=== PATIENT | female | born 1945 | race African-American/Black ===

== ENCOUNTER 2018-10-07 15:28 | Emergency (ER) | payer OTHER ==
--- OUTSIDE RECORDS SUMMARY | 2018-10-07 15:31 | XMS REPORT | Continuity of Care Document ---
:1945 Author Organization Interface Problems Problem Status Onset Date Classification Date Comments Source Reported R59.9 CT Active 07/04/2017 [facility] GUIDED [facility]ONE [place] MARROW BIOPSY/A Medications Medication Details Route Status Patient Ordering Order Source Instructions Provider Date Allergies, Adverse Reactions, Alerts Substance Category Reaction Severity Reaction Status Date Comments Source type Reported Immunizations Immunization Date Given Site Status Last Updated Comments Source Results Order Name Results Value Reference Date Interpretation Comments Source [facility] HEMATOLOGY MCV 92.0 fL 80.0 - 07/04 [facility] 98.0 [facility] HEMAT[facility] Hgb 14.3 g/dL 12.0 - 07/04 16.0 [facility]EMAT[facility] Hct 43.9 % 36.0 - 07/04 48.0 [facility] HEMAT[facility] MCH 29.9 pg 27.0 - 07/04 31.0 [facility] HEMAT[facility] Platelet 222 K/CMM 133 - 450 07/04 [facility] HEMAT[facility] MCHC 32.5 g/dL 32.0 - 07/04 36.0 [facility] HEMAT[facility]Y RDW 15.8 % 11.5 - 07/04 MH 14.5 [facility] HEMAT[facility]Y MPV 10.4 fL 7.4 - 10.4 07/04 [facility] HEMAT[facility]Y RBC 4.78 M/CMM 4.20 - 07/04 MH 5.40 /2016 [facility] HEMATOLOGY WBC 15.9 K/CMM 3.7 - 10.4 07/04 [facility] HEMATOLOGY PT 13.0 s 12.0 - 07/04 MH 14.7 [facility] HEMAT[facility]Y INR 0.96 0.85 - 07/04 MH 1.17 [facility] HEMAT[facility] PTT 26.5 s 22.9 - 07/04 MH 35.8 [facility] HEMATOLOGY Platelet 219 K/CMM 133 - 450 07/04 [facility] HEMATOLOGY Plt Morph Normal 07/04 [facility] (07/04/17 8:16 AM) [place] HEMATOLOGY Segs 69.3 % 45.0 - 07/04 MH 75.0 /2016 [facility] HEMATOLOGY Lymphocytes 23.0 % 20.0 - 07/04 40.0 /2016 [facility] HEMATOLOGY Eosinophils 0.1 K/CMM 0.0 - 0.5 07/04 # /2016 [facility] HEMATOLOGY Monocytes # 1.1 K/CMM 0.0 - 0.8 07/04 [facility] HEMATOLOGY Basophils # 0.1 K/CMM 0.0 - 0.2 07/04 [facility] HEMATOLOGY Anisocyte 1+ None Seen 07/04 [facility] *ABN* [place] (07/04/17 8:16 AM) HEMATOLOGY Eosinophils 0.4 % 0.0 - 4.0 07/04 [facility] HEMATOLOGY Monocytes 6.7 % 2.0 - 12.0 07/04 [facility] HEMATOLOGY Segs-Bands # 11.0 K/CMM 1.5 - 8.1 07/04 [facility] HEMATOLOGY Basophils 0.6 % 0.0 - 1.0 07/04 [facility] HEMATOLOGY Lymphocytes 3.7 K/CMM 1.0 - 5.5 07/04 # /2016 [facility] Bone biopsy Bone biopsy PROCEDURES PERFORMED: 07/04 - w guidance w guidance /2016 - [facility] CT CT 1. Bone Marrow aspiration and core needle biopsy. [place] 2. CT guidance. Read by: Virgil Galloway MD Dictated Date/time: 07/04/17 10:51 3. Moderate Sedation Electronically Signed by: Virgil Galloway MD 07/04/17 10:55 FINAL REPORT HISTORY: Abnormal blood differential and anemia. Bone marrow biopsy requested. Possible risks and complications of the procedure were discussed with the patient. Possible risks including pain, infection, bleeding, nondiagnostic sampling with need for resampling were discussed. The patient understood and asked to proceed. SEDATION: Moderate sedation for 30 minutes with fentanyl and Versed was carried out with monitoring by the nursing staff and myself throughout the procedure. DLP: 157.61 mgy-cm AEC, mA/kV adjustment by patient size, and/or iterative reconstruction technique were used, per departmental dose-optimization program. PROCEDURE: Sterile barrier technique was followed including: Cap and mask, sterile gown, sterile gloves, and large sterile sheet. Hand hygiene, and 2% chlorhexidine for cutaneous antisepsis (or acceptable alternative antiseptics, per current guideline). The patient was placed supine on the CT scanner and a focused non-contrast scan of the pelvis was performed. The right gluteal region was prepped and draped in a standard sterile fashion. After administering local anesthesia, an 18-gauge bone biopsy needle was advanced with CT guidance into the right iliac bone. Satisfactory position was confirmed with CT. Approximately 7 cc of marrow was aspirated and given to the field installation technician for preparation. An 8 gauge bone biopsy needle was then advanced under CT guidance into the right iliac bone and a core sample was obtained and given to the pulmonary function technologist in the room. Satisfactory position was confirmed under CT. The patient tolerated the procedure well, and there were no immediate complications. IMPRESSION: Bone marrow aspiration and core needle biopsy with CT guidance of the right iliac bone. Vital Signs Vital Sign Value Date Comments Source BMI Calculated 21.03 07/04/2017 [facility] Height 167.64 cm 07/04/2017 [facility] Weight 59.091 07/04/2017 [facility] Temperature Oral (F) 97.6 F 07/04/2017 [facility] Respitory Rate 18 07/04/2017 [facility] Systolic (mm Hg) 138 07/04/2017 [facility] Diastolic (mm Hg) 69 07/04/2017 [facility] Encounters Location Location Encounter Encounter Reason Attending ADM DC Status Source Details Type Number For Provider Date Date Visit [facility] Outpatient [id number] [place] 07/04 07/05 Miko Lou [place] [place] Procedures Procedure Code Date Perfomer Comments Source
--- OUTSIDE RECORDS SUMMARY | 2018-10-07 15:31 | XMS REPORT ---
:1945 Author Organization eClinicalWorks Care Team Providers Name Role Phone Webster, Na Provider Role Unavailable Allergies, Adverse Reactions, Alerts Substance Reaction Event Type N.K.D.A. Info Not Available Non Drug Allergy Problems Problem Type Condition Code Onset Dates Condition Status Problem Abnormal mammogram R92.8 Active Problem Anemia D64.9 Active Problem Hypomagnesemia E83.42 Active Problem AAA (abdominal aortic aneurysm) I71.4 Active without rupture Assessment Hypomagnesemia E83.42 Active Problem Cigarette nicotine dependence F17.210 Active without complication Assessment Abdominal aneurysm I71.4 Active Assessment Hypokalemia E87.6 Active Problem Hypokalemia E87.6 Active Problem Benign essential HTN I10 Active Problem GERD (gastroesophageal reflux K21.9 Active disease) Problem Nicotine dependence F17.200 Active Problem Hyperlipidemia E78.5 Active Assessment Gastroesophageal reflux disease K21.9 Active without esophagitis Assessment 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 Assessment Hyperlipidemia E78.5 Active Assessment Benign essential HTN I10 Active Problem Pure hypercholesterolemia E78.00 Active Problem Stented coronary artery Z95.5 Active Problem Smoker F17.200 Active Assessment Cigarette nicotine dependence F17.210 Active without complication Problem Gastroesophageal reflux disease K21.9 Active without esophagitis Problem 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 Medications Medication Code Code Instructions Start End Status Dosage System Date Date Magnesium Oxide ND 12488927613 400 MG Orally Active 1 tablet Once a day as needed Gabapentin ND 01127666737 300 MG Orally Active 1 capsule Once a day before bedtime Simvastatin ND 81257257024 20 MG Orally Active 1 tablet Once a day in the evening ProAir HFA [facility] 76190226193 108 (90 Base) Active 2 puffs MCG/ACT as needed Inhalation every 6 hrs Potassium Chloride ER ND 75648762871 10 MEQ Orally Active 1 tablet twice a day with food Ferrous Sulfate ND 75579987461 325 (65 Fe) MG Active 1 tablet Orally Once a day Ergocalciferol [facility] 71919285570 44486 UNIT Active 1 capsule Orally Hydrochlorothiazide [facility] 04416495407 25 MG Active TAKE 1 TABLET BY MOUTH ONCE A DAY Metoprolol Succinate [facility] 74791484903 100 MG Orally Active 1 tablet ER Once a day Advair Diskus [facility] 91465890875 100-50 Active 1 puff MCG/DOSE Inhalation Twice a day Protonix [facility] 66515382157 40 MG Active TAKE 1 TABLET BY MOUTH ONCE A DAY Zocor [facility] 16052045570 20 MG Active TAKE 1 TABLET BY MOUTH DAILY Results No Known Results Summary Purpose eClinicalWorks Submission
--- OUTSIDE RECORDS SUMMARY | 2018-10-07 15:31 | XMS REPORT ---
:1945 Author Organization eClinicalWorks Care Team Providers Name Role Phone Webster, Kirti Provider Role Unavailable Allergies, Adverse Reactions, Alerts Substance Reaction Event Type N.K.D.A. Info Not Available Non Drug Allergy Problems Problem Type Condition Code Onset Dates Condition Status Assessment Weakness R53.1 Active Assessment Personal history of poliomyelitis Z86.12 Active Assessment Personal history of other diseases Z87.39 Active of the musculoskeletal system and connective tissue Assessment History of recent fall Z91.81 Active Assessment Unsteady gait R26.81 Active Assessment Cigarette nicotine dependence F17.210 Active without complication Problem Nicotine dependence F17.200 Active Assessment Hypokalemia E87.6 Active Problem Abnormal mammogram R92.8 Active Assessment Abdominal aneurysm I71.4 Active Problem Hypomagnesemia E83.42 Active Problem GERD (gastroesophageal reflux K21.9 Active disease) Problem Anemia D64.9 Active Problem Personal history of poliomyelitis Z86.12 Active Problem Hypokalemia E87.6 Active Assessment Hyperlipidemia E78.5 Active Assessment Hypomagnesemia E83.42 Active Problem Unsteady gait R26.81 Active Assessment Gastroesophageal reflux disease K21.9 Active without esophagitis Problem Hyperlipidemia E78.5 Active Problem Benign essential HTN I10 Active Problem Cigarette nicotine dependence F17.210 Active without complication Problem AAA (abdominal aortic aneurysm) I71.4 Active without rupture Problem Pure hypercholesterolemia E78.00 Active Assessment Benign essential HTN I10 Active Assessment 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 Problem Smoker F17.200 Active Problem Gastroesophageal reflux disease K21.9 Active without esophagitis Problem Stented coronary artery Z95.5 Active Problem 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 Medications Medication Code Code Instructions Start End Status Dosage System Date Date Metoprolol Succinate ND 96602634286 100 MG Orally Active 1 tablet ER Once a day Hydrochlorothiazide ND 61724188824 25 MG Active TAKE 1 TABLET BY MOUTH ONCE A DAY Potassium Chloride ER ND 96485486833 10 MEQ Orally Active 1 tablet twice a day with food Advair Diskus ND 84770802601 100-50 Active 1 puff MCG/DOSE Inhalation Twice a day Zocor [facility] 21915660175 20 MG Active TAKE 1 TABLET BY MOUTH DAILY Gabapentin [facility] 44930292654 300 MG Orally Active 1 capsule Once a day before bedtime Metoprolol Succinate [facility] 68208959365 100 MG Active TAKE 1 ER TABLET BY MOUTH EVERY DAY Hydrochlorothiazide [facility] 77748427564 25 MG Active TAKE 1 TABLET BY MOUTH ONCE A DAY ProAir HFA [facility] 57064533216 108 (90 Base) Active 2 puffs MCG/ACT as needed Inhalation every 6 hrs Simvastatin [facility] 53584437251 20 MG Orally Active 1 tablet Once a day in the evening Magnesium Oxide [facility] 44422806830 400 MG Orally Active 1 tablet Once a day as needed Protonix [facility] 67719543849 40 MG Active TAKE 1 TABLET BY MOUTH ONCE A DAY Zocor [facility] 24226587118 20 MG Active TAKE 1 TABLET BY MOUTH DAILY Ferrous Sulfate [facility] 08767109518 325 (65 Fe) MG Active 1 tablet Orally Once a day Ergocalciferol [facility] 92626807727 24920 UNIT Active 1 capsule Orally Results No Known Results Summary Purpose eClinicalWorks Submission
--- NOTE | 2018-10-07 18:09 | RAD REPORT ---
EXAM DESCRIPTION: RAD - Hip Right 2 View - 10/07/2018 6:01 pm CLINICAL HISTORY: History of recent falls, leg numbness COMPARISON: None. FINDINGS: AP and frog-leg views of the right hip were obtained. There is no fracture or dislocation . No acute or destructive bony process seen. Minimal SI joint degenerative change. Lower lumbar dege nerative change present but incompletely imaged. IMPRESSION: Negative right hip examination for acute findings.
--- NOTE | 2018-10-07 18:16 | EDPHYS ---
Physician Documentation [facility] Name: Cindy Sorto Age: 73 yrs Sex: Female : 1945 Arrival Date: 10/07/2018 Time: 15:35 Bed 16 Private MD: Segundo Leslie HPI: 10/07 17:00 This 73 yrs old Black Female presents to ER via Wheelchair with complaints of Numbness pm1 - RT LEG. 17:00 The patient or guardian reports pain. sustained from unknown reason, There is no pm1 obvious deformity, The patient is able to self ambulate. The patient is able to bear their full body weight. The patient's discomfort radiates to the right foot. The complaints affect the right hip. Onset: The symptoms/episode began/occurred 1 month(s) ago. Modifying factors: The symptoms are alleviated by positioning off of her right hip and buttocks, the symptoms are aggravated by sitting. Patient presents to the ER with complaints of right hip pain radiating to right foot when she sits on a heard surface. Patient without any current pain. Patient reports relief in pain if she does not apply pressure to right hip or buttocks. Denies any trauma. 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 - Social history:: Smoking status: Patient uses tobacco products, smokes one pack cigarettes per day. - Ebola Screening: : Patient negative for fever greater than or equal to 101.5 degrees Fahrenheit, and additional compatible Ebola Virus Disease symptoms Patient denies exposure to infectious person Patient denies travel to an Ebola-affected area in the 21 days before illness onset No symptoms or risks identified at this time. ROS: 17:00 Constitutional: Negative for fever, chills, and weight loss, Eyes: Negative for injury, pm1 pain, redness, and discharge, ENT: Negative for injury, pain, and discharge, Neck: Negative for injury, pain, and swelling, Cardiovascular: Negative for chest pain, palpitations, and edema, Respiratory: Negative for shortness of breath, cough, wheezing, and pleuritic chest pain, Abdomen/GI: Negative for abdominal pain, nausea, vomiting, diarrhea, and constipation, Back: Negative for injury and pain, : Negative for injury, bleeding, discharge, and swelling. 17:00 Skin: Negative for injury, rash, and discoloration, Neuro: Negative for headache, weakness, numbness, tingling, and seizure. 17:00 MS/extremity: Positive for pain, of the right hip. Exam: 17:00 Constitutional: This is a well developed, well nourished patient who is awake, alert, pm1 and in no acute distress. Head/Face: Normocephalic, atraumatic. Eyes: Pupils equal round and reactive to light, extra-ocular motions intact. Lids and lashes normal. Conjunctiva and sclera are non-icteric and not injected. Cornea within normal limits. Periorbital areas with no swelling, redness, or edema. ENT: Nares patent. No nasal discharge, no septal abnormalities noted. Tympanic membranes are normal and external auditory canals are clear. Oropharynx with no redness, swelling, or masses, exudates, or evidence of obstruction, uvula midline. Mucous membranes moist. Neck: Trachea midline, no thyromegaly or masses palpated, and no cervical lymphadenopathy. Supple, full range of motion without nuchal rigidity, or vertebral point tenderness. No Meningismus. Chest/axilla: Normal chest wall appearance and motion. Nontender with no deformity. No lesions are appreciated. Cardiovascular: Regular rate and rhythm with a normal S1 and S2. No gallops, murmurs, or rubs. Normal PMI, no JVD. No pulse deficits. Respiratory: Lungs have equal breath sounds bilaterally, clear to auscultation and percussion. No rales, rhonchi or wheezes noted. No increased work of breathing, no retractions or nasal flaring. Abdomen/GI: Soft, non-tender, with normal bowel sounds. No distension or tympany. No guarding or rebound. No evidence of tenderness throughout. Back: No spinal tenderness. No costovertebral tenderness. Full range of motion. Skin: Warm, dry with normal turgor. Normal color with no rashes, no lesions, and no evidence of cellulitis. 17:00 Musculoskeletal/extremity: Extremities: grossly normal except: noted in the right hip: tenderness, There is no evidence of decreased ROM, deformity, shortening, ROM: intact in all extremities, Circulation is intact in all extremities. Pulses: noted to be 2+ in the right dorsalis pedis artery, Sensation intact. 17:00 Neuro: Orientation: is normal, Motor: is normal, moves all fours. Vital Signs: 15:44 BP 80 / 41; Pulse 85; Resp 16; Temp 97.9; Pulse Ox 96% on R/A; Pain 0/10; iw 16:45 BP 107 / 38; Pulse 83; Resp 16; Pulse Ox 100% on R/A; Pain 0/10; hb 18:15 BP 108 / 43; Pulse 86; Resp 15; Pulse Ox 100% on R/A; hb MDM: 16:36 Patient medically screened. pm1 18:12 Data reviewed: vital signs. Data interpreted: Pulse oximetry: on room air is 100 %. pm1 Interpretation: normal. Counseling: I had a detailed discussion with the patient and/or guardian regarding: the historical points, exam findings, and any diagnostic results supporting the discharge/admit diagnosis, radiology results. 10/07 16:41 Order name: Hip Right 2 View XRAY; Complete Time: 18:12 pm1 Administered Medications: No medications were administered Disposition: 10/08 07:24 Co-signature as Attending Physician, Segundo Adams MD I agree with the assessment and maryjo plan of care. Disposition: 10/07/18 18:14 Discharged to Home. Impression: Pain in right hip, Sciatica, right side. - Condition is Stable. - Discharge Instructions: Joint Pain, Arthritis, Sciatica, Hip Pain. - Medication Reconciliation Form, Thank You Letter form. - Follow up: Emergency Department; When: As needed; Reason: Worsening of condition. Follow up: Private Physician; When: 2 - 3 days; Reason: Recheck today's complaints, Continuance of care, Re-evaluation by your physician. - Problem is new. - Symptoms have improved. Signatures: Dispatcher [employer] Segundo Zavala MD MD cha Williams, Irene, RN RN iw Mario Pardo NP MATERIAL MANAGER pm1 Verma, Yoko, RN RN hb Corrections: (The following items were deleted from the chart) 10/07 18:40 18:14 10/07/2018 18:14 Discharged to Home. Impression: Pain in right hip; Sciatica, hb right side. Condition is Stable. Forms are Medication Reconciliation Form, Thank You Letter, Antibiotic Education, Prescription Opioid Use. Follow up: Emergency Department; When: As needed; Reason: Worsening of condition. Follow up: Private Physician; When: 2 - 3 days; Reason: Recheck today's complaints, Continuance of care, Re-evaluation by your physician. Problem is new. Symptoms have improved. pm1
--- NOTE | 2018-10-07 18:16 | ER ---
Nurse's Notes [facility] Name: Cindy Sorto Age: 73 yrs Sex: Female : 1945 Arrival Date: 10/07/2018 Time: 15:35 Bed 16 Private MD: Diagnosis: Pain in right hip;Sciatica, right side Presentation: 10/07 15:40 Presenting complaint: Patient states: right leg is numb intermittent X 1 month, has had iw 5-6 falls over past 6 months, pt denies pain to leg, numbness from hip to knee. Transition of care: patient was not received from another setting of care. Onset of symptoms was August 2018. Risk Assessment: Do you want to hurt yourself or someone else? Patient reports no desire to harm self or others. Initial Sepsis Screen: Does the patient meet any 2 criteria? No. Patient's initial sepsis screen is negative. Does the patient have a suspected source of infection? No. Patient's initial sepsis screen is negative. Care prior to arrival: None. 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 - Social history:: Smoking status: Patient uses tobacco products, smokes one pack cigarettes per day. - Ebola Screening: : Patient negative for fever greater than or equal to 101.5 degrees Fahrenheit, and additional compatible Ebola Virus Disease symptoms Patient denies exposure to infectious person Patient denies travel to an Ebola-affected area in the 21 days before illness onset No symptoms or risks identified at this time. Screenin:45 Abuse screen: Denies threats or abuse. Denies injuries from another. Nutritional hb screening: No deficits noted. Tuberculosis screening: No symptoms or risk factors identified. Fall Risk Total Zhao Fall Scale indicates Low Risk Score (25-44 pts). Fall prevention measures have been instituted. Side Rails Up X 2 Frequent Obs/Assesments occuring Family Present and informed to notify staff if they need to leave bedside As available Patient and Family Educated on Fall Prevention Program and strategies. Assessment: 16:45 General: Appears in no apparent distress. Behavior is calm, cooperative. Pain: Denies hb pain. Neuro: Level of Consciousness is awake, alert, obeys commands, Oriented to person, place, time, situation. Cardiovascular: Capillary refill < 3 seconds Patient's skin is warm and dry. Respiratory: Airway is patent Trachea midline Respiratory effort is even, unlabored, Respiratory pattern is regular, symmetrical. GI: No signs and/or symptoms were reported involving the gastrointestinal system. : No signs and/or symptoms were reported regarding the genitourinary system. EENT: No signs and/or symptoms were reported regarding the EENT system. Derm: No signs and/or symptoms reported regarding the dermatologic system. Musculoskeletal: Reports intermittent right leg and hip numbness. 17:45 Reassessment: Patient appears in no apparent distress at this time. No changes from hb previously documented assessment. Patient and/or family updated on plan of care and expected duration. Pain level reassessed. Patient is alert, oriented x 3, equal unlabored respirations, skin warm/dry/pink. 18:38 Reassessment: Patient appears in no apparent distress at this time. No changes from hb previously documented assessment. Patient and/or family updated on plan of care and expected duration. Pain level reassessed. Patient is alert, oriented x 3, equal unlabored respirations, skin warm/dry/pink. Vital Signs: 15:44 BP 80 / 41; Pulse 85; Resp 16; Temp 97.9; Pulse Ox 96% on R/A; Pain 0/10; iw 16:45 BP 107 / 38; Pulse 83; Resp 16; Pulse Ox 100% on R/A; Pain 0/10; hb 18:15 BP 108 / 43; Pulse 86; Resp 15; Pulse Ox 100% on R/A; hb ED Course: 15:35 Patient arrived in ED. sb2 15:42 Triage completed. iw 15:44 Arm band placed on. iw 16:35 Mario Pardo NP is PHCP. pm1 16:35 Segundo Adams MD is Attending Physician. pm1 16:59 Yoko Verma, RN is Primary Nurse. hb 17:00 Patient has correct armband on for positive identification. Bed in low position. Call hb light in reach. Side rails up X 1. Side rails up X2. 17:59 X-ray completed. Portable x-ray completed in exam room. Patient tolerated procedure ls3 well. 18:03 Hip Right 2 View XRAY In Process Unspecified. EDMS 18:39 No provider procedures requiring assistance completed. Patient did not have IV access hb during this emergency room visit. Administered Medications: No medications were administered Outcome: 18:14 Discharge ordered by MD. pm1 18:39 Discharged to home via wheelchair, with family. hb 18:39 Condition: stable 18:39 Discharge instructions given to patient, Instructed on discharge instructions, follow up and referral plans. medication usage, Demonstrated understanding of instructions, follow-up care, medications. 18:40 Patient left the ED. hb Signatures: Dispatcher [employer] EDMS Tavon Pope RN RN Swathi Sorto RN RN Mario Pardo, STATION ATTENDANT STATION ATTENDANT pm1 Yoko Verma, SEAN ESTRADA Jamia West sb2 Nick Hutchins ls3 Corrections: (The following items were deleted from the chart) 16:00 15:40 Acuity: FRANCO 3 iw sg
[2018-10-07 23:51] VITALS: TEMP 97.9
[2018-10-07 23:52] VITALS: O2SAT 100
[2018-10-07 23:54] VITALS: BP 108/43
== END 2018-10-07 18:40 | disposition home or self-care (01) ==
LOC: ER 15:28
DX: M25.551 Pain in right hip (principal); M54.31 Sciatica, right side; E78.5 Hyperlipidemia, unspecified; I10 Essential (primary) hypertension; F17.210 Nicotine dependence, cigarettes, uncomplicated; Z79.899 Other long term (current) drug therapy
CPT/HCPCS: 99283

== ENCOUNTER 2018-12-18 15:34 | Emergency (ER) | payer OTHER ==
--- OUTSIDE RECORDS SUMMARY | 2018-12-18 15:37 | XMS REPORT ---
[...] Dosage System Date Date Metoprolol Succinate ND 82576687064 100 MG Orally Active 1 tablet ER Once a day Hydrochlorothiazide ND 82268004336 25 MG Active TAKE 1 TABLET BY MOUTH ONCE A DAY Potassium Chloride ER ND 07643232553 10 MEQ Orally Active 1 tablet twice a day with food Advair Diskus ND 04399324592 100-50 Active 1 puff MCG/DOSE Inhalation Twice a day Zocor [facility] 60958563969 20 MG Active TAKE 1 TABLET BY MOUTH DAILY Gabapentin [facility] 16307626697 300 MG Orally Active 1 capsule Once a day before bedtime Metoprolol Succinate [facility] 50264995265 100 MG Active TAKE 1 ER TABLET BY MOUTH EVERY DAY Hydrochlorothiazide [facility] 66008029149 25 MG Active TAKE 1 TABLET BY MOUTH ONCE A DAY ProAir HFA [facility] 37281592976 108 (90 Base) Active 2 puffs MCG/ACT as needed Inhalation every 6 hrs Simvastatin [facility] 43852132131 20 MG Orally Active 1 tablet Once a day in the evening Magnesium Oxide [facility] 20067551324 400 MG Orally Active 1 tablet Once a day as needed Protonix [facility] 73608350233 40 MG Active TAKE 1 TABLET BY MOUTH ONCE A DAY Zocor [facility] 38095497679 20 MG Active TAKE 1 TABLET BY MOUTH DAILY Ferrous Sulfate [facility] 73136134760 325 (65 Fe) MG Active 1 tablet Orally Once a day Ergocalciferol [facility] 03529856169 18562 UNIT Active 1 capsule Orally Results No Known Results Summary Purpose eClinicalWorks Submission
--- OUTSIDE RECORDS SUMMARY | 2018-12-18 15:37 | XMS REPORT ---
[...] Dosage System Date Date Magnesium Oxide ND 90401215253 400 MG Orally Active 1 tablet Once a day as needed Gabapentin ND 51227650888 300 MG Orally Active 1 capsule Once a day before bedtime Simvastatin ND 62895802057 20 MG Orally Active 1 tablet Once a day in the evening ProAir HFA [facility] 25141923998 108 (90 Base) Active 2 puffs MCG/ACT as needed Inhalation every 6 hrs Potassium Chloride ER ND 45189423819 10 MEQ Orally Active 1 tablet twice a day with food Ferrous Sulfate ND 07338299513 325 (65 Fe) MG Active 1 tablet Orally Once a day Ergocalciferol [facility] 00956889258 26832 UNIT Active 1 capsule Orally Hydrochlorothiazide [facility] 07544136716 25 MG Active TAKE 1 TABLET BY MOUTH ONCE A DAY Metoprolol Succinate [facility] 57430869984 100 MG Orally Active 1 tablet ER Once a day Advair Diskus [facility] 15313649832 100-50 Active 1 puff MCG/DOSE Inhalation Twice a day Protonix [facility] 55421567468 40 MG Active TAKE 1 TABLET BY MOUTH ONCE A DAY Zocor [facility] 81402719487 20 MG Active TAKE 1 TABLET BY MOUTH DAILY Results No Known Results Summary Purpose eClinicalWorks Submission
--- OUTSIDE RECORDS SUMMARY | 2018-12-18 15:37 | XMS REPORT ---
:1945 Author Organization eClinicalWorks Care Team Providers Name Role Phone Webster, Na Provider Role Unavailable Allergies, Adverse Reactions, Alerts Substance Reaction Event Type N.K.D.A. 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 Active Problem Benign essential HTN I10 Active Assessment Hyperlipidemia E78.5 Active Problem Hyperlipidemia E78.5 Active Problem Cigarette nicotine dependence F17.210 Active without complication Problem Nicotine dependence F17.200 Active Problem Primary osteoarthritis, 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 Active and foot Problem 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 Active Assessment 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 Problem Primary osteoarthritis, right ankle M19.071 Active and foot Assessment Benign essential HTN I10 Active Problem AAA (abdominal aortic aneurysm) I71.4 Active without rupture Problem Hypokalemia E87.6 Active Problem Personal history of poliomyelitis Z86.12 Active Problem Unsteady gait R26.81 Active Problem Pure hypercholesterolemia E78.00 Active Problem Stented coronary artery Z95.5 Active Problem Smoker F17.200 Active Problem Gastroesophageal reflux disease K21.9 Active without esophagitis Problem Hypomagnesemia E83.42 Active Problem Anemia D64.9 Active Problem 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 Problem Abnormal mammogram R92.8 Active Medications Medication Code Code Instructions Start End Status Dosage System Date Date [facility] 86966997251 20 MG Active TAKE 1 TABLET BY MOUTH DAILY Potassium Chloride ER [facility] 67328871166 10 MEQ Orally Active 1 tablet twice a day with food Hydrochlorothiazide ND 54058443956 25 MG Active TAKE 1 TABLET BY MOUTH ONCE A DAY Zocor [facility] 23845481521 20 MG Active TAKE 1 TABLET BY MOUTH DAILY Metoprolol Succinate [facility] 07426483942 100 MG Active TAKE 1 ER TABLET BY MOUTH EVERY DAY Advair Diskus [facility] 79392335443 100-50 Active 1 puff MCG/DOSE Inhalation Twice a day Diclofenac Sodium [facility] 39097189184 1 % Nov 29, Active 2gram to Transdermal 2019 affected Three times a area day prn pain Protonix [facility] 13996933079 40 MG Active TAKE 1 TABLET BY MOUTH ONCE A DAY Magnesium Oxide [facility] 83707633923 400 MG Orally Active 1 tablet Once a day as needed Metoprolol Succinate [facility] 72474982878 100 MG Orally Active 1 tablet ER Once a day Ergocalciferol [facility] 21803547957 56561 UNIT Active 1 capsule Orally Ferrous Sulfate [facility] 80717713772 325 (65 Fe) MG Active 1 tablet Orally Once a day Simvastatin [facility] 44227627697 20 MG Orally Active 1 tablet Once a day in the evening ProAir HFA [facility] 96578377301 108 (90 Base) Active 2 puffs as MCG/ACT needed Inhalation every 6 hrs Gabapentin [facility] 71113636404 300 MG Orally Active 1 capsule Once a day before bedtime Hydrochlorothiazide [facility] 43369869340 25 MG Active TAKE 1 TABLET BY MOUTH ONCE A DAY Results No Known Results Summary Purpose eClinicalWorks Submission
--- OUTSIDE RECORDS SUMMARY | 2018-12-18 15:37 | XMS REPORT | Continuity of Care Document ---
[...] 92.0 fL 80.0 - 07/04 MH 98.0 [place] HEMAT[facility] Hgb 14.3 g/dL 12.0 - 07/04 16.0 [place] [facility]AT[facility] Hct 43.9 % 36.0 - 07/04 48.0 [place] [facility]AT[facility] MCH 29.9 pg 27.0 - 07/04 31.0 [place] [facility]EMAT[facility] Platelet 222 K/CMM 133 - 450 07/04 [place] HEMAT[facility] MCHC 32.5 g/dL 32.0 - 07/04 36.0 [place] HEMAT[facility] RDW 15.8 % 11.5 - 07/04 MH 14.5 [place] HEMAT[facility] MPV 10.4 fL 7.4 - 10.4 07/04 [place] HEMAT[facility] RBC 4.78 M/CMM 4.20 - 07/04 MH 5.40 /2016 [place] HEMAT[facility] WBC 15.9 K/CMM 3.7 - 10.4 07/04 [place] HEMATOLOGY PT 13.0 s 12.0 - 07/04 MH 14.7 [place] HEMATOLOGY INR 0.96 0.85 - 07/04 MH 1.17 [place] HEMAT[facility] PTT 26.5 s 22.9 - 07/04 MH 35.8 [place] HEMAT[facility] Platelet 219 K/CMM 133 - 450 07/04 [place] HEMATOLOG[facility] Plt Morph Normal 07/04 [place] (07/04/17 8:16 AM[place] [facility] Segs 69.3 % 45.0 - 07/04 MH 75.0 /2016 [place] HEMATOLOGY Lymphocytes 23.0 % 20.0 - 07/04 40.0 /2016 [place] HEMATOLOGY Eosinophils 0.1 K/CMM 0.0 - 0.5 07/04 # /2016 [place] HEMATOLOGY Monocytes # 1.1 K/CMM 0.0 - 0.8 07/04 [place] HEMATOLOGY Basophils # 0.1 K/CMM 0.0 - 0.2 07/04 [place] HEMATOLOGY Anisocyte 1+ None Seen 07/04 [place] *ABN* [place] (07/04/17 8:16 AM) HEMATOLOGY Eosinophils 0.4 % 0.0 - 4.0 07/04 [place] HEMATOLOGY Monocytes 6.7 % 2.0 - 12.0 07/04 [place] HEMATOLOGY Segs-Bands # 11.0 K/CMM 1.5 - 8.1 07/04 [place] HEMATOLOGY Basophils 0.6 % 0.0 - 1.0 07/04 [place] HEMATOLOGY Lymphocytes 3.7 K/CMM 1.0 - 5.5 07/04 # /2016 [place] Bone biopsy Bone biopsy PROCEDURES PERFORMED: 07/04 - w guidance w guidance /2016 - [facility] CT CT 1. Bone Marrow aspiration [...] marrow was aspirated and given to the voip technician for preparation. An 8 gauge bone biopsy needle was then advanced under CT guidance into the right iliac bone and a core sample was obtained and given to the x ray technologist in the room. Satisfactory position was confirmed under CT. The patient tolerated the procedure well, and there were no immediate complications. IMPRESSION: Bone marrow aspiration and core needle biopsy with CT guidance of the right iliac bone. Vital Signs Vital Sign Value Date Comments Source BMI Calculated 21.03 07/04/2017 [place] Height 167.64 cm 07/04/2017 [place] Weight 59.091 07/04/2017 [place] Temperature Oral (F) 97.6 F 07/04/2017 [place] Respitory Rate 18 07/04/2017 [place] Systolic (mm Hg) 138 07/04/2017 [place] Diastolic (mm Hg) 69 07/04/2017 [place] Encounters Location Location Encounter Encounter Reason Attending ADM DC Status Source Details Type Number For Provider Date Date Visit [facility] Outpatient [id number] [place] 07/04 07/05 Miko Lou [place] Procedures Procedure Code Date Perfomer Comments Source
[2018-12-18] MEDS ORDERED: predniSONE 20 MG TAB ONE (16:26)
[2018-12-18] MEDS ORDERED: ALBUTEROL 2.5 MG/3 ML NEB SOL ONE (16:26)
[2018-12-18] MEDS ORDERED: IPRATROPIUM BROM 0.5MG/2.5ML ONE (16:26)
--- NOTE | 2018-12-18 16:42 | RAD REPORT ---
EXAM DESCRIPTION: Adrien Single View12/18/2018 4:35 pm CLINICAL HISTORY: sob COMPARISON: 2017 FINDINGS: A bullous emphysema involves the upper lobes, right greater than left. The lungs appear clear of acute infiltrate. The heart is normal size IMPRESSION: COPD without visualization acute abnormality
--- NOTE | 2018-12-18 17:11 | EKG ---
Test Date: 2018-11-17 Test Time: 16:23:36 Room Inspector: ANATOLIY MEASUREMENT RESULTS: Intervals: Rate: 86 TN: 140 QRSD: 66 QT: 366 QTc: 437 [place]: P: 86 TN: 140 QRS: 52 T: 40 INTERPRETIVE STATEMENTS: Sinus rhythm with premature atrial complexes Cannot rule out Anterior infarct, age undetermined Abnormal ECG Compared to ECG 01/01/2017 15:36:49 Atrial premature complex(es) now present Myocardial infarct finding now present Sinus arrhythmia no longer present Left ventricular hypertrophy no longer present Electronically Signed On 12-18-18 17:10:28 WRITER TECHNICAL PUBLICATIONS by Miki Duggan
[2018-12-18 17:16] LABS: Protime INR 1.12
[2018-12-18 17:20] LABS: Absolute Lymphocytes (CBC) 0.8 K/uL (0.7-4.9); Absolute Monocytes 0.7 K/uL (0.1-1.3); Absolute Neutrophil 6.1 K/uL (1.8-8.0); Basophils % 0.5 % (0-1.3); Eosinophils % 1.3 % (0-4.4); Lymphocytes % 9.9 % (15.3-44.8); Monocytes % 8.5 % (3.3-12.3); RBC Red Blood Cell Count 3.57 M/uL (3.86-4.86)
[2018-12-18 18:07] LABS: ALT/SGPT 14 U/L (12-78); AST/SGOT 16 U/L (15-37); Albumin 3.9 g/dL (3.4-5.0); Alkaline Phosphatase 59 U/L (45-117); BUN Blood Urea Nitrogen 15 mg/dL (7-18); Bicarbonate 30 mmol/L (21-32); Bilirubin Direct 0.5 mg/dL (0-0.2); Bilirubin Total 2.8 mg/dL (0.2-1.0); Glucose Level 107 mg/dL (74-106); Magnesium 1.8 mg/dL (1.8-2.4); NT PRO-BNP 336 pg/mL (<125); Potassium 3.5 mmol/L (3.5-5.1); Protein, Total 7.3 g/dL (6.4-8.2); Sodium Level 134 mmol/L (136-145); Troponin (Emerg Dept Use Only) < 0.02 ng/mL (0.0-0.045)
[2018-12-18] MEDS ORDERED: CEFTRIAXONE/SWI 1gm 1 GM/10 ML SYR ONE (18:09)
--- NOTE | 2018-12-18 18:14 | ER ---
Nurse's Notes [facility] Name: Cindy Sorto Age: 73 yrs Sex: Female : 1945 Arrival Date: 12/18/2018 Time: 15:38 Bed 30 Private MD: Diagnosis: Chronic obstructive pulmonary disease with (acute) exacerbation Presentation: 12/18 15:38 Presenting complaint: EMS states: patient has been having shortness of breath and mg2 productive cough since morning \T\ 1000H. denies chest pain. Transition of care: patient was not received from another setting of care. Onset of symptoms was December 18, 2018 at 10:00. Risk Assessment: Do you want to hurt yourself or someone else? Patient reports no desire to harm self or others. Initial Sepsis Screen: Does the patient meet any 2 criteria? No. Patient's initial sepsis screen is negative. Does the patient have a suspected source of infection? No. Patient's initial sepsis screen is negative. Care prior to arrival: None. 15:38 Method Of Arrival: EMS: [facility] mg2 15:38 Acuity: FRANCO 3 mg2 Historical: - Allergies: 15:42 NKDA; mg2 - Home Meds: 15:42 Hydrochlorothiazide Oral once daily [Active]; Iron CR Oral daily [Active]; Magnesium mg2 Oxide Oral daily [Active]; Metoprolol Tartrate Oral once daily [Active]; Omeprazole Oral [Active]; Patient unable to provide [Active]; Zocor Oral [Active]; - PMHx: 15:42 Hyperlipidemia; Hypertension; Polio; mg2 - PSHx: 15:42 cardiac stent; mg2 - Immunization history:: Flu vaccine is not up to date. - Social history:: Smoking status: Patient uses tobacco products, smokes one-half pack cigarettes per day, Patient/guardian denies using. - Ebola Screening: : No symptoms or risks identified at this time. Screenin:43 Abuse screen: Denies threats or abuse. Denies injuries from another. Nutritional mg2 screening: No deficits noted. Tuberculosis screening: No symptoms or risk factors identified. Fall Risk IV access (20 points). Assessment: 16:42 General: Appears in no apparent distress. comfortable, Behavior is calm, cooperative. mg2 Pain: Denies pain. Neuro: Level of Consciousness is awake, alert, obeys commands, Oriented to person, place, time, situation. Cardiovascular: Capillary refill < 3 seconds Patient's skin is warm and dry. Respiratory: Airway is patent Respiratory effort is even, unlabored, Respiratory pattern is regular, symmetrical. Respiratory: Reports shortness of breath at rest cough that is productive, since 1000 today. GI: No signs and/or symptoms were reported involving the gastrointestinal system. : No deficits noted. EENT: No signs and/or symptoms were reported regarding the EENT system. Derm: Skin is intact, is healthy with good turgor, Skin is pink, warm \T\ dry. normal. Musculoskeletal: No signs and/or symptoms reported regarding the musculoskeletal system. 18:30 Reassessment: Patient denies pain at this time. mg2 Vital Signs: 15:39 BP 121 / 70; Pulse 90; Resp 18; Temp 97.9; Pulse Ox 100% on R/A; Weight 54.43 kg; mg2 Height 5 ft. 6 in. (167.64 cm); Pain 0/10; 16:43 BP 102 / 66; Pulse 91; Resp 18; Pulse Ox 100% on R/A; Pain 0/10; mg2 18:04 BP 123 / 42; Pulse 85; Resp 18; Pulse Ox 96% on R/A; Pain 0/10; mg2 18:58 BP 135 / 47; Pulse 88; Resp 18; Pulse Ox 96% on R/A; Pain 0/10; mg2 15:39 Body Mass Index 19.37 (54.43 kg, 167.64 cm) mg2 ED Course: 15:38 Patient arrived in ED. mg2 15:39 Triage completed. mg2 15:43 Arm band placed on. mg2 15:44 Mario Pardo NP is PHCP. pm1 15:44 Epifanio Lu MD is Attending Physician. pm1 16:14 Douglas Sauer RN is Primary Nurse. mg2 16:25 EKG done, by recycling tech. reviewed by Mario Pardo NP. sm3 16:34 X-ray completed. Portable x-ray completed in exam room. Patient tolerated procedure kp1 well. 16:36 XRAY Chest (1 view) In Process Unspecified. EDMS 16:43 Patient has correct armband on for positive identification. mg2 16:43 No provider procedures requiring assistance completed. Inserted saline lock: 20 gauge mg2 in left antecubital area, using aseptic technique. Blood collected. 18:58 IV discontinued, intact, bleeding controlled, No redness/swelling at site. Pressure mg2 dressing applied. Administered Medications: 16:38 Drug: Albuterol 2.5 mg Route: Inhalation; mg2 17:56 Follow up: Response: No adverse reaction; Marked relief of symptoms mg2 16:38 Drug: AtroVENT Aerosol 0.5 mg Route: Inhalation; mg2 17:56 Follow up: Response: No adverse reaction; Marked relief of symptoms mg2 16:38 Drug: predniSONE 60 mg Route: PO; mg2 17:56 Follow up: Response: No adverse reaction; Marked relief of symptoms mg2 18:01 Drug: Rocephin 1 grams Route: IV; Rate: calculated rate; Site: left antecubital; mg2 18:49 Follow up: Response: No adverse reaction; Marked relief of symptoms; IV Status: mg2 Completed infusion Outcome: 18:14 Discharge ordered by MD. pm1 18:59 Discharged to home via wheelchair, with family. mg2 18:59 Condition: stable 18:59 Discharge instructions given to patient, family, Instructed on discharge instructions, follow up and referral plans. medication usage, Demonstrated understanding of instructions, follow-up care, medications, Prescriptions given X 3. 19:00 Patient left the ED. mg2 Signatures: Dispatcher [employer] EDMS Mario Pardo NP TAX REPRESENTATIVE pm1 Ginna Luna kp1 Douglas Sauer RN RN mg2 Maria Esther Mayberry sm3
--- NOTE | 2018-12-18 18:15 | EDPHYS ---
Physician Documentation [facility] Unit Name: Cindy Sorto Age: 73 yrs Sex: Female : 1945 Arrival Date: 12/18/2018 Time: 15:38 Bed 30 Private MD: ED Physician Epifanio Lu HPI: 12/18 16:57 This 73 yrs old Black Female presents to ER via EMS with complaints of Shortness of pm1 breath. 16:57 The patient has shortness of breath at rest. Onset: The symptoms/episode began/occurred pm1 this morning. Duration: The symptoms are continuous. The patient's shortness of breath is aggravated by Patient's inhaler ran out today, is alleviated by typically by inhaler therapy. Associated signs and symptoms: Pertinent positives: non-productive cough, Pertinent negatives: chest pain, fever, nausea, vomiting, diarrhea. Severity of symptoms: in the emergency department the symptoms are unchanged Pain is currently a 0 / 10. The patient has not experienced similar symptoms in the past. The patient has not recently seen a physician, the patient's primary care provider is Dr. Webster. Historical: - Allergies: 15:42 NKDA; mg2 - Home Meds: 15:42 Hydrochlorothiazide Oral once daily [Active]; Iron CR Oral daily [Active]; Magnesium mg2 Oxide Oral daily [Active]; Metoprolol Tartrate Oral once daily [Active]; Omeprazole Oral [Active]; Patient unable to provide [Active]; Zocor Oral [Active]; - PMHx: 15:42 Hyperlipidemia; Hypertension; Polio; mg2 - PSHx: 15:42 cardiac stent; mg2 - Immunization history:: Flu vaccine is not up to date. - Social history:: Smoking status: Patient uses tobacco products, smokes one-half pack cigarettes per day, Patient/guardian denies using. - Ebola Screening: : No symptoms or risks identified at this time. ROS: 16:57 Constitutional: Negative for fever, chills, and weight loss, Eyes: Negative for injury, pm1 pain, redness, and discharge, ENT: Negative for injury, pain, and discharge, Neck: Negative for injury, pain, and swelling, Cardiovascular: Negative for chest pain, palpitations, and edema, Abdomen/GI: Negative for abdominal pain, nausea, vomiting, diarrhea, and constipation, Back: Negative for injury and pain. 16:57 : Negative for injury, bleeding, discharge, and swelling, MS/Extremity: Negative for injury and deformity, Skin: Negative for injury, rash, and discoloration. 16:57 Neuro: Negative for headache, weakness, numbness, tingling, and seizure. 16:57 Respiratory: Positive for cough, shortness of breath, at rest. Exam: 16:57 Constitutional: This is a well developed, well nourished patient who is awake, alert, pm1 and in no acute distress. Head/Face: Normocephalic, atraumatic. Eyes: Pupils equal round and reactive to light, extra-ocular motions intact. Lids and lashes normal. Conjunctiva and sclera are non-icteric and not injected. Cornea within normal limits. Periorbital areas with no swelling, redness, or edema. ENT: Nares patent. No nasal discharge, no septal abnormalities noted. Tympanic membranes are normal and external auditory canals are clear. Oropharynx with no redness, swelling, or masses, exudates, or evidence of obstruction, uvula midline. Mucous membranes moist. Neck: Trachea midline, no thyromegaly or masses palpated, and no cervical lymphadenopathy. Supple, full range of motion without nuchal rigidity, or vertebral point tenderness. No Meningismus. Chest/axilla: Normal chest wall appearance and motion. Nontender with no deformity. No lesions are appreciated. Cardiovascular: Regular rate and rhythm with a normal S1 and S2. No gallops, murmurs, or rubs. Normal PMI, no JVD. No pulse deficits. 16:57 Back: No spinal tenderness. No costovertebral tenderness. Full range of motion. Skin: Warm, dry with normal turgor. Normal color with no rashes, no lesions, and no evidence of cellulitis. MS/ Extremity: Pulses equal, no cyanosis. Neurovascular intact. Full, normal range of motion. 16:57 Respiratory: the patient does not display signs of respiratory distress, Respirations: normal, Breath sounds: decreased breath sounds. 16:57 Neuro: Orientation: is normal, Motor: is normal, moves all fours. Vital Signs: 15:39 BP 121 / 70; Pulse 90; Resp 18; Temp 97.9; Pulse Ox 100% on R/A; Weight 54.43 kg; mg2 Height 5 ft. 6 in. (167.64 cm); Pain 0/10; 16:43 BP 102 / 66; Pulse 91; Resp 18; Pulse Ox 100% on R/A; Pain 0/10; mg2 18:04 BP 123 / 42; Pulse 85; Resp 18; Pulse Ox 96% on R/A; Pain 0/10; mg2 18:58 BP 135 / 47; Pulse 88; Resp 18; Pulse Ox 96% on R/A; Pain 0/10; mg2 15:39 Body Mass Index 19.37 (54.43 kg, 167.64 cm) mg2 MDM: 16:08 Patient medically screened. pm1 17:01 Data reviewed: vital signs. Data interpreted: Pulse oximetry: on room air is 100 %. pm1 Interpretation: normal. 18:13 Counseling: I had a detailed discussion with the patient and/or guardian regarding: the pm1 historical points, exam findings, and any diagnostic results supporting the discharge/admit diagnosis, lab results, radiology results, the need for outpatient follow up, to return to the emergency department if symptoms worsen or persist or if there are any questions or concerns that arise at home. 12/18 16:11 Order name: Basic Metabolic Panel; Complete Time: 18:13 pm1 12/18 16:11 Order name: CBC with Diff; Complete Time: 17:33 pm1 12/18 16:11 Order name: LFT's; Complete Time: 18:13 pm1 12/18 16:11 Order name: Magnesium; Complete Time: 18:13 pm1 12/18 16:11 Order name: NT PRO-BNP; Complete Time: 18:13 pm1 12/18 16:11 Order name: PT-INR; Complete Time: 17:33 pm1 12/18 16:11 Order name: Troponin (emerg Dept Use Only); Complete Time: 18:13 pm1 12/18 16:11 Order name: XRAY Chest (1 view); Complete Time: 16:54 pm1 12/18 16:11 Order name: EKG; Complete Time: 16:12 pm1 12/18 16:14 Order name: Flu; Complete Time: 17:48 pm1 12/18 16:11 Order name: Cardiac monitoring; Complete Time: 16:38 pm1 12/18 16:11 Order name: EKG - Nurse/Tech; Complete Time: 16:38 pm1 12/18 16:11 Order name: IV Saline Lock; Complete Time: 16:41 pm1 02 16:11 Order name: Labs collected and sent; Complete Time: 16:41 pm1 02 16:11 Order name: O2 Per Protocol; Complete Time: 16:41 pm1 02 16:11 Order name: O2 Sat Monitoring; Complete Time: 16:42 pm1 Administered Medications: 16:38 Drug: Albuterol 2.5 mg Route: Inhalation; mg2 17:56 Follow up: Response: No adverse reaction; Marked relief of symptoms mg2 16:38 Drug: AtroVENT Aerosol 0.5 mg Route: Inhalation; mg2 17:56 Follow up: Response: No adverse reaction; Marked relief of symptoms mg2 16:38 Drug: predniSONE 60 mg Route: PO; mg2 17:56 Follow up: Response: No adverse reaction; Marked relief of symptoms mg2 18:01 Drug: Rocephin 1 grams Route: IV; Rate: calculated rate; Site: left antecubital; mg2 18:49 Follow up: Response: No adverse reaction; Marked relief of symptoms; IV Status: mg2 Completed infusion Disposition: 19:03 Co-signature as Attending Physician, Epifanio Lu MD. rn Disposition: 12/18/18 18:14 Discharged to Home. Impression: Chronic obstructive pulmonary disease with (acute) exacerbation. - Condition is Stable. - Discharge Instructions: Chronic Obstructive Pulmonary Disease, How to Use an Inhaler. - Prescriptions for Zithromax Z- Lg 250 mg Oral Tablet - take 1 tablet by ORAL route as directed for 5 days Day 1 - take two (2) tablets one time. Day 2, 3, 4 , 5 take one (1) tablet once daily.; 6 tablet. Medrol (Lg) 4 mg Oral Tablets, Dose Pack - take 1 tablet by ORAL route as directed - follow package instructions; 1 packet. Albuterol Sulfate 90 mcg/actuation - inhale 1-2 puff by INHALATION route every 4-6 hours; 1 Inhaler. - Medication Reconciliation Form, Thank You Letter, Antibiotic Education, Prescription Opioid Use form. - Follow up: Emergency Department; When: As needed; Reason: Worsening of condition. Follow up: Private Physician; When: 2 - 3 days; Reason: Recheck today's complaints, Continuance of care, Re-evaluation by your physician. - Problem is new. - Symptoms have improved. Signatures: Dispatcher [employer] EDMS Epifanio Lu MD MD rn Mario Pardo, CONVEYANCER CONVEYANCER pm1 Douglas Sauer RN RN mg2 Corrections: (The following items were deleted from the chart) 18:15 18:14 12/18/2018 18:14 Discharged to Home. Impression: Chronic obstructive pulmonary pm1 disease, unspecified. Condition is Stable. Forms are Medication Reconciliation Form, Thank You Letter, Antibiotic Education, Prescription Opioid Use. Follow up: Emergency Department; When: As needed; Reason: Worsening of condition. Follow up: Private Physician; When: 2 - 3 days; Reason: Recheck today's complaints, Continuance of care, Re-evaluation by your physician. Problem is new. Symptoms have improved. pm1 19:00 18:15 12/18/2018 18:14 Discharged to Home. Impression: Chronic obstructive pulmonary mg2 disease with (acute) exacerbation. Condition is Stable. Discharge Instructions: Chronic Obstructive Pulmonary Disease, How to Use an Inhaler. Forms are Medication Reconciliation Form, Thank You Letter, Antibiotic Education, Prescription Opioid Use. Follow up: Emergency Department; When: As needed; Reason: Worsening of condition. Follow up: Private Physician; When: 2 - 3 days; Reason: Recheck today's complaints, Continuance of care, Re-evaluation by your physician. Problem is new. Symptoms have improved. pm1
[2018-12-18 19:27] VITALS: TEMP 97.9
[2018-12-18 19:29] VITALS: O2SAT 96
[2018-12-18 19:31] VITALS: BP 135/47
== END 2018-12-18 19:00 | disposition home or self-care (01) ==
LOC: ER 15:34
DX: J44.1 Chronic obstructive pulmonary disease with (acute) exacerbation (principal); F17.210 Nicotine dependence, cigarettes, uncomplicated; I10 Essential (primary) hypertension; E78.5 Hyperlipidemia, unspecified; Z95.818 Presence of other cardiac implants and grafts
CPT/HCPCS: 36415; 71045; 80048; 80076; 83735; 83880; 84484; 85025; 85610; 87804 ×2; 93005; 96365; 99285; J0696; J7512

== ENCOUNTER 2019-04-24 23:50 | Emergency (ER) | payer OTHER ==
--- OUTSIDE RECORDS SUMMARY | 2019-04-24 23:53 | XMS REPORT | Clinical Summary ---
:1945 Author Organization [facility] Address [address] [place] [address] Care Team Providers Name Role Phone System, Provider Not In MD Primary Care Provider Unavailable Allergies No Known Allergies Medications Medication Sig Dispensed Refills Start End Status Date Date metoprolol succinate XL Take 100 mg by 0 Active (TOPROL-XL) 100 mg 24 mouth daily. hr tablet hydroCHLOROthiazide Take 25 mg by 0 Active (HYDRODIURIL) 25 MG mouth every tablet morning. simvastatin (ZOCOR) 20 Take 20 mg by 0 Active MG tablet mouth every morning. pantoprazole (PROTONIX) Take 40 mg by 0 Active 40 MG EC tablet mouth daily. magnesium oxide Take 400 mg by 0 Active (MAG-OX) 400 mg (241.3 mouth daily. mg magnesium) tablet albuterol (PROAIR Inhale 1-2 0 Active HFA,PROVENTIL puffs every 4 HFA,VENTOLIN HFA) 90 (four) hours as mcg/actuation inhaler needed for wheezing or shortness of breath. povidone-iodine Apply topically 0 Active (BETADINE) 10 % daily as needed external solution for wound care (to left foot). HYDROcodone-acetaminoph Take 1 tablet 0 Active en (NORCO) 7.5-325 mg by mouth 2 per tablet (two) times a day. X 28 days CHOLECALCIFEROL, Take 1 tablet 0 Active VITAMIN D3, ORAL by mouth daily. aspirin (ECOTRIN) 81 MG Take 1 tablet 90 tablet 3 03/20/ Active enteric coated tablet (81 mg total) 19 019 by mouth daily for 90 days. traMADol (ULTRAM) 50 mg Take 50 mg by 0 Discontinued tablet mouth every 4 019 (four) hours as needed for moderate pain. povidone-iodine Apply topically 500 mL 2 02/02/20 Discontinued (BETADINE) 10 % daily for 30 019 external solution days. doxycycline Take 1 tablet 20 tablet 1 02/02/20 (VIBRA-TABS) 100 MG (100 mg total) 19 019 tablet by mouth 2 (two) times a day for 10 days. clonIDINE (CATAPRES) Take 1 tablet 60 tablet 0 03/19/20 0.1 MG tablet (0.1 mg total) 19 019 by mouth every 4 (four) hours as needed for high blood pressure for up to 30 days. docusate sodium Take 1 capsule 60 capsule 3 03/19/20 (COLACE) 100 MG capsule (100 mg total) 19 019 by mouth 2 (two) times a day for 30 days. heparin sodium,porcine Inject 1 mL 60 mL 1 03/19/20 (HEPARIN, PORCINE,) (5,000 Units 5,000 unit/mL injection total) under the skin every 12 (twelve) hours for 30 days. lactulose 20 gram/30 mL Take 15 mL (10 1 Bottle 2 03/19/20 solution g total) by 019 mouth 3 (three) times a day as needed (constipation) for up to 30 days. megestrol (MEGACE) 40 Take 1 tablet 30 tablet 3 03/20/20 MG tablet (40 mg total) 019 by mouth daily for 30 days. polyethylene glycol Take 17 g by 30 packet 6 03/19/20 (MIRALAX) 17 gram mouth daily as 19 019 packet needed for constipation for up to 30 days. 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 Essential hypertension 01/28/2019 Encounters Date Type Specialty Care Team Description 02/28/2019 Anesthesia Event Orthopedic Ericka, Surgery Barron Betts MD 02/28/2019 Surgery Orthopedic Bubba Cr AMPUTATION, FOOT, Surgery H., DPM TRANSMETATARSAL 02/27/2019 Anesthesia Event Orthopedic Sung Mathew Surgery MD Thony 02/21/2019 - Hospital Encounter Orthopedic Gregory, Dry gangrene (HCC) ( Primary Dx); 03/19/2019 Surgery MD Sung Arterial insufficiency (HCC); Mekhi Medeiros Gangrene of right foot (HCC); Gloria Deal MD Essential hypertension; Abdominal aortic aneurysm (AAA) without rupture (HCC) 01/28/2019 - Hospital Encounter General Internal Gregory, Abdominal aortic aneurysm (AAA) without rupture (HCC) (Primary Dx); 02/01/2019 Medicine MD Sung Arterial insufficiency (HCC); Davian Whiteside, Gangrene of right foot (HCC); Essential hypertension Mekhi Medeiros Sr., MD after 04/23/2018 Social History Tobacco Use Types Packs/Day Years Used Date Light Tobacco Smoker Smokeless Tobacco: Never Used Alcohol Use Drinks/Week oz/Week Comments No Alcohol Habits Answer Date Recorded How often do you have a drink containing alcohol? Never 02/21/2019 How many drinks containing alcohol do you have on a typical Not asked day when you are drinking? How often do you have six or more drinks on one occasion? Not asked Sex Assigned at Date Recorded Not on file Job Start Date Occupation Industry Not on file Not on file Not on file Travel History Travel Start Travel End No recent travel history available. Last Filed Vital Signs Vital Sign Reading Time Taken Blood Pressure 109/54 03/19/2019 11:13 AM CDT Pulse 95 03/19/2019 11:13 AM CDT Temperature 36.4 C (97.5 F) 03/19/2019 11:13 AM CDT Respiratory Rate 18 03/19/2019 11:13 AM CDT Oxygen Saturation 98% 03/19/2019 11:13 AM CDT Inhaled Oxygen Concentration - - Weight 43.5 kg (96 lb) 02/23/2019 9:20 AM CDT Height 162.6 cm (5' 4") 02/23/2019 9:20 AM CDT Body Mass Index 16.48 02/23/2019 9:20 AM CDT Plan of Treatment Health Maintenance Due Date Last Done Comments BREAST CANCER SCREENING 1994 COLONOSCOPY SCREENING 1994 SHINGLES VACCINES (#1) 1994 65+ PNEUMOCOCCAL VACCINE (1 of 2 - PCV13) 2009 INFLUENZA VACCINE 06/12/2019 Procedures Procedure Name Priority Date/Time Associated Comments Diagnosis ESTIMATED GFR Routine 03/17/2019 4:37 Results for this AM CDT procedure are in the results section. BASIC METABOLIC PANEL Routine 03/17/2019 4:37 Results for this AM CDT procedure are in the results section. HC COMPLETE BLD COUNT Routine 03/17/2019 4:37 Results for this W/AUTO DIFF AM CDT procedure are in the results section. ESTIMATED GFR Routine 03/12/2019 4:45 Results for this AM CDT procedure are in the results section. BASIC METABOLIC PANEL Routine 03/12/2019 4:45 Results for this AM CDT procedure are in the results section. HC COMPLETE BLD COUNT Routine 03/12/2019 4:45 Results for this W/AUTO DIFF AM CDT procedure are in the results section. ESTIMATED GFR Routine 03/10/2019 4:43 Results for this AM CDT procedure are in the results section. HC COMPLETE BLD COUNT Routine 03/10/2019 4:43 Results for this W/AUTO DIFF AM CDT procedure are in the results section. BASIC METABOLIC PANEL Routine 03/10/2019 4:43 Results for this AM CDT procedure are in the results section. HC COMPLETE BLD COUNT Routine 03/08/2019 6:10 Results for this W/AUTO DIFF AM CDT procedure are in the results section. ESTIMATED GFR Routine 03/08/2019 4:00 Results for this AM CDT procedure are in the results section. BASIC METABOLIC PANEL Routine 03/08/2019 4:00 Results for this AM CDT procedure are in the results section. VANCOMYCIN LEVEL, TROUGH Timed 03/07/2019 8:40 Results for this PM CDT procedure are in the results section. HC COMPLETE BLD COUNT Routine 03/05/2019 4:30 Results for this W/AUTO DIFF AM CDT procedure are in the results section. ESTIMATED GFR Routine 03/05/2019 4:00 Results for this AM CDT procedure are in the results section. BASIC METABOLIC PANEL Routine 03/05/2019 4:00 Results for this AM CDT procedure are in the results section. ESTIMATED GFR Routine 03/03/2019 4:00 Results for this AM CDT procedure are in the results section. BASIC METABOLIC PANEL Routine 03/03/2019 4:00 Results for this AM CDT procedure are in the results section. HC COMPLETE BLD COUNT Routine 03/03/2019 3:00 Results for this W/AUTO DIFF AM CDT procedure are in the results section. ARTERIAL BLOOD GAS STAT 03/01/2019 3:56 Results for this PM CDT procedure are in the results section. CT HEAD WO CONTRAST STAT 03/01/2019 3:31 Results for this PM CDT procedure are in the results section. XR FOOT 3+ VW RIGHT Routine 03/01/2019 9:32 Results for this AM CDT procedure are in the results section. VANCOMYCIN LEVEL, TROUGH Timed 02/28/2019 8:30 Results for this PM CDT procedure are in the results section. SURGICAL PATHOLOGY Routine 02/28/2019 11:48 Results for this REQUEST AM CDT procedure are in the results section. AMPUTATION, FOOT, 02/28/2019 10:00 A TRANSMETATARSAL AM CDT HC COMPLETE BLD COUNT Routine 02/28/2019 5:35 Results for this W/AUTO DIFF AM CDT procedure are in the results section. ESTIMATED GFR Routine 02/28/2019 4:00 Results for this AM CDT procedure are in the results section. BASIC METABOLIC PANEL Routine 02/28/2019 4:00 Results for this AM CDT procedure are in the results section. TYPE AND SCREEN Routine 02/27/2019 11:55 Results for this AM CDT procedure are in the results section. PREPARE RBC Routine 02/27/2019 9:25 AM CDT ESTIMATED GFR Routine 02/26/2019 4:00 Results for this AM CDT procedure are in the results section. BASIC METABOLIC PANEL Routine 02/26/2019 4:00 Results for this AM CDT procedure are in the results section. PREPARE RBC Routine 02/26/2019 3:45 Results for this AM CDT procedure are in the results section. ELUTION Routine 02/26/2019 3:45 Results for this AM CDT procedure are in the results section. C ANTIGEN PATIENT TYPING Routine 02/26/2019 3:45 Results for this (LITTLE C) AM CDT procedure are in the results section. JONN ANTIGEN PATIENT Routine 02/26/2019 3:45 Results for this TYPING AM CDT procedure are in the results section. E ANTIGEN PATIENT TYPING Routine 02/26/2019 3:45 Results for this (LITTLE E) AM CDT procedure are in the results section. E ANTIGEN PATIENT TYPING Routine 02/26/2019 3:45 Results for this AM CDT procedure are in the results section. C ANTIGEN PATIENT TYPING Routine 02/26/2019 3:45 Results for this AM CDT procedure are in the results section. POSITIVE SANTIAGO REFLEX Routine 02/26/2019 3:45 Results for this AM CDT procedure are in the results section. DIRECT RAMO' (SANTIAGO) Routine 02/26/2019 3:45 Results for this AM CDT procedure are in the results section. ANTIBODY IDENTIFICATION Routine 02/26/2019 3:45 Results for this AM CDT procedure are in the results section. TYPE AND SCREEN Routine 02/26/2019 3:45 Results for this AM CDT procedure are in the results section. PROTHROMBIN TIME WITH Routine 02/26/2019 3:45 Results for this INR AM CDT procedure are in the results section. HC COMPLETE BLD COUNT Routine 02/26/2019 3:45 Results for this W/AUTO DIFF AM CDT procedure are in the results section. MRI FOOT WO CONTRAST Routine 02/24/2019 8:00 Results for this RIGHT AM CDT procedure are in the results section. VANCOMYCIN LEVEL, TROUGH Timed 02/23/2019 10:40 Results for this PM CDT procedure are in the results section. NM MYOCARDIAL PERFUSION Routine 02/23/2019 11:30 Results for this STRESS ONLY AM CDT procedure are in the results section. CV STRESS TEST NUCLEAR Routine 02/23/2019 11:30 Results for this CARDIO AM CDT procedure are in the results section. HC COMPLETE BLD COUNT Routine 02/22/2019 5:39 Results for this W/AUTO DIFF AM CDT procedure are in the results section. ESTIMATED GFR Routine 02/22/2019 12:00 Results for this AM CDT procedure are in the results section. BASIC METABOLIC PANEL Routine 02/22/2019 12:00 Results for this AM CDT procedure are in the results section. ECG 12-LEAD STAT 02/21/2019 5:53 Results for this PM CDT procedure are in the results section. US ANKLE BRACHIAL INDEX STAT 02/21/2019 2:45 Results for this PM CDT procedure are in the results section. XR FOOT 2 VW RIGHT STAT 02/21/2019 2:16 Results for this PM CDT procedure are in the results section. XR CHEST 1 VW PORTABLE STAT 02/21/2019 2:16 Results for this PM CDT procedure are in the results section. ESTIMATED GFR Routine 02/21/2019 2:07 Results for this PM CDT procedure are in the results section. D-DIMER STAT 02/21/2019 2:07 Results for this PM CDT procedure are in the results section. B NATRIURETIC PEPTIDE Routine 02/21/2019 2:07 Results for this PM CDT procedure are in the results section. TROPONIN Routine 02/21/2019 2:07 Results for this PM CDT procedure are in the results section. COMPREHENSIVE METABOLIC Routine 02/21/2019 2:07 Results for this PANEL PM CDT procedure are in the results section. PARTIAL THROMBOPLASTIN Routine 02/21/2019 2:07 Results for this TIME (PTT) PM CDT procedure are in the results section. PROTHROMBIN TIME WITH Routine 02/21/2019 2:07 Results for this INR PM CDT procedure are in the results section. HC COMPLETE BLD COUNT Routine 02/21/2019 2:07 Results for this W/AUTO DIFF PM CDT procedure are in the results section. ECG ED PRELIMINARY Routine 02/21/2019 2:03 Results for this INTERPRETATION PM CDT procedure are in the results section. ECG ED PRELIMINARY Routine 02/21/2019 2:03 Results for this INTERPRETATION PM CDT procedure are in the results section. VANCOMYCIN LEVEL, TROUGH Timed 01/31/2019 10:30 Results for this AM CDT procedure are in the results section. HC COMPLETE BLD COUNT Routine 01/31/2019 4:30 Results for this W/AUTO DIFF AM CDT procedure are in the results section. ESTIMATED GFR Routine 01/31/2019 4:00 Results for this AM CDT procedure are in the results section. BASIC METABOLIC PANEL Routine 01/31/2019 4:00 Results for this AM CDT procedure are in the results section. ECHOCARDIOGRAM 2D Routine 01/30/2019 10:45 Results for this COMPLETE W MMODE AM CDT procedure are in SPECTRAL COLOR DOPPLER the results (91209) section. CV CTA ABDOMEN W RUNOFF Routine 01/30/2019 9:14 Results for this W CONTRAST AM CDT procedure are in the results section. US CAROTID DUPLEX Routine 01/30/2019 8:28 Results for this BILATERAL AM CDT procedure are in the results section. HC COMPLETE BLD COUNT Routine 01/30/2019 5:45 Results for this W/AUTO DIFF AM CDT procedure are in the results section. XR FOOT 3+ VW RIGHT Routine 01/29/2019 11:21 Results for this AM CDT procedure are in the results section. ESTIMATED GFR Routine 01/29/2019 5:00 Results for this AM CDT procedure are in the results section. BASIC METABOLIC PANEL Routine 01/29/2019 5:00 Results for this AM CDT procedure are in the results section. HC COMPLETE BLD COUNT Routine 01/29/2019 5:00 Results for this W/AUTO DIFF AM CDT procedure are in the results section. URIC ACID LEVEL Routine 01/29/2019 12:00 Results for this AM CDT procedure are in the results section. LIPID PANEL Routine 01/29/2019 12:00 Results for this AM CDT procedure are in the results section. T4, FREE Routine 01/29/2019 12:00 Results for this AM CDT procedure are in the results section. THYROID STIMULATING Routine 01/29/2019 12:00 Results for this HORMONE AM CDT procedure are in the results section. MRI FOOT WO CONTRAST Routine 01/28/2019 9:55 Results for this RIGHT PM CDT procedure are in the results section. US DUPLEX ARTERIAL LOWER STAT 01/28/2019 4:59 Results for this EXTREMITY RIGHT PM CDT procedure are in the results section. XR FOOT 2 VW RIGHT STAT 01/28/2019 2:01 Results for this PM CDT procedure are in the results section. LACTIC ACID LEVEL STAT 01/28/2019 1:34 Results for this PM CDT procedure are in the results section. C-REACTIVE PROTEIN STAT 01/28/2019 1:34 Results for this PM CDT procedure are in the results section. BLOOD CULTURE, AEROBIC & Routine 01/28/2019 1:34 Results for this ANAEROBIC PM CDT procedure are in the results section. ESTIMATED GFR STAT 01/28/2019 11:49 Results for this AM CDT procedure are in the results section. COMPREHENSIVE METABOLIC STAT 01/28/2019 11:49 Results for this PANEL AM CDT procedure are in the results section. HC COMPLETE BLD COUNT STAT 01/28/2019 11:49 Results for this W/AUTO DIFF AM CDT procedure are in the results section. after 04/23/2018 Results Estimated GFR (03/17/2019 4:37 AM CDT)Only the most recent of13 resultswithin the time period is included. Estimated GFR 56 (A) mL/min/1.73 TRAN RESTORATIONIST Comment: m2 HOSPITAL CatergoryUnitsInterpretation G1 >=90 Normal or high G2 60-89Mildly decreased [id number] to moderately decreased [id number] to severely decreased G4 15-29Severely decreased G5 <15Kidney failure The eGFR was calculated using the Chronic Kidney Disease Epidemiology Collaboration (CKD-EPI) equation. Interpretation is based on recommendations of the National Kidney Foundation-Kidney Disease Outcomes Quality Initiative (NKF-KDOQI) published in 2014. Specimen Plasma specimen Performing Organization Address City/[facility] Centercode Phone Number [facility] DEPARTMENT OF PATHOLOGY AND [address] [place] [id number] GENOMIC MEDICINE [facility] [address] [place] [address] CBC with platelet and differential (03/17/2019 4:37 AM CDT)Only the most recent of14 resultswithin the time period is included. WBC 7.93 4.50 - 11.00 [facility] k/uL HOSPITAL RBC 3.49 (L) 4.20 - 5.50 [facility] m/uL HOSPITAL HGB 10.0 (L) 12.0 - 16.0 [facility] g/dL [facility] HCT 32.6 (L) 37.0 - 47.0 % [facility] MCV 93.4 82.0 - 100.0 [facility] MCH 28.7 27.0 - 34.0 pg [facility] MCHC 30.7 (L) 31.0 - 37.0 [facility] g/dL [facility] RDW - SD 55.3 (H) 37.0 - 55.0 fL [facility] MPV 10.4 8.8 - 13.2 fL [facility] Platelet count 361 150 - 400 k/uL [facility] Nucleated RBC 0.00 /100 WBC [facility] Neutrophils 59.4 39.0 - 69.0 % [facility] Lymphocytes 26.4 25.0 - 45.0 % [facility] Monocytes 10.3 (H) 0.0 - 10.0 % [facility] Eosinophils 2.8 0.0 - 5.0 % [facility] Basophils 0.6 0.0 - 1.0 % [facility] Immature granulocytes 0.5Comment: 0.0 - 1.0 % [facility] "Immature HOSPITAL granulocytes" (promyelocytes , myelocytes, metamyelocytes ) Specimen Blood Performing Organization Address [facility]/Zipcode Phone Number [facility] DEPARTMENT OF PATHOLOGY AND [address] [place] [phone] Basic metabolic panel (03/17/2019 4:37 AM CDT)Only the most recent of11 resultswithin the time period is included. [facility] Sodium 138 135 - 148 mEq/L [facility] Potassium 3.9 3.5 - 5.0 mEq/L [facility] Chloride 100 98 - 112 mEq/L [facility] CO2 24 24 - 31 mEq/L [facility] Anion gap 14@ANIO 7 - 15 mEq/L [facility] BUN 22 8 - 23 mg/dL [facility] Creatinine 1.11 (H) 0.50 - 0.90 mg/dL [facility] Glucose 87 65 - 99 mg/dL [facility] Calcium 10.4 (H) 8.8 - 10.2 mg/dL [facility] Specimen Plasma specimen Performing Organization Address [facility] Centercode Phone Number [facility] DEPARTMENT OF PATHOLOGY AND [address] [place] [phone] Vancomycin level, trough (03/07/2019 8:40 PM CDT)Only the most recent of4 resultswithin the time period is included. [facility] Vancomycin, 15.2 10.0 - 20.0 [facility] trough Comment: ug/mL HOSPITAL Therapeutic Ranges: Peak 30.0 - 40.0 ug/mL Yufpkz88.0 - 20.0 ug/mL Specimen Serum Performing Organization Address City/[facility] Centercode Phone Number [facility] DEPARTMENT OF PATHOLOGY AND [address] [place] [address] Arterial blood gas (03/01/2019 3:56 PM CDT) [facility] pH, arterial 7.44 7.35 - 7.45 [facility] pCO2, arterial 42 35 - 45 mmHg [facility] pO2, arterial 58 (L) 80 - 90 mmHg [facility] Bicarbonate, 28.6 (H) 21.0 - 28.0 [facility] mmol/L HOSPITAL Base excess, 5 (H) -2 - 2 mEq/L [facility] O2 saturation, 90 (L) 95 - 100 % [facility] arterial [facility] Specimen Blood Performing Organization Address City/[facility]/Zipcode Phone Number [facility] DEPARTMENT OF PATHOLOGY AND [address] [place] [address] GENOMIC MEDICINE [facility] [address] [place] [address] CT Head Wo Contrast (03/01/2019 3:31 PM CDT) Specimen Narrative Performed At EXAMINATION: CT HEAD WO CONTRAST [facility] CLINICAL HISTORY: Altered level of consciousness (LOC)unexplained COMPARISON:None TECHNIQUE: Noncontrast CT of the brain was performed from the skull base to the vertex. Both soft tissue and bone reconstruction algorithms are interpreted. CT imaging was performed with iterative reconstruction techniques and/or automated exposure control to reduce radiation dose. FINDINGS: No intracranial hemorrhage, extra-axial collection, or mass-effect is seen.No acute cortical infarct is identified. No hyperdense vessel is seen. Mild involutional changes of brain are present. No air-fluid level is seen in the visualized portions of the paranasal sinuses. Mastoid air cells are clear. IMPRESSION: No acute intracranial abnormality identified. A preliminary report was provided the patient's nurse Madiha at 3:35 PM. She verbalized understanding. [facility]-[id number] Procedure Note Interface, Radiology Results Incoming - 03/01/2019 3:40 PM CDT EXAMINATION: CT HEAD WO CONTRAST CLINICAL HISTORY: Altered level of consciousness (LOC) unexplained COMPARISON: None TECHNIQUE: Noncontrast CT of the brain was performed from the skull base to the vertex. Both soft tissue and bone reconstruction algorithms are interpreted. CT imaging was performed with iterative reconstruction techniques and/or automated exposure control to reduce radiation dose. FINDINGS: No intracranial hemorrhage, extra-axial collection, or mass-effect is seen. No acute cortical infarct is identified. No hyperdense vessel is seen. Mild involutional changes of brain are present. No air-fluid level is seen in the visualized portions of the paranasal sinuses. Mastoid air cells are clear. IMPRESSION: No acute intracranial abnormality identified. A preliminary report was provided the patient's nurse Madiha at 3:35 PM. She verbalized understanding. [facility]-[id number] Performing Organization Address City/[facility]/Zipcode Phone Number [facility] [address] [place] [address] XR Foot 3+ Vw Right (03/01/2019 9:32 AM CDT)Only the most recent of2 resultswithin the time period is included. Specimen Narrative Performed At EXAM:XR FOOT 3VW RIGHT HM [facility] CLINICAL:Status post amputation COMPARISON:02/21/2019 IMPRESSION: 1.Mid metatarsal amputation through all digits. Overlying skin rica. Drainage catheter in place. No osseous erosions. Mild soft tissue swelling around the forefoot. 2.Generalized bone demineralization. [facility]-[id number] Procedure Note Hm Interface, Radiology Results Incoming - 03/01/2019 9:40 AM CDT EXAM: XR FOOT 3 VW RIGHT CLINICAL: Status post amputation COMPARISON: 02/21/2019 IMPRESSION: 1. Mid metatarsal amputation through all digits. Overlying skin rica. Drainage catheter in place. No osseous erosions. Mild soft tissue swelling around the forefoot. 2. Generalized bone demineralization. [facility]-[id number] Performing Organization Address [facility] Centercode Phone Number [facility] [address] [place] [address] Surgical pathology request (02/28/2019 11:48 AM CDT) [facility] DEPARTMENT OF PATHOLOGY AND GENOMIC MEDICINE Surgical pathology See link below [facility] DEPARTMENT OF report for PDF Lab PATHOLOGY AND Report GENOMIC MEDICINE Result status This is Final [facility] DEPARTMENT OF Report for PATHOLOGY AND [id number] GENOMIC MEDICINE Specimen Performing Organization Address [facility] Centercowv Phone Number [facility] DEPARTMENT OF PATHOLOGY AND [address] [place] [phone] GENOMIC MEDICINE Type and screen (02/27/2019 11:55 AM CDT)Only the most recent of2 resultswithin the time period is included. ABO grouping A [facility] Rh type POS [facility] Antibody screen (gel) POS [facility] Specimen Performing Organization Address [facility]/Zipcode Phone Number [facility] DEPARTMENT OF PATHOLOGY AND [address] [place] [address] GENOMIC MEDICINE [address] [address] [place] antigen patient typing (02/26/2019 3:45 AM CDT) [place] Antigen Patient NEG [facility] Specimen Performing Organization Address City/State/[facility] Cent[facility] Phone Number [facility] DEPARTMENT OF PATHOLOGY AND [address] [place] [phone] [place] [address] e Antigen patient typing (little e) (02/26/2019 3:45 AM CDT) e Antigen Patient Typing POS [facility] ([facility] Specimen Performing Organization Address [facility] Phone Number [facility] DEPARTMENT OF PATHOLOGY AND [address] [place] [phone] [place] [address] Direct Ramo' (SANTIAGO) (02/26/2019 3:45 AM CDT) [id number] Polyspecific POS [facility] Specimen Performing Organization Address [facility] Phone Number [facility] DEPARTMENT OF PATHOLOGY AND [address] [place] [phone] c Antigen patient typing ([facility]) (02/26/2019 3:45 AM CDT) c Antigen Patient Typing POS [facility] ([facility] Specimen Performing Organization Address [facility] Phone Number [facility] DEPARTMENT OF PATHOLOGY AND [address] [place] [address] Positive SANTIAGO reflex (02/26/2019 3:45 AM CDT) IgG Ramo, gel POS [facility] Anti-complement POSComment: [facility] 02/26/19 [facility] CONTROL NEGATIVE. KG Specimen Performing Organization Address [facility] Centercode Phone Number [facility] DEPARTMENT OF PATHOLOGY AND [address] [place] [phone] [place] [address] E antigen patient typing (02/26/2019 3:45 AM CDT) E Antigen Patient Typing NEG [facility] Specimen Performing Organization Address [facility] Centerde Phone Number [facility] DEPARTMENT OF PATHOLOGY AND [address] [place] [address] [address] C antigen patient typing (02/26/2019 3:45 AM CDT) Pathologist [facility] C Antigen Patient Typing POS [facility] Specimen Performing Organization Address City/State/Zipcode Phone Number [facility] DEPARTMENT OF PATHOLOGY AND [address] [place] [phone] [place] [address] Elution (02/26/2019 3:45 AM CDT) Pathologist [facility] Elution POS [facility] Comment: HOSPITAL POS W/ ALL CELLS Although these serological findings cannot differentiate between a drug induced or a true auto-immune state, this patient should be monitored for signs of an ongoing hemolytic process.Verified by [id number]. Specimen Performing Organization Address City/State/Zipcode Phone Number [facility] DEPARTMENT OF PATHOLOGY AND [address] [place] [phone] Antibody identification (02/26/2019 3:45 AM CDT) Pathologist [facility] Antibody ID POS, Warm Autoantibody [facility] Comment: HOSPITAL Adsorption studies ruled out the presence of underlying alloantibodies. Red cells for transfusion will be antigen matched for the Rh and K antigens and crossmatch least incompatible.Verified by [id number]. Specimen Performing Organization Address City/State/Zipcode Phone Number [facility] DEPARTMENT OF PATHOLOGY AND [address] [place] [phone] [place] [address] Prothrombin time with INR (02/26/2019 3:45 AM CDT)Only the most recent of2 resultswithin the time period is included. [facility] Prothrombin time 13.3 11.5 - 14.5 [facility] INR 1.0 [place] Comment: RESTORATION[facility] International Normalized Ratio (INR) is a therapeutic HOSPITAL monitoring tool for patients who are stable on oral anticoagulant therapy. An INR of 2.0-3.0 is suggested for deep vein thrombosis/pulmonary embolism. Specimen Blood Performing Organization Address City/State/Zipcode Phone Number [facility] DEPARTMENT OF PATHOLOGY AND [address] [place] [address] [address] Prepare RBC (02/26/2019 3:45 AM CDT) Product name Red Blood Cells [facility] -1, Leukored HOSPITAL Unit number [id number] [facility] Product code [id number] [facility] Dispense status Transfused [facility] Blood expiration [id number] [facility] Blood type code 0600 [facility] Blood type A NEGATIVE [facility] Specimen Performing Organization Address City/State/Zipcode Phone Number [facility] DEPARTMENT OF PATHOLOGY AND [address] [place] [address] GENOMIC MEDICINE [facility] [address] [place] [address] MRI Foot Wo Contrast Right (02/24/2019 8:00 AM CDT)Only the most recent of2 resultswithin the time period is included. Specimen Narrative Performed At MRI FOOT WO CONTRAST RIGHT [facility] CLINICAL INDICATION:Osteomyelitis suspectedfoot swellingdiabetic TECHNIQUE:Multisequence multiplanar MR imaging of the right foot was performed without gadolinium contrast. COMPARISON:01/28/2019 FINDINGS: The exam is mild to moderately degraded by motion artifact. BONES:No significant infiltration of the first digit is identified to suggest osteomyelitis within limits of this exam. No cortical erosion is identified and there is no significant T1 infiltration of the digit apart from the metatarsal base which is remote from periosteal edema. There is mild edema involving the fourth and fifth metatarsal heads which has developed from prior probably reactive in etiology. No fracture is identified. ALIGNMENT:Anatomic. JOINTS:No effusion or periarticular inflammatory changes. TENDONS:Visualized flexor and extensor tendons of the foot are unremarkable. SOFT TISSUES:There is soft tissue swelling overlying the dorsal and medial aspect of the first digit extending from the toe to level of the metatarsal neck. Skin thickening is associated consistent with cellulitis. No drainable collection or abscess is identified. IMPRESSION: Cellulitis involving the first digit without osteomyelitis as described. *[id number] Procedure Note Hm Interface, Radiology Results Incoming - 02/24/2019 8:25 AM CDT MRI FOOT WO CONTRAST RIGHT CLINICAL INDICATION: Osteomyelitis suspected foot swelling diabetic TECHNIQUE: Multisequence multiplanar MR imaging of the right foot was performed without gadolinium contrast. COMPARISON: 01/28/2019 FINDINGS: The exam is mild to moderately degraded by motion artifact. BONES: No significant infiltration of the first digit is identified to suggest osteomyelitis within limits of this exam. No cortical erosion is identified and there is no significant T1 infiltration of the digit apart from the metatarsal base which is remote from periosteal edema. There is mild edema involving the fourth and fifth metatarsal heads which has developed from prior probably reactive in etiology. No fracture is identified. ALIGNMENT: Anatomic. JOINTS: No effusion or periarticular inflammatory changes. TENDONS: Visualized flexor and extensor tendons of the foot are unremarkable. SOFT TISSUES: There is soft tissue swelling overlying the dorsal and medial aspect of the first digit extending from the toe to level of the metatarsal neck. Skin thickening is associated consistent with cellulitis. No drainable collection or abscess is identified. IMPRESSION: Cellulitis involving the first digit without osteomyelitis as described. *[id number] Performing Organization Address [facility] Centercowv Phone Number [facility] [address] [place] [address] Cv stress test (02/23/2019 11:30 AM CDT) Resting HR 60 [facility] M[facility] Resting BP 123 [facility] M[facility] Peak MET Achieved 1.0 [facility] Protocol Name REGADENO [facility] M[facility] Time in Exercise 00:01:00 H MUSE Phase Max Systolic BP 129 H MUSE Max Diastolic BP 58 H MUSE Max Heart Rate 96 H MUSE Max Predicted Heart 146 [facility] M[facility] Rate Target HR Formula (220 - Age)*100% [facility] M[facility] Test Indication CAD H MUSE Arrhy During Ex [facility] MUSE ECG Interp Before EX H MUSE ECG Interp During Ex H MUSE Ex Summary Comment [facility] M[facility] Overall HR Response [facility] M[facility] to Exercise Overall BP Response [facility] To Exercise Reason for [facility] Termination Stress Test Waveform interpreted in [facility] Impression report associated with image study. No interpretation is provided as part of this Stress ECG report.--Electronically Signed By Shruthi COE, Marion ([id number]), assistant production editor Nikky Boateng ([id number]) on 02/23/2019 12:51:07 PM Specimen Narrative Performed At Performing Organization Address [facility] Centercode Phone Number [facility] [employer] [address] [place] [address] Nm myocardial perfusion (02/23/2019 11:30 AM CDT) Specimen Narrative Performed At [facility] Nuclear Cardiology and Cardiac CT [address] [place] [address] Myocardial Perfusion Imaging Report Stress ECG tracings are available in [employer], [employer] and [employer] All ECG interpretations are included in this report Pat.Name:KP MEDEIROS.ID:[id number] .Date: 02/23/2019 Refer.MD:MARION WILKINSON MD Exam Time: 10:28:00 AM Study Type:Myocardial Perfusion Imaging Height:64inBSA: 1.43 m2 DOBAge:1945,73Y Sex: FEMALE BP:123/56HR: 60 bpm HCT: 31.5 %Nuclear Tech:PHILLIP Carter Pat. Stat.:Inpatient Room:[facility] Nuclear Event ID:[id number] Order ID:[id number] Reason for Study:Pre-Op, CAD History / Clinical:Abdominal aortic aneurysm, Coronary artery disease, Hyperlipidemia, Hypertension, GERD, PCI Procedures:High Dose Stress Only Risk Factors:Hyperlipidemia, Hypertension Clinical Symptoms:Regadenoson Physical Exam:S1, S2 Surgery: Serum K+ Date,3.802/22/19, Troponin I Date, 1)Neg02/21/19 2)/ 3)/, BUN/Creatinine Date,26/11.08/15/13 Medications:Hydrochlorothiazide, Metoprolol, Simvastatin SUMMARY: SCINTIGRAPHIC RESULTS Perfusion Defect Size (% LV) 0 % Total 0 % Ischemia 0 % Scar Left Ventricular Perfusion Results There is normal tracer distribution throughout the myocardium during stress. Gated SPECT Results The post-stress left ventricular ejection fraction is 82 % with normal regional wall motion and left ventricular thickening.Left ventricular end-diastolic volume is 56 ml; end-systolic volume is10 ml. The left ventricle is of normal size at stress. Conclusion Normal regadenoson Tc-99m tetrofosmin myocardial perfusion study. The left ventricular ejection fraction is normal. CT Findings: Coronary calcification is present.The ascending and descending aorta are normal in size. There is no significant pericardial effusion. Limited lung jonh show severe emphysematous lung changes. Comments Patients with a normal stress myocardial perfusion study have a low (< 1%) annual risk of cardiac or nonfatal myocardial infarction. Study Quality/Artifacts The study quality is good. Comparison to Previous Study None available. STRESS: Baseline Vital Signs:Intervention: Regadenoson 0.4mg/5ml IV over 10 seconds followed by radiotracer injection and 5ml saline flush ECG: Normal Sinus Rhythm HR:60 BP:123/56 Stress Test Results: Target HR: 124 Symptoms and Complications: Terminated: As per Regadenoson protocol Symptoms:Shortness of breath Complications: None Conclusions: Normal heart rate response to pharmacological stress, Normal blood pressure response to pharmacological stress Stress ECG Interp: No ischemic ST segment change occurred with stress. Signed 02/23/2019 11:57 AM Marion Hawkins MD Procedure Note Interface, Radiology Results In - 02/23/2019 11:57 AM CDT Nuclear Cardiology and Cardiac CT [address] [place] [address] Myocardial Perfusion Imaging Report Stress ECG tracings are available in [employer], [employer] and [employer] All ECG interpretations are included in this report Pat.Name: KP MEDEIROS Pat.ID: [id number] .Date: 02/23/2019 Refer.MD: MARION WILKINSON MD Exam Time: 10:28:00 AM Study Type:Myocardial Perfusion Imaging Height: 64in BSA: 1.43 m2 Age: 7 1945,73Y Sex: FEMALE BP: 123/56 HR: 60 bpm HCT: 31.5 % Nuclear Tech:PHILLIP Carter Pat. Stat.:[facility]patient [facility]: [facility] Nuclear Event ID:[id number] Order ID: [id number] Reason for Study:Pre-Op, CAD History / Clinical:Abdominal aortic aneurysm, Coronary artery disease, Hyperlipidemia, Hypertension, GERD, PCI Procedures:High Dose Stress Only Risk Factors:Hyperlipidemia, Hypertension Clinical Symptoms:Regadenoson Physical Exam:S1, S2 Surgery: Serum K+ Date, 3.802/22/19, Troponin I Date, 1)Neg02/21/19 2)/ 3)/, BUN/Creatinine Date, 26/11.08/15/13 Medications:Hydrochlorothiazide, Metoprolol, Simvastatin SUMMARY: SCINTIGRAPHIC RESULTS Perfusion Defect Size (% LV) 0 % Total 0 % Ischemia 0 % Scar Left Ventricular Perfusion Results There is normal tracer distribution throughout the myocardium during stress. Gated SPECT Results The post-stress left ventricular ejection fraction is 82 % with normal regional wall motion and left ventricular thickening. Left ventricular end-diastolic volume is 56 ml; end-systolic volume is 10 ml. The left ventricle is of normal size at stress. Conclusion Normal regadenoson Tc-99m tetrofosmin myocardial perfusion study. The left ventricular ejection fraction is normal. CT Findings: Coronary calcification is present. The ascending and descending aorta are normal in size. There is no significant pericardial effusion. Limited lung john show severe emphysematous lung changes. Comments Patients with a normal stress myocardial perfusion study have a low (< 1%) annual risk of cardiac or nonfatal myocardial infarction. Study Quality/Artifacts The study quality is good. Comparison to Previous Study None available. STRESS: Baseline Vital Signs: Intervention: Regadenoson 0.4mg/5ml IV over 10 seconds followed by radiotracer injection and 5ml saline flush ECG: Normal Sinus Rhythm HR: 60 BP: 123/56 Stress Test Results: Target HR: 124 Symptoms and Complications: Terminated: As per Regadenoson protocol Symptoms: Shortness of breath Complications: None Conclusions: Normal heart rate response to pharmacological stress, Normal blood pressure response to pharmacological stress Stress ECG Interp: No ischemic ST segment change occurred with stress. Signed 02/23/2019 11:57 AM Marion Hawkins MD Performing Organization Address [facility] Centercode Phone Number [facility] [address] [place] [address] ECG 12 lead (02/21/2019 5:53 PM CDT) Ventricular rate 73 [facility] Atrial rate 73 [facility] NV interval 152 [facility] QRSD interval 74 [facility] QT interval 368 [facility] QTC interval 405 [facility] P axis 1 31 [facility] QRS axis 1 47 [facility] T wave axis 64 [facility] EKG impression Normal sinus [facility] M[facility] rhythm-Possible Anterior infarct , age undetermined-Abnormal ECG-No previous ECGs available-Electronicall y Signed By Camacho Diaz MD ([id number]) on 02/21/2019 8:44:44 PM Specimen Narrative Performed At Performing Organization Address [facility] Centercowv Phone Number [facility] MUSE [address] ankle brachial index (02/21/2019 2:45 PM CDT) Specimen Narrative Performed At [facility] Vascular Diagnostic Laboratory Physiologic Arterial Leg Report [address] [place] [address] Pat.Name:KP MEDEIROS.ID:[id number] .Date: 02/21/2019 Refer.MD:SUNG GREGORY MD Exam Time: 2:16:00 PMStudy Type:Physiologic Leg Height:64inWeight: 130lb BSA: 1.63 m2 DOBAge:1945,73Y Sex: FEMALESonogrphr: Carmen Carreno RVT Pat. Stat.:Inpatient Room:ED-09 TapeVol: LN, CPT - 4: 51640 Echo Event ID:[id number] Order ID:[id number] Reason for Study:Right great toe dry gangrene. Right great toe pain that has been worsening for the past 3 weeks. Procedures:Ankle/brachial pressures, PPG waveform tracing, Segmental pressures Race:B SUMMARY: SEGMENTAL PRESSURE(mmHg): RIGHT LEFT Brachial 110 122 Ankle DP 29 31 Ankle [id number] Great Toe Unable to obtainAbsent ANKLE/BRACHIAL INDEX: RIGHTLEFT Dorsalis Pedis0.240.25 Posterior Tibial0.26 0.28 TOE/BRACHIAL INDEX: RIGHT LEFT Unable to obtain0.00 PRELIMINARY FINDINGS: 1. Ankle/brachial indices fall into the moderate - to - severe category, bilaterally. 2. Absent Doppler signals of the bilaterally toes. 3. Unable to obtain PPG in right great toe due to gangrene. PHYSICIAN INTERPRETATION: 1. Ankle/brachial indices fall into the moderate - to - severe category, bilaterally. 2. Absent Doppler signals of the bilaterally toes. 3. Unable to obtain PPG in right great toe due to gangrene. Signed 02/21/2019 04:02 PM Gary Washington MD, RPVI Procedure Note Interface, Radiology Results In - 02/21/2019 4:04 PM CDT Vascular Diagnostic Laboratory Physiologic Arterial Leg Report [address] [place] [address] Pat.Name: KP MEDEIROS Pat.ID: [id number] .Date: 02/21/2019 Refer.MD: SUNG GREGORY MD Exam Time: 2:16:00 PM Study Type:Physiologic Leg Height: 64in Weight: 130lb BSA: 1.63 m2 Age: 7 1945,73Y Sex: FEMALE Sonogrphr: Carmen Carreno RVT Pat. Stat.:Inpatient Room: ED-09 Tape Vol: LN, CPT - 4: 84080 Echo Event ID:[id number] Order ID: [id number] Reason for Study:Right great toe dry gangrene. Right great toe pain that has been worsening for the past 3 weeks. Procedures:Ankle/brachial pressures, PPG waveform tracing, Segmental pressures Race: B SUMMARY: SEGMENTAL PRESSURE (mmHg): RIGHT LEFT Brachial 110 122 Ankle DP 29 31 Ankle PT 32 34 Great Toe Unable to obtain Absent ANKLE/BRACHIAL INDEX: RIGHT LEFT Dorsalis Pedis 0.24 0.25 Posterior Tibial 0.26 0.28 TOE/BRACHIAL INDEX: RIGHT LEFT Unable to obtain 0.00 PRELIMINARY FINDINGS: 1. Ankle/brachial indices fall into the moderate - to - severe category, bilaterally. 2. Absent Doppler signals of the bilaterally toes. 3. Unable to obtain PPG in right great toe due to gangrene. PHYSICIAN INTERPRETATION: 1. Ankle/brachial indices fall into the moderate - to - severe category, bilaterally. 2. Absent Doppler signals of the bilaterally toes. 3. Unable to obtain PPG in right great toe due to gangrene. Signed 02/21/2019 04:02 PM Gary Washington MD, RPVI Performing Organization Address [facility] Centercode Phone Number [facility] [address] [place] [address] XR Foot 2 Vw Right (02/21/2019 2:16 PM CDT)Only the most recent of2 resultswithin the time period is included. Specimen Narrative Performed At EXAM:XR FOOT 2 VW RIGHT [facility] HISTORY:Osteomyelitis suspectedfoot swellingdiabetic COMPARISON:None available IMPRESSION: 1.No displaced fracture or dislocation. There is mild cortical erosion along the medial aspect of the distal first metatarsal and distal second metatarsal. Osteomyelitis not excluded. 2.There is mild interphalangeal degenerative arthropathy.. 3.Soft tissue swelling overlies the forefoot. [facility]-[id number] Procedure Note Interface, Radiology Results Incoming - 02/21/2019 2:32 PM CDT EXAM: XR FOOT 2 VW RIGHT HISTORY: Osteomyelitis suspected foot swelling diabetic COMPARISON: None available IMPRESSION: 1. No displaced fracture or dislocation. There is mild cortical erosion along the medial aspect of the distal first metatarsal and distal second metatarsal. Osteomyelitis not excluded. 2. There is mild interphalangeal degenerative arthropathy.. 3. Soft tissue swelling overlies the forefoot. [facility]-[id number] Performing Organization Address [facility]/Zipcode Phone Number [facility] [address] [place] [address] XR Chest 1 Vw Portable (02/21/2019 2:16 PM CDT) Specimen Narrative Performed At EXAMINATION:XR CHEST 1 VW PORTABLE [facility] CLINICAL HISTORY:chest pain COMPARISON:None. IMPRESSION: Single frontal view reveals a prominent cardiac silhouette with arch calcifications. Coarse interstitial markings are noted within the lungs with apical emphysematous changes. Pleural margins are sharp. The remainder of the examination is unremarkable. [id number] Procedure Note Hm Interface, Radiology Results Incoming - 02/21/2019 2:29 PM CDT EXAMINATION: XR CHEST 1 VW PORTABLE CLINICAL HISTORY: chest pain COMPARISON: None. IMPRESSION: Single frontal view reveals a prominent cardiac silhouette with arch calcifications. Coarse interstitial markings are noted within the lungs with apical emphysematous changes. Pleural margins are sharp. The remainder of the examination is unremarkable. [id number] Performing Organization Address City/[facility]/Zipcode Phone Number [facility] [address] [place] [address] Troponin (02/21/2019 2:07 PM CDT) Pathologist [facility] Troponin <0.30 0.00 - 0.30 TRAN [employer]ATION[employer] Comment: ng/mL [facility] 0.30 - 1.49 ng/mlMay indicate increased risk of acute coronary syndrome. >=1.5 ng/mlConsistent with acute myocardial infarction. The diagnostic value of a single normal or non-diagnostic result is questionable.Serial samples at 2-6 hour intervals are required to rule out acute myocardial injury. Specimen Plasma specimen Performing Organization Address [facility] Centercowv Phone Number [facility] DEPARTMENT OF PATHOLOGY AND [address] [place] [address] [address] Partial thromboplastin time, activated (02/21/2019 2:07 PM CDT) PTT 28.1 23.0 - 36.0 TRAN [facility] Comment: [facility]PITAL PTT therapeutic range for unfractionated heparin is 61.0-112.0 seconds which corresponds to Anti-Xa 0.3-0.7 U/ml. Specimen Blood Performing Organization Address [facility] Centercode Phone Number [facility] DEPARTMENT OF PATHOLOGY AND [address] [place] [phone] [address] D-dimer (02/21/2019 2:07 PM CDT) [facility] D-dimer 1.42 (H) 0.00 - 0.40 [facility] Comment: ug/mL [facility]ITAL Units are ug/ml Fibrinogen Equivalent Unit. When combined with low clinical probability, D-dimer results of less than 0.5 ug/ml FEU have a good negativepredictive value in excluding PE or DVT. For D-dimer results greater than 0.5ug/ml FEU further testing is indicated if PE or DVT is suspectedclinically. Elevated D-dimer results have been reported in DVT, PE, and DIC cases and may indicate the presence of a clot. D-dimer results may be elevated due to old age, , inflammatory diseases, trauma, post-operative states, sepsis, and malignancies. Specimen Blood Performing Organization Address City/State/Zipcode Phone Number [facility] DEPARTMENT OF PATHOLOGY AND [address] [place] [address] B natriuretic peptide (02/21/2019 2:07 PM CDT) [facility] BNP 109 (H) 0 - 100 pg/mL [facility] Specimen Blood Performing Organization Address City/State/Zipcode Phone Number [facility] DEPARTMENT OF PATHOLOGY AND [address] [place], [place] [phone] Comprehensive metabolic panel (02/21/2019 2:07 PM CDT)Only the most recent of2 resultswithin the time period is included. [facility] [facility] Sodium 142 135 - 148 [facility] mEq/L [facility] Potassium 3.4 (L) 3.5 - 5.0 [facility] mEq/L [facility] Chloride 102 98 - 112 mEq/L [facility] CO2 30 24 - 31 mEq/L [facility] Anion gap 10@ANIO 7 - 15 mEq/L [facility] BUN 15 8 - 23 mg/dL [facility] Creatinine 1.17 (H) 0.50 - 0.90 [facility] mg/dL [facility] Glucose 93 65 - 99 mg/dL [facility] Calcium 9.9 8.8 - 10.2 [facility] mg/dL [facility] Protein 6.6 6.3 - 8.3 g/dL [facility] Comment: [facility] [place] 4.6-7.0 g/dL 1 week 4.4-7.6 g/dL 7 months-1year5.1-7.3 g/dL 1-2 years5.6-7.5 g/dL >3 years6.0-8.0 g/dL 18-150 6.3-8.3 g/dL Albumin 3.6 3.5 - 5.0 g/dL [facility] A/G ratio 1.2 0.7 - 3.8 [facility] Alkaline phosphatase 54 35 - 104 U/L [facility] AST 16 10 - 35 U/L [facility] ALT 9 5 - 50 U/L [facility] Total bilirubin 0.9 0.0 - 1.2 [facility] mg/dL [facility] Specimen Plasma specimen Performing Organization Address City/State/Zipcode Phone Number [facility] DEPARTMENT OF PATHOLOGY AND [address] [place] [address] [place] [address] ECG ED Preliminary Interpretation - Not an Order (02/21/2019 2:03 PM CDT)Only the most recent of2 resultswithin the time period is included. Narrative Performed At Sung Gregory MD 02/25/2019 12:40 PM ECG ED Preliminary Interpretation - Not an Order Performed by: Sung Gregory MD Authorized by: Sung Gregory MD ECG reviewed by ED Physician in the absence of a picker feeder: yes Interpretation: Interpretation: normal Rate: ECG rate:76 ECG rate assessment: normal Rhythm: Rhythm: sinus rhythm Ectopy: Ectopy: none QRS: QRS axis:Normal QRS intervals:Normal Conduction: Conduction: normal ST segments: ST segments:Normal T waves: T waves: normal Echocardiogram complete w contrast and 3D if needed (01/30/2019 10:45 AM CDT) Specimen Narrative Performed At [facility] Echocardiography Report [address]Name:KP MEDEIROS.ID:[id number] .Date: 01/30/2019 Refer.MD:MEKHI MEDEIROS MD Exam Time: 8:16:00 AMStudy Type:Routine Echo Height:64inWeight: 120lb BSA: 1.58 m2 DOBAge:1945,73Y Sex: FEMALEBP:133/69 HR:63 bpmSonogrphr: RUDI Sanchez Pat. Stat.:Inpatient Room:[facility] Study Status:Final Echo Event ID:[id number] Order ID:[id number] Reason for Study:SOB, suspected cardiac etiology Procedures:2D Echo, Colorflow Doppler, Intravenous Definity Contrast Race:B SUMMARY: LV EF is normal. RV systolic function is normal. FINDINGS: LV: LV size is normal. LV EF is normal. Overall wall motion is normal.Estimated EF is 65-69% RV: RV size is normal. RV systolic function is normal. LA: LA volume is severely enlarged. RA: RA volume is enlarged. AO: Aortic root diameter is normal. TRACEY: No pericardial effusion. AV: Mild calcification of AV leaflets. A trace of aortic regurgitation. MV: Mild calcification of mitral leaflets. Mild mitral annular calcification.Mild mitral regurgitation. PV: Pulmonic valve not well seen. TV: No structural TV abnormalities noted. Mild tricuspid regurgitation Schmidt: LV relaxation is impaired. LV filling pressure is normal. Other:Suboptimal/insufficient TR jet. Estimated PA systolic pressureis at least 40 mmHg, assuming a mean RAP of 5 mmHg. MEASUREMENTS: 2D Parasternal [place] LVOT 1.9 cmLA Ds2.8 cm LVIDd4.3 cmIndex2.7 cm/m Ao Rtd 3.3 cm Index2.1 cm/m LVIDs1.9 cmLV Mass 94.1 g(87-129) LV%fs 55.6 % LVM Index 59.6 g/m2 IVSd 0.7 cmRWT0.4 LVPWd0.8 cm LA Sng Plane LA Area 23.7 cm2(8.8-23.4) LA Vol81.1 ml Index51.3 ml/m LA LngAx 5.6 cm DOPPLER LVOT For Flow LVOT Area2.8 cm2 LVOT SV 63.1 ml LVOTpkVel 97 cm/sHR62.5 bpm LVOTpkPG 3.8 mmHgLVOT CO3.9 l/min LVOTmnPG 1.6 mmHgLVOT CI2.5 l/m/m2 LVOT TVI22.3 cm Signed 01/30/2019 03:58 PM Sung Guerrero M.D. Procedure Note Interface, Radiology Results In - 01/30/2019 3:58 PM CDT Echocardiography Report [address] [place] [address] Pat.Name: KP MEDEIROS Pat.ID: [id number] .Date: 01/30/2019 Refer.MD: MEKHI MEDEIROS MD Exam Time: 8:16:00 AM Study Type:Routine Echo Height: 64in Weight: 120lb BSA: 1.58 m2 Age: 7 1945,73Y Sex: FEMALE BP: 133/69 HR: 63 bpm Sonogrphr: RUDI Sanchez Pat. Stat.:Inpatient Room: [facility] Study Status:Final Echo Event ID:[id number] Order ID: [id number] Reason for Study:SOB, suspected cardiac etiology Procedures:2D Echo, Colorflow Doppler, Intravenous Definity Contrast Race: B SUMMARY: LV EF is normal. RV systolic function is normal. FINDINGS: LV: LV size is normal. LV EF is normal. Overall wall motion is normal. Estimated EF is 65-69% RV: RV size is normal. RV systolic function is normal. LA: LA volume is severely enlarged. RA: RA volume is enlarged. AO: Aortic root diameter is normal. TRACEY: No pericardial effusion. AV: Mild calcification of AV leaflets. A trace of aortic regurgitation. MV: Mild calcification of mitral leaflets. Mild mitral annular calcification. Mild mitral regurgitation. PV: Pulmonic valve not well seen. TV: No structural TV abnormalities noted. Mild tricuspid regurgitation Schmidt: LV relaxation is impaired. LV filling pressure is normal. Other: Suboptimal/insufficient TR jet. Estimated PA systolic pressure is at least 40 mmHg, assuming a mean RAP of 5 mmHg. MEASUREMENTS: 2D Parasternal [place] LVOT 1.9 cm LA Ds 2.8 cm LVIDd 4.3 cm Index 2.7 cm/m Ao Rtd 3.3 cm Index 2.1 cm/m LVIDs 1.9 cm LV Mass 94.1 g (87-129) LV%fs 55.6 % LVM Index 59.6 g/m2 IVSd 0.7 cm RWT 0.4 LVPWd 0.8 cm LA Sng Plane LA Area 23.7 cm2 (8.8-23.4) LA Vol 81.1 ml Index 51.3 ml/m LA LngAx 5.6 cm DOPPLER LVOT For Flow LVOT Area 2.8 cm2 LVOT SV 63.1 ml LVOTpkVel 97 cm/s HR 62.5 bpm LVOTpkPG 3.8 mmHg LVOT CO 3.9 l/min LVOTmnPG 1.6 mmHg LVOT CI 2.5 l/m/m2 LVOT TVI 22.3 cm Signed 01/30/2019 03:58 PM Sung Guerrero M.D. Performing Organization Address City/State/Zipcode Phone Number [facility] [address] [place] [address] Cv cta abdomen w runoff w contrast (01/30/2019 9:14 AM CDT) Specimen Narrative Performed At [facility] Nuclear Cardiology and Cardiac CT [address] [address] CTA Abd/Pelvis with Runoff Report Pat.Name:KP MEDEIROS.ID:[id number] .Date: 01/30/2019 Refer.MD:MARION WILKINSON MD Exam Time: 8:45:00 AM Study Type:CTA Abd_Pelvis with Runoff Height:64inDOBAge: 1945,73Y Sex: FEMALEBP:133/60 Nuclear Tech:BINU Miles(N)(CT) CPT - 4: CTA ABD/PELV W/WO 40255 Nuclear Event ID:[id number] Order ID:[id number] Reason for Study:Assess Abdominal Aortic Aneurysm and PAD Procedures:CT Flash mode Race:B SUMMARY: AbdominalAortic Dimensions: No aortic dissection or aortic aneurysm is seen. Supra-renal abdominal aorta: 2.1 cm with severe predominantly calcified atherosclerotic plaque, ulcerated. Celiac trunk: <50% stenosis. Superior mesenteric artery: no significant stenosis. Juxta-renal aorta: 1.9 cm with severe predominantly calcified atherosclerotic plaque, ulcerated. Right renal artery: no significant stenosis. Left renal artery: no significant stenosis. 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 The infrarenal aorta almost completely occludes prior to the bifurcation of the bilateral common iliacs. Inferior mesenteric artery: no significant stenosis. Aortic Bifurcation Left Lower Extremity Left common iliac is a artery which has severe calcified and non-calcified atherosclerotic plaque present with total occlusion. Left external iliac is a artery which has mild calcified and non-calcified atherosclerotic plaque present but with no significant stenosis. Left internal iliac is a artery which has severe calcified and non-calcified atherosclerotic plaque. Left femoral is a artery which has mild calcified and non-calcified atherosclerotic plaque present but with no significant stenosis. Left superficial femoral is a artery which has severe calcified and non-calcified atherosclerotic plaque present with severe stenosis at the distal SFA. Left popliteal sylvia artery which has mild calcified and non-calcified atherosclerotic plaque present but with no significant stenosis. Left anterior tibial is occluded proximally. Left posterior tibialis is occluded proximally. Left peroneal is a artery which has mild calcified and non-calcified atherosclerotic plaque present but with no significant stenosis. Right Lower Extremity Right common iliac sylvia artery which has severe calcified and non-calcified atherosclerotic plaque present with severe (>70%) stenosis. Right external iliac is a artery which has moderate calcified and non-calcified atherosclerotic plaque present but with no significant stenosis. Right internal iliac is a artery which has severe calcified and non-calcified atherosclerotic plaque present but with no significant stenosis. Right femoral is a artery which has mild calcified and non-calcified atherosclerotic plaque present but with no significant stenosis. Right superficial femoral is a artery which has moderate diffuse calcified and non-calcified atherosclerotic plaque present with mild (<50%) stenosis. Right popliteal is a artery which has moderate diffuse calcified and non-calcified atherosclerotic plaque present with mild (<50%) stenosis. Right anterior tibial sylvia artery which is occluded proximally. Right posterior tibialis sylvia which is occluded proximally. Right peroneal is a artery which has mild calcified and non-calcified atherosclerotic plaque present but with no significant stenosis. Non-cardiac findings: Calcification noted in the left breast. Moderate mitral annular calcification. Bullae left lower lobe. Right 2 cm liver cyst. STUDY QUALITY: Good. COMMENTS: None. The above report was based on a dedicated Cardiovascular CTA Protocol and interpreted by a Legal Transcriptionist.Should a more comprehensive assessment of non-cardiovascular findings be desired, please consult a radiologist.These images are available in the [facility] [employer] PACS system. Signed 01/30/2019 03:07 PM Nilesh Vega MD Procedure Note Interface, Radiology Results In - 01/30/2019 3:07 PM CDT Nuclear Cardiology and Cardiac CT [address] [place], [place] [id number] CTA Abd/Pelvis with Runoff Report Pat.Name: KP MEDEIROS Pat.ID: [id number] .Date: 01/30/2019 Refer.MD: MARION WILKINSON MD Exam Time: 8:45:00 AM Study Type:CTA Abd_Pelvis with Runoff Height: 64in Age: 7 1945,73Y Sex: FEMALE BP: 133/60 Nuclear Tech:BINU Miles(N)(CT) CPT - 4: CTA ABD/PELV W/WO 00754 Nuclear Event ID:[id number] Order ID: [id number] Reason for Study:Assess Abdominal Aortic Aneurysm and PAD Procedures:CT Flash mode Race: B SUMMARY: Abdominal Aortic Dimensions: No aortic dissection or aortic aneurysm is seen. Supra-renal abdominal aorta: 2.1 cm with severe predominantly calcified atherosclerotic plaque, ulcerated. Celiac trunk: <50% stenosis. Superior mesenteric artery: no significant stenosis. Juxta-renal aorta: 1.9 cm with severe predominantly calcified atherosclerotic plaque, ulcerated. Right renal artery: no significant stenosis. Left renal artery: no significant stenosis. 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 The infrarenal aorta almost completely occludes prior to the bifurcation of the bilateral common iliacs. Inferior mesenteric artery: no significant stenosis. Aortic Bifurcation Left Lower Extremity Left common iliac is a artery which has severe calcified and non-calcified atherosclerotic plaque present with total occlusion. Left external iliac is a artery which has mild calcified and non-calcified atherosclerotic plaque present but with no significant stenosis. Left internal iliac is a artery which has severe calcified and non-calcified atherosclerotic plaque. Left femoral is a artery which has mild calcified and non-calcified atherosclerotic plaque present but with no significant stenosis. Left superficial femoral is a artery which has severe calcified and non-calcified atherosclerotic plaque present with severe stenosis at the distal SFA. Left popliteal is a artery which has mild calcified and non-calcified atherosclerotic plaque present but with no significant stenosis. Left anterior tibial is occluded proximally. Left posterior tibialis is occluded proximally. Left peroneal is a artery which has mild calcified and non-calcified atherosclerotic plaque present but with no significant stenosis. Right Lower Extremity Right common iliac is a artery which has severe calcified and non-calcified atherosclerotic plaque present with severe (>70%) stenosis. Right external iliac is a artery which has moderate calcified and non-calcified atherosclerotic plaque present but with no significant stenosis. Right internal iliac is a artery which has severe calcified and non-calcified atherosclerotic plaque present but with no significant stenosis. Right femoral is a artery which has mild calcified and non-calcified atherosclerotic plaque present but with no significant stenosis. Right superficial femoral is a artery which has moderate diffuse calcified and non-calcified atherosclerotic plaque present with mild (<50%) stenosis. Right popliteal is a artery which has moderate diffuse calcified and non-calcified atherosclerotic plaque present with mild (<50%) stenosis. Right anterior tibial is a artery which is occluded proximally. Right posterior tibialis is a which is occluded proximally. Right peroneal is a artery which has mild calcified and non-calcified atherosclerotic plaque present but with no significant stenosis. Non-cardiac findings: Calcification noted in the left breast. Moderate mitral annular calcification. Bullae left lower lobe. Right 2 cm liver cyst. STUDY QUALITY: Good. COMMENTS: None. The above report was based on a dedicated Cardiovascular CTA Protocol and interpreted by a Legal Transcriptionist. Should a more comprehensive assessment of non-cardiovascular findings be desired, please consult a radiologist. These images are available in the [facility] [employer] PACS system. Signed 01/30/2019 03:07 PM Nilesh Vega MD Performing Organization Address City/State/Zipcode Phone Number [facility] [address] [phone] Us carotid duplex (01/30/2019 8:28 AM CDT) Specimen Narrative Performed At [facility] Vascular Ultrasound Laboratory Carotid Artery Duplex Report [address] [id number] For quality assurance manager purposes, the categorization of the degree of the stenosis of this exam is based on criteria described in the IAC carotid stenosis grading white paper( www.intersocietal.org/Vascular) and Jazmine Johnson., Jose Monae., et al. Carotid artery stenosis: malave-scale and Doppler US diagnosis--Society of Radiologists in Ultrasound Consensus Conference. Radiology. 2002; 229(2):340-6. Pat.Name:KP MEDEIROS.ID:[id number] .Date: 01/30/2019 Refer.MD:MARION WILKINSON MD Exam Time: 7:28:00 AMStudy Type:Carotid Height:64inDOBAge: 1945,73Y Sex: FEMALESonogrphr: LADAN Sousa, RVT Pat. Stat.:Inpatient Room:[address] TapeVol: RADHA, CPT - 4: [address] Echo Event ID:[id number] Order ID:[id number] Reason for Study:History of peripheral vascular disease per ordering physician. Patient has history of hypertension, hyperlipidemia, coronary artery disease, and smoking. Procedures:Colorflow, Grayscale/2D, Pulsed wave Doppler Race:B SUMMARY: PHYSICAL ASSESSMENT BloodPulsesCarotid Pressure Carotid TemporalBruit Right 153/66 ++0 Left 147/66 ++0 CAROTID ARTERY SCAN RIGHT:Calcified irregular surfaced noted in the proximal to mid common carotid artery. Calcified plaque noted at the bulb, proximal external carotid artery and proximal internal carotid artery. Color flow and doppler signals are disturbed in the proximal external carotid artery and proximal to distal internal carotid artery with elevated velocities. Hard appearing plaque noted at the proximal subclavian artery. Tortuosity noted in the distal internal carotid artery. LEFT:Diffuse calcified plaque noted in the visualized segment of the proximal to distal common carotid artery.Irregular surfaced calcified plaque seen at the bulb and proximal internal carotid artery. Calcified plaque noted at the origin and proximal external carotid artery; colorflow and doppler signals are disturbed. Tortuosity noted in the distal internal carotid artery; colorflow and doppler signals are disturbed. Noncalcified plaque noted at the proximal subclavian artery. PRELIMINARY FINDINGS 1. 50-69% stenosis of the right internal carotid artery. 2. >50% stenosis of bilateral external carotid arteries. 3.Tortuosity noted in bilateral internal carotid arteries. PHYSICIAN INTERPRETATION Bilateral carotid duplex examination demonstrated atherosclerotic plaques in the bulbs. 50-69% stenosis of the right internal carotid artery. <50% stenosis of left internal carotid artery. >50% stenosis of bilateral external carotid arteries. Both vertebral arteries are antegrade. Carotid Findings:RightLeft Verteb.Flw AntegradeAntegrade Subclavian Biphasic Biphasic MEASUREMENTS: DOPPLER Right CCA Dist CCA Dist PSV55.6 cm/sCCA Dist EDV 7.3 cm/s Right CCA Mid CCA Mid PSV 68.6 cm/sCCA Mid EDV 12.5 cm/s Right CCA Prox CCA Prox PSV67.7 cm/sCCA Prox EDV11.6 cm/s ECA Prox ECA Prox PSV 152 cm/sECA Prox EDV10 cm/s Right ICA Dist ICA Dist PSV 166 cm/Cora Dist EDV29.5 cm/s Right ICA Mid ICA Mid [id number] cm/Cora Mid EDV 26.7 cm/s Right ICA Prox ICA Prox PSV 191 cm/Cora Prox EDV43.4 cm/s Right Vertebral Vertebral PSV 75.5 cm/sVertebral EDV 14.2 cm/s Right Subclavian Subclavian PSV 127 cm/s Left CCA Dist CCA Dist PSV75.8 cm/sCCA Dist EDV12.4 cm/s Left CCA Mid CCA Mid PSV 73.3 cm/sCCA Mid EDV 13.7 cm/s Left CCA Prox CCA Prox PSV80 cm/sCCA Prox EDV15 cm/s Left ECA Prox ECA Prox PSV 249 cm/sECA Prox EDV3.62 cm/s Left ICA Dist ICA Dist PSV 116 cm/Cora Dist EDV27.9 cm/s Left ICA Mid ICA Mid [id number] cm/Cora Mid EDV 24.2 cm/s Left ICA Prox ICA Prox PSV67.6 cm/Cora Prox EDV14.4 cm/s Left Vertebral Vertebral PSV 83.3 cm/sVertebral EDV 17.1 cm/s Left Subclavian Subclavian PSV 118 cm/s Right ICA/CCA Ratio ICA/CCA PSV 2.78 Left ICA/CCA Ratio ICA/CCA PSV0.922 Signed 01/30/2019 12:41 PM Gary Washington MD, RPVI Procedure Note Interface, Radiology Results In - 01/30/2019 12:42 PM CDT Vascular Ultrasound Laboratory Carotid Artery Duplex Report [address] [place] [address] For quality assurance manager purposes, the categorization of the degree of the stenosis of this exam is based on criteria described in the IAC carotid stenosis grading white paper( www.intersocietal.org/Vascular) and David Johnson, Shweta Monae, et al. Carotid artery stenosis: malave-scale and Doppler US diagnosis--Society of Radiologists in Ultrasound Consensus Conference. Radiology. 2003 Sep; 229(2):340-6. Pat.Name: KP MEDEIROS Pat.ID: [id number] .Date: 01/30/2019 Refer.MD: MARION WILKINSON MD Exam Time: 7:28:00 AM Study Type:Carotid Height: 64in Age: 7 1945,73Y Sex: FEMALE Sonogrphr: LADAN Sousa, RVT Pat. Stat.:Inpatient Room: [address] Tape Vol: RADHA, CPT - 4: 47418 Echo Event ID:[id number] Order ID: [id number] Reason for Study:History of peripheral vascular disease per ordering physician. Patient has history of hypertension, hyperlipidemia, coronary artery disease, and smoking. Procedures:Colorflow, Grayscale/2D, Pulsed wave Doppler Race: B SUMMARY: PHYSICAL ASSESSMENT Blood Pulses Carotid Pressure Carotid Temporal Bruit Right 153/66 + + 0 Left 147/66 + + 0 CAROTID ARTERY SCAN RIGHT: Calcified irregular surfaced noted in the proximal to mid common carotid artery. Calcified plaque noted at the bulb, proximal external carotid artery and proximal internal carotid artery. Color flow and doppler signals are disturbed in the proximal external carotid artery and proximal to distal internal carotid artery with elevated velocities. Hard appearing plaque noted at the proximal subclavian artery. Tortuosity noted in the distal internal carotid artery. LEFT: Diffuse calcified plaque noted in the visualized segment of the proximal to distal common carotid artery. Irregular surfaced calcified plaque seen at the bulb and proximal internal carotid artery. Calcified plaque noted at the origin and proximal external carotid artery; colorflow and doppler signals are disturbed. Tortuosity noted in the distal internal carotid artery; colorflow and doppler signals are disturbed. Noncalcified plaque noted at the proximal subclavian artery. PRELIMINARY FINDINGS 1. 50-69% stenosis of the right internal carotid artery. 2. >50% stenosis of bilateral external carotid arteries. 3.Tortuosity noted in bilateral internal carotid arteries. PHYSICIAN INTERPRETATION Bilateral carotid duplex examination demonstrated atherosclerotic plaques in the bulbs. 50-69% stenosis of the right internal carotid artery. <50% stenosis of left internal carotid artery. >50% stenosis of bilateral external carotid arteries. Both vertebral arteries are antegrade. Carotid Findings: Right Left Verteb.Flw Antegrade Antegrade Subclavian Biphasic Biphasic MEASUREMENTS: DOPPLER Right CCA Dist CCA Dist PSV 55.6 cm/s CCA Dist EDV 7.3 cm/s Right CCA Mid CCA Mid PSV 68.6 cm/s CCA Mid EDV 12.5 cm/s Right CCA Prox CCA Prox PSV 67.7 cm/s CCA Prox EDV 11.6 cm/s ECA Prox ECA Prox PSV 152 cm/s ECA Prox EDV 10 cm/s Right ICA Dist ICA Dist PSV 166 cm/s ICA Dist EDV 29.5 cm/s Right ICA Mid ICA Mid PSV 180 cm/s ICA Mid EDV 26.7 cm/s Right ICA Prox ICA Prox PSV 191 cm/s ICA Prox EDV 43.4 cm/s Right Vertebral Vertebral PSV 75.5 cm/s Vertebral EDV 14.2 cm/s Right Subclavian Subclavian PSV 127 cm/s Left CCA Dist CCA Dist PSV 75.8 cm/s CCA Dist EDV 12.4 cm/s Left CCA Mid CCA Mid PSV 73.3 cm/s CCA Mid EDV 13.7 cm/s Left CCA Prox CCA Prox PSV 80 cm/s CCA Prox EDV 15 cm/s Left ECA Prox ECA Prox PSV 249 cm/s ECA Prox EDV 3.62 cm/s Left ICA Dist ICA Dist PSV 116 cm/s ICA Dist EDV 27.9 cm/s Left ICA Mid ICA Mid PSV 111 cm/s ICA Mid EDV 24.2 cm/s Left ICA Prox ICA Prox PSV 67.6 cm/s ICA Prox EDV 14.4 cm/s Left Vertebral Vertebral PSV 83.3 cm/s Vertebral EDV 17.1 cm/s Left Subclavian Subclavian PSV 118 cm/s Right ICA/CCA Ratio ICA/CCA PSV 2.78 Left ICA/CCA Ratio ICA/CCA PSV 0.922 Signed 01/30/2019 12:41 PM Gary Washington MD, RPVI Performing Organization Address City/[facility]/Zipcode Phone Number [facility] [address] [place] [address] Uric acid level (01/29/2019 12:00 AM CDT) [facility] Uric acid 7.3 (H) 2.4 - 5.7 mg/dL [facility] Specimen Plasma specimen Performing Organization Address City/[facility]/Zipcode Phone Number [facility] DEPARTMENT OF PATHOLOGY AND [address] [place] [address] [address] Thyroid stimulating hormone (01/29/2019 12:00 AM CDT) [facility] TSH 0.43 0.27 - 4.20 uIU/mL [facility] Specimen Plasma specimen Performing Organization Address City/[facility]/Zipcode Phone Number [facility] DEPARTMENT OF PATHOLOGY AND [address] [place] [address] [address] T4, free (01/29/2019 12:00 AM CDT) T4, free 1.5 0.9 - 1.7 ng/dL [facility] Specimen Plasma specimen Performing Organization Address City/[facility] Phone Number [facility] DEPARTMENT OF PATHOLOGY AND [address] [place] [address] [address] Lipid panel (01/29/2019 12:00 AM CDT) Cholesterol 137 <200 mg/dL [facility] Triglycerides 81 <150 mg/dL [facility] HDL cholesterol 45 >40 mg/dL [facility] LDL cholesterol 81Comment: Result <100 mg/dL [place] obtained by direct RESTORATIONIST LDL measurement [facility] Lipid panel [facility] interpretation Comment: RESTORATIONIST Total Cholesterol (mg/dL) [facility] <200 Desirable [phone]-dktv >=240High Triglycerides (mg/dL) <150 Normal 561-270Razvknhgsz-jsqy 200-499High >=500Very high HDL Cholesterol (mg/dL) <40Low (male) <40Low (female) LDL Cholesterol (mg/dL) <100 Optimal 100-129Near or above optimal [phone]-vrrf 160-189High >=190Very high Risk Catergories that modify LDL goals. Risk CatergoriesLDL goal (mg/dL) CHD and CHD risk equivalent<100 (10-year risk >20%) Multiple (2+) risk factors <130 (10-year risk=<20%) 0-1 risk factors <160 (<10-year risk) Defining levels of lipids in metabolic syndrome Triglycerides>=150 mg/dL HDL Cholesterol Men<40 mg/dL Women<40 mg/dL Non-HDL cholesterol is a second target for therapy in persons with high triglycerides (>=200 mg/dL) Specimen Plasma specimen Performing Organization Address City/[facility]/Zipcode Phone Number [facility] DEPARTMENT OF PATHOLOGY AND [address] [place] [address] [address] Us duplex arterial lower extremity (01/28/2019 4:59 PM CDT) Specimen Narrative Performed At [facility] Vascular Ultrasound Laboratory Lower Extremity Arterial Duplex Report [id number] [facility] [address], [place] [address] Pat.Name:KP MEDEIROS.ID:[id number] .Date: 01/28/2019 Refer.MD:SUNG GREGORY MD Exam Time: 3:43:00 PMStudy Type:LE Arterial Height:64inDOBAge: 1945,73Y Sex: FEMALESonogrphr: Lewis Martinez, RVT, RDMS Pat. Stat.:Inpatient Room:EDP TapeVol: , CPT - 4: 94590 Echo Event ID:[id number] Order ID:[id number] Reason for Study:Rt toe pain and dry gangrene. Procedures:Colorflow, Grayscale/2D, Pulsed wave Doppler SUMMARY: DUPLEX SCAN OBSERVATIONS: RIGHT: Hard and calcified plaque seen in the common femoral artery, profunda femoris artery, superficial femoral artery,popliteal artery, and tibial arteries, and peroneal artery. Absent colorflow and Doppler signals noted in the mid to distal anterior tibial artery. The posterior tibial artery was not visualized. PRELIMINARY FINDINGS: 1. Occlusion of the rightmid to distal anterior tibial artery. 2. Monophasic Doppler waveforms throughout the visualized arteries. 3. Unable to obtain ankle/brachial index due to diminished Doppler signals. 4. Unable to obtain toe/brachial index due to absent Doppler signals. PHYSICIAN INTERPRETATION: Arterial duplex examination ofright lower extremity demonstrates significant inflow arterial occlusive disease ( CERTIFIED MEDICAL AIDE post-stenotic waveform) andthe right GRICELDA occlusion. MEASUREMENTS: DOPPLER Right CERTIFIED MEDICAL AIDE prox CERTIFIED MEDICAL AIDE prox PSV47.5 cm/s Right Profunda Profunda PSV61.8 cm/s Profunda Right Profunda 60 deg Right SFA Dist SFA Dist PSV30.1 cm/s SFA Right SFA Dist 60 degRight SFA Prox 60 deg Right SFA Mid D60 deg Right SFA Mid SFA Mid PSV 32.1 cm/s Right SFA Prox SFA Prox PSV36.5 cm/s Right Pop Dist Pop Dist PSV21.6 cm/s Popliteal Right Msmfqrtqy10 degRight Bjnlplvhw65 deg Right Pop Prox Pop Prox PSV12.4 cm/s Right PUMP ASSEMBLER Prox PUMP ASSEMBLER Prox PSV6.67 cm/s Tibial Post Right Tibial Po60 deg Right Peroneal Dist Peroneal Dist P13.7 cm/s Peroneal Right Peroneal 60 degRight Peroneal 60 deg Right Peroneal 60 deg Right Peroneal Mid Peroneal Mid PS20.2 cm/s Right Peroneal Prox Peroneal Prox P24.6 cm/s Right GRICELDA Dist GRICELDA Dist PSV 0 cm/s Tibial Art Right Tibial Ar60 degRight Tibial Ar60 deg Right Tibial Ar60 deg Right GRICELDA Mid GRICELDA Mid PSV0 cm/s Right CERTIFIED MEDICAL AIDE Mid CERTIFIED MEDICAL AIDE Mid PSV 48 cm/s Right GRICELDA Prox GRICELDA Prox PSV19.8 cm/s Right GRICEDLA Distal GRICELDA Distal PSV 0 cm/s Signed 01/28/2019 07:20 PM Gary Washington MD, RPVI Procedure Note Interface, Radiology Results In - 01/28/2019 7:21 PM CDT Vascular Ultrasound Laboratory Lower Extremity Arterial Duplex Report [id number] [place] [address] Pat.Name: KP MEDEIROS Pat.ID: [id number] St.Date: 01/28/2019 Refer.MD: SUNG GREGORY MD Exam Time: 3:43:00 PM Study Type:LE Arterial Height: 64in Age: 7 1945,73Y Sex: FEMALE Sonogrphr: Lewis Martinez RVT, RD Pat. Stat.:Inpatient Room: EDP Tape Vol: MK, CPT - 4: 94268 Echo Event ID:[id number] Order ID: [id number] Reason for Study:Rt toe pain and dry gangrene. Procedures:Colorflow, Grayscale/2D, Pulsed wave Doppler SUMMARY: DUPLEX SCAN OBSERVATIONS: RIGHT: Hard and calcified plaque seen in the common femoral artery, profunda femoris artery, superficial femoral artery, popliteal artery, and tibial arteries, and peroneal artery. Absent colorflow and Doppler signals noted in the mid to distal anterior tibial artery. The posterior tibial artery was not visualized. PRELIMINARY FINDINGS: 1. Occlusion of the right mid to distal anterior tibial artery. 2. Monophasic Doppler waveforms throughout the visualized arteries. 3. Unable to obtain ankle/brachial index due to diminished Doppler signals. 4. Unable to obtain toe/brachial index due to absent Doppler signals. PHYSICIAN INTERPRETATION: Arterial duplex examination of right lower extremity demonstrates significant inflow arterial occlusive disease ( CERTIFIED MEDICAL AIDE post-stenotic waveform) and the right GRICELDA occlusion. MEASUREMENTS: DOPPLER Right CERTIFIED MEDICAL AIDE prox CERTIFIED MEDICAL AIDE prox PSV 47.5 cm/s Right Profunda Profunda PSV 61.8 cm/s Profunda Right Profunda 60 deg Right SFA Dist SFA Dist PSV 30.1 cm/s SFA Right SFA Dist 60 deg Right SFA Prox 60 deg Right SFA Mid D 60 deg Right SFA Mid SFA Mid PSV 32.1 cm/s Right SFA Prox SFA Prox PSV 36.5 cm/s Right Pop Dist Pop Dist PSV 21.6 cm/s Popliteal Right Popliteal 60 deg Right Popliteal 60 deg Right Pop Prox Pop Prox PSV 12.4 cm/s Right PUMP ASSEMBLER Prox PUMP ASSEMBLER Prox PSV 6.67 cm/s Tibial Post Right Tibial Po 60 deg Right Peroneal Dist Peroneal Dist P 13.7 cm/s Peroneal Right Peroneal 60 deg Right Peroneal 60 deg Right Peroneal 60 deg Right Peroneal Mid Peroneal Mid PS 20.2 cm/s Right Peroneal Prox Peroneal Prox P 24.6 cm/s Right GRICELDA Dist GRICELDA Dist PSV 0 cm/s Tibial Art Right Tibial Ar 60 deg Right Tibial Ar 60 deg Right Tibial Ar 60 deg Right GRICELDA Mid GRICELDA Mid PSV 0 cm/s Right CERTIFIED MEDICAL AIDE Mid CERTIFIED MEDICAL AIDE Mid PSV 48 cm/s Right GRICELDA Prox GRICELDA Prox PSV 19.8 cm/s Right GRICELDA Distal GRICELDA Distal PSV 0 cm/s Signed 01/28/2019 07:20 PM Gary Washington MD, RPVI Performing Organization Address City/[facility]/Zipcode Phone Number [facility] [address] [place] [address] Blood culture, aerobic & anaerobic (01/28/2019 1:34 PM CDT) Blood culture No growth after 5 days of incubation. [facility] isolate Comment: HOSPITAL Specimen Information Specimen Source: Blood Specimen Site: Forearm, left Specimen Blood - Forearm, left Performing Organization Address City/[facility] Cent[facility]ode Phone Number [facility] DEPARTMENT OF PATHOLOGY AND [address] [place] [address] [address] C-reactive protein (01/28/2019 1:34 PM CDT) CRP 1.67 (H) 0.00 - 0.50 mg/dL [facility] Specimen Plasma specimen Performing Organization Address [facility] Centercowv Phone Number [facility] DEPARTMENT OF PATHOLOGY AND [address] [place] [address] [address] Lactic acid level (01/28/2019 1:34 PM CDT) Lactic acid 2.0 0.5 - 2.2 mmol/L [facility] Specimen Plasma specimen Performing Organization Address City/[facility] Cent[facility]ode Phone Number [facility] DEPARTMENT OF PATHOLOGY AND [address] [place] [phone] [address] after 04/23/2018 Advance Directives Patient has advance care planning documents on file. For more information, please contact:Juan Vasquez[address] [place] [address]
--- OUTSIDE RECORDS SUMMARY | 2019-04-24 23:54 | XMS REPORT ---
:1945 Author Organization eClinicalWorks Care Team Providers Name Role Phone Webster, Na Provider Role Unavailable Allergies No Known Allergies Problems Problem Type Condition Code Onset Dates Condition Status Problem Hyperlipidemia E78.5 Active Problem Cigarette nicotine dependence F17.210 Active without complication Problem Nicotine dependence F17.200 Active Problem Primary osteoarthritis, 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 Active and foot Problem 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 Active Problem Primary osteoarthritis, right ankle M19.071 Active and foot Problem AAA (abdominal aortic aneurysm) I71.4 Active [...] 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
--- OUTSIDE RECORDS SUMMARY | 2019-04-24 23:54 | XMS REPORT | Continuity of Care Document ---
[...] 92.0 fL 80.0 - 07/04 MH 98.0 [place] HEMATOLOG[facility] Hgb 14.3 g/dL 12.0 - 07/04 16.0 [place] [facility]AT[facility] Hct 43.9 % 36.0 - 07/04 48.0 [place] HEMAT[facility] MCH 29.9 pg 27.0 - 07/04 31.0 [place] [facility]EMAT[facility] Platelet 222 K/CMM 133 - 450 07/04 [place] HEMAT[facility] MCHC 32.5 g/dL 32.0 - 07/04 36.0 [place] HEMAT[facility] RDW 15.8 % 11.5 - 07/04 MH 14.5 [place] HEMAT[facility] MPV 10.4 fL 7.4 - 10.4 07/04 [place] HEMAT[facility] RBC 4.78 M/CMM 4.20 - 07/04 MH 5.40 /2016 [place] HEMAT[facility] WBC 15.9 K/CMM 3.7 - 10.4 07/04 [place] HEMATOLOGY PT 13.0 s 12.0 - 07/04 MH 14.7 [place] HEMATOLOGY INR 0.96 0.85 - 07/04 MH 1.17 [place] HEMATOLOG[facility] PTT 26.5 s 22.9 - 07/04 MH 35.8 [place] HEMATOLOG[facility] Platelet 219 K/CMM 133 - 450 07/04 [place] HEMATOLOG[facility] Plt Morph Normal 07/04 [place] (07/04/17 8:16 AM) [place] HEMAT[facility] Segs 69.3 % 45.0 - 07/04 MH 75.0 /2016 [place] HEMATOLOGY Lymphocytes 23.0 % 20.0 - 07/04 40.0 /2016 [place] HEMATOLOGY Eosinophils 0.1 K/CMM 0.0 - 0.5 07/04 # /2016 [place] HEMATOLOGY Monocytes # 1.1 K/CMM 0.0 - 0.8 07/04 [place] HEMATOLOGY Basophils # 0.1 K/CMM 0.0 - 0.2 07/04 [place] HEMATOLOGY Anisocyte 1+ None Seen 07/04 [place] *ABN* [place] (07/04/17 8:16 AM) HEMATOLOGY Eosinophils 0.4 % 0.0 - 4.0 07/04 [place] HEMATOLOGY Monocytes 6.7 % 2.0 - 12.0 07/04 [place] HEMATOLOGY Segs-Bands # 11.0 K/CMM 1.5 - 8.1 07/04 [place] HEMATOLOGY Basophils 0.6 % 0.0 - 1.0 07/04 [place] HEMATOLOGY Lymphocytes 3.7 K/CMM 1.0 - 5.5 07/04 # /2016 [place] Bone biopsy Bone biopsy PROCEDURES PERFORMED: 07/04 - w guidance w guidance /2016 - [facility] [place] CT CT 1. Bone Marrow aspiration and [...] marrow was aspirated and given to the network control technician for preparation. An 8 gauge bone biopsy needle was then advanced under CT guidance into the right iliac bone and a core sample was obtained and given to the ct technologist in the room. Satisfactory position was confirmed under CT. The patient tolerated the procedure well, and there were no immediate complications. IMPRESSION: Bone marrow aspiration and core needle biopsy with CT guidance of the right iliac bone. Vital Signs Vital Sign Value Date Comments Source BMI Calculated 21.03 07/04/2017 [place] Height 167.64 cm 07/04/2017 [place] Weight 59.091 07/04/2017 [place] Temperature Oral (F) 97.6 F 07/04/2017 [place] Respitory Rate 18 07/04/2017 [place] Systolic (mm Hg) 138 07/04/2017 [place] Diastolic (mm Hg) 69 07/04/2017 [place] Encounters Location Location Encounter Encounter Reason Attending ADM DC Status Source Details Type Number For Provider Date Date Visit [facility] Outpatient [id number] [place] 07/04 07/05 Miko Lou [place] Procedures Procedure Code Date Perfomer Comments Source
--- OUTSIDE RECORDS SUMMARY | 2019-04-24 23:54 | XMS REPORT ---
:1945 Author Organization eClinicalWorks Care Team Providers Name Role Phone Webster, Kirti Provider Role Unavailable Allergies, Adverse Reactions, Alerts Substance Reaction Event Type N.K.D.A. 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 Problem Benign essential HTN I10 Active Assessment 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 Active Problem Hyperlipidemia E78.5 Active Problem Cigarette nicotine dependence F17.210 Active without complication Problem Nicotine dependence F17.200 Active Problem Primary osteoarthritis, 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 Active and foot Problem 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 Active Assessment Toe pain, right M79.674 Active Problem Primary osteoarthritis, 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 Assessment Open wound of right great toe, S91.101S Active sequela Problem AAA (abdominal aortic aneurysm) I71.4 Active [...] Start End Status Dosage System Date Date Ergocalciferol [facility] 68804243845 [address] UNIT Active 1 capsule Orally ProAir HFA [facility] 84245628643 108 (90 Base) Active 2 puffs MCG/ACT as needed Inhalation every 6 hrs Metoprolol Succinate [facility] 43620442565 100 MG Orally Active 1 tablet ER Once a day Potassium Chloride ER ND 71715904274 10 MEQ Orally Active 1 tablet twice a day with food Pantoprazole Sodium ND 52652664154 40 MG Active TAKE 1 TABLET BY MOUTH ONCE A DAY Hydrochlorothiazide [facility] 37901847819 25 MG Active TAKE 1 TABLET BY MOUTH ONCE A DAY Advair Diskus [facility] 86157346986 100-50 Active 1 puff MCG/DOSE Inhalation Twice a day Diclofenac Sodium [facility] 27535064648 1 % Nov 29, Active 2gram to Transdermal 2018 affected Three times a area day prn pain Gabapentin [facility] 95998641757 300 MG Orally Active 1 capsule Once a day before bedtime Zocor [facility] 66558308525 20 MG Active TAKE 1 TABLET BY MOUTH DAILY Tramadol HCl [facility] 50079615244 50 MG Orally January Active 1 tablet every 8 hrs 06, 13, as needed 2018 2018 Hydrochlorothiazide [facility] 76575528812 25 MG Active TAKE 1 TABLET BY MOUTH ONCE A DAY Metoprolol Succinate [facility] 28986696287 100 MG Active TAKE 1 ER TABLET BY MOUTH EVERY DAY Protonix [facility] 66833316593 40 MG Active TAKE 1 TABLET BY MOUTH ONCE A DAY Zocor [facility] 18544431772 20 MG Active TAKE 1 TABLET BY MOUTH DAILY Ferrous Sulfate [facility] 53887674233 325 (65 Fe) MG Active 1 tablet Orally Once a day Simvastatin [facility] 57634360839 20 MG Orally Active 1 tablet Once a day in the evening Magnesium Oxide [facility] 32530372684 400 MG Orally Active 1 tablet Once a day as needed Results No Known Results Summary Purpose eClinicalWorks Submission
--- OUTSIDE RECORDS SUMMARY | 2019-04-24 23:54 | XMS REPORT ---
[...] Dosage System Date Date Magnesium Oxide ND 94102534035 400 MG Orally Active 1 tablet Once a day as needed Gabapentin ND 82404088139 300 MG Orally Active 1 capsule Once a day before bedtime Simvastatin ND 55629740987 20 MG Orally Active 1 tablet Once a day in the evening ProAir HFA [facility] 97015391408 108 (90 Base) Active 2 puffs MCG/ACT as needed Inhalation every 6 hrs Potassium Chloride ER ND 78216572289 10 MEQ Orally Active 1 tablet twice a day with food Ferrous Sulfate ND 98583493900 325 (65 Fe) MG Active 1 tablet Orally Once a day Ergocalciferol [facility] 94034928502 [address] UNIT Active 1 capsule Orally Hydrochlorothiazide [facility] 32922844359 25 MG Active TAKE 1 TABLET BY MOUTH ONCE A DAY Metoprolol Succinate [facility] 61882173956 100 MG Orally Active 1 tablet ER Once a day Advair Diskus [facility] 73758651111 100-50 Active 1 puff MCG/DOSE Inhalation Twice a day Protonix [facility] 46917362853 40 MG Active TAKE 1 TABLET BY MOUTH ONCE A DAY Zocor [facility] 93381741970 20 MG Active TAKE 1 TABLET BY MOUTH DAILY Results No Known Results Summary Purpose eClinicalWorks Submission
--- OUTSIDE RECORDS SUMMARY | 2019-04-24 23:54 | XMS REPORT ---
[...] Dosage System Date Date Metoprolol Succinate ND 88014783784 100 MG Orally Active 1 tablet ER Once a day Hydrochlorothiazide ND 25167122722 25 MG Active TAKE 1 TABLET BY MOUTH ONCE A DAY Potassium Chloride ER ND 42176818368 10 MEQ Orally Active 1 tablet twice a day with food Advair Diskus ND 42049880936 100-50 Active 1 puff MCG/DOSE Inhalation Twice a day Zocor [facility] 46911084068 20 MG Active TAKE 1 TABLET BY MOUTH DAILY Gabapentin [facility] 04026247083 300 MG Orally Active 1 capsule Once a day before bedtime Metoprolol Succinate [facility] 36350966136 100 MG Active TAKE 1 ER TABLET BY MOUTH EVERY DAY Hydrochlorothiazide [facility] 13776739244 25 MG Active TAKE 1 TABLET BY MOUTH ONCE A DAY ProAir HFA [facility] 99487184285 108 (90 Base) Active 2 puffs MCG/ACT as needed Inhalation every 6 hrs Simvastatin [facility] 32242324801 20 MG Orally Active 1 tablet Once a day in the evening Magnesium Oxide [facility] 08372843448 400 MG Orally Active 1 tablet Once a day as needed Protonix [facility] 30917071607 40 MG Active TAKE 1 TABLET BY MOUTH ONCE A DAY Zocor [facility] 47474055841 20 MG Active TAKE 1 TABLET BY MOUTH DAILY Ferrous Sulfate [facility] 19530226186 325 (65 Fe) MG Active 1 tablet Orally Once a day Ergocalciferol [facility] 49609244259 [address] UNIT Active 1 capsule Orally Results No Known Results Summary Purpose eClinicalWorks Submission
--- OUTSIDE RECORDS SUMMARY | 2019-04-24 23:54 | XMS REPORT ---
[...] 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 Active Assessment Pure hypercholesterolemia E78.00 Active Problem Primary osteoarthritis, right ankle M19.071 [...] Problem Benign essential HTN I10 Active Medications Medication Code Code Instructions Start End Date Status Dosage System Date Simvastatin [facility] 74135562710 20 MG Orally Active 1 tablet in Once a day the evening Results No Known Results Summary Purpose eClinicalWorks Submission
--- OUTSIDE RECORDS SUMMARY | 2019-04-24 23:54 | XMS REPORT ---
[...] Start End Status Dosage System Date Date [facility] 35459489721 20 MG Active TAKE 1 TABLET BY MOUTH DAILY Potassium Chloride ER [facility] 58683354268 10 MEQ Orally Active 1 tablet twice a day with food Hydrochlorothiazide ND 65151325256 25 MG Active TAKE 1 TABLET BY MOUTH ONCE A DAY Zocor [facility] 64834543264 20 MG Active TAKE 1 TABLET BY MOUTH DAILY Metoprolol Succinate [facility] 41901082197 100 MG Active TAKE 1 ER TABLET BY MOUTH EVERY DAY Advair Diskus [facility] 08834779115 100-50 Active 1 puff MCG/DOSE Inhalation Twice a day Diclofenac Sodium [facility] 36629472951 1 % Nov 29, Active 2gram to Transdermal 2019 affected Three times a area day prn pain Protonix [facility] 34954398118 40 MG Active TAKE 1 TABLET BY MOUTH ONCE A DAY Magnesium Oxide [facility] 97916676555 400 MG Orally Active 1 tablet Once a day as needed Metoprolol Succinate [facility] 16290704235 100 MG Orally Active 1 tablet ER Once a day Ergocalciferol [facility] 45748946113 [address] UNIT Active 1 capsule Orally Ferrous Sulfate [facility] 22688774072 325 (65 Fe) MG Active 1 tablet Orally Once a day Simvastatin [facility] 11868681539 20 MG Orally Active 1 tablet Once a day in the evening ProAir HFA [facility] 82471300982 108 (90 Base) Active 2 puffs as MCG/ACT needed Inhalation every 6 hrs Gabapentin [facility] 92877353848 300 MG Orally Active 1 capsule Once a day before bedtime Hydrochlorothiazide [facility] 82544305559 25 MG Active TAKE 1 TABLET BY MOUTH ONCE A DAY Results No Known Results Summary Purpose eClinicalWorks Submission
[2019-04-25 01:20] LABS: Absolute Lymphocytes (CBC) 0.9 K/uL (0.7-4.9); Absolute Monocytes 0.4 K/uL (0.1-1.3); Absolute Neutrophil 6.2 K/uL (1.8-8.0); Basophils % 0.6 % (0-1.3); Eosinophils % 0.1 % (0-4.4); Hematocrit 39.2 % (36.0-45.0); Lymphocytes % 11.8 % (15.3-44.8); MPV 8.2 fL (7.6-11.3); Monocytes % 5.6 % (3.3-12.3); Protime INR 1.18; RBC Red Blood Cell Count 4.48 M/uL (3.86-4.86)
[2019-04-25 01:34] LABS: ALT/SGPT 17 U/L (12-78); AST/SGOT 12 U/L (15-37); Alkaline Phosphatase 70 U/L (45-117); BUN Blood Urea Nitrogen 14 mg/dL (7-18); Bicarbonate 26 mmol/L (21-32); Bilirubin Direct 0.3 mg/dL (0-0.2); Bilirubin Total 0.9 mg/dL (0.2-1.0); Glucose Level 99 mg/dL (74-106); NT PRO-BNP 1461 pg/mL (<125); Potassium 4.3 mmol/L (3.5-5.1); Protein, Total 7.4 g/dL (6.4-8.2); Sodium Level 135 mmol/L (136-145); Troponin (Emerg Dept Use Only) < 0.02 ng/mL (0.0-0.045)
--- NOTE | 2019-04-25 03:21 | EDPHYS ---
Physician Documentation [facility] Name: Cindy Sorto Age: 73 yrs Sex: Female : 1945 Arrival Date: 04/25/2019 Time: 00:00 Bed 19 Private MD: ED Physician Medhat Stallings HPI: 04/25 01:57 This 73 yrs old Black Female presents to ER via EMS with complaints of Nausea/Vomiting. snw 01:57 The patient presents to the emergency department with nausea, vomiting. Onset: The snw symptoms/episode began/occurred today. Possible causes: pt thinks the cause of her discomfort is constipation. Associated signs and symptoms: The patient has no apparent associated signs or symptoms. Severity of symptoms: At their worst the symptoms were moderate. It is unknown whether or not the patient has had similar symptoms in the past. as noted. Historical: - Allergies: 00:00 NKDA; rr5 - Home Meds: 00:00 aspirin 81 mg Oral chew 1 tab once daily [Active]; clonidine HCl 0.1 mg Oral tab rr5 [Active]; docusate sodium 100 mg Oral cap [Active]; heparin (porcine) 5,000 unit/mL (1 mL) injection crtg every 12 hours [Active]; lactulose 20 gram/30 mL Oral soln [Active]; megestrol 40 mg Oral tab [Active]; Miralax 17 gram/dose Oral powd [Active]; Albuterol Inhl [Active]; cholecalciferol (vitamin D3) 1,000 unit oral tab [Active]; hydrochlorothiazide 25 mg oral tab 1 tab once daily [Active]; hydrocodone-acetaminophen 7.5-325 mg Oral tab [Active]; Magnesium Oxide Oral daily [Active]; metoprolol succinate oral oral [Active]; pantoprazole 40 mg oral TbEC [Active]; povidone-iodine miscellaneous [Active]; simvastatin 20 mg Oral tab [Active]; - PMHx: 00:00 Hyperlipidemia; Hypertension; Polio; rr5 00:25 AAA; rr5 - PSHx: 00:00 partial amputation of right foot.; rr5 - Immunization history:: Adult Immunizations up to date. - Social history:: Smoking status: Patient uses tobacco products, smokes one-half pack cigarettes per day, Patient/guardian denies using alcohol, street drugs. - Ebola Screening: : Patient negative for fever greater than or equal to 101.5 degrees Fahrenheit, and additional compatible Ebola Virus Disease symptoms Patient denies exposure to infectious person Patient denies travel to an Ebola-affected area in the 21 days before illness onset. ROS: 01:56 Constitutional: Negative for fever, chills, and weight loss, Eyes: Negative for injury, snw pain, redness, and discharge, ENT: Negative for injury, pain, and discharge, Neck: Negative for injury, pain, and swelling, Cardiovascular: Negative for chest pain, palpitations, and edema, Respiratory: Negative for shortness of breath, cough, wheezing, and pleuritic chest pain, Back: Negative for injury and pain, : Negative for injury, bleeding, discharge, and swelling, MS/Extremity: Negative for injury and deformity, Skin: Negative for injury, rash, and discoloration, Neuro: Negative for headache, weakness, numbness, tingling, and seizure, Psych: Negative for depression, anxiety, suicide ideation, homicidal ideation, and hallucinations. 01:56 Abdomen/GI: Positive for abdominal pain, vomiting, constipation. Exam: 01:53 Constitutional: This is a well developed, well nourished patient who is awake, alert, snw and in no acute distress. Head/Face: Normocephalic, atraumatic. Eyes: Pupils equal round and reactive to light, extra-ocular motions intact. Lids and lashes normal. Conjunctiva and sclera are non-icteric and not injected. Cornea within normal limits. Periorbital areas with no swelling, redness, or edema. ENT: Nares patent. No nasal discharge, no septal abnormalities noted. Tympanic membranes are normal and external auditory canals are clear. Oropharynx with no redness, swelling, or masses, exudates, or evidence of obstruction, uvula midline. Mucous membranes moist. Neck: Trachea midline, no thyromegaly or masses palpated, and no cervical lymphadenopathy. Supple, full range of motion without nuchal rigidity, or vertebral point tenderness. No Meningismus. Chest/axilla: Normal chest wall appearance and motion. Nontender with no deformity. No lesions are appreciated. Cardiovascular: Regular rate and rhythm with a normal S1 and S2. No gallops, murmurs, or rubs. Normal PMI, no JVD. No pulse deficits. Respiratory: Lungs have equal breath sounds bilaterally, clear to auscultation and percussion. No rales, rhonchi or wheezes noted. No increased work of breathing, no retractions or nasal flaring. Abdomen/GI: Soft, non-tender, with normal bowel sounds. No distension or tympany. No guarding or rebound. No evidence of tenderness throughout. Back: No spinal tenderness. No costovertebral tenderness. Full range of motion. Neuro: Awake and alert, GCS 15, oriented to person, place, time, and situation. Cranial nerves II-XII grossly intact. Motor strength 5/5 in all extremities. Sensory grossly intact. Cerebellar exam normal. Normal gait. Psych: Awake, alert, with orientation to person, place and time. Behavior, mood, and affect are within normal limits. 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 skin mildly peeling to bilateral feet. rica to be removed on the at [facility]. Vital Signs: 00:00 BP 173 / 69; Pulse 90; Resp 17; Temp 97.9; Pulse Ox 99% ; Weight 70 kg; Height 5 ft. 5 rr5 in. (165.10 cm); Pain 0/10; 00:30 BP 172 / 56; Pulse 80; Resp 19; Pulse Ox 100% ; rr5 01:00 BP 183 / 148; Pulse 81; Resp 17; Pulse Ox 99% on R/A; rr5 01:30 BP 181 / 73; Pulse 90; Resp 17; Pulse Ox 98% ; rr5 02:00 BP 176 / 73; Pulse 83; Resp 20; Temp 98; Pulse Ox 97% on R/A; rr5 03:00 BP 192 / 73; Pulse 96; Resp 15; Temp 98.1; Pulse Ox 99% on R/A; rr5 03:40 BP 172 / 83; Pulse 89; Resp 15; Temp 98.2; Pulse Ox 99% on R/A; rr5 03:55 BP 181 / 86; Pulse 85; Resp 16; Temp 98; Pulse Ox 99% on R/A; rr5 00:00 Body Mass Index 25.68 (70.00 kg, 165.10 cm) rr5 03:55 post vomiting rr5 MDM: 00:46 Patient medically screened. snw 03:21 Data reviewed: vital signs, nurses notes. Data interpreted: Pulse oximetry: on room air snw is 99 %. Interpretation: normal. Counseling: I had a detailed discussion with the patient and/or guardian regarding: the historical points, exam findings, and any diagnostic results supporting the discharge/admit diagnosis, lab results, radiology results, the need for outpatient follow up, to return to the emergency department if symptoms worsen or persist or if there are any questions or concerns that arise at home. Special discussion: Based on the patient's Hx, exam, and Dx evaluation, there is no indication for emergent surgery or inpatient Tx. It is understood by the patient/guardian that if the Sx's persist or worsen they need to return immediately for re-evaluation. I have referred the patient to see his PCP for further evaluation of high blood pressure. Based on the history and exam findings, there is no indication for further emergent testing or inpatient evaluation. I discussed with the patient/guardian the need to see the primary care provider for further evaluation of the symptoms. 04/25 00:19 Order name: Basic Metabolic Panel; Complete Time: 01:35 snw 04/25 00:19 Order name: CBC with Diff; Complete Time: :32 snw 04/25 00:19 Order name: LFT's; Complete Time: :35 snw 04/25 00:19 Order name: Magnesium; Complete Time: :35 snw 04/25 00:19 Order name: NT PRO-BNP; Complete Time: :35 snw 04/25 00:19 Order name: PT-INR; Complete Time: :32 snw 04/25 00:19 Order name: Troponin (emerg Dept Use Only); Complete Time: :35 snw 04/25 00:19 Order name: XRAY Chest (1 view); Complete Time: :45 snw 04/25 01:36 Order name: CT Stone Protocol; Complete Time: :45 snw 04/25 01:53 Order name: Urine Culture snw 04/25 01:53 Order name: Urine Microscopic Only; Complete Time: 19:45 snw 04/25 00:19 Order name: EKG; Complete Time: 00:23 snw 04/25 00:19 Order name: Cardiac monitoring; Complete Time: :04/25 00:19 Order name: EKG - Nurse/Tech; Complete Time: :04/25 00:19 Order name: IV Saline Lock; Complete Time: :04/25 00:19 Order name: Labs collected and sent; Complete Time: :04/25 00:19 Order name: O2 Per Protocol; Complete Time: w 04/25 00:19 Order name: O2 Sat Monitoring; Complete Time: :04/25 01:53 Order name: Urine Dipstick-Ancillary (obtain specimen); Complete Time: 03:16 snw Administered Medications: 03:31 Drug: Metoprolol 25 mg Route: PO; rr5 03:54 Follow up: Response: No adverse reaction; Medication administered at discharge. rr5 03:31 Drug: Miralax 17 grams Route: PO; rr5 03:54 Follow up: Response: Medication administered at discharge. rr5 03:55 Drug: Phenergan 6.25 mg Route: IM; Site: right gluteus; rr5 03:56 Follow up: Response: Medication administered at discharge. rr5 Disposition: 04/25/19 03:20 Discharged to Home. Impression: Nausea and vomiting, Constipation, unspecified. - Condition is Stable. - Discharge Instructions: Constipation, Adult, Hypertension, Nausea and Vomiting, Adult, Rehydration, Elderly. - Prescriptions for Miralax 17 gram/dose Oral - take 1 packet by ORAL route once daily dilute powder in 8 ounces of water or juice; 1 box. - Medication Reconciliation Form, Thank You Letter, Antibiotic Education, Prescription Opioid Use, SBAR form form. - Follow up: Private Physician; When: Tomorrow; Reason: Recheck today's complaints, Continuance of care, Re-evaluation by your physician. Follow up: Emergency Department; When: As needed; Reason: Worsening of condition. Addendum: 04/27/2019 07:40 Co-signature as Attending Physician, Medhat Stallings MD. g s Signatures: [facility] aSmara Mckeon, PHYSICIAN ANESTHESIOLOGIST-C PHYSICIAN ANESTHESIOLOGIST-Csnw Medhat Stallings MD MD gs Roque, Raymond, RN RN rr5 Corrections: (The following items were deleted from the chart) 04/25 04:01 03:20 04/25/2019 03:20 Discharged to Home. Impression: Nausea and vomiting; rr5 Constipation, unspecified. Condition is Stable. Forms are Medication Reconciliation Form, Thank You Letter, Antibiotic Education, Prescription Opioid Use. Follow up: Private Physician; When: Tomorrow; Reason: Recheck today's complaints, Continuance of care, Re-evaluation by your physician. Follow up: Emergency Department; When: As needed; Reason: Worsening of condition. snw
--- NOTE | 2019-04-25 03:21 | ER ---
Nurse's Notes [facility] Name: Cindy Sorto Age: 73 yrs Sex: Female : 1945 Arrival Date: 04/25/2019 Time: 00:00 Bed 19 Private MD: Diagnosis: Nausea and vomiting;Constipation, unspecified Presentation: 04/25 00:00 Presenting complaint: EMS states: patient called 4 hours ago she is not feeling okay rr5 and after she ate, she took her medication she vomited. vitally stable then we left. 30 minutes ago she called again with the same complaint and brought her here. nauseated and not feeling well. Transition of care: patient was not received from another setting of care. Onset of symptoms was April 25, 2019. Risk Assessment: Do you want to hurt yourself or someone else? Patient reports no desire to harm self or others. Care prior to arrival: None. 00:00 Method Of Arrival: EMS: [facility] rr5 00:00 Acuity: FRANCO 3 rr5 00:00 Initial Sepsis Screen: Does the patient meet any 2 criteria? No. Patient's initial rr5 sepsis screen is negative. Does the patient have a suspected source of infection? No. Patient's initial sepsis screen is negative. Historical: - Allergies: 00:00 NKDA; rr5 - Home Meds: 00:00 aspirin 81 mg Oral chew 1 tab once daily [Active]; clonidine HCl 0.1 mg Oral tab rr5 [Active]; docusate sodium 100 mg Oral cap [Active]; heparin (porcine) 5,000 unit/mL (1 mL) injection crtg every 12 hours [Active]; lactulose 20 gram/30 mL Oral soln [Active]; megestrol 40 mg Oral tab [Active]; Miralax 17 gram/dose Oral powd [Active]; Albuterol Inhl [Active]; cholecalciferol (vitamin D3) 1,000 unit oral tab [Active]; hydrochlorothiazide 25 mg oral tab 1 tab once daily [Active]; hydrocodone-acetaminophen 7.5-325 mg Oral tab [Active]; Magnesium Oxide Oral daily [Active]; metoprolol succinate oral oral [Active]; pantoprazole 40 mg oral TbEC [Active]; povidone-iodine miscellaneous [Active]; simvastatin 20 mg Oral tab [Active]; - PMHx: 00:00 Hyperlipidemia; Hypertension; Polio; rr5 00:25 AAA; rr5 - PSHx: 00:00 partial amputation of right foot.; rr5 - Immunization history:: Adult Immunizations up to date. - Social history:: Smoking status: Patient uses tobacco products, smokes one-half pack cigarettes per day, Patient/guardian denies using alcohol, street drugs. - Ebola Screening: : Patient negative for fever greater than or equal to 101.5 degrees Fahrenheit, and additional compatible Ebola Virus Disease symptoms Patient denies exposure to infectious person Patient denies travel to an Ebola-affected area in the 21 days before illness onset. Screenin:00 Abuse screen: Denies threats or abuse. Denies injuries from another. Nutritional rr5 screening: No deficits noted. Tuberculosis screening: No symptoms or risk factors identified. Fall Risk IV access (20 points). Ambulatory Aid- None/Bed Rest/Nurse Assist (0 pts). Gait- Weak (10 pts.). Mental Status- Oriented to own ability (0 pts). Total Zhao Fall Scale indicates Low Risk Score (25-44 pts). Fall prevention measures have been instituted. Side Rails Up X 2 Placed close to Nursing Station Frequent Obs/Assesments occuring Family Present and informed to notify staff if they need to leave bedside As available Patient and Family Educated on Fall Prevention Program and strategies. Assessment: 00:00 General: Appears in no apparent distress. comfortable, Behavior is calm, cooperative, rr5 appropriate for age, Reports I am not feeling well. 00:00 Pain: Denies pain. Neuro: Level of Consciousness is awake, alert, obeys commands, rr5 Oriented to person, place, time, situation, Appropriate for age. Cardiovascular: Capillary refill < 3 seconds Patient's skin is warm and dry. Respiratory: Airway is patent Respiratory effort is even, unlabored, Respiratory pattern is regular, symmetrical. GI: Abdomen is flat, Reports nausea, vomiting. : No signs and/or symptoms were reported regarding the genitourinary system. EENT: No signs and/or symptoms were reported regarding the EENT system. Derm: Wound noted right foot Wound is partially amputated right foot. with staple wire. Musculoskeletal: Amputation of right foot. Capillary refill < 3 seconds. 01:00 Reassessment: Patient appears in no apparent distress at this time. No changes from rr5 previously documented assessment. Patient is alert, oriented x 3, equal unlabored respirations, skin warm/dry/pink. 02:00 Reassessment: Patient appears in no apparent distress at this time. Patient is alert, rr5 oriented x 3, equal unlabored respirations, skin warm/dry/pink. awaiting for CT result. no complaints made. 03:00 Reassessment: Patient appears in no apparent distress at this time. Patient is alert, rr5 oriented x 3, equal unlabored respirations, skin warm/dry/pink. ED provider informed for the BP reading. 03:40 Reassessment: Patient appears in no apparent distress at this time. Patient is alert, rr5 oriented x 3, equal unlabored respirations, skin warm/dry/pink. discharge instruction given and explained without complaints made. desk nursing secretary called EMS for the transport. 03:50 Reassessment: patient vomited ED provider informed with order made and carried out. rr5 03:55 Reassessment: Patient appears in no apparent distress at this time. Patient is alert, rr5 oriented x 3, equal unlabored respirations, skin warm/dry/pink. endorsed to [facility]. GCS 15/15, breathing spontaneously at room air. no complaints made. Vital Signs: 00:00 BP 173 / 69; Pulse 90; Resp 17; Temp 97.9; Pulse Ox 99% ; Weight 70 kg; Height 5 ft. 5 rr5 in. (165.10 cm); Pain 0/10; 00:30 BP 172 / 56; Pulse 80; Resp 19; Pulse Ox 100% ; rr5 01:00 BP 183 / 148; Pulse 81; Resp 17; Pulse Ox 99% on R/A; rr5 01:30 BP 181 / 73; Pulse 90; Resp 17; Pulse Ox 98% ; rr5 02:00 BP 176 / 73; Pulse 83; Resp 20; Temp 98; Pulse Ox 97% on R/A; rr5 03:00 BP 192 / 73; Pulse 96; Resp 15; Temp 98.1; Pulse Ox 99% on R/A; rr5 03:40 BP 172 / 83; Pulse 89; Resp 15; Temp 98.2; Pulse Ox 99% on R/A; rr5 03:55 BP 181 / 86; Pulse 85; Resp 16; Temp 98; Pulse Ox 99% on R/A; rr5 00:00 Body Mass Index 25.68 (70.00 kg, 165.10 cm) rr5 03:55 post vomiting rr5 ED Course: 00:00 Patient arrived in ED. rr5 00:04 Triage completed. rr5 00:05 Arm band placed on left wrist. rr5 00:08 Ramy White, RN is Primary Nurse. rr5 00:10 Patient has correct armband on for positive identification. Placed in gown. Bed in low rr5 position. Call light in reach. Side rails up X2. Adult w/ patient. groundwater monitoring technician on. Pulse ox on. NIBP on. 00:18 Samara Mckeon FNP-C is PHCP. snw 00:18 Medhat Stallings MD is Attending Physician. snw 00:48 XRAY Chest (1 view) In Process Unspecified. EDMS 01:00 Initial lab(s) drawn, by me, sent to lab. Inserted saline lock: 20 gauge in right rr5 antecubital area, using aseptic technique. Blood collected. 02:15 CT completed. Patient tolerated procedure well. Patient moved to CT via stretcher. Patient moved back from CT. 02:20 CT Stone Protocol In Process Unspecified. EDMS 02:50 Straight cath inserted, using sterile technique, 16 Fr. Specimen obtained. Returned rr5 clear yellow urine. Patient tolerated well. 03:44 No provider procedures requiring assistance completed. IV discontinued, intact, rr5 bleeding controlled, No redness/swelling at site. Pressure dressing applied. Administered Medications: 03:31 Drug: Metoprolol 25 mg Route: PO; rr5 03:54 Follow up: Response: No adverse reaction; Medication administered at discharge. rr5 03:31 Drug: Miralax 17 grams Route: PO; rr5 03:54 Follow up: Response: Medication administered at discharge. rr5 03:55 Drug: Phenergan 6.25 mg Route: IM; Site: right gluteus; rr5 03:56 Follow up: Response: Medication administered at discharge. rr5 Outcome: 03:20 Discharge ordered by . snw 03:40 Discharged to home via ambulance. rr5 03:40 Condition: stable 03:40 Discharge instructions given to family, Instructed on discharge instructions, follow up and referral plans. medication usage, Demonstrated understanding of instructions, follow-up care, medications, Prescriptions given X 1. 04:01 Patient left the ED. rr5 Signatures: Dispatcher [employer] EDMS Samara Mckeon, SUPERVISOR ELECTRONIC TESTING-C SUPERVISOR ELECTRONIC TESTING-Csnw Minh Riggins Raymond, RN RN rr5
[2019-04-25] MEDS ORDERED: METOPROLOL TAR 25 MG TAB ONE (03:38)
[2019-04-25] MEDS ORDERED: POLYETHYL GLY 3350 17 GM/DOSE ONE (03:39)
[2019-04-25 03:55] LABS: Urine Amorphous Sediment 2+ /HPF (NONE SEEN); Urine Bacteria <20 /HPF (<20); Urine Culture Reflex Order NOT NEEDED; Urine RBC <5 /HPF (NONE SEEN)
[2019-04-25] MEDS ORDERED: PROMETHAZINE 25 MG/ML VIAL ONE (04:02)
[2019-04-25 04:39] VITALS: O2SAT 99
[2019-04-25 04:42] VITALS: BP 181/86; TEMP 98
--- NOTE | 2019-04-25 08:03 | EKG ---
Test Date: 2019-04-25 Test Time: 00:41:51 Char Conveyor Tender: ESTELA MEASUREMENT RESULTS: Intervals: Rate: 83 [place]: 146 QRSD: 66 QT: 374 QTc: 439 [place]: P: [place]: 146 QRS: 64 T: 49 INTERPRETIVE STATEMENTS: Sinus rhythm with premature atrial complexes Otherwise normal ECG Compared to ECG 12/18/2018 16:23:36 Myocardial infarct finding no longer present Electronically Signed On 04-25-19 08:02:31 CDT by Miki Duggan
--- NOTE | 2019-04-25 08:28 | RAD REPORT ---
EXAM DESCRIPTION: RAD - Chest Single View - 04/25/2019 12:47 am CLINICAL HISTORY: Abdominal pain, fibrosis, hypertension COMPARISON: December 2018 TECHNIQUE: AP portable chest image was obtained 0031 hours . FINDINGS: Fibrotic lung pattern is present without focal mass or consolidation. Interstitial pattern is similar to comparison. Heart and vasculature are normal. No measurable pleural effusion and no pn eumothorax. No acute bony abnormality seen. No acute aortic findings suspected. IMPRESSION: No acute cardiopulmonary process. Fibrotic lung pattern is similar to comparison.
--- NOTE | 2019-04-25 08:55 | RAD REPORT ---
EXAM DESCRIPTION: CT - Stone Protocol - 04/25/2019 3:04 am CLINICAL HISTORY: 73-year-old female with abdominal pain TECHNIQUE: AxAgTing of the abdomen and pelvis was performed. Sagittal and coronal reconstructed im ages were then performed. The CT study is performed according to ALARA (as low as reasonably achievab le) or ALARA/IMAGE GENTLY, with automatic adjustment of mA and/or kV according to patient size. Performed on: 04/25/2019 at 2:08 AM COMPARISON: CT abdomen and pelvis performed on 08/31/2016. FINDINGS: Lung bases: There are centrilobular and paraseptal emphysematous changes within the visual ized lung bases. There is minimal fibrosis and/or atelectasis in the dependent lung bases. There are dense mitral valve annular calcifications. Liver: The liver is normal in size and configuration. No focal hepatic abnormalities are appreciated on this unenhanced scan. Liver attenuation is within normal limits. Spleen: The spleen is normal is size, configuration and attenuation. No focal splenic abnormalities a re appreciated on this unenhanced scan. Gallbladder and bile duct: The gallbladder is well distended. There is minimal increased attenuatio n along the posterior inferior gallbladder lumen which could represent small stones or sludge. There is no biliary ductal dilatation. Pancreas: The pancreas is grossly normal in size and configuration. Adrenal Glands: The adrenal glands are normal in size and configuration. Kidneys: The kidneys are normal in size and configuration. There is no evidence of hydronephrosis. Th ere is no evidence of nephrolithiasis. There is a grossly stable 1.7 cm right renal cyst. Stomach: The stomach is grossly normal. There is no definite hiatal hernia. Bowel: The bowel gas pattern is non specific and non obstructive. There is moderate fecal residue sca ttered throughout the colon. Appendix: There is no CT evidence to suggest acute appendicitis. Free air: There is no evidence of free air. Free fluid: There is no evidence of free fluid. Vasculature: There has been interval enlargement of the infrarenal abdominal aortic aneurysm which me asures approximately 5.5 x 4.6 cm in cross-sectional diameter (series 301, image 37) by approximately 9.8 cm in length. The aneurysm appears intact without evidence of rupture or leakage. The aneurysm d oes not extend into the iliac arteries. There are heavy atherosclerotic calcifications along the abdo antwon aorta and major branch vessels. The inferior vena cava is grossly unremarkable. Lymphadenopathy: No pathologic lymphadenopathy is identified. Bladder: The bladder is well distended and smooth in contour. Reproductive: The uterus is grossly within normal limits. Bones: No acute osseous abnormalities are identified. There are mild degenerative changes of the spin e. Soft tissues: No focal soft tissue abnormalities are identified. IMPRESSION: 1. Interval enlargement of the infrarenal abdominal aortic aneurysm which now measures a pproximately 5.5 x 4.6 cm in cross-sectional diameter (previously 4.4 x 3.7 cm). There is no evidence of rupture or leakage at this time. There is no evidence of extension into the iliac arteries. Recom mend referral to a vascular specialist. 2. Suspect cholelithiasis and/or sludge. 3. Centrilobular and paraseptal emphysematous changes in the visualized lung bases. 4. Grossly stable to minimally increased size of the right renal cyst. 5. Moderate fecal residue scattered throughout the colon. These findings were discussed with Dr. Stallings on 04/25/2019 at 2:55 AM central time. Electronically signed by: Uma Garibay DO 04/25/2019 2:59 AM CDT Due to temporary technical issues with the PACS/Fluency reporting system, reports are being signed by the in house radiologist as a courtesy to ensure prompt reporting. The interpreting radiologist is f ully responsible for the content of the report.
== END 2019-04-25 04:01 | disposition home or self-care (01) ==
LOC: ER 23:50
DX: K59.00 Constipation, unspecified (principal); I10 Essential (primary) hypertension; E78.5 Hyperlipidemia, unspecified; Z79.82 Long term (current) use of aspirin
CPT/HCPCS: 93005; 87088; 85025; 87086; 80048; 36415; 83735; 85610; 80076; 81015; 84484; 83880; 76377; 74176; 71045; 51702; 96372; 99285; J2550

== ENCOUNTER 2019-05-12 11:32 | Emergency (ER) | payer OTHER ==
--- OUTSIDE RECORDS SUMMARY | 2019-05-12 11:37 | XMS REPORT | Clinical Summary ---
:1945 Author Organization [employer] Address [address] [place] [address] Care Team Providers Name Role Phone System, [...] Essential hypertension Mekhi Medeiros Sr., MD after 05/11/2018 Social History Tobacco Use Types Packs/Day Years [...] are in SPECTRAL COLOR DOPPLER the results (09301) section. CV CTA ABDOMEN W RUNOFF Routine [...] procedure are in the results section. after 05/11/2018 Results Estimated GFR (03/17/2019 4:37 AM CDT)Only the most recent of13 resultswithin the time period is included. Estimated GFR 56 (A) mL/min/1.73 [facility] Comment: m2 HOSPITAL CatergoryUnitsInterpretation G1 >=90 Normal or high G2 60-89Mildly decreased H1u04-42Zhvfzn to moderately decreased R1p11-43Ghfajzvuds to severely decreased G4 15-29Severely decreased G5 <15Kidney failure The eGFR was calculated using the Chronic Kidney Disease Epidemiology Collaboration (CKD-EPI) equation. Interpretation is based on recommendations of the National Kidney Foundation-Kidney Disease Outcomes Quality Initiative (NKF-KDOQI) published in 2014. Specimen Plasma specimen Performing Organization Address City/[facility] Centercode Phone Number [facility] DEPARTMENT OF PATHOLOGY AND [address] [place] [phone] GENOMIC MEDICINE [facility] [address] [place] [address] CBC with platelet and differential (03/17/2019 4:37 AM CDT)Only the most recent of14 resultswithin the time period is included. WBC 7.93 4.50 - 11.00 [facility] k/uL HOSPITAL RBC 3.49 (L) 4.20 - 5.50 [facility] m/uL HOSPITAL HGB 10.0 (L) 12.0 - 16.0 [facility] g/dL [facility] HCT 32.6 (L) 37.0 - 47.0 % [facility] MCV 93.4 82.0 - 100.0 [facility] MCH 28.7 27.0 - 34.0 pg [facility] MCHC 30.7 (L) 31.0 - 37.0 [facility] g/dL [facility] RDW - SD 55.3 (H) 37.0 - 55.0 fL [facility] MPV 10.4 8.8 - 13.2 fL [facility] Platelet count 361 150 - 400 k/uL [facility] Nucleated RBC 0.00 /100 WBC [facility] Neutrophils 59.4 39.0 - 69.0 % [facility] Lymphocytes 26.4 25.0 - 45.0 % [facility] Monocytes 10.3 (H) 0.0 - 10.0 % [facility] Eosinophils 2.8 0.0 - 5.0 % [facility] Basophils 0.6 0.0 - 1.0 % [facility] Immature granulocytes 0.5Comment: 0.0 - 1.0 % [facility] "Immature HOSPITAL granulocytes" (promyelocytes , myelocytes, metamyelocytes ) Specimen Blood Performing Organization Address [facility]/Zipcode Phone Number [facility] DEPARTMENT OF PATHOLOGY AND [address] [place] [address] Basic metabolic panel (03/17/2019 4:37 AM CDT)Only the most recent of11 resultswithin the time period is included. [facility] Sodium 138 135 - 148 mEq/L [facility] Potassium 3.9 3.5 - 5.0 mEq/L [facility] Chloride 100 98 - 112 mEq/L [facility] CO2 24 24 - 31 mEq/L [facility] Anion gap 14@ANIO 7 - 15 mEq/L [facility] BUN 22 8 - 23 mg/dL [facility] Creatinine 1.11 (H) 0.50 - 0.90 mg/dL [facility] Glucose 87 65 - 99 mg/dL [facility] Calcium 10.4 (H) 8.8 - 10.2 mg/dL [facility] Specimen Plasma specimen Performing Organization Address [facility] Centercode Phone Number [facility] DEPARTMENT OF PATHOLOGY AND [address] [place] [address] Vancomycin level, trough (03/07/2019 8:40 PM CDT)Only the most recent of4 resultswithin the time period is included. [facility] Vancomycin, 15.2 10.0 - 20.0 [facility] trough Comment: ug/mL HOSPITAL Therapeutic Ranges: Peak 30.0 - 40.0 ug/mL Tdlhtd75.0 - 20.0 ug/mL Specimen Serum Performing Organization Address City/[facility] Centercode Phone Number [facility] DEPARTMENT OF PATHOLOGY AND [address] [place] [address] Arterial blood gas (03/01/2019 3:56 PM CDT) [facility] pH, arterial 7.44 7.35 - 7.45 [facility] pCO2, arterial 42 35 - 45 mmHg [facility] pO2, arterial 58 (L) 80 - 90 mmHg [facility] Bicarbonate, 28.6 (H) 21.0 - 28.0 [facility] mmol/L HOSPITAL Base excess, 5 (H) -2 - 2 mEq/L [facility] O2 saturation, 90 (L) 95 - 100 % [facility] arterial [facility] Specimen Blood Performing Organization Address City/[facility]/Zipcode Phone Number [facility] DEPARTMENT OF PATHOLOGY AND [address] [place] [address] GENOMIC MEDICINE [facility] [address] [place] [address] CT Head Wo Contrast (03/01/2019 3:31 PM [...] Madiha at 3:35 PM. She verbalized understanding. [facility]-[id number] Procedure Note Interface, Radiology Results Incoming - [...] Madiha at 3:35 PM. She verbalized understanding. [facility]-[id number] Performing Organization Address City/[facility]/Zipcode Phone Number [facility] [address] [place] [address] XR Foot 3+ Vw Right (03/01/2019 9:32 AM CDT)Only the most recent of2 resultswithin the time period is included. Specimen Narrative Performed At EXAM:XR FOOT 3VW RIGHT HM [facility] CLINICAL:Status post amputation COMPARISON:02/21/2019 IMPRESSION: 1.Mid metatarsal amputation through all digits. Overlying skin rica. Drainage catheter in place. No osseous erosions. Mild soft tissue swelling around the forefoot. 2.Generalized bone demineralization. [facility]-[id number] Procedure Note Hm Interface, Radiology Results Incoming - 03/01/2019 9:40 AM CDT EXAM: XR FOOT 3 VW RIGHT CLINICAL: Status post amputation COMPARISON: 02/21/2019 IMPRESSION: 1. Mid metatarsal amputation through all digits. Overlying skin rica. Drainage catheter in place. No osseous erosions. Mild soft tissue swelling around the forefoot. 2. Generalized bone demineralization. [facility]-[id number] Performing Organization Address [facility] Centercode Phone Number [facility] [address] [place] [address] Surgical pathology request (02/28/2019 11:48 AM CDT) [facility] DEPARTMENT OF PATHOLOGY AND GENOMIC MEDICINE Surgical pathology See link below [facility] DEPARTMENT OF report for PDF Lab PATHOLOGY AND Report GENOMIC MEDICINE Result status This is Final [facility] DEPARTMENT OF Report for PATHOLOGY AND [id number] GENOMIC MEDICINE Specimen Performing Organization Address [facility] Centercoin Phone Number [facility] DEPARTMENT OF PATHOLOGY AND [address] [place] [address] GENOMIC MEDICINE Type and screen (02/27/2019 11:55 AM CDT)Only the most recent of2 resultswithin the time period is included. ABO grouping A [facility] Rh type POS [facility] Antibody screen (gel) POS [facility] Specimen Performing Organization Address [facility]/Zipcode Phone Number [facility] DEPARTMENT OF PATHOLOGY AND [address] [place] [address] GENOMIC MEDICINE [address] [address] [place] antigen patient typing (02/26/2019 3:45 AM CDT) [place] Antigen Patient NEG [facility] Specimen Performing Organization Address City/State/[facility] Centercode Phone Number [facility] DEPARTMENT OF PATHOLOGY AND [address] [place] [phone] [place] [address] e Antigen patient typing (little e) (02/26/2019 3:45 AM CDT) e Antigen Patient Typing POS [facility] ([facility] e) [facility] Specimen Performing Organization Address [facility] Phone Number [facility] DEPARTMENT OF PATHOLOGY AND [address] [place] [phone] [place] [address] Direct Ramo' (SANTIAGO) (02/26/2019 3:45 AM CDT) [id number] Polyspecific POS [facility] Specimen Performing Organization Address [facility] Phone Number [facility] DEPARTMENT OF PATHOLOGY AND [address] [place] [address] c Antigen patient typing ([facility] c) (02/26/2019 3:45 AM CDT) c Antigen Patient Typing POS [facility] ([facility] c) [facility] Specimen Performing Organization Address [facility] Phone Number [facility] DEPARTMENT OF PATHOLOGY AND [address] [place] [address] Positive SANTIAGO reflex (02/26/2019 3:45 AM CDT) IgG Ramo, gel POS [facility] Anti-complement POSComment: [facility] 02/26/19 [facility] CONTROL NEGATIVE. KG Specimen Performing Organization Address [facility] Centercode Phone Number [facility] DEPARTMENT OF PATHOLOGY AND [address] [place] [phone] [place] [address] E antigen patient typing (02/26/2019 3:45 AM CDT) E Antigen Patient Typing NEG [facility] Specimen Performing Organization Address [facility] Phone Number [facility] DEPARTMENT OF PATHOLOGY AND [address] [place] [address] [address] C antigen patient typing (02/26/2019 3:45 AM CDT) Pathologist [facility] C Antigen Patient Typing POS [facility] Specimen Performing Organization Address City/State/Zipcode Phone Number [facility] DEPARTMENT OF PATHOLOGY AND [address] [place] [phone] [place] [address] Elution (02/26/2019 3:45 AM CDT) Pathologist [facility] Elution POS [facility] Comment: HOSPITAL POS W/ ALL CELLS Although these serological findings cannot differentiate between a drug induced or a true auto-immune state, this patient should be monitored for signs of an ongoing hemolytic process.Verified by [id number]. Specimen Performing Organization Address City/State/Zipcode Phone Number [facility] DEPARTMENT OF PATHOLOGY AND [address] [place] [address] Antibody identification (02/26/2019 3:45 AM CDT) Pathologist [facility] Antibody ID POS, Warm Autoantibody [facility] Comment: HOSPITAL Adsorption studies ruled out the presence of underlying alloantibodies. Red cells for transfusion will be antigen matched for the Rh and K antigens and crossmatch least incompatible.Verified by [id number]. Specimen Performing Organization Address City/State/Zipcode Phone Number [facility] DEPARTMENT OF PATHOLOGY AND [address] [place] [phone] [place] [address] Prothrombin time with INR (02/26/2019 3:45 AM CDT)Only the most recent of2 resultswithin the time period is included. [facility] Prothrombin time 13.3 11.5 - 14.5 [facility] INR 1.0 [facility] Comment: [facility] International Normalized Ratio (INR) is a therapeutic HOSPITAL monitoring tool for patients who are stable on oral anticoagulant therapy. An INR of 2.0-3.0 is suggested for deep vein thrombosis/pulmonary embolism. Specimen Blood Performing Organization Address City/State/Zipcode Phone Number [facility] DEPARTMENT OF PATHOLOGY AND [address] [place] [phone] [address] Prepare RBC (02/26/2019 3:45 AM CDT) Product name Red Blood Cells [facility] -1, [facility] HOSPITAL Unit number [id number] [facility] Product code [id number] [facility] Dispense status Transfused [facility] Blood expiration [id number] [facility] Blood type code 0600 [facility] Blood type A NEGATIVE [facility] Specimen Performing Organization Address City/State/Zipcode Phone Number [facility] DEPARTMENT OF PATHOLOGY AND [address] [place] [address] GENOMIC MEDICINE [facility] [address] [place] [address] MRI Foot Wo Contrast Right (02/24/2019 8:00 [...] the first digit without osteomyelitis as described. *[id number] Procedure Note Hm Interface, Radiology Results Incoming [...] the first digit without osteomyelitis as described. *[id number] Performing Organization Address [facility] Centercoin Phone Number [facility] [address] [place] [address] Cv stress test (02/23/2019 11:30 AM CDT) Resting HR 60 [facility] MUSE Resting BP 123 [facility] MUSE Peak MET Achieved 1.0 [facility] MUSE Protocol Name REGADENO [facility] MUSE Time in Exercise 00:01:00 [facility] Phase Max Systolic BP 129 [facility] Max Diastolic BP 58 [facility] Max Heart Rate 96 [facility] Max Predicted Heart 146 H MUSE Rate Target HR Formula (220 - Age)*100% [facility] Test Indication CAD [facility] Arrhy During Ex [facility] ECG Interp Before EX [facility] ECG Interp During Ex [facility] Ex Summary Comment [facility] MUSE Overall HR Response [facility] MUSE to Exercise Overall BP Response [facility] MUSE To Exercise Reason for H MUSE Termination Stress Test Waveform interpreted in [facility] MUSE Impression report associated with image study. No interpretation is provided as part of this Stress ECG report.--Electronically Signed By Shruthi COE, Marion ([id number]), news videotape editor Nikky Boateng ([id number]) on 02/23/2019 12:51:07 PM Specimen Narrative Performed At Performing Organization Address [facility] Centercoin Phone Number [facility] [address] [place] [address] Nm myocardial perfusion (02/23/2019 11:30 AM CDT) Specimen Narrative Performed At [facility] Card[facility] [address] [place] [phone] Myocardial Perfusion Imaging Report Stress ECG tracings are available in [employer], Increase[employer] and [employer] All ECG interpretations are included in this report Pat.Name:KP MEDEIROS.ID:[id number] .Date: 02/23/2019 Refer.MD:MARION WILKINSON MD Exam Time: 10:28:00 AM Study Type:Myocardial Perfusion Imaging Height:64inBSA: 1.43 m2 DOBAge:1945,73Y Sex: FEMALE BP:123/56HR: 60 bpm HCT: 31.5 %Nuclear Tech:PHILLIP Carter Pat. Stat.:Inpatient Room:[facility] Nuclear Event ID:[id number] Order ID:[id number] Reason for Study:Pre-Op, CAD History / Clinical:Abdominal aortic aneurysm, Coronary artery disease, Hyperlipidemia, Hypertension, GERD, PCI Procedures:High Dose Stress Only Risk Factors:Hyperlipidemia, Hypertension Clinical Symptoms:Regadenoson Physical Exam:S1, S2 Surgery: Serum K+ Date,3.802/22/19, Troponin I Date, 1)Neg/02/21/19 2)/ 3)/, BUN/Creatinine Date,26/11.08/15/13 Medications:Hydrochlorothiazide, Metoprolol, Simvastatin [...] AM CDT Nuclear Cardiology and Cardiac CT [address] [place] [address] Myocardial Perfusion Imaging Report Stress ECG tracings are available in [employer], [employer] and [employer] All ECG interpretations are included in this report Pat.Name: KP MEDEIROS Pat.ID: [id number] .Date: 02/23/2019 Refer.MD: MARION WILKINSON MD Exam Time: 10:28:00 AM Study Type:Myocardial Perfusion Imaging Height: 64in BSA: 1.43 m2 Age: 7 1945,73Y Sex: FEMALE BP: 123/56 HR: 60 bpm HCT: 31.5 % Nuclear Tech:PHILLIP Carter Pat. Stat.:Inpatient Room: D723-A Nuclear Event ID:[id number] Order ID: [id number] Reason for Study:Pre-Op, CAD History / Clinical:Abdominal aortic aneurysm, Coronary artery disease, Hyperlipidemia, Hypertension, GERD, PCI Procedures:High Dose Stress Only Risk Factors:Hyperlipidemia, Hypertension Clinical Symptoms:Regadenoson Physical Exam:S1, S2 Surgery: Serum K+ Date, 3.802/22/19, Troponin I Date, 1)02/21/19 2)/ 3)/, BUN/Creatinine Date, 26/11.08/15/13 Medications:Hydrochlorothiazide, Metoprolol, [...] AM Marion Hawkins MD Performing Organization Address City/[facility] Centercode Phone Number [employer] Pharm[employer] [address] [place] [address] ECG 12 lead (02/21/2019 5:53 PM CDT) Ventricular rate 73 [facility]USE Atrial rate 73 [facility] NE interval 152 [facility] QRSD interval 74 [facility] QT interval 368 [facility] QTC interval 405 [facility] P axis 1 31 [facility] QRS axis 1 47 [facility] T wave axis 64 [facility] EKG impression Normal sinus [facility] MUSE rhythm-Possible Anterior infarct , age undetermined-Abnormal ECG-No previous ECGs available-Electronicall y Signed By Emily COE, Camacho Marrero ([id number]) on 02/21/2019 8:44:44 PM Specimen Narrative Performed At Performing Organization Address [facility] Centercoin Phone Number [facility] [address] ankle brachial index (02/21/2019 2:45 PM CDT) Specimen Narrative Performed At [facility] Vascular Diagnostic Laboratory Physiologic Arterial Leg Report [address] [place] [address] Pat.Name:KP MEDEIROS.ID:[id number] .Date: 02/21/2019 Refer.MD:SUNG GREGORY MD Exam Time: 2:16:00 PMStudy Type:Physiologic Leg Height:64inWeight: 130lb BSA: 1.63 m2 DOBAge:1945,73Y Sex: FEMALESonogrphr: Carmen Carreno RVT Pat. Stat.:Inpatient Room:ED-09 TapeVol: LN, CPT - 4: 51185 Echo Event ID:[id number] Order ID:[id number] Reason for Study:Right great toe dry gangrene. Right great toe pain that has been worsening for the past 3 weeks. Procedures:Ankle/brachial pressures, PPG waveform tracing, Segmental pressures Race:B SUMMARY: SEGMENTAL PRESSURE(mmHg): RIGHT LEFT Brachial 110 122 Ankle DP 29 31 Ankle [id number] Great Toe Unable to obtainAbsent ANKLE/BRACHIAL INDEX: [...] Diagnostic Laboratory Physiologic Arterial Leg Report [address] [place] [address] Pat.Name: KP MEDEIROS Pat.ID: [id number] .Date: 02/21/2019 Refer.MD: SUNG GREGORY MD Exam Time: 2:16:00 PM Study Type:Physiologic Leg Height: 64in Weight: 130lb BSA: 1.63 m2 Age: 7 1945,73Y Sex: FEMALE Sonogrphr: Carmen Carreno RVT Pat. Stat.:Inpatient Room: ED-09 Tape Vol: LN, CPT - 4: 64672 Echo Event ID:[id number] Order ID: [id number] Reason for Study:Right great toe dry gangrene. [...] Gary Washington MD, RPVI Performing Organization Address [facility] Centercode Phone Number [facility] [address] [place] [address] XR Foot 2 Vw Right (02/21/2019 2:16 [...] arthropathy.. 3.Soft tissue swelling overlies the forefoot. [facility]-[id number] Procedure Note Interface, Radiology Results Incoming - [...] 3. Soft tissue swelling overlies the forefoot. [facility]-[id number] Performing Organization Address [facility] Centercode Phone Number [facility] [address] [place] [address] XR Chest 1 Vw Portable (02/21/2019 2:16 PM CDT) Specimen Narrative Performed At EXAMINATION:XR CHEST 1 VW PORTABLE [facility] CLINICAL HISTORY:chest pain COMPARISON:None. IMPRESSION: Single frontal view reveals a prominent cardiac silhouette with arch calcifications. Coarse interstitial markings are noted within the lungs with apical emphysematous changes. Pleural margins are sharp. The remainder of the examination is unremarkable. [id number] Procedure Note Hm Interface, Radiology Results Incoming - 02/21/2019 2:29 PM CDT EXAMINATION: XR CHEST 1 VW PORTABLE CLINICAL HISTORY: chest pain COMPARISON: None. IMPRESSION: Single frontal view reveals a prominent cardiac silhouette with arch calcifications. Coarse interstitial markings are noted within the lungs with apical emphysematous changes. Pleural margins are sharp. The remainder of the examination is unremarkable. [id number] Performing Organization Address [facility]/Zipcode Phone Number [facility] [address] [place] [address] Troponin (02/21/2019 2:07 PM CDT) Troponin <0.30 0.00 - 0.30 TRAN [facility] Comment: ng/mL HOSPITAL 0.30 - 1.49 ng/mlMay indicate increased risk of acute coronary syndrome. >=1.5 ng/mlConsistent with acute myocardial infarction. The diagnostic value of a single normal or non-diagnostic result is questionable.Serial samples at 2-6 hour intervals are required to rule out acute myocardial injury. Specimen Plasma specimen Performing Organization Address [facility] Centercode Phone Number [facility] DEPARTMENT OF PATHOLOGY AND [address] [place] [address] Partial thromboplastin time, activated (02/21/2019 2:07 PM CDT) PTT 28.1 23.0 - 36.0 [facility] Comment: [facility] HOSPITAL PTT therapeutic range for unfractionated heparin is 61.0-112.0 seconds which corresponds to Anti-Xa 0.3-0.7 U/ml. Specimen Blood Performing Organization Address [facility] Centercode Phone Number [facility] DEPARTMENT OF PATHOLOGY AND [address] [place], [place] [phone] [address] [address] D-dimer (02/21/2019 2:07 PM CDT) [facility] D-dimer 1.42 (H) 0.00 - 0.40 [facility] Comment: ug/mL [facility] Units are ug/ml [...] Blood Performing Organization Address City/State/Zipcode Phone Number [facility] DEPARTMENT OF PATHOLOGY AND [address] [place] [address] B natriuretic peptide (02/21/2019 2:07 PM CDT) [facility] BNP 109 (H) 0 - 100 pg/mL [facility] Specimen Blood Performing Organization Address City/State/Zipcode Phone Number [facility] DEPARTMENT OF PATHOLOGY AND [address] [place] [address] Comprehensive metabolic panel (02/21/2019 2:07 PM CDT)Only the most recent of2 resultswithin the time period is included. [facility] Sodium 142 135 - 148 [facility] mEq/L [facility] Potassium 3.4 (L) 3.5 - 5.0 [facility] mEq/L [facility] Chloride 102 98 - 112 mEq/L [facility] CO2 30 24 - 31 mEq/L [facility] Anion gap 10@ANIO 7 - 15 mEq/L [facility] BUN 15 8 - 23 mg/dL [facility] Creatinine 1.17 (H) 0.50 - 0.90 [facility] mg/dL [facility] Glucose 93 65 - 99 mg/dL [facility] Calcium 9.9 8.8 - 10.2 [facility] mg/dL [facility] Protein 6.6 6.3 - 8.3 g/dL [facility] Comment: HOSPITAL 4.6-7.0 g/dL 1 week 4.4-7.6 g/dL 7 months-1year5.1-7.3 g/dL 1-2 years5.6-7.5 g/dL >3 years6.0-8.0 g/dL 18-150 6.3-8.3 g/dL Albumin 3.6 3.5 - 5.0 g/dL [facility] A/G ratio 1.2 0.7 - 3.8 [facility] Alkaline phosphatase 54 35 - 104 U/L [facility] AST 16 10 - 35 U/L [facility] ALT 9 5 - 50 U/L [facility] Total bilirubin 0.9 0.0 - 1.2 [facility] mg/dL [facility] Specimen Plasma specimen Performing Organization Address City/State/Zipcode Phone Number [facility] DEPARTMENT OF PATHOLOGY AND [address] [place] [address] [place] [address] ECG ED Preliminary Interpretation - Not an Order (02/21/2019 2:03 PM CDT)Only the most recent of2 resultswithin the time period is included. Narrative Performed At Sung Gregory MD 02/25/2019 12:40 PM ECG ED Preliminary Interpretation - Not an Order Performed by: Sung Gregory MD Authorized by: Sung Gregory MD ECG reviewed by ED Physician in the absence of a environmental engineering manager: yes Interpretation: Interpretation: normal Rate: ECG rate:76 ECG rate assessment: normal Rhythm: Rhythm: sinus rhythm Ectopy: Ectopy: none QRS: QRS axis:Normal QRS intervals:Normal Conduction: Conduction: normal ST segments: ST segments:Normal T waves: T waves: normal Echocardiogram complete w contrast and 3D if needed (01/30/2019 10:45 AM CDT) Specimen Narrative Performed At [facility] Echocardiography Report [address]Name:KP MEDEIROS.ID:[id number] .Date: 01/30/2019 Refer.MD:MEKHI MEDEIROS MD Exam Time: 8:16:00 AMStudy Type:Routine Echo Height:64inWeight: 120lb BSA: 1.58 m2 DOBAge:1945,73Y Sex: FEMALEBP:133/69 HR:63 bpmSonogrphr: RUDI Sanchez Pat. Stat.:Inpatient Room:[facility] Study Status:Final Echo Event ID:[id number] Order ID:[id number] Reason for Study:SOB, suspected cardiac etiology Procedures:2D [...] of 5 mmHg. MEASUREMENTS: 2D Parasternal Long [place] LVOT 1.9 cmLA Ds2.8 cm LVIDd4.3 cmIndex2.7 [...] 01/30/2019 3:58 PM CDT Echocardiography Report [address] [place] [address] Pat.Name: KP MEDEIROS Pat.ID: [id number] .Date: 01/30/2019 Refer.MD: MEKHI MEDEIROS MD Exam Time: 8:16:00 AM Study Type:Routine Echo Height: 64in Weight: 120lb BSA: 1.58 m2 Age: 7 1945,73Y Sex: FEMALE BP: 133/69 HR: 63 bpm Sonogrphr: RUDI Sanchez Pat. Stat.:Inpatient Room: [facility] Study Status:Final Echo Event ID:[id number] Order ID: [id number] Reason for Study:SOB, suspected cardiac etiology Procedures:2D [...] of 5 mmHg. MEASUREMENTS: 2D Parasternal Long [place] LVOT 1.9 cm LA Ds 2.8 cm [...] M.D. Performing Organization Address City/State/Zipcode Phone Number [facility] [address] [place] [address] Cv cta abdomen w runoff w contrast (01/30/2019 9:14 AM CDT) Specimen Narrative Performed At [facility] [address] [address] CTA Abd/Pelvis with Runoff Report Pat.Name:KP MEDEIROS.ID:[id number] .Date: 01/30/2019 Refer.MD:MARION WILKINSON MD Exam Time: 8:45:00 AM Study Type:CTA Abd_Pelvis with Runoff Height:64inDOBAge:1944,73Y Sex: FEMALEBP: 133/60 Nuclear Tech:BINU Miles(N)(CT) CPT - 4: CTA ABD/PELV W/WO [id number] Nuclear Event ID:[id number] Order ID:[id number] Reason for Study:Assess Abdominal Aortic Aneurysm and [...] Cardiovascular CTA Protocol and interpreted by a Nuclear Auxiliary Operator.Should a more comprehensive assessment of non-cardiovascular findings be desired, please consult a radiologist.These images are available in the [facility] [employer] PACS system. Signed 01/30/2019 03:07 PM Nilesh Vega MD Procedure Note Interface, Radiology Results In - 01/30/2019 3:07 PM CDT [facility] CT [address] [address] CTA Abd/Pelvis with Runoff Report Pat.Name: KP MEDEIROS.ID: [id number] St.Date: 01/30/2019 Refer.MD: MARION WILKINSON MD Exam Time: 8:45:00 AM Study Type:CTA Abd_Pelvis with Runoff Height: 64in Age: 7 1945,73Y Sex: FEMALE BP: 133/60 Nuclear Tech:BINU Miles(N)(CT) CPT - 4: CTA ABD/PELV W/WO 78855 Nuclear Event ID:[id number] Order ID: [id number] Reason for Study:Assess Abdominal Aortic Aneurysm and [...] Cardiovascular CTA Protocol and interpreted by a Nuclear Auxiliary Operator. Should a more comprehensive assessment of non-cardiovascular findings be desired, please consult a radiologist. These images are available in the [facility] [employer] PACS system. Signed 01/30/2019 03:07 PM Nilesh Vega MD Performing Organization Address City/State/Zipcode Phone Number [facility] [address] [phone] [place] carotid duplex (01/30/2019 8:28 AM CDT) Specimen Narrative Performed At [facility] Vascular Ultrasound Laboratory Carotid Artery Duplex Report [address] [place] [address] For quality and reliability engineer purposes, the categorization of the degree of the stenosis of this exam is based on criteria described in the IAC carotid stenosis grading white paper( www.intersocietal.org/Vascular) and Jazmine Johnson., Jose Monae., et al. Carotid artery stenosis: malave-scale and Doppler US diagnosis--Society of Radiologists in Ultrasound Consensus Conference. Radiology. 2003 Nov; 229(2):340-6. Pat.Name:KP MEDEIROS.ID:[id number] .Date: 01/30/2019 Refer.MD:MARION WILKINSON MD Exam Time: 7:28:00 AMStudy Type:Carotid Height:64inDOBAge: 1945,73Y Sex: FEMALESonogrphr: LADAN Sousa, RVT Pat. Stat.:Inpatient Room:[address] TapeVol: RADHA, CPT - 4: 49620 Echo Event ID:[id number] Order ID:[id number] Reason for Study:History of peripheral vascular disease [...] EDV29.5 cm/s Right ICA Mid ICA Mid [id number] cm/Cora Mid EDV 26.7 cm/s Right ICA [...] EDV27.9 cm/s Left ICA Mid ICA Mid [id number] cm/Cora Mid EDV 24.2 cm/s Left ICA [...] Vascular Ultrasound Laboratory Carotid Artery Duplex Report [address] [place] [address] For quality and reliability engineer purposes, the categorization of the degree of the stenosis of this exam is based on criteria described in the IAC carotid stenosis grading white paper( www.intersocietal.org/Vascular) and David Johnson, Shweta Monae, et al. Carotid artery stenosis: malave-scale and Doppler US diagnosis--Society of Radiologists in Ultrasound Consensus Conference. Radiology. 2003 Nov; 229(2):340-6. Pat.Name: KP MEDEIROS Pat.ID: [id number] St.Date: 01/30/2019 Refer.MD: MARION WILKINSON MD Exam Time: 7:28:00 AM Study Type:Carotid Height: 64in Age: 7 1945,73Y Sex: FEMALE Sonogrphr: LADAN Sousa, RVT Pat. Stat.:Inpatient Room: [address] Tape Vol: RADHA, CPT - 4: 08618 Echo Event ID:[id number] Order ID: [id number] Reason for Study:History of peripheral vascular disease [...] Gary Washington MD, RPVI Performing Organization Address City/[facility]/Zipcode Phone Number [facility] [address] [place] [address] Uric acid level (01/29/2019 12:00 AM CDT) Uric acid 7.3 (H) 2.4 - 5.7 mg/dL [facility] Specimen Plasma specimen Performing Organization Address City/[facility]/Zipcode Phone Number [facility] DEPARTMENT OF PATHOLOGY AND [address] [place] [phone] [address] Thyroid stimulating hormone (01/29/2019 12:00 AM CDT) TSH 0.43 0.27 - 4.20 uIU/mL [facility] Specimen Plasma specimen Performing Organization Address City/[facility]/Zipcode Phone Number [facility] DEPARTMENT OF PATHOLOGY AND [address] [place] [address] [address] T4, free (01/29/2019 12:00 AM CDT) T4, free 1.5 0.9 - 1.7 ng/dL [facility] Specimen Plasma specimen Performing Organization Address City/[facility] Cent[facility]ode Phone Number [facility] DEPARTMENT OF PATHOLOGY AND [address] [place] [address] [address] Lipid panel (01/29/2019 12:00 AM CDT) Cholesterol 137 <200 mg/dL [facility] Triglycerides 81 <150 mg/dL [facility] HDL cholesterol 45 >40 mg/dL [facility] LDL cholesterol 81Comment: Result <100 mg/dL [place] obtained by direct [facility] LDL measurement [facility] Lipid panel [facility] interpretation Comment: [facility] Total Cholesterol (mg/dL) [facility] <200 Desirable 281-086Kxaorsbmlw-fzza >=240High Triglycerides (mg/dL) <150 Normal 206-199Pdnqvzrswf-plbd 200-499High >=500Very high HDL Cholesterol (mg/dL) <40Low (male) <40Low (female) LDL Cholesterol (mg/dL) <100 Optimal 100-129Near or above optimal 820-388Qdtlsjdhkm-ibcy 160-189High >=190Very high Risk Catergories that modify [...] mg/dL) Specimen Plasma specimen Performing Organization Address City/State/Zipcode Phone Number [facility] DEPARTMENT OF PATHOLOGY AND [address] [place] [address] [address] [place] duplex arterial lower extremity (01/28/2019 4:59 PM CDT) Specimen Narrative Performed At [facility] Vascular Ultrasound Laboratory Lower Extremity Arterial Duplex Report [address] [address] Pat.Name:KP MEDEIROS.ID:[id number] .Date: 01/28/2019 Refer.MD:SUNG GREGORY MD Exam Time: 3:43:00 PMStudy Type:LE Arterial Height:64inDOBAge: 1945,73Y Sex: FEMALESonogrphr: Lewis Martinez, RVT, RDMS Pat. Stat.:Inpatient Room:EDP TapeVol: CLARE, CPT - 4: 12933 Echo Event ID:[id number] Order ID:[id number] Reason for Study:Rt toe pain and dry [...] demonstrates significant inflow arterial occlusive disease ( CONCRETE STONE FINISHER post-stenotic waveform) andthe right GRICELDA occlusion. MEASUREMENTS: DOPPLER Right CONCRETE STONE FINISHER prox CONCRETE STONE FINISHER prox PSV47.5 cm/s Right Profunda Profunda PSV61.8 cm/s Profunda Right Profunda 60 deg Right SFA Dist SFA Dist PSV30.1 cm/s SFA Right SFA Dist 60 degRight SFA Prox 60 deg Right SFA Mid D60 deg Right SFA Mid SFA Mid PSV 32.1 cm/s Right SFA Prox SFA Prox PSV36.5 cm/s Right Pop Dist Pop Dist PSV21.6 cm/s Popliteal Right Gnryemgwg40 degRight Dckygdsno23 deg Right Pop Prox Pop Prox PSV12.4 cm/s Right METAL TEMPLATE MAKER Prox METAL TEMPLATE MAKER Prox PSV6.67 cm/s Tibial Post Right Tibial [...] GRICELDA Mid GRICELDA Mid PSV0 cm/s Right CONCRETE STONE FINISHER Mid CONCRETE STONE FINISHER Mid PSV 48 cm/s Right GRICELDA Prox GRICELDA Prox PSV19.8 cm/s Right GRICELDA Distal GRICELDA Distal PSV 0 cm/s Signed 01/28/2019 07:20 PM Gary Washington MD, RPVI Procedure Note Interface, Radiology Results In - 01/28/2019 7:21 PM CDT Vascular Ultrasound Laboratory Lower Extremity Arterial Duplex Report [address] [place] [address] Pat.Name: KP MEDEIROS Pat.ID: [id number] .Date: 01/28/2019 Refer.MD: SUNG GREGORY MD Exam Time: 3:43:00 PM Study Type:LE Arterial Height: 64in Age: 7 1945,73Y Sex: FEMALE Sonogrphr: Lewis Martinez RVT, ISIDORO Pat. Stat.:Inpatient Room: EDP Tape Vol: MK, CPT - 4: 95783 Echo Event ID:[id number] Order ID: [id number] Reason for Study:Rt toe pain and dry [...] demonstrates significant inflow arterial occlusive disease ( CONCRETE STONE FINISHER post-stenotic waveform) and the right GRICELDA occlusion. MEASUREMENTS: DOPPLER Right CONCRETE STONE FINISHER prox CONCRETE STONE FINISHER prox PSV 47.5 cm/s Right Profunda Profunda [...] Prox Pop Prox PSV 12.4 cm/s Right METAL TEMPLATE MAKER Prox METAL TEMPLATE MAKER Prox PSV 6.67 cm/s Tibial Post Right [...] Mid GRICELDA Mid PSV 0 cm/s Right CONCRETE STONE FINISHER Mid CONCRETE STONE FINISHER Mid PSV 48 cm/s Right GRICELDA Prox GRICELDA Prox PSV 19.8 cm/s Right GRICELDA Distal GRICELDA Distal PSV 0 cm/s Signed 01/28/2019 07:20 PM Gary Washington MD, RPVI Performing Organization Address City/[facility]/Zipcode Phone Number [facility] [address] [place] [address] Blood culture, aerobic & anaerobic (01/28/2019 1:34 PM CDT) Blood culture No growth after 5 days of incubation. [facility] isolate Comment: HOSPITAL Specimen Information Specimen Source: Blood Specimen Site: Forearm, left Specimen Blood - Forearm, left Performing Organization Address City/[facility] Centercode Phone Number [facility] DEPARTMENT OF PATHOLOGY AND [address] [place] [phone] [place] [phone] C-reactive protein (01/28/2019 1:34 PM CDT) CRP 1.67 (H) 0.00 - 0.50 mg/dL [facility] Specimen Plasma specimen Performing Organization Address [facility] Centercoin Phone Number [facility] DEPARTMENT OF PATHOLOGY AND [address] [place] [phone] [address] Lactic acid level (01/28/2019 1:34 PM CDT) Lactic acid 2.0 0.5 - 2.2 mmol/L [facility] Specimen Plasma specimen Performing Organization Address City/[facility]/Zipcode Phone Number [facility] DEPARTMENT OF PATHOLOGY AND [address] [place] [phone] [address] after 05/11/2018 Advance Directives Patient has advance care planning documents on file. For more information, please contact:Juan Vasquez[address] [place] [address]
--- OUTSIDE RECORDS SUMMARY | 2019-05-12 11:38 | XMS REPORT | Continuity of Care Document ---
:1945 Author Organization [facility] Care Team Providers Name Role Phone [facility] Unavailable Unavailable Problems Problem Status Onset Date Classification Date Comments Source Reported R59.9 CT Active 07/04/2017 [place] GUIDED [place] MARROW BIOPSY/A Medications No Data Provided for This Section Allergies, Adverse Reactions, Alerts No Known Medication Allergies Immunizations No Data Provided for This Section Results Order Name Results Value Reference Date Interpretation Comments Source Range HEMATOLOGY MCV 92.0 80.0 - 98.0 2016 [facility] HEMATOLOGY Hgb 14.3 12.0 - 16.0 2016 [facility] HEMATOLOGY Hct 43.9 36.0 - 48.0 2016 [facility] HEMATOLOGY MCH 29.9 27.0 - 31.0 2016 [facility] HEMATOLOGY Platelet 222 133 - 450 2016 [facility] HEMATOLOGY MCHC 32.5 32.0 - 36.0 2016 [facility] HEMATOLOGY RDW 15.8 11.5 - 14.5 2016 [facility] HEMATOLOGY MPV 10.4 7.4 - 10.4 2016 [facility] HEMATOLOGY RBC 4.78 4.20 - 5.40 2016 [facility] HEMATOLOGY WBC 15.9 3.7 - 10.4 2016 [facility] HEMATOLOGY PT 13.0 12.0 - 14.7 2016 [facility] HEMATOLOGY INR 0.96 0.85 - 1.17 [address] [place] HEMATOLOGY PTT 26.5 22.9 - 35.8 [address] [place] HEMATOLOGY Platelet 219 133 - 450 2016 [facility] HEMATOLOGY Plt Morph Normal (07/04/17 8:16 AM) 2016 [facility] HEMATOLOGY Segs 69.3 45.0 - 75.0 2016 [facility] HEMATOLOGY Lymphocytes 23.0 20.0 - 40.0 2016 [facility] HEMATOLOGY Eosinophils # 0.1 0.0 - 0.5 [facility] 2016 [facility] HEMATOLOGY Monocytes # 1.1 0.0 - 0.8 [facility] 2016 [facility] HEMATOLOGY Basophils # 0.1 0.0 - 0.2 [facility] 2016 [facility] HEMATOLOGY Anisocyte 1+ None Seen [facility] *ABN* 2016 [facility] (07/04/17 8:16 AM) HEMATOLOGY Eosinophils 0.4 0.0 - 4.0 2016 [facility] HEMATOLOGY Monocytes 6.7 2.0 - 12.0 2016 [facility] HEMATOLOGY Segs-Bands # 11.0 1.5 - 8.1 [facility] 2016 [facility] HEMATOLOGY Basophils 0.6 0.0 - 1.0 [facility] 2016 [facility] HEMATOLOGY Lymphocytes # 3.7 1.0 - 5.5 [facility] 2016 [facility] Pathology Reports No Data Provided for This Section Diagnostic Reports Report Value Date Source Bone biopsy w guidance PROCEDURES PERFORMED: 07/04/[address] [facility] [address] 1. Bone Marrow aspiration and core needle biopsy. 2. CT guidance. 3. Moderate Sedation HISTORY: Abnormal blood differential and anemia. Bone [...] was followed including: Cap and mask, sterile gown , sterile gloves, and large sterile sheet. Hand [...] marrow was aspirated and given to the emergency medical technician basic for preparation. An 8 gauge bone biopsy needle was then advanced under CT guidance into the right iliac bone and a core sample was obtained and given to the medical technologist clinical in the room. Satisfactory position was confirmed under CT. The patient tolerated the procedure well, and there were no immediate complications. IMPRESSION: Bone marrow aspiration and core needle biopsy with CT guidance of the right iliac bone. Consultation Notes No Data Provided for This Section Discharge Summaries No Data Provided for This Section History and Physicals No Data Provided for This Section Vital Signs Vital Sign Value Date Comments Source BMI Calculated 21.03 07/04/2017 [place] Height 167.64 cm 07/04/2017 [place] Weight 59.091 07/04/2017 [place] Temperature Oral (F) 97.6 F 07/04/2017 [place] Respitory Rate 18 07/04/2017 [place] Systolic (mm Hg) 138 07/04/2017 [place] Diastolic (mm Hg) 69 07/04/2017 [place] Encounters Location Location Encounter Encounter Reason Attending ADM DC Status Source Details Type Number For Provider Date Date Visit [facility] [id number] [place] 07/04 07/05 Miko Lou [facility] [place] Procedures No Data Provided for This Section Assessment and Plan No Data Provided for This Section Plan of Care No Data Provided for This Section Social History Social History Date Source No data available for this 07/05/2017 [place] section Family History No Data Provided for This Section Advance Directives No Data Provided for This Section Functional Status No Data Provided for This Section
--- OUTSIDE RECORDS SUMMARY | 2019-05-12 11:38 | XMS REPORT ---
[...] Start End Status Dosage System Date Date [facility] 58550747744 20 MG Active TAKE 1 TABLET BY MOUTH DAILY Potassium Chloride ER [facility] 27611471569 10 MEQ Orally Active 1 tablet twice a day with food Hydrochlorothiazide ND 13648538411 25 MG Active TAKE 1 TABLET BY MOUTH ONCE A DAY Zocor [facility] 14489327891 20 MG Active TAKE 1 TABLET BY MOUTH DAILY Metoprolol Succinate [facility] 99120943744 100 MG Active TAKE 1 ER TABLET BY MOUTH EVERY DAY Advair Diskus [facility] 71273139081 100-50 Active 1 puff MCG/DOSE Inhalation Twice a day Diclofenac Sodium [facility] 81986567723 1 % Nov 29, Active 2gram to Transdermal 2019 affected Three times a area day prn pain Protonix [facility] 75703487467 40 MG Active TAKE 1 TABLET BY MOUTH ONCE A DAY Magnesium Oxide [facility] 91007533520 400 MG Orally Active 1 tablet Once a day as needed Metoprolol Succinate [facility] 46970418038 100 MG Orally Active 1 tablet ER Once a day Ergocalciferol [facility] 89812516669 13453 UNIT Active 1 capsule Orally Ferrous Sulfate [facility] 22732240489 325 (65 Fe) MG Active 1 tablet Orally Once a day Simvastatin [facility] 01735227553 20 MG Orally Active 1 tablet Once a day in the evening ProAir HFA [facility] 42312385025 108 (90 Base) Active 2 puffs as MCG/ACT needed Inhalation every 6 hrs Gabapentin [facility] 77397079053 300 MG Orally Active 1 capsule Once a day before bedtime Hydrochlorothiazide [facility] 36325430494 25 MG Active TAKE 1 TABLET BY MOUTH ONCE A DAY Results No Known Results Summary Purpose eClinicalWorks Submission
--- OUTSIDE RECORDS SUMMARY | 2019-05-12 11:38 | XMS REPORT ---
[...] Dosage System Date Date Magnesium Oxide ND 49225747312 400 MG Orally Active 1 tablet Once a day as needed Gabapentin ND 19784426262 300 MG Orally Active 1 capsule Once a day before bedtime Simvastatin ND 22680447903 20 MG Orally Active 1 tablet Once a day in the evening ProAir HFA [facility] 47158312852 108 (90 Base) Active 2 puffs MCG/ACT as needed Inhalation every 6 hrs Potassium Chloride ER ND 25991965872 10 MEQ Orally Active 1 tablet twice a day with food Ferrous Sulfate ND 41119878507 325 (65 Fe) MG Active 1 tablet Orally Once a day Ergocalciferol [facility] 54073670967 [address]406 UNIT Active 1 capsule Orally Hydrochlorothiazide [facility] 69218938077 25 MG Active TAKE 1 TABLET BY MOUTH ONCE A DAY Metoprolol Succinate [facility] 71792547628 100 MG Orally Active 1 tablet ER Once a day Advair Diskus [facility] 82611598538 100-50 Active 1 puff MCG/DOSE Inhalation Twice a day Protonix [facility] 21941492953 40 MG Active TAKE 1 TABLET BY MOUTH ONCE A DAY Zocor [facility] 84014364360 20 MG Active TAKE 1 TABLET BY MOUTH DAILY Results No Known Results Summary Purpose eClinicalWorks Submission
--- OUTSIDE RECORDS SUMMARY | 2019-05-12 11:38 | XMS REPORT ---
[...] Dosage System Date Date Metoprolol Succinate ND 34308872077 100 MG Orally Active 1 tablet ER Once a day Hydrochlorothiazide ND 84468576409 25 MG Active TAKE 1 TABLET BY MOUTH ONCE A DAY Potassium Chloride ER ND 64529971745 10 MEQ Orally Active 1 tablet twice a day with food Advair Diskus ND 26169505249 100-50 Active 1 puff MCG/DOSE Inhalation Twice a day Zocor [facility] 82163399772 20 MG Active TAKE 1 TABLET BY MOUTH DAILY Gabapentin [facility] 35653795106 300 MG Orally Active 1 capsule Once a day before bedtime Metoprolol Succinate [facility] 03174968488 100 MG Active TAKE 1 ER TABLET BY MOUTH EVERY DAY Hydrochlorothiazide [facility] 86396123295 25 MG Active TAKE 1 TABLET BY MOUTH ONCE A DAY ProAir HFA [facility] 55742774578 108 (90 Base) Active 2 puffs MCG/ACT as needed Inhalation every 6 hrs Simvastatin [facility] 02509051352 20 MG Orally Active 1 tablet Once a day in the evening Magnesium Oxide [facility] 45030357155 400 MG Orally Active 1 tablet Once a day as needed Protonix [facility] 09736885157 40 MG Active TAKE 1 TABLET BY MOUTH ONCE A DAY Zocor [facility] 78459476578 20 MG Active TAKE 1 TABLET BY MOUTH DAILY Ferrous Sulfate [facility] 49515541297 325 (65 Fe) MG Active 1 tablet Orally Once a day Ergocalciferol [facility] 24259017359 [address] UNIT Active 1 capsule Orally Results No Known Results Summary Purpose eClinicalWorks Submission
--- OUTSIDE RECORDS SUMMARY | 2019-05-12 11:39 | XMS REPORT ---
:1945 Author Organization e[employer]Works Care Team Providers Name Role Phone Webster, Na Provider Role Unavailable Allergies, Adverse Reactions, Alerts Substance Reaction Event Type N.K.D.A. 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 Assessment Decreased appetite R63.0 Active Assessment Drug-induced constipation K59.03 Active Problem Smoker F17.200 Active Problem Hypokalemia E87.6 Active Problem AAA (abdominal aortic aneurysm) I71.4 Active without rupture Problem 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 Problem Unsteady gait R26.81 Active Problem Primary osteoarthritis, 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 Active and foot Problem Personal history of poliomyelitis Z86.12 Active Problem Decreased appetite R63.0 Active Problem Abdominal aneurysm I71.4 Active Problem Stented coronary artery Z95.5 Active Problem Pure hypercholesterolemia E78.00 Active Problem Calculus of gallbladder without K80.20 Active cholecystitis without obstruction Problem Gastroesophageal reflux disease K21.9 Active without esophagitis Problem 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 Active Problem Primary osteoarthritis, right ankle M19.071 Active and foot Problem Arterial insufficiency of lower I73.9 Active extremity Problem 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 Problem Benign essential HTN I10 Active Problem Hyperlipidemia E78.5 Active Problem Anemia D64.9 Active Problem GERD (gastroesophageal reflux K21.9 Active disease) Problem Nicotine dependence F17.200 Active Problem Cigarette nicotine dependence F17.210 Active without complication Problem Abnormal mammogram R92.8 Active Problem Hypomagnesemia E83.42 Active Medications Medication Code Code Instructions Start End Status Dosage System Date Date Zocor [facility] 50208248198 20 MG Active TAKE 1 TABLET BY MOUTH DAILY Clonidine HCl ND 05612500270 0.1 MG Orally Active 1 tablet every 4 hours PRN High BP Docusate Sodium ND 42094245315 100 MG Orally Active 1 capsule Once a day as needed Heparin Sodium [facility] 07380646370 5000 UNIT/ML Active 1 ml (Porcine) Injection every 12 hrs Advair Diskus [facility] 47893026599 100-50 Active 1 puff MCG/DOSE Inhalation Twice a day Hydrochlorothiazide [facility] 58979737655 25 MG Active TAKE 1 TABLET BY MOUTH ONCE A DAY Potassium Chloride ER [facility] 47757160735 10 MEQ Orally Active 1 tablet twice a day with food - ND 0 Active not defined Magnesium Oxide [facility] 54475455959 400 MG Orally Active 1 tablet Once a day as needed Ergocalciferol [facility] 40084370529 19552 UNIT Active 1 capsule Orally Metoprolol Succinate [facility] 60780235297 50 MG Orally Active 1 tablet ER Once a day Pantoprazole Sodium [facility] 59306934563 40 MG Active TAKE 1 TABLET BY MOUTH ONCE A DAY Megestrol Acetate [facility] 30613666547 40 MG Orally Active 1 tablet Once a day Gabapentin [facility] 33536155446 300 MG Orally Active 1 capsule Once a day before bedtime Lactulose [facility] 13750201513 10 GM/15ML Active 15 ml Orally Once a day Tylenol # 3 NDC 0 300/30mg PO Active one tab BID PRN Simvastatin ND 18394082101 20 MG Orally Active 1 tablet Once a day in the evening Diclofenac Sodium [facility] 22875421849 1 % Active 2gram to Transdermal affected Three times a area day prn pain Ferrous Sulfate [facility] 99091861531 325 (65 Fe) MG Active 1 tablet Orally Once a day Polyethylene Glycol [facility] 73202139261 - Active as 3350 directed ProAir HFA [facility] 34522111161 108 (90 Base) Active 2 puffs as MCG/ACT needed Inhalation every 6 hrs Results No Known Results Summary Purpose [employer]ClinicalWorks Submission
--- OUTSIDE RECORDS SUMMARY | 2019-05-12 11:39 | XMS REPORT ---
[...] End Status Dosage System Date Date Ergocalciferol [facility] 44042749652 44887 UNIT Active 1 capsule Orally ProAir HFA [facility] 60935951097 108 (90 Base) Active 2 puffs MCG/ACT as needed Inhalation every 6 hrs Metoprolol Succinate [facility] 42386986775 100 MG Orally Active 1 tablet ER Once a day Potassium Chloride ER ND 60875659679 10 MEQ Orally Active 1 tablet twice a day with food Pantoprazole Sodium ND 40615270954 40 MG Active TAKE 1 TABLET BY MOUTH ONCE A DAY Hydrochlorothiazide [facility] 14286917832 25 MG Active TAKE 1 TABLET BY MOUTH ONCE A DAY Advair Diskus [facility] 09704265747 100-50 Active 1 puff MCG/DOSE Inhalation Twice a day Diclofenac Sodium [facility] 21518493429 1 % Nov 29, Active 2gram to Transdermal 2018 affected Three times a area day prn pain Gabapentin [facility] 22888447280 300 MG Orally Active 1 capsule Once a day before bedtime Zocor [facility] 76764861126 20 MG Active TAKE 1 TABLET BY MOUTH DAILY Tramadol HCl [facility] 91747628016 50 MG Orally January Active 1 tablet every 8 hrs 06, 13, as needed 2018 2018 Hydrochlorothiazide [facility] 48564905721 25 MG Active TAKE 1 TABLET BY MOUTH ONCE A DAY Metoprolol Succinate [facility] 00286894082 100 MG Active TAKE 1 ER TABLET BY MOUTH EVERY DAY Protonix [facility] 92900928847 40 MG Active TAKE 1 TABLET BY MOUTH ONCE A DAY Zocor [facility] 51671660154 20 MG Active TAKE 1 TABLET BY MOUTH DAILY Ferrous Sulfate [facility] 82633728874 325 (65 Fe) MG Active 1 tablet Orally Once a day Simvastatin [facility] 17914286888 20 MG Orally Active 1 tablet Once a day in the evening Magnesium Oxide [facility] 99576005117 400 MG Orally Active 1 tablet Once a day as needed Results No Known Results Summary Purpose eClinicalWorks Submission
--- OUTSIDE RECORDS SUMMARY | 2019-05-12 11:39 | XMS REPORT ---
[...] End Date Status Dosage System Date Simvastatin [facility] 81629149509 20 MG Orally Active 1 tablet in Once a day the evening Results No Known Results Summary Purpose eClinicalWorks Submission
--- NOTE | 2019-05-12 12:54 | RAD REPORT ---
EXAM DESCRIPTION: RAD - Foot Right 3 View - 05/12/2019 12:46 pm CLINICAL HISTORY: Toe and metatarsal amputation February 2019, cellulitis, possible osteomyelitis COMPARISON: None. FINDINGS: There has been amputation of the toes and distal aspect of each metatarsal. Midshaft first - fifth metatarsal amputation sites show no erosive or destructive change. Osteopenic and mottled att enuation changes are present throughout the ankle and midfoot. No focal area of bone destructive mabry ge seen that would indicate osteomyelitis. Osteomyelitis can be present prior to radiographic bone de struction. Degenerative changes present at the tibiotalar joint space. No plantar or Achilles spur. Soft tissues around the distal foot are prominent. Skin rica are present from amputation surgery. No air or foreign body in the soft tissues. IMPRESSION: Osteopenic, degenerative and postsurgical changes are present to the foot as detailed. No focal bone destruction seen that would localize osteomyelitis. Osteomyelitis can exist prior to ra diographic bone destruction. Soft tissue swelling around the distal foot with no air or foreign body seen.
[2019-05-12 13:03] LABS: Absolute Lymphocytes (CBC) 1.6 K/uL (0.7-4.9); Basophils % 1.3 % (0-1.3); Eosinophils % 2.7 % (0-4.4); Hematocrit 36.7 % (36.0-45.0); Lymphocytes % 23.9 % (15.3-44.8); MPV 8.1 fL (7.6-11.3); Monocytes % 6.2 % (3.3-12.3); RBC Red Blood Cell Count 4.21 M/uL (3.86-4.86)
[2019-05-12 13:22] LABS: Bilirubin Total 0.8 mg/dL (0.2-1.0); Potassium 4.1 mmol/L (3.5-5.1); Protein, Total 7.4 g/dL (6.4-8.2)
--- NOTE | 2019-05-12 13:47 | ER ---
Nurse's Notes [facility] Name: Cindy Sorto Age: 73 yrs Sex: Female : 1945 Arrival Date: 05/12/2019 Time: 11:36 Bed 7 Private MD: Kirti Webster Diagnosis: Encounter for change or removal of surgical wound dressing Presentation: 05/12 11:37 Presenting complaint: Patient states: pt's initial visit to wound healing center today, pt had R foot 1st- 5th digits amputation last February [address] Shaye Vasquez; pt is to be transferred back to [facility] for higher level of care; per manager wound care nurse, pt found to have PAD and existing cellulitis on the surgical site; denies F/C; denies N/V; pain is 8/10;. Transition of care: patient was not received from another setting of care. Onset of symptoms was May 12, 2019. Risk Assessment: Do you want to hurt yourself or someone else? Patient reports no desire to harm self or others. Initial Sepsis Screen: Does the patient meet any 2 criteria? No. Patient's initial sepsis screen is negative. Does the patient have a suspected source of infection? No. Patient's initial sepsis screen is negative. Care prior to arrival: None. 11:37 Method Of Arrival: Ambulatory 11:37 Acuity: FRANCO 3 hj Historical: - Allergies: 11:41 NKDA; hj - PMHx: 11:41 AAA; Hyperlipidemia; Hypertension; Polio; hj - PSHx: 11:41 partial amputation of right foot.; hj - Immunization history:: Adult Immunizations up to date. - Social history:: Smoking status: Patient/guardian denies using tobacco, Patient/guardian denies using alcohol, street drugs. - Ebola Screening: : Patient negative for fever greater than or equal to 101.5 degrees Fahrenheit, and additional compatible Ebola Virus Disease symptoms Patient denies exposure to infectious person Patient denies travel to an Ebola-affected area in the 21 days before illness onset No symptoms or risks identified at this time. Screenin:10 Abuse screen: Denies threats or abuse. Denies injuries from another. Nutritional aj screening: No deficits noted. Tuberculosis screening: No symptoms or risk factors identified. Fall Risk None identified. Assessment: 12:08 General: Appears in no apparent distress. comfortable, Behavior is calm, cooperative, aj appropriate for age. Pain: Denies pain. Neuro: Level of Consciousness is awake, alert, obeys commands, Oriented to person, place, time, situation, Appropriate for age. Respiratory: Airway is patent Respiratory effort is even, unlabored, Respiratory pattern is regular, symmetrical. Derm: Skin is normal, Wound noted dorsum of right foot Wound is Surgical non healing wound with black eschar noted, rica in place. Betadine noted on skin. 13:57 Reassessment: Patient appears in no apparent distress at this time. Patient and/or ch family updated on plan of care and expected duration. Pain level reassessed. Patient is alert, oriented x 3, equal unlabored respirations, skin warm/dry/pink. 13:59 Reassessment: Patient appears in no apparent distress at this time. labs are back on pt. second blood culture canceled. pt to be discharged wound cleaned with NS, and dressed with dry gauze. 14:11 Reassessment: Patient appears in no apparent distress at this time. Patient and/or ch family updated on plan of care and expected duration. Pain level reassessed. Patient is alert, oriented x 3, equal unlabored respirations, skin warm/dry/pink. Vital Signs: 11:42 BP 119 / 56; Pulse 87; Resp 18; Temp 98.3(O); Pulse Ox 100% on R/A; Weight 54.43 kg; hj Height 5 ft. 5 in. (165.10 cm); Pain 9/10; 13:28 BP 126 / 50; jb1 13:30 Pulse 98; Resp 14; Temp 98.6; Pulse Ox 98% on R/A; Pain 0/10; ch 11:42 Body Mass Index 19.97 (54.43 kg, 165.10 cm) ED Course: 11:36 Patient arrived in ED. mr 11:36 Kirti Webster MD is Private Physician. mr 11:41 Triage completed. hj 11:41 Arm band placed on. hj 11:51 Ethan Louise MD is Attending Physician. ps1 12:08 Tiffany Weaver, RN is Primary Nurse. aj 12:10 Patient has correct armband on for positive identification. aj 12:32 Lab that blood cultures were unable to be obtained and requested their help. aj 12:32 Inserted saline lock: 22 gauge in right wrist, using aseptic technique. aj 12:43 X-ray completed. Portable x-ray completed in exam room. Patient tolerated procedure jb2 well. 12:46 Foot Right 3 View XRAY In Process Unspecified. EDMS 13:30 No apparent distress. Resting quietly. ch 13:30 Pulse ox on. NIBP on. ch 13:30 No provider procedures requiring assistance completed. IV discontinued, intact, ch bleeding controlled, No redness/swelling at site. Pressure dressing applied. Administered Medications: No medications were administered Outcome: 13:30 Discharged to home via wheelchair. ch 13:30 Condition: stable 13:30 Discharge instructions given to patient, family, Instructed on discharge instructions, follow up and referral plans. Demonstrated understanding of instructions, follow-up care. 13:47 Discharge ordered by MD. ps1 14:12 Patient left the ED. Signatures: Dispatcher [employer] EDMS Ronni Heath jb1 Wendy Webber RN RN ch Myers, Amanda, RN RN aj Rivera, Mary Tanvir Veliz jb2 Ja Senior RN RN hj Singer, Phillip, MD MD ps1 Corrections: (The following items were deleted from the chart) 11:44 11:42 Pulse 87bpm; Resp 18bpm; Pulse Ox 100% RA; Temp 98.3F Oral; 54.43 kg; Height 5 hj ft. 5 in.; BMI: 19.9; Pain 9/10; hj 11:54 11:37 Presenting complaint: Patient states: pt's initial visit to wound healing center today, pt is R 1st- 5th digits amputation last February [address] Shaye Vasquez; pt is to be transferred back to [facility] for higher level of care; per manager wound care nurse, pt found to have PAD and existing cellulitis on the surgical site; denies F/C; denies N/V; pain is 8/10;
--- NOTE | 2019-05-12 13:48 | EDPHYS ---
Physician Documentation [facility] Name: Cindy Sorto Age: 73 yrs Sex: Female : 1945 Arrival Date: 05/12/2019 Time: 11:36 Bed 7 Private MD: Kirti Webster ED Physician Ethan Louise HPI: 05/12 12:14 This 73 yrs old Black Female presents to ER via Ambulatory with complaints of right ps1 foot swelling. 12:14 patient is s/p right foot amputation of all toes. Has sutures and rica in the foot ps1 and has received wound care from Dr. Pool and sent in for evaluation of osteo/cellulitis. Patient has surgery by Stephanie who has privileges at [facility] and instead of going there was [employer] 2/2 family member car not going to make it that far. Patient denies fever. Foot looks as it has been for some time without acute changes per patient. . Historical: - Allergies: 11:41 NKDA; hj - PMHx: 11:41 AAA; Hyperlipidemia; Hypertension; Polio; hj - PSHx: 11:41 partial amputation of right foot.; hj - Immunization history:: Adult Immunizations up to date. - Social history:: Smoking status: Patient/guardian denies using tobacco, Patient/guardian denies using alcohol, street drugs. - Ebola Screening: : Patient negative for fever greater than or equal to 101.5 degrees Fahrenheit, and additional compatible Ebola Virus Disease symptoms Patient denies exposure to infectious person Patient denies travel to an Ebola-affected area in the 21 days before illness onset No symptoms or risks identified at this time. ROS: 12:14 Constitutional: Negative for fever, chills, and weight loss, Eyes: Negative for injury, ps1 pain, redness, and discharge, Cardiovascular: Negative for chest pain, palpitations, and edema, Respiratory: Negative for shortness of breath, cough, wheezing, and pleuritic chest pain, Abdomen/GI: Negative for abdominal pain, nausea, vomiting, diarrhea, and constipation, Neuro: Negative for headache, weakness, numbness, tingling, and seizure. 12:14 MS/extremity: Positive for tenderness, of the right foot and dorsum of right foot. 12:14 Skin: Positive for ulceration, of the right foot and dorsum of right foot. Exam: 12:14 Constitutional: This is a well developed, well nourished patient who is awake, alert, ps1 and in no acute distress. Head/Face: Normocephalic, atraumatic. Eyes: Pupils equal round and reactive to light, extra-ocular motions intact. Lids and lashes normal. Conjunctiva and sclera are non-icteric and not injected. Chest/axilla: Normal chest wall appearance and motion. Nontender with no deformity. No lesions are appreciated. Cardiovascular: Regular rate and rhythm. No gallops, murmurs, or rubs. Normal PMI, no JVD. No pulse deficits. Respiratory: Lungs have equal breath sounds bilaterally, clear to auscultation and percussion. No rales, rhonchi or wheezes noted. No increased work of breathing, no retractions or nasal flaring. Abdomen/GI: Soft, non-tender, with normal bowel sounds. No distension or tympany. No guarding or rebound. No evidence of tenderness throughout. Neuro: Awake and alert, GCS 15, oriented to person, place, time, and situation. Cranial nerves II-XII grossly intact. Sensory grossly intact. Psych: Awake, alert, with orientation to person, place and time. Behavior, mood, and affect are within normal limits. 12:14 Musculoskeletal/extremity: Extremities: grossly normal except: noted in the right foot and dorsum of right foot: patient has post surgical changes with suture and rica present in created skin flap. Appears to have mild skin breakdown without obvious cellulitic changes. Appears to have betadine skin staining. . Vital Signs: 11:42 BP 119 / 56; Pulse 87; Resp 18; Temp 98.3(O); Pulse Ox 100% on R/A; Weight 54.43 kg; hj Height 5 ft. 5 in. (165.10 cm); Pain 9/10; 13:28 BP 126 / 50; jb1 13:30 Pulse 98; Resp 14; Temp 98.6; Pulse Ox 98% on R/A; Pain 0/10; ch 11:42 Body Mass Index 19.97 (54.43 kg, 165.10 cm) hj MDM: 12:05 Patient medically screened. ps1 13:42 Data reviewed: vital signs, nurses notes, lab test result(s), radiologic studies, and ps1 as a result, I will discharge patient. Counseling: I had a detailed discussion with the patient and/or guardian regarding: the historical points, exam findings, and any diagnostic results supporting the discharge/admit diagnosis, lab results, radiology results, the need for outpatient follow up, to return to the emergency department if symptoms worsen or persist or if there are any questions or concerns that arise at home. ED course: patient does not have a leukocytosis, fever, AMS, purulent discharge. No radiologic evidence and ESR mildly elevated. Does not seem c/w cellulitis or osteo. Rec dry bandaging and follow up with [employer] for reevaluation. If symptoms persist and OP MRI of foot can be performed. . 05/12 12:06 Order name: CBC with Diff; Complete Time: 13:41 [facility] 05/12 12:06 Order name: CMP; Complete Time: 13:33 [facility] 05/12 12:06 Order name: Foot Right 3 View XRAY; Complete Time: 13:07 [facility] 05/12 12:06 Order name: ESR; Complete Time: 13:41 [facility] 05/12 12:06 Order name: Blood Culture Adult (2) [facility] 05/12 12:41 Order name: Misc. Order: recollect labs; Complete Time: 13:08 [facility] Administered Medications: No medications were administered Disposition: 05/12/19 13:47 Discharged to Home. Impression: Encounter for change or removal of surgical wound dressing. - Condition is Stable. - Discharge Instructions: Stitches, [place], or Adhesive Wound Closure. - Medication Reconciliation Form, Thank You Letter, Antibiotic Education, Prescription Opioid Use form. - Follow up: Private Physician; When: 48 Hours; Reason: Further diagnostic work-up, Recheck today's complaints, Re-evaluation by your physician. Follow up: Emergency Department; When: As needed; Reason: Fever > 102 F, Worsening of condition. - Problem is an ongoing problem. - Symptoms are unchanged. Signatures: Dispatcher [employer] EDWendy Guerrero, Marleny Thomas RN, ch, Henry, RN RN Ethan Corrales MD MD ps1 Corrections: (The following items were deleted from the chart) 14:12 13:47 05/12/2019 13:47 Discharged to Home. Impression: Encounter for change or removal ch of surgical wound dressing. Condition is Stable. Forms are Medication Reconciliation Form, Thank You Letter, Antibiotic Education, Prescription Opioid Use. Follow up: Private Physician; When: 48 Hours; Reason: Further diagnostic work-up, Recheck today's complaints, Re-evaluation by your physician. Follow up: Emergency Department; When: As needed; Reason: Fever > 102 F, Worsening of condition. Problem is an ongoing problem. Symptoms are unchanged. ps1
[2019-05-14 17:25] VITALS: BP 126/50; TEMP 98.6; O2SAT 98
== END 2019-05-12 14:12 | disposition home or self-care (01) ==
LOC: ER 11:32
DX: Z48.01 Encounter for change or removal of surgical wound dressing (principal); I10 Essential (primary) hypertension; Z89.421 Acquired absence of other right toe(s)
CPT/HCPCS: 36415; 80053; 85025; 85652; 87040; 99283

== ENCOUNTER 2019-06-15 12:17 | Emergency (ER) | payer OTHER ==
--- OUTSIDE RECORDS SUMMARY | 2019-06-15 13:00 | XMS REPORT | Clinical Summary ---
:1945 Author Organization [place] [facility] Address [address] [place] [address] Care Team Providers Name Role Phone System, [...] Essential hypertension Mekhi Medeiros Sr., MD after 06/14/2018 Social History Tobacco Use Types Packs/Day Years [...] CDT procedure are in the results section. ISABELA ANTIGEN PATIENT Routine 02/26/2019 3:45 Results for [...] are in SPECTRAL COLOR DOPPLER the results (12848) section. CV CTA ABDOMEN W RUNOFF Routine [...] procedure are in the results section. after 06/14/2018 Results Estimated GFR (03/17/2019 4:37 AM CDT)Only the most recent of13 resultswithin the time period is included. Estimated GFR 56 (A) mL/min/1.73 TRAN [facility] Comment: m2 HOSPITAL CatergoryUnitsInterpretation G1 >=90 Normal or high G2 60-89Mildly decreased E7e76-43Pcjpes to moderately decreased Z6b83-82Tbpnslmoor to severely decreased G4 15-29Severely decreased G5 <15Kidney failure The eGFR was calculated using the Chronic Kidney Disease Epidemiology Collaboration (CKD-EPI) equation. Interpretation is based on recommendations of the National Kidney Foundation-Kidney Disease Outcomes Quality Initiative (NKF-KDOQI) published in 2014. Specimen Plasma specimen Performing Organization Address City/[facility] Phone Number [facility] DEPARTMENT OF PATHOLOGY AND [address] [place] [phone] GENOMIC MEDICINE [facility] [address] [place] [address] CBC with platelet and differential (03/17/2019 4:37 AM CDT)Only the most recent of14 resultswithin the time period is included. WBC 7.93 4.50 - 11.00 [facility] k/uL HOSPITAL RBC 3.49 (L) 4.20 - 5.50 [facility] m/uL HOSPITAL HGB 10.0 (L) 12.0 - 16.0 [facility] g/dL [facility] HCT 32.6 (L) 37.0 - 47.0 % [facility] MCV 93.4 82.0 - 100.0 [facility] MCH 28.7 27.0 - 34.0 pg [facility] MCHC 30.7 (L) 31.0 - 37.0 [facility] g/dL [facility] RDW - SD 55.3 (H) 37.0 - 55.0 fL [facility] MPV 10.4 8.8 - 13.2 fL [facility] Platelet count 361 150 - 400 k/uL [facility] Nucleated RBC 0.00 /100 WBC [facility] Neutrophils 59.4 39.0 - 69.0 % [facility] Lymphocytes 26.4 25.0 - 45.0 % [facility] Monocytes 10.3 (H) 0.0 - 10.0 % [facility] Eosinophils 2.8 0.0 - 5.0 % [facility] Basophils 0.6 0.0 - 1.0 % [facility] Immature granulocytes 0.5Comment: 0.0 - 1.0 % [facility] "Immature HOSPITAL granulocytes" (promyelocytes , myelocytes, metamyelocytes ) Specimen Blood Performing Organization Address [facility]/Zipcode Phone Number [facility] DEPARTMENT OF PATHOLOGY AND [address] [place] [phone] Basic metabolic panel (03/17/2019 4:37 AM CDT)Only the most recent of11 resultswithin the time period is included. [facility] Sodium 138 135 - 148 mEq/L [facility] Potassium 3.9 3.5 - 5.0 mEq/L [facility] Chloride 100 98 - 112 mEq/L [facility] CO2 24 24 - 31 mEq/L [facility] Anion gap 14@ANIO 7 - 15 mEq/L [facility] BUN 22 8 - 23 mg/dL [facility] Creatinine 1.11 (H) 0.50 - 0.90 mg/dL [facility] Glucose 87 65 - 99 mg/dL [facility] Calcium 10.4 (H) 8.8 - 10.2 mg/dL [facility] Specimen Plasma specimen Performing Organization Address [facility] Phone Number [facility] DEPARTMENT OF PATHOLOGY AND [address] [place] [address] Vancomycin level, trough (03/07/2019 8:40 PM CDT)Only the most recent of4 resultswithin the time period is included. [facility] Vancomycin, 15.2 10.0 - 20.0 [facility] trough Comment: ug/mL HOSPITAL Therapeutic Ranges: Peak 30.0 - 40.0 ug/mL Sjihag01.0 - 20.0 ug/mL Specimen Serum Performing Organization Address City/[facility] Phone Number [facility] DEPARTMENT OF PATHOLOGY AND [address] [place] [address] Arterial blood gas (03/01/2019 3:56 PM CDT) [facility] pH, arterial 7.44 7.35 - 7.45 [facility] pCO2, arterial 42 35 - 45 mmHg [facility] pO2, arterial 58 (L) 80 - 90 mmHg [facility] Bicarbonate, 28.6 (H) 21.0 - 28.0 [facility] mmol/L HOSPITAL Base excess, 5 (H) -2 - 2 mEq/L [facility] O2 saturation, 90 (L) 95 - 100 % [facility] arterial [facility] Specimen Blood Performing Organization Address City/[facility]/Zipcode Phone Number [facility] DEPARTMENT OF PATHOLOGY AND [address] [place] [address] GENOMIC MEDICINE [facility] [address] [place] [address] CT Head Wo Contrast (03/01/2019 3:31 PM [...] Madiha at 3:35 PM. She verbalized understanding. [facility]-[id number] Procedure Note Interface, Radiology Results Incoming - [...] Madiha at 3:35 PM. She verbalized understanding. [facility]-[id number] Performing Organization Address City/[facility]/Zipcode Phone Number [facility] [address] [place] [address] XR Foot 3+ Vw Right (03/01/2019 9:32 AM CDT)Only the most recent of2 resultswithin the time period is included. Specimen Narrative Performed At EXAM:XR FOOT 3VW RIGHT HM [facility] CLINICAL:Status post amputation COMPARISON:02/21/2019 IMPRESSION: 1.Mid metatarsal amputation through all digits. Overlying skin rica. Drainage catheter in place. No osseous erosions. Mild soft tissue swelling around the forefoot. 2.Generalized bone demineralization. [facility]-[id number] Procedure Note Hm Interface, Radiology Results Incoming - 03/01/2019 9:40 AM CDT EXAM: XR FOOT 3 VW RIGHT CLINICAL: Status post amputation COMPARISON: 02/21/2019 IMPRESSION: 1. Mid metatarsal amputation through all digits. Overlying skin rica. Drainage catheter in place. No osseous erosions. Mild soft tissue swelling around the forefoot. 2. Generalized bone demineralization. [facility]-[id number] Performing Organization Address [facility] Phone Number [facility] [address] [place] [address] Surgical pathology request (02/28/2019 11:48 AM CDT) [facility] DEPARTMENT OF PATHOLOGY AND GENOMIC MEDICINE Surgical pathology See link below [facility] DEPARTMENT OF report for PDF Lab PATHOLOGY AND Report GENOMIC MEDICINE Result status This is Final [facility] DEPARTMENT OF Report for PATHOLOGY AND [id number] GENOMIC MEDICINE Specimen Performing Organization Address [facility] Hospitalcomi Phone Number [facility] DEPARTMENT OF PATHOLOGY AND [address] [place] [phone] GENOMIC MEDICINE Type and screen (02/27/2019 11:55 AM CDT)Only the most recent of2 resultswithin the time period is included. ABO grouping A [facility] Rh type POS [facility] Antibody screen (gel) POS [facility] Specimen Performing Organization Address [facility]/Zipcode Phone Number [facility] DEPARTMENT OF PATHOLOGY AND [address] [place] [phone] GENOMIC MEDICINE [address] [address] [place] antigen patient typing (02/26/2019 3:45 AM CDT) Isabela Antigen Patient NEG [facility] Specimen Performing Organization Address City/State/[facility] Phone Number [facility] DEPARTMENT OF PATHOLOGY AND [address] [place] [phone] [place] [address] e Antigen patient typing (little e) (02/26/2019 3:45 AM CDT) e Antigen Patient Typing POS [facility] ([facility] e) [facility] Specimen Performing Organization Address [facility] Phone Number [facility] DEPARTMENT OF PATHOLOGY AND [address] [place] [phone] [place] [phone] Direct Ramo' (SANTIAGO) (02/26/2019 3:45 AM CDT) [id number] Polyspecific POS [facility] Specimen Performing Organization Address [facility] Phone Number [facility] DEPARTMENT OF PATHOLOGY AND [address] [place] [address] c Antigen patient typing ([facility] c) (02/26/2019 3:45 AM CDT) c Antigen Patient Typing POS [facility] ([facility] c) [facility] Specimen Performing Organization Address [facility] Phone Number [facility] DEPARTMENT OF PATHOLOGY AND [address] [place] [address] Positive SANTIAGO reflex (02/26/2019 3:45 AM CDT) IgG Ramo, gel POS [facility] Anti-complement POSComment: [facility] 02/26/19 [facility] CONTROL NEGATIVE. KG Specimen Performing Organization Address [facility] Phone Number [facility] DEPARTMENT OF PATHOLOGY AND [address] [place] [phone] [place] [phone] E antigen patient typing (02/26/2019 3:45 AM CDT) E Antigen Patient Typing NEG [facility] Specimen Performing Organization Address [facility] Phone Number [facility] DEPARTMENT OF PATHOLOGY AND [address] [place] [phone] [address] C antigen patient typing (02/26/2019 3:45 AM CDT) Pathologist [facility] C Antigen Patient Typing POS [facility] Specimen Performing Organization Address City/State/Zipcode Phone Number [facility] DEPARTMENT OF PATHOLOGY AND [address] [place] [phone] [place] [address] Elution (02/26/2019 3:45 AM CDT) Pathologist [facility] Elution POS [facility] Comment: HOSPITAL POS W/ ALL CELLS Although these serological findings cannot differentiate between a drug induced or a true auto-immune state, this patient should be monitored for signs of an ongoing hemolytic process.Verified by [id number]. Specimen Performing Organization Address City/State/Zipcode Phone Number [facility] DEPARTMENT OF PATHOLOGY AND [address] [place] [address] Antibody identification (02/26/2019 3:45 AM CDT) Pathologist [facility] Antibody ID POS, Warm Autoantibody [facility] Comment: HOSPITAL Adsorption studies ruled out the presence of underlying alloantibodies. Red cells for transfusion will be antigen matched for the Rh and K antigens and crossmatch least incompatible.Verified by [id number]. Specimen Performing Organization Address City/State/Zipcode Phone Number [facility] DEPARTMENT OF PATHOLOGY AND [address] [place] [phone] [place] [address] Prothrombin time with INR (02/26/2019 3:45 AM CDT)Only the most recent of2 resultswithin the time period is included. [facility] Prothrombin time 13.3 11.5 - 14.5 [facility] INR 1.0 [place] Comment: JEW [facility] International Normalized Ratio (INR) is a therapeutic HOSPITAL monitoring tool for patients who are stable on oral anticoagulant therapy. An INR of 2.0-3.0 is suggested for deep vein thrombosis/pulmonary embolism. Specimen Blood Performing Organization Address City/State/Zipcode Phone Number [facility] DEPARTMENT OF PATHOLOGY AND [address] [place] [phone] [address] Prepare RBC (02/26/2019 3:45 AM CDT) Product name Red Blood Cells [facility] -1, Leukored HOSPITAL Unit number [id number] [facility] Product code [id number] [facility] Dispense status Transfused [facility] Blood expiration [id number] [facility] Blood type code 0600 [facility] Blood type A NEGATIVE [facility] Specimen Performing Organization Address City/State/Zipcode Phone Number [facility] DEPARTMENT OF PATHOLOGY AND [address] [place] [address] GENOMIC MEDICINE [facility] [address] [place] [address] MRI Foot Wo Contrast Right (02/24/2019 8:00 [...] the first digit without osteomyelitis as described. *[id number] Procedure Note Hm Interface, Radiology Results Incoming [...] the first digit without osteomyelitis as described. *[id number] Performing Organization Address [facility] Hospital[facility]i Phone Number [facility] [address] [place] [address] Cv stress test (02/23/2019 11:30 AM CDT) Resting HR 60 [facility] MUSE Resting BP 123 [facility] MUSE Peak MET Achieved 1.0 [facility] M[facility] Protocol Name REGADENO [facility] MUSE Time in Exercise 00:01:00 [facility] MUSE [...] During Ex [facility] Ex Summary Comment [facility] M[facility] Overall HR Response [facility] MUSE to Exercise Overall BP Response [facility] M[facility] To Exercise Reason for H MUSE Termination Stress Test Waveform interpreted in [facility] Impression report associated with image study. No interpretation is provided as part of this Stress ECG report.-- Specimen Narrative Performed At Performing Organization Address [facility] Hospital[facility]i Phone Number [email or web address] [address] [place] [address] Nm myocardial perfusion (02/23/2019 11:30 AM CDT) Specimen Narrative Performed At [facility] [address] [place] [phone] Myocardial Perfusion Imaging Report Stress ECG tracings are available in [employer], [employer] and [employer] All ECG interpretations are included in this report Pat.Name:KP MEDEIROS.ID:[id number] .Date: 02/23/2019 Refer.MD:MARION WILKINSON MD Exam Time: 10:28:00 AM Study Type:Myocardial Perfusion Imaging Height:64inBSA: 1.43 m2 DOBAge:1945,73Y Sex: FEMALE BP:123/56HR: 60 bpm HCT: 31.5 %Nuclear Tech:PHILLIP Carter Pat. Stat.:Inpatient Room:[facility] Nuclear Event ID:[id number] Order ID:[id number] Reason for Study:Pre-Op, CAD History / Clinical:Abdominal [...] AM CDT Nuclear Cardiology and Cardiac CT [address] [place] [address] Myocardial Perfusion Imaging Report Stress ECG tracings are available in [employer], [employer] and [employer] All ECG interpretations are included in this report Pat.Name: KP MEDEIROS Pat.ID: [id number] .Date: 02/23/2019 Refer.MD: MARION WILKINSON MD Exam Time: 10:28:00 AM Study Type:Myocardial Perfusion Imaging Height: 64in BSA: 1.43 m2 Age: 7 1945,73Y Sex: FEMALE BP: 123/56 HR: 60 bpm HCT: 31.5 % Nuclear Tech:PHILLIP Carter Pat. Stat.:Inpatient Room: D723-A Nuclear Event ID:[id number] Order ID: [id number] Reason for Study:Pre-Op, CAD History / Clinical:Abdominal [...] AM Marion Hawkins MD Performing Organization Address City/[facility] Phone Number [employer] [address] [place] [address] ECG 12 lead (02/21/2019 5:53 PM CDT) Ventricular rate 73 [facility] Atrial rate 73 [facility] GA interval 152 [facility] QRSD interval 74 [facility] QT interval 368 [facility] QTC interval 405 [facility] P axis 1 31 [facility] QRS axis 1 47 [facility] T wave axis 64 [facility] EKG impression Normal sinus [facility] MUSE rhythm-Possible Anterior infarct , age undetermined-Abnormal ECG-No previous ECGs available-Electronicall y Signed By Emily COE, Camacho Marrero ([id number]) on 02/21/2019 8:44:44 PM Specimen Narrative Performed At Performing Organization Address [facility]i Phone Number [facility] [employer] [address] ankle brachial index (02/21/2019 2:45 PM CDT) Specimen Narrative Performed At [facility] Vascular Diagnostic Laboratory Physiologic Arterial Leg Report [address] [place] [address] Pat.Name:KP MEDEIROS.ID:[id number] .Date: 02/21/2019 Refer.MD:SUNG GREGORY MD Exam Time: 2:16:00 PMStudy Type:Physiologic Leg Height:64inWeight: 130lb BSA: 1.63 m2 DOBAge:1945,73Y Sex: FEMALESonogrphr: Carmen Carreno RVT Pat. Stat.:Inpatient Room:ED-09 TapeVol: LN, CPT - 4: 05433 Echo Event ID:[id number] Order ID:[id number] Reason for Study:Right great toe dry gangrene. Right great toe pain that has been worsening for the past 3 weeks. Procedures:Ankle/brachial pressures, PPG waveform tracing, Segmental pressures Race:B SUMMARY: SEGMENTAL PRESSURE(mmHg): RIGHT LEFT Brachial 110 122 Ankle DP 29 31 Ankle [id number] Great Toe Unable to obtainAbsent ANKLE/BRACHIAL INDEX: [...] Diagnostic Laboratory Physiologic Arterial Leg Report [address] [place] [address] Pat.Name: KP MEDEIROS Pat.ID: [id number] .Date: 02/21/2019 Refer.MD: SUNG GREGORY MD Exam Time: 2:16:00 PM Study Type:Physiologic Leg Height: 64in Weight: 130lb BSA: 1.63 m2 Age: 7 1945,73Y Sex: FEMALE Sonogrphr: Carmen Carreno RVT Pat. Stat.:Inpatient Room: ED-09 Tape Vol: LN, CPT - 4: 91154 Echo Event ID:[id number] Order ID: [id number] Reason for Study:Right great toe dry gangrene. [...] Gary Washington MD, RPVI Performing Organization Address [facility] Phone Number [facility] [address] [place] [address] XR Foot 2 Vw Right (02/21/2019 2:16 [...] arthropathy.. 3.Soft tissue swelling overlies the forefoot. [facility]-[id number] Procedure Note Interface, Radiology Results Incoming - [...] 3. Soft tissue swelling overlies the forefoot. [facility]-[id number] Performing Organization Address [facility] Phone Number [facility] [address] [place] [address] XR Chest 1 Vw Portable (02/21/2019 2:16 PM CDT) Specimen Narrative Performed At EXAMINATION:XR CHEST 1 VW PORTABLE [facility] CLINICAL HISTORY:chest pain COMPARISON:None. IMPRESSION: Single frontal view reveals a prominent cardiac silhouette with arch calcifications. Coarse interstitial markings are noted within the lungs with apical emphysematous changes. Pleural margins are sharp. The remainder of the examination is unremarkable. [facility]-[id number] Procedure Note Hm Interface, Radiology Results Incoming - 02/21/2019 2:29 PM CDT EXAMINATION: XR CHEST 1 VW PORTABLE CLINICAL HISTORY: chest pain COMPARISON: None. IMPRESSION: Single frontal view reveals a prominent cardiac silhouette with arch calcifications. Coarse interstitial markings are noted within the lungs with apical emphysematous changes. Pleural margins are sharp. The remainder of the examination is unremarkable. [facility]-[id number] Performing Organization Address [facility]/Zipcode Phone Number [facility] [address] [place] [phone] Troponin (02/21/2019 2:07 PM CDT) Troponin <0.30 0.00 - 0.30 [facility] Comment: ng/mL HOSPITAL 0.30 - 1.49 ng/mlMay indicate increased risk of acute coronary syndrome. >=1.5 ng/mlConsistent with acute myocardial infarction. The diagnostic value of a single normal or non-diagnostic result is questionable.Serial samples at 2-6 hour intervals are required to rule out acute myocardial injury. Specimen Plasma specimen Performing Organization Address [facility] Phone Number [facility] DEPARTMENT OF PATHOLOGY AND [address] [place] [address] Partial thromboplastin time, activated (02/21/2019 2:07 PM CDT) PTT 28.1 23.0 - 36.0 [facility] Comment: [facility] HOSPITAL PTT therapeutic range for unfractionated heparin is 61.0-112.0 seconds which corresponds to Anti-Xa 0.3-0.7 U/ml. Specimen Blood Performing Organization Address [facility] Phone Number [facility] DEPARTMENT OF PATHOLOGY AND [address] [place], [place] [phone] [address] [address] D-dimer (02/21/2019 2:07 PM CDT) [facility] D-dimer 1.42 (H) 0.00 - 0.40 [facility] Comment: ug/mL [facility] Units are ug/ml [...] Blood Performing Organization Address City/State/Zipcode Phone Number [facility] DEPARTMENT OF PATHOLOGY AND [address] [place] [address] B natriuretic peptide (02/21/2019 2:07 PM CDT) [facility] BNP 109 (H) 0 - 100 pg/mL [facility] Specimen Blood Performing Organization Address City/State/Zipcode Phone Number [facility] DEPARTMENT OF PATHOLOGY AND [address] [place] [address] Comprehensive metabolic panel (02/21/2019 2:07 PM CDT)Only the most recent of2 resultswithin the time period is included. [facility] Sodium 142 135 - 148 [facility] mEq/L [facility] Potassium 3.4 (L) 3.5 - 5.0 [facility] mEq/L [facility] Chloride 102 98 - 112 mEq/L [facility] CO2 30 24 - 31 mEq/L [facility] Anion gap 10@ANIO 7 - 15 mEq/L [facility] BUN 15 8 - 23 mg/dL [facility] Creatinine 1.17 (H) 0.50 - 0.90 [facility] mg/dL [facility] Glucose 93 65 - 99 mg/dL [facility] Calcium 9.9 8.8 - 10.2 [facility] mg/dL [facility] Protein 6.6 6.3 - 8.3 g/dL [facility] Comment: HOSPITAL 4.6-7.0 g/dL 1 week 4.4-7.6 g/dL 7 months-1year5.1-7.3 g/dL 1-2 years5.6-7.5 g/dL >3 years6.0-8.0 g/dL 18-150 6.3-8.3 g/dL Albumin 3.6 3.5 - 5.0 g/dL [facility] A/G ratio 1.2 0.7 - 3.8 [facility] Alkaline phosphatase 54 35 - 104 U/L [facility] AST 16 10 - 35 U/L [facility] ALT 9 5 - 50 U/L [facility] Total bilirubin 0.9 0.0 - 1.2 [facility] mg/dL [facility] Specimen Plasma specimen Performing Organization Address City/State/Zipcode Phone Number [facility] DEPARTMENT OF PATHOLOGY AND [address] [place] [address] [place] [address] ECG ED Preliminary Interpretation - Not an Order (02/21/2019 2:03 PM CDT)Only the most recent of2 resultswithin the time period is included. Narrative Performed At Sung Gregory MD 02/25/2019 12:40 PM ECG ED Preliminary Interpretation - Not an Order Performed by: Sung Gregory MD Authorized by: Sung Gregory MD ECG reviewed by ED Physician in the absence of a flight test data acquisition technician: yes Interpretation: Interpretation: normal Rate: ECG rate:76 ECG rate assessment: normal Rhythm: Rhythm: sinus rhythm Ectopy: Ectopy: none QRS: QRS axis:Normal QRS intervals:Normal Conduction: Conduction: normal ST segments: ST segments:Normal T waves: T waves: normal Echocardiogram complete w contrast and 3D if needed (01/30/2019 10:45 AM CDT) Specimen Narrative Performed At [facility] Echocardiography Report [address]Name:KP MEDEIROS.ID:[id number] .Date: 01/30/2019 Refer.MD:MEKHI MEDEIROS MD Exam Time: 8:16:00 AMStudy Type:Routine Echo Height:64inWeight: 120lb BSA: 1.58 m2 DOBAge:1945,73Y Sex: FEMALEBP:133/69 HR:63 bpmSonogrphr: RUDI Sanchez Pat. Stat.:Inpatient Room:[facility] Study Status:Final Echo Event ID:[id number] Order ID:[id number] Reason for Study:SOB, suspected cardiac etiology Procedures:2D [...] of 5 mmHg. MEASUREMENTS: 2D Parasternal [place] LVOT 1.9 cmLA Ds2.8 cm LVIDd4.3 cmIndex2.7 [...] 01/30/2019 3:58 PM CDT Echocardiography Report [address] [place] [address] Pat.Name: KP MEDEIROS Pat.ID: [id number] .Date: 01/30/2019 Refer.MD: MEKHI MEDEIROS MD Exam Time: 8:16:00 AM Study Type:Routine Echo Height: 64in Weight: 120lb BSA: 1.58 m2 Age: 7 1945,73Y Sex: FEMALE BP: 133/69 HR: 63 bpm Sonogrphr: RUDI Sanchez Pat. Stat.:Inpatient Room: [facility] Study Status:Final Echo Event ID:[id number] Order ID: [id number] Reason for Study:SOB, suspected cardiac etiology Procedures:2D [...] of 5 mmHg. MEASUREMENTS: 2D Parasternal [place] LVOT 1.9 cm LA Ds 2.8 cm [...] Organization Address City/State/Zipcode Phone Number [facility] [address] [place] [address] Cv cta abdomen w runoff w contrast (01/30/2019 9:14 AM CDT) Specimen Narrative Performed At [facility] and Cardiac CT [address] [address] CTA Abd/Pelvis with Runoff Report Pat.Name:KP MEDEIROS.ID:[id number] .Date: 01/30/2019 Refer.MD:MARION WILKINSON MD Exam Time: 8:45:00 AM Study Type:CTA Abd_Pelvis with Runoff Height:64inDOBAge:1944,73Y Sex: FEMALEBP: 133/60 Nuclear Tech:BINU Miles(N)(CT) CPT - 4: CTA ABD/PELV W/WO 90287 Nuclear Event ID:[id number] Order ID:[id number] Reason for Study:Assess Abdominal Aortic Aneurysm and [...] Cardiovascular CTA Protocol and interpreted by a [employer].Should a more comprehensive assessment of non-cardiovascular findings be desired, please consult a radiologist.These images are available in the [facility] PACS system. Signed 01/30/2019 03:07 PM Nilesh Vega MD Procedure Note Interface, Radiology Results In - 01/30/2019 3:07 PM CDT [facility] and Cardiac CT [address] [address] CTA Abd/Pelvis with Runoff Report Pat.Name: KP MEDIEROS.ID: [id number] St.Date: 01/30/2019 Refer.MD: MARION WILKINSON MD Exam Time: 8:45:00 AM Study Type:CTA Abd_Pelvis with Runoff Height: 64in Age: 7 1945,73Y Sex: FEMALE BP: 133/60 Nuclear Tech:BINU Miles(N)(CT) CPT - 4: CTA ABD/PELV W/WO 93360 Nuclear Event ID:[id number] Order ID: [id number] Reason for Study:Assess Abdominal Aortic Aneurysm and [...] Cardiovascular CTA Protocol and interpreted by a [employer]. Should a more comprehensive assessment of non-cardiovascular findings be desired, please consult a radiologist. These images are available in the [facility] PACS system. Signed 01/30/2019 03:07 PM Nilesh Vega MD Performing Organization Address City/State/Zipcode Phone Number [facility] [address] [phone] [place] carotid duplex (01/30/2019 8:28 AM CDT) Specimen Narrative Performed At [facility] Vascular Ultrasound Laboratory Carotid Artery Duplex Report [address] [place] [address] For quality liaison purposes, the categorization of the degree of the stenosis of this exam is based on criteria described in the IAC carotid stenosis grading white paper( www.intersocietal.org/Vascular) and Jazmine Johnson., Jose Monae., et al. Carotid artery stenosis: malave-scale and Doppler US diagnosis--Society of Radiologists in Ultrasound Consensus Conference. Radiology. 2003 Nov; 229(2):340-6. Pat.Name:KP MEDEIROS.ID:[id number] .Date: 01/30/2019 Refer.MD:MARION WILKINSON MD Exam Time: 7:28:00 AMStudy Type:Carotid Height:64inDOBAge: 1945,73Y Sex: FEMALESonogrphr: LADAN Sousa, RVT Pat. Stat.:Inpatient Room:[address] TapeVol: RADHA, CPT - 4: 72945 Echo Event ID:[id number] Order ID:[id number] Reason for Study:History of peripheral vascular disease [...] EDV29.5 cm/s Right ICA Mid ICA Mid [id number] cm/Cora Mid EDV 26.7 cm/s Right ICA [...] EDV27.9 cm/s Left ICA Mid ICA Mid [id number] cm/Cora Mid EDV 24.2 cm/s Left ICA [...] Vascular Ultrasound Laboratory Carotid Artery Duplex Report [address] [place] [address] For quality liaison purposes, the categorization of the degree of the stenosis of this exam is based on criteria described in the IAC carotid stenosis grading white paper( www.intersocietal.org/Vascular) and David Johnson, Shweta Monae, et al. Carotid artery stenosis: malave-scale and Doppler US diagnosis--Society of Radiologists in Ultrasound Consensus Conference. Radiology. 2003 Nov; 229(2):340-6. Pat.Name: KP MEDEIROS Pat.ID: [id number] St.Date: 01/30/2019 Refer.MD: MARION WILKINSON MD Exam Time: 7:28:00 AM Study Type:Carotid Height: 64in Age: 7 1945,73Y Sex: FEMALE Sonogrphr: LADAN Sousa, RVT Pat. Stat.:Inpatient Room: [address] Tape Vol: RADHA, CPT - 4: 98780 Echo Event ID:[id number] Order ID: [id number] Reason for Study:History of peripheral vascular disease [...] ICA/CCA PSV 0.922 Signed 01/30/2019 12:41 PM Gayr Washington MD, RPVI Performing Organization Address City/[facility]/Zipcode Phone Number [facility] [address] [place] [address] Uric acid level (01/29/2019 12:00 AM CDT) Uric acid 7.3 (H) 2.4 - 5.7 mg/dL [facility] Specimen Plasma specimen Performing Organization Address City/[facility]/Zipcode Phone Number [facility] DEPARTMENT OF PATHOLOGY AND [address] [place] [phone] [address] Thyroid stimulating hormone (01/29/2019 12:00 AM CDT) TSH 0.43 0.27 - 4.20 uIU/mL [facility] Specimen Plasma specimen Performing Organization Address City/[facility]/Zipcode Phone Number [facility] DEPARTMENT OF PATHOLOGY AND [address] [place] [address] [address] T4, free (01/29/2019 12:00 AM CDT) T4, free 1.5 0.9 - 1.7 ng/dL [facility] Specimen Plasma specimen Performing Organization Address City/[facility] Phone Number [facility] DEPARTMENT OF PATHOLOGY AND [address] [place] [address] [address] Lipid panel (01/29/2019 12:00 AM CDT) Cholesterol 137 <200 mg/dL [facility] Triglycerides 81 <150 mg/dL [facility] HDL cholesterol 45 >40 mg/dL [facility] LDL cholesterol 81Comment: Result <100 mg/dL [place] obtained by direct JEW LDL measurement [facility] Lipid panel [facility] interpretation Comment: JEW Total Cholesterol (mg/dL) [facility] <200 Desirable 266-256Vaxrgmezhx-rccz >=240High Triglycerides (mg/dL) <150 Normal 597-207Zrdtkvjmln-jksb 200-499High >=500Very high HDL Cholesterol (mg/dL) <40Low (male) <40Low (female) LDL Cholesterol (mg/dL) <100 Optimal 100-129Near or above optimal 559-148Uxkbrasfee-mrzb 160-189High >=190Very high Risk Catergories that modify [...] specimen Performing Organization Address City/State/Zipcode Phone Number [facility] DEPARTMENT OF PATHOLOGY AND [address] [place] [address] [address] [place] duplex arterial lower extremity (01/28/2019 4:59 PM CDT) Specimen Narrative Performed At [facility] Vascular Ultrasound Laboratory Lower Extremity Arterial Duplex Report [address] [address] Pat.Name:KP MEDEIROS.ID:[id number] .Date: 01/28/2019 Refer.MD:SUNG GREGORY MD Exam Time: 3:43:00 PMStudy Type:LE Arterial Height:64inDOBAge: 1945,73Y Sex: FEMALESonogrphr: Lewis Martinez, RVT, RDMS Pat. Stat.:Inpatient Room:EDP TapeVol: CLARE, CPT - 4: 03691 Echo Event ID:[id number] Order ID:[id number] Reason for Study:Rt toe pain and dry [...] demonstrates significant inflow arterial occlusive disease ( REINSPECTOR post-stenotic waveform) andthe right GRICELDA occlusion. MEASUREMENTS: DOPPLER Right REINSPECTOR prox REINSPECTOR prox PSV47.5 cm/s Right Profunda Profunda PSV61.8 cm/s Profunda Right Profunda 60 deg Right SFA Dist SFA Dist PSV30.1 cm/s SFA Right SFA Dist 60 degRight SFA Prox 60 deg Right SFA Mid D60 deg Right SFA Mid SFA Mid PSV 32.1 cm/s Right SFA Prox SFA Prox PSV36.5 cm/s Right Pop Dist Pop Dist PSV21.6 cm/s Popliteal Right Ylyhiubpc93 degRight Tvdnjcdhn53 deg Right Pop Prox Pop Prox PSV12.4 cm/s Right DELIVERER MERCHANDISE Prox DELIVERER MERCHANDISE Prox PSV6.67 cm/s Tibial Post Right Tibial [...] GRICELDA Mid GRICELDA Mid PSV0 cm/s Right REINSPECTOR Mid REINSPECTOR Mid PSV 48 cm/s Right GRICELDA Prox GRICELDA Prox PSV19.8 cm/s Right GRICELDA Distal GRICELDA Distal PSV 0 cm/s Signed 01/28/2019 07:20 PM Gary Washington MD, RPVI Procedure Note Interface, Radiology Results In - 01/28/2019 7:21 PM CDT Vascular Ultrasound Laboratory Lower Extremity Arterial Duplex Report [address] [place] [address] Pat.Name: KP MEDEIROS Pat.ID: [id number] .Date: 01/28/2019 Refer.MD: SUNG GREGORY MD Exam Time: 3:43:00 PM Study Type:LE Arterial Height: 64in Age: 7 1945,73Y Sex: FEMALE Sonogrphr: Lewis Martinez RVT, ISIDORO Pat. Stat.:Inpatient Room: EDP Tape Vol: MK, CPT - 4: 11213 Echo Event ID:[id number] Order ID: [id number] Reason for Study:Rt toe pain and dry [...] demonstrates significant inflow arterial occlusive disease ( REINSPECTOR post-stenotic waveform) and the right GRICELDA occlusion. MEASUREMENTS: DOPPLER Right REINSPECTOR prox REINSPECTOR prox PSV 47.5 cm/s Right Profunda Profunda [...] Prox Pop Prox PSV 12.4 cm/s Right DELIVERER MERCHANDISE Prox DELIVERER MERCHANDISE Prox PSV 6.67 cm/s Tibial Post Right [...] Mid GRICELDA Mid PSV 0 cm/s Right REINSPECTOR Mid REINSPECTOR Mid PSV 48 cm/s Right GRICELDA Prox GRICELDA Prox PSV 19.8 cm/s Right GRICELDA Distal GRICELDA Distal PSV 0 cm/s Signed 01/28/2019 07:20 PM Gary Washington MD, RPVI Performing Organization Address City/[facility]/Zipcode Phone Number [facility] [address] [place] [address] Blood culture, aerobic & anaerobic (01/28/2019 1:34 PM CDT) Blood culture No growth after 5 days of incubation. [facility] isolate Comment: HOSPITAL Specimen Information Specimen Source: Blood Specimen Site: Forearm, left Specimen Blood - Forearm, left Performing Organization Address City/[facility] Phone Number [facility] DEPARTMENT OF PATHOLOGY AND [address] [place] [phone] [place] [address] C-reactive protein (01/28/2019 1:34 PM CDT) CRP 1.67 (H) 0.00 - 0.50 mg/dL [facility] Specimen Plasma specimen Performing Organization Address [facility] Hospitalcomi Phone Number [facility] DEPARTMENT OF PATHOLOGY AND [address] [place] [phone] [address] Lactic acid level (01/28/2019 1:34 PM CDT) Lactic acid 2.0 0.5 - 2.2 mmol/L [facility] Specimen Plasma specimen Performing Organization Address City/[facility]/Zipcode Phone Number [facility] DEPARTMENT OF PATHOLOGY AND [address] [place] [phone] [address] after 06/14/2018 Advance Directives Patient has advance care planning documents on file. For more information, please contact:Juan Vasquez[address] [place] [address]
--- OUTSIDE RECORDS SUMMARY | 2019-06-15 13:01 | XMS REPORT ---
[...] Dosage System Date Date Metoprolol Succinate ND 49227756431 100 MG Orally Active 1 tablet ER Once a day Hydrochlorothiazide ND 26905229741 25 MG Active TAKE 1 TABLET BY MOUTH ONCE A DAY Potassium Chloride ER ND 85943210730 10 MEQ Orally Active 1 tablet twice a day with food Advair Diskus ND 34587176177 100-50 Active 1 puff MCG/DOSE Inhalation Twice a day Zocor [facility] 04229328523 20 MG Active TAKE 1 TABLET BY MOUTH DAILY Gabapentin [facility] 74334307144 300 MG Orally Active 1 capsule Once a day before bedtime Metoprolol Succinate [facility] 93751730103 100 MG Active TAKE 1 ER TABLET BY MOUTH EVERY DAY Hydrochlorothiazide [facility] 51173835161 25 MG Active TAKE 1 TABLET BY MOUTH ONCE A DAY ProAir HFA [facility] 89823040940 108 (90 Base) Active 2 puffs MCG/ACT as needed Inhalation every 6 hrs Simvastatin [facility] 29984051118 20 MG Orally Active 1 tablet Once a day in the evening Magnesium Oxide [facility] 44406809989 400 MG Orally Active 1 tablet Once a day as needed Protonix [facility] 62849194873 40 MG Active TAKE 1 TABLET BY MOUTH ONCE A DAY Zocor [facility] 35813449977 20 MG Active TAKE 1 TABLET BY MOUTH DAILY Ferrous Sulfate [facility] 15306766038 325 (65 Fe) MG Active 1 tablet Orally Once a day Ergocalciferol [facility] 32219870885 [address] UNIT Active 1 capsule Orally Results No Known Results Summary Purpose eClinicalWorks Submission
--- OUTSIDE RECORDS SUMMARY | 2019-06-15 13:01 | XMS REPORT | Continuity of Care Document ---
:1945 Author Organization [email or web address] Care Team Providers Name Role Phone [email or web address] Unavailable Unavailable Problems Problem Status Onset Date Classification Date Comments Source Reported R59.9 CT Active 07/04/2017 [place] [facility] [place] MARROW BIOPSY/A Medications No Data Provided for This Section Allergies, Adverse Reactions, Alerts No Known Medication Allergies Immunizations No Data Provided for This Section Results Order Name Results Value Reference Date Interpretation Comments Source Range HEMATOLOGY MCV 92.0 80.0 - 98.0 2016 [facility] HEMATOLOGY Hgb 14.3 12.0 - 16.0 2016 [facility] HEMATOLOGY Hct 43.9 36.0 - 48.0 2016 [facility] HEMATOLOGY MCH 29.9 27.0 - 31.0 2016 [facility] HEMATOLOGY Platelet 222 133 - 450 2016 [facility] HEMATOLOGY MCHC 32.5 32.0 - 36.0 2016 [facility] HEMATOLOGY RDW 15.8 11.5 - 14.5 2016 [facility] HEMATOLOGY MPV 10.4 7.4 - 10.4 2016 [facility] HEMATOLOGY RBC 4.78 4.20 - 5.40 2016 [facility] HEMATOLOGY WBC 15.9 3.7 - 10.4 2016 [facility] HEMATOLOGY PT 13.0 12.0 - 14.7 2016 [facility] HEMATOLOGY INR 0.96 0.85 - 1.17 2016 [facility] HEMATOLOGY PTT 26.5 22.9 - 35.8 2016 [place] HEMATOLOGY Platelet 219 133 - 450 2016 [facility] HEMATOLOGY Plt Morph Normal (07/04/17 8:16 AM) 2016 [facility] HEMATOLOGY Segs 69.3 45.0 - 75.0 2016 [facility] HEMATOLOGY Lymphocytes 23.0 20.0 - 40.0 2016 [facility] HEMATOLOGY Eosinophils # 0.1 0.0 - 0.5 [facility] 2016 [facility] HEMATOLOGY Monocytes # 1.1 0.0 - 0.8 [facility] 2016 [facility] HEMATOLOGY Basophils # 0.1 0.0 - 0.2 [facility] 2016 [facility] HEMATOLOGY Anisocyte 1+ None Seen [facility] *ABN* 2016 [facility] (07/04/17 8:16 AM) HEMATOLOGY Eosinophils 0.4 0.0 - 4.0 2016 [facility] HEMATOLOGY Monocytes 6.7 2.0 - 12.0 2016 [facility] HEMATOLOGY Segs-Bands # 11.0 1.5 - 8.1 [facility] 2016 [facility] HEMATOLOGY Basophils 0.6 0.0 - 1.0 [facility] 2016 [facility] HEMATOLOGY Lymphocytes # 3.7 1.0 - 5.5 [facility] 2016 [facility] Pathology Reports No Data Provided for This Section Diagnostic Reports Report Value Date Source Bone biopsy w guidance PROCEDURES PERFORMED: 07/04/2017 [facility] CT 1. Bone Marrow aspiration and [...] marrow was aspirated and given to the staging technician for preparation. An 8 gauge bone biopsy needle was then advanced under CT guidance into the right iliac bone and a core sample was obtained and given to the surgical technologist in the room. Satisfactory position was [...] Date Comments Source BMI Calculated 21.03 07/04/2017 [place] Height 167.64 cm 07/04/2017 [place] Weight 59.091 07/04/2017 [place] Temperature Oral (F) 97.6 F 07/04/2017 [place] Respitory Rate 18 07/04/2017 [place] Systolic (mm Hg) 138 07/04/2017 [place] Diastolic (mm Hg) 69 07/04/2017 [place] Encounters Location Location Encounter Encounter Reason Attending ADM DC Status Source Details Type Number For Provider Date Date Visit [facility] [id number] [place] 07/04 07/05 Miko Lou [facility] [place] Procedures No Data Provided for This Section Assessment and Plan No Data Provided for This Section Plan of Care No Data Provided for This Section Social History Social History Date Source No data available for this 07/05/2017 [place] section Family History No Data Provided for This Section Advance Directives No Data Provided for This Section Functional Status No Data Provided for This Section
--- OUTSIDE RECORDS SUMMARY | 2019-06-15 13:01 | XMS REPORT ---
[...] Start End Status Dosage System Date Date [facility] 90232424831 20 MG Active TAKE 1 TABLET BY MOUTH DAILY Potassium Chloride ER [facility] 25375838512 10 MEQ Orally Active 1 tablet twice a day with food Hydrochlorothiazide ND 31077470951 25 MG Active TAKE 1 TABLET BY MOUTH ONCE A DAY Zocor [facility] 95289386186 20 MG Active TAKE 1 TABLET BY MOUTH DAILY Metoprolol Succinate [facility] 85966935449 100 MG Active TAKE 1 ER TABLET BY MOUTH EVERY DAY Advair Diskus [facility] 53381649691 100-50 Active 1 puff MCG/DOSE Inhalation Twice a day Diclofenac Sodium [facility] 59207663444 1 % Nov 29, Active 2gram to Transdermal 2019 affected Three times a area day prn pain Protonix [facility] 27146033908 40 MG Active TAKE 1 TABLET BY MOUTH ONCE A DAY Magnesium Oxide [facility] 35874244801 400 MG Orally Active 1 tablet Once a day as needed Metoprolol Succinate [facility] 95151346728 100 MG Orally Active 1 tablet ER Once a day Ergocalciferol [facility] 95161196528 [address] UNIT Active 1 capsule Orally Ferrous Sulfate [facility] 55518480057 325 (65 Fe) MG Active 1 tablet Orally Once a day Simvastatin [facility] 84618831667 20 MG Orally Active 1 tablet Once a day in the evening ProAir HFA [facility] 83661442263 108 (90 Base) Active 2 puffs as MCG/ACT needed Inhalation every 6 hrs Gabapentin [facility] 37659541816 300 MG Orally Active 1 capsule Once a day before bedtime Hydrochlorothiazide [facility] 91716012838 25 MG Active TAKE 1 TABLET BY MOUTH ONCE A DAY Results No Known Results Summary Purpose eClinicalWorks Submission
--- OUTSIDE RECORDS SUMMARY | 2019-06-15 13:02 | XMS REPORT ---
[...] End Status Dosage System Date Date Ergocalciferol [facility] 35554715404 [address]0711 UNIT Active 1 capsule Orally ProAir HFA [facility] 23270866823 108 (90 Base) Active 2 puffs MCG/ACT as needed Inhalation every 6 hrs Metoprolol Succinate [facility] 51112119703 100 MG Orally Active 1 tablet ER Once a day Potassium Chloride ER ND 21942188621 10 MEQ Orally Active 1 tablet twice a day with food Pantoprazole Sodium ND 90374680519 40 MG Active TAKE 1 TABLET BY MOUTH ONCE A DAY Hydrochlorothiazide [facility] 45983867877 25 MG Active TAKE 1 TABLET BY MOUTH ONCE A DAY Advair Diskus [facility] 20176151387 100-50 Active 1 puff MCG/DOSE Inhalation Twice a day Diclofenac Sodium [facility] 61171082732 1 % Nov 29, Active 2gram to Transdermal 2018 affected Three times a area day prn pain Gabapentin [facility] 30375735359 300 MG Orally Active 1 capsule Once a day before bedtime Zocor [facility] 68344818989 20 MG Active TAKE 1 TABLET BY MOUTH DAILY Tramadol HCl [facility] 02473764102 50 MG Orally January Active 1 tablet every 8 hrs 06, 13, as needed 2018 2018 Hydrochlorothiazide [facility] 37430142394 25 MG Active TAKE 1 TABLET BY MOUTH ONCE A DAY Metoprolol Succinate [facility] 62062494067 100 MG Active TAKE 1 ER TABLET BY MOUTH EVERY DAY Protonix [facility] 70766349577 40 MG Active TAKE 1 TABLET BY MOUTH ONCE A DAY Zocor [facility] 39518548730 20 MG Active TAKE 1 TABLET BY MOUTH DAILY Ferrous Sulfate [facility] 15633225814 325 (65 Fe) MG Active 1 tablet Orally Once a day Simvastatin [facility] 97382754704 20 MG Orally Active 1 tablet Once a day in the evening Magnesium Oxide [facility] 65221467618 400 MG Orally Active 1 tablet Once a day as needed Results No Known Results Summary Purpose eClinicalWorks Submission
--- OUTSIDE RECORDS SUMMARY | 2019-06-15 13:02 | XMS REPORT ---
:1945 Author Organization e[employer] Care Team Providers Name Role Phone Webster, Na Provider Role Unavailable Allergies No Known Allergies Problems Problem Type Condition Code Onset Dates Condition Status Problem Smoker F17.200 Active Problem Hypokalemia E87.6 [...] R92.8 Active Problem Hypomagnesemia E83.42 Active Medications No Known Medications Results No Known Results Summary Purpose eClinicalWorks Submission
--- OUTSIDE RECORDS SUMMARY | 2019-06-15 13:02 | XMS REPORT ---
[...] End Date Status Dosage System Date Simvastatin [facility] 29005648185 20 MG Orally Active 1 tablet in Once a day the evening Results No Known Results Summary Purpose eClinicalWorks Submission
--- OUTSIDE RECORDS SUMMARY | 2019-06-15 13:02 | XMS REPORT ---
[...] End Status Dosage System Date Date Zocor [facility] 61850238573 20 MG Active TAKE 1 TABLET BY MOUTH DAILY Clonidine HCl ND 77122274293 0.1 MG Orally Active 1 tablet every 4 hours PRN High BP Docusate Sodium ND 85037607905 100 MG Orally Active 1 capsule Once a day as needed Heparin Sodium [facility] 77943089445 5000 UNIT/ML Active 1 ml (Porcine) Injection every 12 hrs Advair Diskus [facility] 63862043550 100-50 Active 1 puff MCG/DOSE Inhalation Twice a day Hydrochlorothiazide [facility] 99240376231 25 MG Active TAKE 1 TABLET BY MOUTH ONCE A DAY Potassium Chloride ER [facility] 55671997708 10 MEQ Orally Active 1 tablet twice a day with food - ND 0 Active not defined Magnesium Oxide [facility] 02591304966 400 MG Orally Active 1 tablet Once a day as needed Ergocalciferol [facility] 63266566730 93140 UNIT Active 1 capsule Orally Metoprolol Succinate [facility] 56551598247 50 MG Orally Active 1 tablet ER Once a day Pantoprazole Sodium [facility] 25969784156 40 MG Active TAKE 1 TABLET BY MOUTH ONCE A DAY Megestrol Acetate [facility] 97383607162 40 MG Orally Active 1 tablet Once a day Gabapentin [facility] 26664554868 300 MG Orally Active 1 capsule Once a day before bedtime Lactulose [facility] 13945864319 10 GM/15ML Active 15 ml Orally Once a day Tylenol # 3 NDC 0 300/30mg PO Active one tab BID PRN Simvastatin ND 59776030853 20 MG Orally Active 1 tablet Once a day in the evening Diclofenac Sodium [facility] 64014599906 1 % Active 2gram to Transdermal affected Three times a area day prn pain Ferrous Sulfate [facility] 81833547405 325 (65 Fe) MG Active 1 tablet Orally Once a day Polyethylene Glycol [facility] 19521368515 - Active as 3350 directed ProAir HFA [facility] 68715288924 108 (90 Base) Active 2 puffs as MCG/ACT needed Inhalation every 6 hrs Results No Known Results Summary Purpose eClinicalWorks Submission
[2019-06-15 13:27] LABS: Absolute Lymphocytes (CBC) 1.4 K/uL (0.7-4.9); Basophils % 0.6 % (0-1.3); Hematocrit 36.4 % (36.0-45.0); Lymphocytes % 19.5 % (15.3-44.8); MPV 8.4 fL (7.6-11.3); RBC Red Blood Cell Count 4.25 M/uL (3.86-4.86)
[2019-06-15 13:30] LABS: Protime INR 1.05
[2019-06-15] MEDS ORDERED: VANCOMYCIN 750 MG in NA CHLORIDE 0.9% 150 ML IVPB ONE ×4 (14:00)
[2019-06-15 14:15] LABS: ALT/SGPT 17 U/L (12-78); AST/SGOT 12 U/L (15-37); Albumin 4.3 g/dL (3.4-5.0); Alkaline Phosphatase 63 U/L (45-117); BUN Blood Urea Nitrogen 13 mg/dL (7-18); Bicarbonate 27 mmol/L (21-32); Bilirubin Direct 0.3 mg/dL (0-0.2); Bilirubin Total 1.3 mg/dL (0.2-1.0); CKMB Creatine Kinase MB < 1.0 ng/mL (0.3-3.6); Creatine Phosphokinase 28 U/L (26-192); Glucose Level 84 mg/dL (74-106); Lipase 71 U/L (73-393); Potassium 3.7 mmol/L (3.5-5.1); Protein, Total 7.6 g/dL (6.4-8.2); Sodium Level 138 mmol/L (136-145)
[2019-06-15 14:22] LABS: C-Reactive Protein 5.73 mg/L (<3.00)
--- NOTE | 2019-06-15 15:16 | RAD REPORT ---
EXAM DESCRIPTION: RAD - Foot Right 3 View - 06/15/2019 1:18 pm CLINICAL HISTORY: Nonhealing wound, possible osteomyelitis COMPARISON: May 12 FINDINGS: No acute fracture change. No pathologic or destructive bone process seen. The osteotomy si mercedes at each mid metatarsal shaft show no clear change from the May 12 imaging. Osteopenic changes are present overall. No calcaneus, talus or tarsal destructive process. Postsurgical and wound changes in the soft tissues anteriorly noted. No abnormal air in the soft tiss ues. There are 4 skin rica remaining in place. IMPRESSION: Osteotomy surgical sites involving each metatarsal shaft show no unexpected change from the May 12 imaging. No clearly pathologic or destructive process seen to elevate probability of osteo myelitis. Osteomyelitis can exist prior to radiographic bone destruction. As clinical findings warrant, MR imaging could be performed. MRI imaging examination will be compromi sed by the remaining rica. Exam will be improved if the skin rica can be removed prior to any M RI examination
--- NOTE | 2019-06-15 15:33 | EDPHYS ---
Physician Documentation [facility] Name: Cindy Sorto Age: 74 yrs Sex: Female : 1945 Arrival Date: 06/15/2019 Time: 12:20 Bed 6 Private MD: Kirti Webster ED Physician Epifanio Lu HPI: 06/15 12:54 This 74 yrs old Black Female presents to ER via Ambulatory with complaints of Foot Pain.snw 12:54 The patient presents with nonhealing wound. The complaints affect the dorsum of right snw foot. Context: The problem was sustained at home. Onset: The symptoms/episode began/occurred gradually, and became persistent. Treatment prior to arrival includes: wound care, rica, sutures. Severity of symptoms: At their worst the symptoms were mild, moderate. The patient has experienced similar episodes in the past. The patient has been recently seen by a physician: 06/11/19. Historical: - Allergies: 12:29 NKDA; hj - PMHx: 12:29 AAA; Hyperlipidemia; Hypertension; Polio; hj - PSHx: 12:29 partial amputation of right foot.; hj - Immunization history:: Adult Immunizations up to date. - Social history:: Smoking status: Patient/guardian denies using tobacco. - Ebola Screening: : No symptoms or risks identified at this time. ROS: 12:54 Constitutional: Negative for fever, chills, and weight loss, Eyes: Negative for injury, snw pain, redness, and discharge, ENT: Negative for injury, pain, and discharge, Neck: Negative for injury, pain, and swelling, Cardiovascular: Negative for chest pain, palpitations, and edema, Respiratory: Negative for shortness of breath, cough, wheezing, and pleuritic chest pain, Abdomen/GI: Negative for abdominal pain, nausea, vomiting, diarrhea, and constipation, Back: Negative for injury and pain, : Negative for injury, bleeding, discharge, and swelling, Skin: Negative for injury, rash, and discoloration, Neuro: Negative for headache, weakness, numbness, tingling, and seizure. 12:54 MS/extremity: Positive for nonhealing wound to right forefoot. Exam: 12:49 Head/Face: Normocephalic, atraumatic. Eyes: Pupils equal round and reactive to light, snw extra-ocular motions intact. Lids and lashes normal. Conjunctiva and sclera are non-icteric and not injected. Cornea within normal limits. Periorbital areas with no swelling, redness, or edema. ENT: Nares patent. No nasal discharge, no septal abnormalities noted. Tympanic membranes are normal and external auditory canals are clear. Oropharynx with no redness, swelling, or masses, exudates, or evidence of obstruction, uvula midline. Mucous membranes moist. Neck: Trachea midline, no thyromegaly or masses palpated, and no cervical lymphadenopathy. Supple, full range of motion without nuchal rigidity, or vertebral point tenderness. No Meningismus. Chest/axilla: Normal chest wall appearance and motion. Nontender with no deformity. No lesions are appreciated. Cardiovascular: Regular rate and rhythm with a normal S1 and S2. No gallops or rubs. + murmur, Normal PMI, no JVD. No pulse deficits. Respiratory: Lungs have equal breath sounds bilaterally, clear to auscultation and percussion. No rales, rhonchi or wheezes noted. No increased work of breathing, no retractions or nasal flaring. Abdomen/GI: Soft, non-tender, with normal bowel sounds. No distension or tympany. No guarding or rebound. No evidence of tenderness throughout. Back: No spinal tenderness. No costovertebral tenderness. Full range of motion. Skin: Warm, dry with normal turgor. Normal color with no rashes, no lesions, and no evidence of cellulitis. Neuro: Awake and alert, GCS 15, oriented to person, place, time, and situation. Cranial nerves II-XII grossly intact. Motor strength 5/5 in all extremities. Sensory grossly intact. Cerebellar exam normal. Normal gait. Psych: Awake, alert, with orientation to person, place and time. Behavior, mood, and affect are within normal limits. 12:49 Constitutional: The patient appears alert, awake, frail. 12:49 Musculoskeletal/extremity: Extremities: grossly normal except: nonhealing wound of right forefoot, necrotic skin at distal part of stump, rica to distal end, sutures noted proximally with serous discharge noted. Vital Signs: 12:29 BP 104 / 48; Pulse 107; Resp 18; Temp 98.3(O); Pulse Ox 100% on R/A; Weight 45.36 kg; hj Height 5 ft. 5 in. (165.10 cm); Pain 8/10; 13:42 BP 154 / 81; Pulse 92; Resp 16; Pulse Ox 98% on R/A; aj 14:23 BP 164 / 66; Pulse 80; Resp 16; Pulse Ox 97% ; bp 14:57 BP 169 / 55; Pulse 85; Resp 16; Pulse Ox 96% on R/A; bp 15:26 BP 182 / 59; Pulse 90; Resp 16; Pulse Ox 98% ; bp 12:29 Body Mass Index 16.64 (45.36 kg, 165.10 cm) hj MDM: 12:33 Patient medically screened. snw 12:46 Data reviewed: vital signs, nurses notes. Data interpreted: Pulse oximetry: on room air snw is 100 %. Interpretation: normal. ED course: Daughter states original surgery in [place] by Dr. Ascencio?. Pt has seen Dr. Tejeda. He wanted to admit her on 06/11/19. Family declined. Pt returns today for admission. Dr. Tejeda not specifications checker. Notified pt was in ED per Continuing Education Director and Dr. Tejeda declines as he is not her private MD.. 15:19 Response to treatment: There is no appreciated change of the patient's symptoms at this snw time. Physician consultation: Erika Rai MD was called at 15:19, was contacted at 15:19, regarding admission, Dr. Rai declines admission., Spoke with Dr. Tejeda regarding plan. Pt to follow up with Dr. Tejeda Sunday for re-evaluation of plan of care., Dr. Tejeda recommended pt be admitted earlier in the week and patient did not present to ED for admission. Today I am unable to get patient admitted or obtain an MRI. Discussed these problems with Dr. Tejeda and he will see in clinic and wound care this week. Discussed these things with Pt and Family. They are frustrated that patient plan will be delayed but will f/u this week. Clindamycin will be given upon discharge in preparation of MRI in case of early osteomyelitis. 15:21 Special discussion: I have referred the patient to see his PCP for further evaluation snw of high blood pressure. I discussed in detail with the patient the higher chance of wound infection based on his presenting history. Based on the history and exam findings, there is no indication for further emergent testing or inpatient evaluation. I discussed with the patient/guardian the need to see the general surgeon for further evaluation of the symptoms. I discussed with the patient/guardian the need to see the primary care provider for further evaluation of the symptoms. 15:22 ED course: Spoke with Dr. Grover regarding x-ray. Notes no real change except for snw decreased number of rica to film from 05/12/19. Unable to get MRI today, labs not indicative of worsening infection. Will speak with Dr. Tejeda regarding plan. 06/15 12:39 Order name: T\T\S snw 06/15 12:39 Order name: C-Reactive Protein; Complete Time: 14:23 snw 06/15 12:39 Order name: Basic Metabolic Panel; Complete Time: 14:23 snw 06/15 12:39 Order name: Blood Culture Adult (2) snw 06/15 12:39 Order name: CBC with Diff; Complete Time: 13:33 snw 06/15 12:39 Order name: Ckmb; Complete Time: 14:23 snw 06/15 12:39 Order name: CPK; Complete Time: 14:23 snw 06/15 12:39 Order name: Lactate; Complete Time: 13:51 snw 06/15 12:39 Order name: LFT's; Complete Time: 14:23 snw 06/15 12:39 Order name: Lipase; Complete Time: 14:23 snw 06/15 12:39 Order name: Procalcitonin; Complete Time: 14:21 snw 06/15 12:39 Order name: Protime (+inr); Complete Time: 13:51 snw 06/15 12:39 Order name: Ptt, Activated; Complete Time: 13:51 snw 06/15 15:09 Order name: Antibody Identification EDMS 06/15 12:39 Order name: Chest Single View XRAY; Complete Time: 15:42 snw 06/15 12:39 Order name: Accucheck; Complete Time: 13:32 snw 06/15 12:39 Order name: Cardiac monitoring; Complete Time: 13:32 snw 06/15 12:39 Order name: EKG - Nurse/Tech; Complete Time: 13:00 snw 06/15 12:39 Order name: IV Saline Lock - Large Bore; Complete Time: 13:32 snw 06/15 12:39 Order name: Labs collected and sent; Complete Time: 13:32 snw 06/15 12:39 Order name: O2 Per Protocol; Complete Time: 13:32 snw 06/15 12:39 Order name: O2 Sat Monitoring; Complete Time: 13:32 snw 06/15 12:39 Order name: Foot Right 3 View XRAY; Complete Time: 15:18 snw 06/15 15:19 Order name: Wound Care; Complete Time: 15:25 snw 06/15 15:19 Order name: Wound dressing; Complete Time: 15:25 snw Administered Medications: 14:04 Drug: vancoMYCIN 1 grams Route: IVPB; Infused Over: 2 hrs; Site: right antecubital; 15:46 Follow up: IV Status: Completed infusion; IV Intake: 250ml bp Disposition: 17:12 Co-signature as Attending Physician, Epifanio Lu MD. rn Disposition: 06/15/19 15:32 Discharged to Home. Impression: Other specified peripheral vascular diseases, Chronic wound to right foot. - Condition is Stable. - Discharge Instructions: Delayed Wound Closure, Peripheral Vascular Disease, Wound Infection, Wound Care, Surgical Wound Debridement. - Prescriptions for Clindamycin HCl 300 mg Oral Capsule - take 1 capsule by ORAL route every 8 hours for 10 days; 30 capsule. - Medication Reconciliation Form, Thank You Letter, Antibiotic Education, Prescription Opioid Use form. - Follow up: Ja Tejeda MD; When: 1 - 2 days; Reason: Recheck today's complaints, Continuance of care, Re-evaluation by your physician. Signatures: Dispatcher [employer] Tiffany Edwards RN RN Samara Urbina, OIL LEASE BUYER-C OIL LEASE BUYER-Csnw Epifanio Lu MD MD rn Joaquin, Henry, RN RN hj Peltier, Brian, RN RN bp Corrections: (The following items were deleted from the chart) 15:40 15:19 Physician consultation: Erika Rai MD was called at 15:19, was contacted at [facility] 15:19, regarding admission, Dr. Rai declines admission., Spoke with Dr. Tejeda regarding plan. Pt to follow up with Dr. Tejeda Sunday for re-evaluation of plan of care., sn 15:48 15:32 06/15/2019 15:32 Discharged to Home. Impression: Other specified peripheral bp vascular diseases; Chronic wound to right foot. Condition is Stable. Forms are Medication Reconciliation Form, Thank You Letter, Antibiotic Education, Prescription Opioid Use. Follow up: Ja Tejeda; When: 1 - 2 days; Reason: Recheck today's complaints, Continuance of care, Re-evaluation by your physician. snw
--- NOTE | 2019-06-15 15:33 | ER ---
Nurse's Notes [facility] Name: Cindy Sorto Age: 74 yrs Sex: Female : 1945 Arrival Date: 06/15/2019 Time: 12:20 Bed 6 Private MD: Kirti Webster Diagnosis: Other specified peripheral vascular diseases;Chronic wound to right foot Presentation: 06/15 12:27 Presenting complaint: Child states: we saw Dr. Tejeda R foot problems and spoke with hj him last Sunday and was told to come here for admit with instructions to call him once we are in the ER for orders; been going to wound healing center for this R foot issue;. Transition of care: patient was not received from another setting of care. Onset of symptoms was June 15, 2019. Risk Assessment: Do you want to hurt yourself or someone else? Patient reports no desire to harm self or others. Initial Sepsis Screen: Does the patient meet any 2 criteria? No. Patient's initial sepsis screen is negative. Does the patient have a suspected source of infection? No. Patient's initial sepsis screen is negative. Care prior to arrival: None. 12:27 Method Of Arrival: Ambulatory 12:27 Acuity: FRANCO 3 hj Triage Assessment: 12:30 General: Appears in no apparent distress. comfortable, Behavior is calm, cooperative, bp appropriate for age. Pain: Complains of pain in dorsum of right foot. EENT: No deficits noted. Neuro: Level of Consciousness is awake, alert, obeys commands, Oriented to person, place, time, situation, Appropriate for age. Cardiovascular: No deficits noted. Respiratory: No deficits noted. GI: No signs and/or symptoms were reported involving the gastrointestinal system. : No signs and/or symptoms were reported regarding the genitourinary system. Derm: No deficits noted. Musculoskeletal: No deficits noted. Historical: - Allergies: 12:29 NKDA; hj - PMHx: 12:29 AAA; Hyperlipidemia; Hypertension; Polio; hj - PSHx: 12:29 partial amputation of right foot.; hj - Immunization history:: Adult Immunizations up to date. - Social history:: Smoking status: Patient/guardian denies using tobacco. - Ebola Screening: : No symptoms or risks identified at this time. Screenin:30 Abuse screen: Denies threats or abuse. Denies injuries from another. Nutritional bp screening: No deficits noted. Tuberculosis screening: No symptoms or risk factors identified. Fall Risk None identified. Assessment: 12:30 General: SEE TRIAGE NOTE. bp 14:24 Reassessment: ALL CURRENT ORDERS COMPLETED, RESULTS PENDING. bp 15:26 Reassessment: HOSPITALIST AND SURGEON C/S IN PROCESS FOR DISPO. bp 15:35 Reassessment: D/C ON HOLD FOR IV ABX COMPLETION. bp 15:47 Reassessment: PT D/C HOME VIA W/C WITH FAMILY, DX WITH PVD. bp Vital Signs: 12:29 BP 104 / 48; Pulse 107; Resp 18; Temp 98.3(O); Pulse Ox 100% on R/A; Weight 45.36 kg; hj Height 5 ft. 5 in. (165.10 cm); Pain 8/10; 13:42 BP 154 / 81; Pulse 92; Resp 16; Pulse Ox 98% on R/A; aj 14:23 BP 164 / 66; Pulse 80; Resp 16; Pulse Ox 97% ; bp 14:57 BP 169 / 55; Pulse 85; Resp 16; Pulse Ox 96% on R/A; bp 15:26 BP 182 / 59; Pulse 90; Resp 16; Pulse Ox 98% ; bp 12:29 Body Mass Index 16.64 (45.36 kg, 165.10 cm) hj ED Course: 12:20 Patient arrived in ED. rg4 12:20 Kirti Webster MD is Private Physician. rg4 12:24 Samara Mckeon FNP-C is [facility]. snw 12:24 Epifanio Lu MD is Attending Physician. snw 12:28 Triage completed. hj 12:29 Arm band placed on right wrist. hj 12:30 Patient has correct armband on for positive identification. Bed in low position. Call bp light in reach. Side rails up X2. Adult w/ patient. 12:50 Bubba Mims, RN is Primary Nurse. bp 13:00 EKG done, by ED staff, reviewed by Samara DORADO. hj 13:18 Chest Single View XRAY In Process Unspecified. EDMS 13:18 Foot Right 3 View XRAY In Process Unspecified. EDMS 13:21 Inserted saline lock: 22 gauge in right antecubital area, using aseptic technique. bp Blood collected. 15:25 Wound care: to SURGICAL located on dorsum of right foot was dressed with Kerlix, bp Patient tolerated well. 15:31 Ja Tejeda MD is Referral Physician. snw 15:47 No provider procedures requiring assistance completed. IV discontinued, intact, bp bleeding controlled, No redness/swelling at site. Pressure dressing applied. Administered Medications: 14:04 Drug: vancoMYCIN 1 grams Route: IVPB; Infused Over: 2 hrs; Site: right antecubital; aj 15:46 Follow up: IV Status: Completed infusion; IV Intake: 250ml bp Intake: 15:46 IV: 250ml; Total: 250ml. bp Outcome: 15:32 Discharge ordered by MD. snw 15:47 Discharged to home via wheelchair, with family. bp 15:47 Condition: stable 15:47 Discharge instructions given to patient, family, Instructed on discharge instructions, follow up and referral plans. medication usage, wound care, Demonstrated understanding of instructions, follow-up care, medications, wound care, Prescriptions given X 1. 15:48 Patient left the ED. bp Signatures: Dispatcher [employer] EDMS Tiffany Weaver RN RN Samara Urbina, ZIPPER SETTER CHAINSTITCH-C ZIPPER SETTER CHAINSTITCH-Csnw Ja Senior RN RN hj Garcia, Rubi rg4 Bubba Mims RN RN bp Corrections: (The following items were deleted from the chart) 12:31 12:29 Pulse 107bpm; Resp 18bpm; Pulse Ox 100% RA; Temp 98.3F Oral; 45.36 kg; Height 5 hj ft. 5 in.; BMI: 16.6; Pain 8/10; hj 13:20 13:17 General: Appears in no apparent distress. comfortable, Behavior is calm, bp cooperative, appropriate for age, bp 13:20 13:17 Pain: Complains of pain in dorsum of right foot bp bp 13:20 13:17 EENT: No deficits noted. bp bp 13:20 13:17 Neuro: Level of Consciousness is awake, alert, obeys commands, Oriented to bp person, place, time, situation, Appropriate for age bp 13:20 13:17 Cardiovascular: No deficits noted. bp bp 13:20 13:17 Respiratory: No deficits noted. bp bp 13:20 13:17 GI: No signs and/or symptoms were reported involving the gastrointestinal system. bp bp : 13:17 : No signs and/or symptoms were reported regarding the genitourinary system. bp bp : 13:17 Derm: No deficits noted. bp bp ::17 Musculoskeletal: No deficits noted. bp bp
--- NOTE | 2019-06-15 15:34 | RAD REPORT ---
EXAM DESCRIPTION: RAD - Chest Single View - 06/15/2019 1:18 pm CLINICAL HISTORY: Preop examination, training foot wound pending treatment COMPARISON: April 2019 TECHNIQUE: AP portable chest image was obtained 1301 hours . FINDINGS: Prominent emphysematous changes with bullous formation seen in each upper lung field. Lowe r lung john are extensively fibrotic. Pattern matches the comparison study. Heart and vasculature a re normal. No measurable pleural effusion and no pneumothorax. No acute bony abnormality seen. No acu te aortic findings suspected. IMPRESSION: Advanced COPD changes similar to prior imaging.
[2019-06-15 15:53] VITALS: TEMP 98.3
--- NOTE | 2019-06-15 15:56 | P.CNS ---
Date of Consult: 06/15/19 74 y/o F with PMhx of PVD, AAA, HLP and HTN who presented to the ED to be admitted per reccs of Dr Tejeda who saw her in the [facility] on 06/11/19. Pt had a right foot amptuation done in [place] with Dr Ascencio unknown Date and after which she has been following at the [facility]. Was seen on 06/11/[address] Tejeda and was notified regarding the need for admission for debridement. Pt declined the admission at the time and presented to the ER today for admission. ER NUTRITIONAL CHEMIST contacted Dr Tejeda who stated he is not bronze plater today and if the lab, PE and imaging are concerning to get On-call surgeon to assess the patient for need for admission. Hospitalist team was contacted regarding the admission. Upon reviewing the labs and Imaging, I recommended NUTRITIONAL CHEMIST to contact the surgeon bronze plater regarding the need for admission. If the surgeon bronze plater reccs the patient to be admitted in the hospital, Hospitalist will admit the patient for possible Debridement and IV abx and consult General Surgery. Patient will most likely also need MRI to r.o Osteomyletitis which is not available today. However if Surgeon Reccs than Will admit for IV abx and get MRI linda when department is open. NUTRITIONAL CHEMIST contacted Dr Tejeda post conversation with Radiology who the recc pt to be DC home and F.u with [facility] as pt does not have any signs of acute infection. Pt was thus DC home from ER on PO abx. If patient is to return for worsening of todays symptoms and Surgeon reccs Admission, Hospitalist will be more than happy to assist in the care and admit the patient.
[2019-06-15 15:58] VITALS: BP 182/59; O2SAT 98
--- NOTE | 2019-06-16 07:48 | EKG ---
Test Date: 2019-06-15 Test Time: 12:58:47 Packing Tractor Machine Operator: CRISTIN MEASUREMENT RESULTS: Intervals: Rate: 109 NV: 136 QRSD: 72 QT: 332 QTc: 447 [place]: P: 72 NV: 136 QRS: 50 T: 63 INTERPRETIVE STATEMENTS: Sinus tachycardia Borderline ECG Compared to ECG 04/25/2019 00:41:51 Sinus rhythm no longer present Atrial premature complex(es) no longer present Electronically Signed On 06-16-19 07:47:03 CDT by Miki Duggan
== END 2019-06-15 15:48 | disposition home or self-care (01) ==
LOC: ER 12:17
DX: S91.301D Unspecified open wound, right foot, subsequent encounter (principal); I73.89 Other specified peripheral vascular diseases; E78.5 Hyperlipidemia, unspecified; I10 Essential (primary) hypertension
CPT/HCPCS: 36415; 71045; 80048; 80076; 82550; 82553; 83605; 83690; 84145; 85025; 85610; 85730; 86140; 86850; 86870; 86900; 86901; 87040; 93005; 96365; 96366; 99284

== ENCOUNTER 2019-06-17 21:38 | Emergency (ER) | payer OTHER ==
--- OUTSIDE RECORDS SUMMARY | 2019-06-17 21:42 | XMS REPORT | Continuity of Care Document ---
:1945 Author Organization [facility] Care Team Providers Name Role Phone [facility] Unavailable Unavailable Problems Problem Status Onset Date Classification Date Comments Source Reported R59.9 CT Active 07/04/2017 [place] [facility] [place] MARROW BIOPSY/A Medications No Data Provided for This Section Allergies, Adverse Reactions, Alerts No Known Medication Allergies Immunizations No Data Provided for This Section Results Order Name Results Value Reference Date Interpretation Comments Source Range HEMATOLOGY MCV 92.0 80.0 - 98.0 2016 [facility] HEMATOLOGY Hgb 14.3 12.0 - 16.0 2016 [facility] HEMATOLOGY Hct 43.9 36.0 - 48.0 2016 [facility] HEMATOLOGY MCH 29.9 27.0 - 31.0 2016 [facility] HEMATOLOGY Platelet 222 133 - 450 2016 [facility] HEMATOLOGY MCHC 32.5 32.0 - 36.0 2016 [facility] HEMATOLOGY RDW 15.8 11.5 - 14.5 2016 [facility] HEMATOLOGY MPV 10.4 7.4 - 10.4 2016 [facility] HEMATOLOGY RBC 4.78 4.20 - 5.40 2016 [facility] HEMATOLOGY WBC 15.9 3.7 - 10.4 2016 [facility] HEMATOLOGY PT 13.0 12.0 - 14.7 2016 [facility] HEMATOLOGY INR 0.96 0.85 - 1.17 [address] [place] HEMAT[facility] PTT 26.5 22.9 - 35.8 [facility] [place] HEMAT[facility]Y Platelet 219 133 - 450 2016 [facility] HEMATOLOGY Plt Morph Normal (07/04/17 8:16 AM) 2016 [facility] HEMATOLOGY Segs 69.3 45.0 - 75.0 2016 [facility] HEMATOLOGY Lymphocytes 23.0 20.0 - 40.0 2016 [facility] HEMATOLOGY Eosinophils # 0.1 0.0 - 0.5 [facility] 2016 [facility] HEMATOLOGY Monocytes # 1.1 0.0 - 0.8 [facility] 2016 [facility] HEMATOLOGY Basophils # 0.1 0.0 - 0.2 [facility] 2016 [facility] HEMATOLOGY Anisocyte 1+ None Seen [facility] *ABN* 2016 [facility] (07/04/17 8:16 AM) HEMATOLOGY Eosinophils 0.4 0.0 - 4.0 2016 [facility] HEMATOLOGY Monocytes 6.7 2.0 - 12.0 2016 [facility] HEMATOLOGY Segs-Bands # 11.0 1.5 - 8.1 [facility] 2016 [facility] HEMATOLOGY Basophils 0.6 0.0 - 1.0 [facility] 2016 [facility] HEMATOLOGY Lymphocytes # 3.7 1.0 - 5.5 [facility] 2016 [facility] Pathology Reports No Data Provided for This Section Diagnostic Reports Report Value Date Source Bone biopsy w guidance PROCEDURES PERFORMED: 07/04/[address] [facility] [address] 1. Bone Marrow aspiration and core [...] marrow was aspirated and given to the organic preparation technician for preparation. An 8 gauge bone biopsy needle was then advanced under CT guidance into the right iliac bone and a core sample was obtained and given to the technologist development in the room. Satisfactory position was confirmed [...] Date Comments Source BMI Calculated 21.03 07/04/2017 [place] Height 167.64 cm 07/04/2017 [place] Weight 59.091 07/04/2017 [place] Temperature Oral (F) 97.6 F 07/04/2017 [place] Respitory Rate 18 07/04/2017 [place] Systolic (mm Hg) 138 07/04/2017 [place] Diastolic (mm Hg) 69 07/04/2017 [place] Encounters Location Location Encounter Encounter Reason Attending ADM DC Status Source Details Type Number For Provider Date Date Visit [facility] [id number] [place] 07/04 07/05 Miko Lou [facility] [place] Procedures No Data Provided for This Section Assessment and Plan No Data Provided for This Section Plan of Care No Data Provided for This Section Social History Social History Date Source No data available for this 07/05/2017 [place] section Family History No Data Provided for This Section Advance Directives No Data Provided for This Section Functional Status No Data Provided for This Section
--- OUTSIDE RECORDS SUMMARY | 2019-06-17 21:42 | XMS REPORT | Clinical Summary ---
:1945 Author Organization [facility] Address [address] [place] [address] Care Team Providers Name Role Phone System, [...] Essential hypertension Mekhi Medeiros Sr., MD after 06/16/2018 Social History Tobacco Use Types Packs/Day Years [...] are in SPECTRAL COLOR DOPPLER the results (46928) section. CV CTA ABDOMEN W RUNOFF Routine [...] procedure are in the results section. after 06/16/2018 Results Estimated GFR (03/17/2019 4:37 AM CDT)Only the most recent of13 resultswithin the time period is included. Estimated GFR 56 (A) mL/min/1.73 TRAN ALEVISM Comment: m2 HOSPITAL CatergoryUnitsInterpretation G1 >=90 Normal or high G2 60-89Mildly decreased X0p11-32Acfksi to moderately decreased B8i24-35Dcewqqgodq to severely decreased G4 15-29Severely decreased G5 <15Kidney failure The eGFR was calculated using the Chronic Kidney Disease Epidemiology Collaboration (CKD-EPI) equation. Interpretation is based on recommendations of the National Kidney Foundation-Kidney Disease Outcomes Quality Initiative (NKF-KDOQI) published in 2014. Specimen Plasma specimen Performing Organization Address City/[facility] Hospitalcode Phone Number [facility] DEPARTMENT OF PATHOLOGY AND [address] [place] [phone] GENOMIC MEDICINE [facility] [address] [place] [address] CBC with platelet and differential (03/17/2019 4:37 AM CDT)Only the most recent of14 resultswithin the time period is included. WBC 7.93 4.50 - 11.00 [facility] k/uL HOSPITAL RBC 3.49 (L) 4.20 - 5.50 [facility] m/uL HOSPITAL HGB 10.0 (L) 12.0 - 16.0 [facility] g/dL [facility] HCT 32.6 (L) 37.0 - 47.0 % [facility] MCV 93.4 82.0 - 100.0 [facility] MCH 28.7 27.0 - 34.0 pg [facility] MCHC 30.7 (L) 31.0 - 37.0 [facility] g/dL [facility] RDW - SD 55.3 (H) 37.0 - 55.0 fL [facility] MPV 10.4 8.8 - 13.2 fL [facility] Platelet count 361 150 - 400 k/uL [facility] Nucleated RBC 0.00 /100 WBC [facility] Neutrophils 59.4 39.0 - 69.0 % [facility] Lymphocytes 26.4 25.0 - 45.0 % [facility] Monocytes 10.3 (H) 0.0 - 10.0 % [facility] Eosinophils 2.8 0.0 - 5.0 % [facility] Basophils 0.6 0.0 - 1.0 % [facility] Immature granulocytes 0.5Comment: 0.0 - 1.0 % [facility] "Immature HOSPITAL granulocytes" (promyelocytes , myelocytes, metamyelocytes ) Specimen Blood Performing Organization Address [facility]/Zipcode Phone Number [facility] DEPARTMENT OF PATHOLOGY AND [address] [place] [phone] Basic metabolic panel (03/17/2019 4:37 AM CDT)Only the most recent of11 resultswithin the time period is included. [facility] Sodium 138 135 - 148 mEq/L [facility] Potassium 3.9 3.5 - 5.0 mEq/L [facility] Chloride 100 98 - 112 mEq/L [facility] CO2 24 24 - 31 mEq/L [facility] Anion gap 14@ANIO 7 - 15 mEq/L [facility] BUN 22 8 - 23 mg/dL [facility] Creatinine 1.11 (H) 0.50 - 0.90 mg/dL [facility] Glucose 87 65 - 99 mg/dL [facility] Calcium 10.4 (H) 8.8 - 10.2 mg/dL [facility] Specimen Plasma specimen Performing Organization Address [facility] Hospitalcode Phone Number [facility] DEPARTMENT OF PATHOLOGY AND [address] [place] [phone] Vancomycin level, trough (03/07/2019 8:40 PM CDT)Only the most recent of4 resultswithin the time period is included. [facility] Vancomycin, 15.2 10.0 - 20.0 [facility] trough Comment: ug/mL HOSPITAL Therapeutic Ranges: Peak 30.0 - 40.0 ug/mL Jrwkhq07.0 - 20.0 ug/mL Specimen Serum Performing Organization Address City/[facility] Hospitalcode Phone Number [facility] DEPARTMENT OF PATHOLOGY AND [address] [place] [address] Arterial blood gas (03/01/2019 3:56 PM CDT) [facility] pH, arterial 7.44 7.35 - 7.45 [facility] pCO2, arterial 42 35 - 45 mmHg [facility] pO2, arterial 58 (L) 80 - 90 mmHg [facility] Bicarbonate, 28.6 (H) 21.0 - 28.0 [facility] mmol/L HOSPITAL Base excess, 5 (H) -2 - 2 mEq/L [facility] O2 saturation, 90 (L) 95 - 100 % [facility] arterial [facility] Specimen Blood Performing Organization Address City/[facility]/Zipcode Phone Number [facility] DEPARTMENT OF PATHOLOGY AND [address] [place] [address] GENOMIC MEDICINE [facility] [address] [place] [address] CT Head Wo Contrast (03/01/2019 3:31 PM [...] Madiha at 3:35 PM. She verbalized understanding. [facility]-[id number] Procedure Note Interface, Radiology Results Incoming - [...] Madiha at 3:35 PM. She verbalized understanding. [facility]-[id number] Performing Organization Address City/[facility]/Zipcode Phone Number [facility] [address] [place] [address] XR Foot 3+ Vw Right (03/01/2019 9:32 AM CDT)Only the most recent of2 resultswithin the time period is included. Specimen Narrative Performed At EXAM:XR FOOT 3VW RIGHT HM [facility] CLINICAL:Status post amputation COMPARISON:02/21/2019 IMPRESSION: 1.Mid metatarsal amputation through all digits. Overlying skin rica. Drainage catheter in place. No osseous erosions. Mild soft tissue swelling around the forefoot. 2.Generalized bone demineralization. [facility]-[id number] Procedure Note Hm Interface, Radiology Results Incoming - 03/01/2019 9:40 AM CDT EXAM: XR FOOT 3 VW RIGHT CLINICAL: Status post amputation COMPARISON: 02/21/2019 IMPRESSION: 1. Mid metatarsal amputation through all digits. Overlying skin rica. Drainage catheter in place. No osseous erosions. Mild soft tissue swelling around the forefoot. 2. Generalized bone demineralization. [facility]-[id number] Performing Organization Address [facility] Hospitalcode Phone Number [facility] [address] [place] [address] Surgical pathology request (02/28/2019 11:48 AM CDT) [facility] DEPARTMENT OF PATHOLOGY AND GENOMIC MEDICINE Surgical pathology See link below [facility] DEPARTMENT OF report for PDF Lab PATHOLOGY AND Report GENOMIC MEDICINE Result status This is Final [facility] DEPARTMENT OF Report for PATHOLOGY AND [id number] GENOMIC MEDICINE Specimen Performing Organization Address [facility] Hospitalcomn Phone Number [facility] DEPARTMENT OF PATHOLOGY AND [address] [place] [phone] GENOMIC MEDICINE Type and screen (02/27/2019 11:55 AM CDT)Only the most recent of2 resultswithin the time period is included. ABO grouping A [facility] Rh type POS [facility] Antibody screen (gel) POS [facility] Specimen Performing Organization Address [facility]/Zipcode Phone Number [facility] DEPARTMENT OF PATHOLOGY AND [address] [place] [address] GENOMIC MEDICINE [address] [address] [place] antigen patient typing (02/26/2019 3:45 AM CDT) Isabela Antigen Patient NEG [facility] Specimen Performing Organization Address City/State/[facility] Hospitalcode Phone Number [facility] DEPARTMENT OF PATHOLOGY AND [address] [place] [phone] [place] [phone] e Antigen patient typing (little e) (02/26/2019 3:45 AM CDT) e Antigen Patient Typing POS [facility] ([facility] e) [facility] Specimen Performing Organization Address [facility] Phone Number [facility] DEPARTMENT OF PATHOLOGY AND [address] [place] [phone] [place] [address] Direct Ramo' (SANTIAGO) (02/26/2019 3:45 AM CDT) [id number] Polyspecific POS [facility] Specimen Performing Organization Address [facility] Phone Number [facility] DEPARTMENT OF PATHOLOGY AND [address] [place] [address] c Antigen patient typing ([facility] c) (02/26/2019 3:45 AM CDT) c Antigen Patient Typing POS [facility] ([facility] c) [facility] Specimen Performing Organization Address [facility] Phone Number [facility] DEPARTMENT OF PATHOLOGY AND [address] [place] [address] Positive SANTIAGO reflex (02/26/2019 3:45 AM CDT) IgG Ramo, gel POS [facility] Anti-complement POSComment: [facility] 02/26/19 [facility] CONTROL NEGATIVE. KG Specimen Performing Organization Address [facility]code Phone Number [facility] DEPARTMENT OF PATHOLOGY AND [address] [place] [phone] [place] [address] E antigen patient typing (02/26/2019 3:45 AM CDT) E Antigen Patient Typing NEG [facility] Specimen Performing Organization Address [facility] Phone Number [facility] DEPARTMENT OF PATHOLOGY AND [address] [place] [phone] [address] C antigen patient typing (02/26/2019 3:45 AM CDT) Pathologist [facility] C Antigen Patient Typing POS [facility] Specimen Performing Organization Address City/State/Zipcode Phone Number [facility] DEPARTMENT OF PATHOLOGY AND [address] [place] [phone] [place] [address] Elution (02/26/2019 3:45 AM CDT) Pathologist [facility] Elution POS [facility] Comment: HOSPITAL POS W/ ALL CELLS Although these serological findings cannot differentiate between a drug induced or a true auto-immune state, this patient should be monitored for signs of an ongoing hemolytic process.Verified by [id number]. Specimen Performing Organization Address City/State/Zipcode Phone Number [facility] DEPARTMENT OF PATHOLOGY AND [address] [place] [address] Antibody identification (02/26/2019 3:45 AM CDT) Pathologist [facility] Antibody ID POS, Warm Autoantibody [facility] Comment: HOSPITAL Adsorption studies ruled out the presence of underlying alloantibodies. Red cells for transfusion will be antigen matched for the Rh and K antigens and crossmatch least incompatible.Verified by [id number]. Specimen Performing Organization Address City/State/Zipcode Phone Number [facility] DEPARTMENT OF PATHOLOGY AND [address] [place] [phone] [place] [address] Prothrombin time with INR (02/26/2019 3:45 AM CDT)Only the most recent of2 resultswithin the time period is included. [facility] Prothrombin time 13.3 11.5 - 14.5 [facility] INR 1.0 BISHOP Comment: ALEVISM [facility] International Normalized Ratio (INR) is a therapeutic HOSPITAL monitoring tool for patients who are stable on oral anticoagulant therapy. An INR of 2.0-3.0 is suggested for deep vein thrombosis/pulmonary embolism. Specimen Blood Performing Organization Address City/State/Zipcode Phone Number [facility] DEPARTMENT OF PATHOLOGY AND [address] [place] [phone] [address] Prepare RBC (02/26/2019 3:45 AM CDT) Product name Red Blood Cells [facility] -1, [facility] HOSPITAL Unit number [id number] [facility] Product code [id number] [facility] Dispense status Transfused [facility] Blood expiration [id number] [facility] Blood type code 0600 [facility] Blood type A NEGATIVE [facility] Specimen Performing Organization Address City/State/Zipcode Phone Number [facility] DEPARTMENT OF PATHOLOGY AND [address] [place] [address] GENOMIC MEDICINE [facility] [address] [place] [address] MRI Foot Wo Contrast Right (02/24/2019 8:00 [...] the first digit without osteomyelitis as described. *[id number] Procedure Note Hm Interface, Radiology Results Incoming [...] the first digit without osteomyelitis as described. *[id number] Performing Organization Address [facility] Hospitalcomn Phone Number [facility] [address] [place] [address] Cv stress test (02/23/2019 11:30 AM CDT) Resting HR 60 [facility] MUSE Resting BP 123 [facility] MUSE Peak MET Achieved 1.0 [facility] MUSE Protocol Name REGADENO [facility] MUSE Time in Exercise 00:01:00 [facility] MUSE [...] During Ex [facility] MUSE Ex Summary Comment [facility] MUSE Overall HR Response [facility] MUSE to Exercise Overall BP Response [facility] MUSE To Exercise Reason for H MUSE Termination Stress Test Waveform interpreted in [facility] MUSE Impression report associated with image study. No interpretation is provided as part of this Stress ECG report.--Electronically Signed By Shruthi COE, Marion ([id number]), fashion editor Nikky Boateng ([id number]) on 02/23/2019 12:51:07 PM Specimen Narrative Performed At Performing Organization Address [facility] Hospitalcomn Phone Number [employer] [address] [place] [address] Nm myocardial perfusion (02/23/2019 11:30 AM CDT) Specimen Narrative Performed At [facility] and Cardiac CT [address] [place] [phone] Myocardial Perfusion Imaging Report Stress ECG tracings are available in [employer] All ECG interpretations are included in this report Pat.Name:KP MEDEIROS.ID:[id number] .Date: 02/23/2019 Refer.MD:MARION WILKINSON MD Exam Time: 10:28:00 AM Study Type:Myocardial Perfusion Imaging Height:64inBSA: 1.43 m2 DOBAge:1945,73Y Sex: FEMALE BP:123/56HR: 60 bpm HCT: 31.5 %Nuclear Tech:PHILLIP Carter Pat. Stat.:Inpatient Room:[facility] Nuclear Event ID:[id number] Order ID:[id number] Reason for Study:Pre-Op, CAD History / Clinical:Abdominal [...] AM CDT Nuclear Cardiology and Cardiac CT [address] [place] [address] Myocardial Perfusion Imaging Report Stress ECG tracings are available in [employer] and [employer] All ECG interpretations are included in this report Pat.Name: KP MEDEIROS Pat.ID: [id number] .Date: 02/23/2019 Refer.MD: MARION WILKINSON MD Exam Time: 10:28:00 AM Study Type:Myocardial Perfusion Imaging Height: 64in BSA: 1.43 m2 Age: 7 1945,73Y Sex: FEMALE BP: 123/56 HR: 60 bpm HCT: 31.5 % Nuclear Tech:PHILLIP Carter Pat. Stat.:Inpatient Room: D723-A Nuclear Event ID:[id number] Order ID: [id number] Reason for Study:Pre-Op, CAD History / Clinical:Abdominal [...] AM Marion Hawkins MD Performing Organization Address City/[facility]code Phone Number [employer] [address] [place] [address] ECG 12 lead (02/21/2019 5:53 PM CDT) Ventricular rate 73 [facility] MUSE Atrial rate 73 [facility] MUSE SD interval 152 [facility] M[facility] QRSD interval 74 [facility] M[facility] QT interval 368 [facility] QTC interval 405 [facility] M[facility] P axis 1 31 [facility] M[facility] QRS axis 1 47 [facility] MUSE T wave axis 64 [facility] MUSE EKG impression Normal sinus [facility] MUSE rhythm-Possible Anterior infarct , age undetermined-Abnormal ECG-No previous ECGs available-Electronicall y Signed By Emily COE, Camacho Marrero ([id number]) on 02/21/2019 8:44:44 PM Specimen Narrative Performed At Performing Organization Address [facility] Hospitalcomn Phone Number [facility] [employer] [address] ankle brachial index (02/21/2019 2:45 PM CDT) Specimen Narrative Performed At [facility] Vascular Diagnostic Laboratory Physiologic Arterial Leg Report [address] [place] [address] Pat.Name:KP MEDEIROS.ID:[id number] .Date: 02/21/2019 Refer.MD:SUNG GREGORY MD Exam Time: 2:16:00 PMStudy Type:Physiologic Leg Height:64inWeight: 130lb BSA: 1.63 m2 DOBAge:1945,73Y Sex: FEMALESonogrphr: Carmen Carreno RVT Pat. Stat.:Inpatient Room:ED-09 TapeVol: LN, CPT - 4: 744[address] Echo Event ID:[id number] Order ID:[id number] Reason for Study:Right great toe dry gangrene. Right great toe pain that has been worsening for the past 3 weeks. Procedures:Ankle/brachial pressures, PPG waveform tracing, Segmental pressures Race:B SUMMARY: SEGMENTAL PRESSURE(mmHg): RIGHT LEFT Brachial 110 122 Ankle DP 29 31 Ankle [id number] Great Toe Unable to obtainAbsent ANKLE/BRACHIAL INDEX: [...] Diagnostic Laboratory Physiologic Arterial Leg Report [address] [place] [address] Pat.Name: KP MEDEIROS Pat.ID: [id number] .Date: 02/21/2019 Refer.MD: SUNG GREGORY MD Exam Time: 2:16:00 PM Study Type:Physiologic Leg Height: 64in Weight: 130lb BSA: 1.63 m2 Age: 7 1945,73Y Sex: FEMALE Sonogrphr: Carmen Carreno RVT Pat. Stat.:Inpatient Room: ED-09 Tape Vol: LN, CPT - 4: 76716 Echo Event ID:[id number] Order ID: [id number] Reason for Study:Right great toe dry gangrene. [...] Gary Washington MD, RPVI Performing Organization Address [facility] Hospitalcode Phone Number [facility] [address] [place] [address] XR Foot 2 Vw Right (02/21/2019 2:16 [...] arthropathy.. 3.Soft tissue swelling overlies the forefoot. [facility]-[id number] Procedure Note Interface, Radiology Results Incoming - [...] 3. Soft tissue swelling overlies the forefoot. [facility]-[id number] Performing Organization Address [facility] Hospitalcode Phone Number [facility] [address] [place] [address] XR Chest 1 Vw Portable (02/21/2019 2:16 PM CDT) Specimen Narrative Performed At EXAMINATION:XR CHEST 1 VW PORTABLE [facility] CLINICAL HISTORY:chest pain COMPARISON:None. IMPRESSION: Single frontal view reveals a prominent cardiac silhouette with arch calcifications. Coarse interstitial markings are noted within the lungs with apical emphysematous changes. Pleural margins are sharp. The remainder of the examination is unremarkable. [id number] Procedure Note Hm Interface, Radiology Results Incoming - 02/21/2019 2:29 PM CDT EXAMINATION: XR CHEST 1 VW PORTABLE CLINICAL HISTORY: chest pain COMPARISON: None. IMPRESSION: Single frontal view reveals a prominent cardiac silhouette with arch calcifications. Coarse interstitial markings are noted within the lungs with apical emphysematous changes. Pleural margins are sharp. The remainder of the examination is unremarkable. [id number] Performing Organization Address [facility]/Zipcode Phone Number [facility] [address] [place] [address] Troponin (02/21/2019 2:07 PM CDT) Troponin <0.30 0.00 - 0.30 TRAN ALEVISM Comment: ng/mL HOSPITAL 0.30 - 1.49 ng/mlMay indicate increased risk of acute coronary syndrome. >=1.5 ng/mlConsistent with acute myocardial infarction. The diagnostic value of a single normal or non-diagnostic result is questionable.Serial samples at 2-6 hour intervals are required to rule out acute myocardial injury. Specimen Plasma specimen Performing Organization Address [facility] Phone Number [facility] DEPARTMENT OF PATHOLOGY AND [address] [place] [address] Partial thromboplastin time, activated (02/21/2019 2:07 PM CDT) PTT 28.1 23.0 - 36.0 [facility] Comment: [facility] HOSPITAL PTT therapeutic range for unfractionated heparin is 61.0-112.0 seconds which corresponds to Anti-Xa 0.3-0.7 U/ml. Specimen Blood Performing Organization Address [facility]code Phone Number [facility] DEPARTMENT OF PATHOLOGY AND [address] [place], [place] [phone] [address] [address] D-dimer (02/21/2019 2:07 PM CDT) [facility] D-dimer 1.42 (H) 0.00 - 0.40 [facility] Comment: ug/mL [facility] Units are ug/ml [...] Blood Performing Organization Address City/State/Zipcode Phone Number [facility] DEPARTMENT OF PATHOLOGY AND [address] [place] [address] B natriuretic peptide (02/21/2019 2:07 PM CDT) [facility] BNP 109 (H) 0 - 100 pg/mL [facility] Specimen Blood Performing Organization Address City/State/Zipcode Phone Number [facility] DEPARTMENT OF PATHOLOGY AND [address] [place] [address] Comprehensive metabolic panel (02/21/2019 2:07 PM CDT)Only the most recent of2 resultswithin the time period is included. [facility] Sodium 142 135 - 148 [facility] mEq/L [facility] Potassium 3.4 (L) 3.5 - 5.0 [facility] mEq/L [facility] Chloride 102 98 - 112 mEq/L [facility] CO2 30 24 - 31 mEq/L [facility] Anion gap 10@ANIO 7 - 15 mEq/L [facility] [facility] BUN 15 8 - 23 mg/dL [facility] Creatinine 1.17 (H) 0.50 - 0.90 [facility] mg/dL [facility] Glucose 93 65 - 99 mg/dL [facility] Calcium 9.9 8.8 - 10.2 [facility] mg/dL [facility] Protein 6.6 6.3 - 8.3 g/dL [facility] Comment: HOSPITAL 4.6-7.0 g/dL 1 week 4.4-7.6 g/dL 7 months-1year5.1-7.3 g/dL 1-2 years5.6-7.5 g/dL >3 years6.0-8.0 g/dL 18-150 6.3-8.3 g/dL Albumin 3.6 3.5 - 5.0 g/dL [facility] A/G ratio 1.2 0.7 - 3.8 [facility] Alkaline phosphatase 54 35 - 104 U/L [facility] AST 16 10 - 35 U/L [facility] ALT 9 5 - 50 U/L [facility] Total bilirubin 0.9 0.0 - 1.2 [facility] mg/dL [facility] Specimen Plasma specimen Performing Organization Address City/State/Zipcode Phone Number [facility] DEPARTMENT OF PATHOLOGY AND [address] [place] [address] [place] [address] ECG ED Preliminary Interpretation - Not an Order (02/21/2019 2:03 PM CDT)Only the most recent of2 resultswithin the time period is included. Narrative Performed At Sung Gregory MD 02/25/2019 12:40 PM ECG ED Preliminary Interpretation - Not an Order Performed by: Sung Gregory MD Authorized by: Sung Gregory MD ECG reviewed by ED Physician in the absence of a building insulation supervisor: yes Interpretation: Interpretation: normal Rate: ECG rate:76 ECG rate assessment: normal Rhythm: Rhythm: sinus rhythm Ectopy: Ectopy: none QRS: QRS axis:Normal QRS intervals:Normal Conduction: Conduction: normal ST segments: ST segments:Normal T waves: T waves: normal Echocardiogram complete w contrast and 3D if needed (01/30/2019 10:45 AM CDT) Specimen Narrative Performed At [facility] Echocardiography Report [address]Name:KP MEDEIROS.ID:[id number] .Date: 01/30/2019 Refer.MD:MEKHI MEDEIROS MD Exam Time: 8:16:00 AMStudy Type:Routine Echo Height:64inWeight: 120lb BSA: 1.58 m2 DOBAge:1945,73Y Sex: FEMALEBP:133/69 HR:63 bpmSonogrphr: RUDI Sanchez Pat. Stat.:Inpatient Room:[facility] Study Status:Final Echo Event ID:[id number] Order ID:[id number] Reason for Study:SOB, suspected cardiac etiology Procedures:2D [...] of 5 mmHg. MEASUREMENTS: 2D Parasternal Long Odin LVOT 1.9 cmLA Ds2.8 cm LVIDd4.3 cmIndex2.7 [...] 01/30/2019 3:58 PM CDT Echocardiography Report [address] [place] [address] Pat.Name: KP MEDEIROS Pat.ID: [id number] .Date: 01/30/2019 Refer.MD: MEKHI MEDEIROS MD Exam Time: 8:16:00 AM Study Type:Routine Echo Height: 64in Weight: 120lb BSA: 1.58 m2 Age: 7 1945,73Y Sex: FEMALE BP: 133/69 HR: 63 bpm Sonogrphr: RUDI Sanchez Pat. Stat.:Inpatient Room: [facility] Study Status:Final Echo Event ID:[id number] Order ID: [id number] Reason for Study:SOB, suspected cardiac etiology Procedures:2D [...] of 5 mmHg. MEASUREMENTS: 2D Parasternal Long Odin LVOT 1.9 cm LA Ds 2.8 cm [...] Organization Address City/State/Zipcode Phone Number [facility] [address] [place] [address] Cv cta abdomen w runoff w contrast (01/30/2019 9:14 AM CDT) Specimen Narrative Performed At [facility] [address] [address] CTA Abd/Pelvis with Runoff Report Pat.Name:KP MEDEIROS.ID:[id number] .Date: 01/30/2019 Refer.MD:MARION WILKINSON MD Exam Time: 8:45:00 AM Study Type:CTA Abd_Pelvis with Runoff Height:64inDOBAge:1944,73Y Sex: FEMALEBP: 133/60 Nuclear Tech:BINU Miles(N)(CT) CPT - 4: CTA ABD/PELV W/WO 91372 Nuclear Event ID:[id number] Order ID:[id number] Reason for Study:Assess Abdominal Aortic Aneurysm and [...] Cardiovascular CTA Protocol and interpreted by a Radar Technician.Should a more comprehensive assessment of non-cardiovascular findings be desired, please consult a radiologist.These images are available in the [facility] [employer] PACS system. Signed 01/30/2019 03:07 PM Nilesh Vega MD Procedure Note Interface, Radiology Results In - 01/30/2019 3:07 PM CDT [facility] CT [address] [address] CTA Abd/Pelvis with Runoff Report Pat.Name: KP MEDEIROS.ID: [id number] St.Date: 01/30/2019 Refer.MD: MARION WILKINSON MD Exam Time: 8:45:00 AM Study Type:CTA Abd_Pelvis with Runoff Height: 64in Age: 7 1945,73Y Sex: FEMALE BP: 133/60 Nuclear Tech:BINU Miles(N)(CT) CPT - 4: CTA ABD/PELV W/WO 87879 Nuclear Event ID:[id number] Order ID: [id number] Reason for Study:Assess Abdominal Aortic Aneurysm and [...] Cardiovascular CTA Protocol and interpreted by a Radar Technician. Should a more comprehensive assessment of non-cardiovascular findings be desired, please consult a radiologist. These images are available in the [facility] [employer] PACS system. Signed 01/30/2019 03:07 PM Nilesh Vega MD Performing Organization Address City/State/Zipcode Phone Number [facility] [address] [phone] [place] carotid duplex (01/30/2019 8:28 AM CDT) Specimen Narrative Performed At [facility] Vascular Ultrasound Laboratory Carotid Artery Duplex Report [address] [place] [address] For supervisor quality control purposes, the categorization of the degree of the stenosis of this exam is based on criteria described in the IAC carotid stenosis grading white paper( www.intersocietal.org/Vascular) and Jazmine Johnson., Jose Monae., et al. Carotid artery stenosis: malave-scale and Doppler US diagnosis--Society of Radiologists in Ultrasound Consensus Conference. Radiology. 2003 Nov; 229(2):340-6. Pat.Name:KP MEDEIROS.ID:[id number] .Date: 01/30/2019 Refer.MD:MARION WILKINSON MD Exam Time: 7:28:00 AMStudy Type:Carotid Height:64inDOBAge: 1945,73Y Sex: FEMALESonogrphr: LADAN Sousa, RVT Pat. Stat.:Inpatient Room:[address] TapeVol: RADHA, CPT - 4: 73655 Echo Event ID:[id number] Order ID:[id number] Reason for Study:History of peripheral vascular disease [...] EDV29.5 cm/s Right ICA Mid ICA Mid CPS153 cm/Cora Mid EDV 26.7 cm/s Right ICA [...] EDV27.9 cm/s Left ICA Mid ICA Mid VSY772 cm/Cora Mid EDV 24.2 cm/s Left ICA [...] Vascular Ultrasound Laboratory Carotid Artery Duplex Report [address] [place] [address] For supervisor quality control purposes, the categorization of the degree of the stenosis of this exam is based on criteria described in the IAC carotid stenosis grading white paper( www.intersocietal.org/Vascular) and David Johnson, Shweta Monae, et al. Carotid artery stenosis: malave-scale and Doppler US diagnosis--Society of Radiologists in Ultrasound Consensus Conference. Radiology. 2003 Nov; 229(2):340-6. Pat.Name: KP MEDEIROS Pat.ID: [id number] St.Date: 01/30/2019 Refer.MD: MARION WILKINSON MD Exam Time: 7:28:00 AM Study Type:Carotid Height: 64in Age: 7 1945,73Y Sex: FEMALE Sonogrphr: LADAN Sousa, RVT Pat. Stat.:Inpatient Room: [address] Tape Vol: RADHA, CPT - 4: 46934 Echo Event ID:[id number] Order ID: [id number] Reason for Study:History of peripheral vascular disease [...] Gary Washington MD, RPVI Performing Organization Address City/[facility]/Zipcode Phone Number [facility] [address] [place] [address] Uric acid level (01/29/2019 12:00 AM CDT) Uric acid 7.3 (H) 2.4 - 5.7 mg/dL [facility] Specimen Plasma specimen Performing Organization Address City/[facility]/Zipcode Phone Number [facility] DEPARTMENT OF PATHOLOGY AND [address] [place] [address] [address] Thyroid stimulating hormone (01/29/2019 12:00 AM CDT) TSH 0.43 0.27 - 4.20 uIU/mL [facility] Specimen Plasma specimen Performing Organization Address City/[facility]/Zipcode Phone Number [facility] DEPARTMENT OF PATHOLOGY AND [address] [place] [address] [address] T4, free (01/29/2019 12:00 AM CDT) T4, free 1.5 0.9 - 1.7 ng/dL [facility] Specimen Plasma specimen Performing Organization Address City/[facility] Number [facility] DEPARTMENT OF PATHOLOGY AND [address] [place] [address] [address] Lipid panel (01/29/2019 12:00 AM CDT) Cholesterol 137 <200 mg/dL [facility] Triglycerides 81 <150 mg/dL [facility] HDL cholesterol 45 >40 mg/dL [facility] LDL cholesterol 81Comment: Result <100 mg/dL BISHOP obtained by direct ALEVISM LDL measurement [facility] Lipid panel [facility] interpretation Comment: ALEVISM Total Cholesterol (mg/dL) [facility] <200 Desirable [phone]-kvao >=240High Triglycerides (mg/dL) <150 Normal 651-216Zhoatqoqqx-vaug 200-499High >=500Very high HDL Cholesterol (mg/dL) <40Low (male) <40Low (female) LDL Cholesterol (mg/dL) <100 Optimal 100-129Near or above optimal 213-723Qjhjcexpzw-kben 160-189High >=190Very high Risk Catergories that modify [...] specimen Performing Organization Address City/State/Zipcode Phone Number [facility] DEPARTMENT OF PATHOLOGY AND [address] [place] [address] [address] [place] duplex arterial lower extremity (01/28/2019 4:59 PM CDT) Specimen Narrative Performed At [facility] Vascular Ultrasound Laboratory Lower Extremity Arterial Duplex Report [address] [address] Pat.Name:KP MEDEIROS.ID:[id number] .Date: 01/28/2019 Refer.MD:SUNG GREGORY MD Exam Time: 3:43:00 PMStudy Type:LE Arterial Height:64inDOBAge: 1945,73Y Sex: FEMALESonogrphr: Lewis Martinez, RVT, RDMS Pat. Stat.:Inpatient Room:EDP TapeVol: CLARE, CPT - 4: 25452 Echo Event ID:[id number] Order ID:[id number] Reason for Study:Rt toe pain and dry [...] demonstrates significant inflow arterial occlusive disease ( BANDAGE MAKER post-stenotic waveform) andthe right GRICELDA occlusion. MEASUREMENTS: DOPPLER Right BANDAGE MAKER prox BANDAGE MAKER prox PSV47.5 cm/s Right Profunda Profunda PSV61.8 cm/s Profunda Right Profunda 60 deg Right SFA Dist SFA Dist PSV30.1 cm/s SFA Right SFA Dist 60 degRight SFA Prox 60 deg Right SFA Mid D60 deg Right SFA Mid SFA Mid PSV 32.1 cm/s Right SFA Prox SFA Prox PSV36.5 cm/s Right Pop Dist Pop Dist PSV21.6 cm/s Popliteal Right Tlrimjqvh13 degRight Lqciclfin16 deg Right Pop Prox Pop Prox PSV12.4 cm/s Right DATA OPERATIONS MANAGER Prox DATA OPERATIONS MANAGER Prox PSV6.67 cm/s Tibial Post Right Tibial [...] GRICELDA Mid GRICELDA Mid PSV0 cm/s Right BANDAGE MAKER Mid BANDAGE MAKER Mid PSV 48 cm/s Right GRICELDA Prox GRICELDA Prox PSV19.8 cm/s Right GRICELDA Distal GRICELDA Distal PSV 0 cm/s Signed 01/28/2019 07:20 PM Gary Washington MD, RPVI Procedure Note Interface, Radiology Results In - 01/28/2019 7:21 PM CDT Vascular Ultrasound Laboratory Lower Extremity Arterial Duplex Report [address] [place] [address] Pat.Name: KP MEDEIROS Pat.ID: [id number] .Date: 01/28/2019 Refer.MD: SUNG GREGORY MD Exam Time: 3:43:00 PM Study Type:LE Arterial Height: 64in Age: 7 1945,73Y Sex: FEMALE Sonogrphr: Lewis Martinez RVT, ISIDORO Pat. Stat.:Inpatient Room: EDP Tape Vol: MK, CPT - 4: 65895 Echo Event ID:[id number] Order ID: [id number] Reason for Study:Rt toe pain and dry [...] demonstrates significant inflow arterial occlusive disease ( BANDAGE MAKER post-stenotic waveform) and the right GRICELDA occlusion. MEASUREMENTS: DOPPLER Right BANDAGE MAKER prox BANDAGE MAKER prox PSV 47.5 cm/s Right Profunda Profunda [...] Prox Pop Prox PSV 12.4 cm/s Right DATA OPERATIONS MANAGER Prox DATA OPERATIONS MANAGER Prox PSV 6.67 cm/s Tibial Post Right [...] Mid GRICELDA Mid PSV 0 cm/s Right BANDAGE MAKER Mid BANDAGE MAKER Mid PSV 48 cm/s Right GRICELDA Prox GRICELDA Prox PSV 19.8 cm/s Right GRICELDA Distal GRICELDA Distal PSV 0 cm/s Signed 01/28/2019 07:20 PM Gary Washington MD, RPVI Performing Organization Address City/[facility]/Zipcode Phone Number [facility] [address] [place] [address] Blood culture, aerobic & anaerobic (01/28/2019 1:34 PM CDT) Blood culture No growth after 5 days of incubation. [facility] isolate Comment: HOSPITAL Specimen Information Specimen Source: Blood Specimen Site: Forearm, left Specimen Blood - Forearm, left Performing Organization Address City/[facility] Phone Number [facility] DEPARTMENT OF PATHOLOGY AND [address] [place] [phone] [place] [address] C-reactive protein (01/28/2019 1:34 PM CDT) CRP 1.67 (H) 0.00 - 0.50 mg/dL [facility] Specimen Plasma specimen Performing Organization Address [facility] Phone Number [facility] DEPARTMENT OF PATHOLOGY AND [address] [place] [address] [address] Lactic acid level (01/28/2019 1:34 PM CDT) Lactic acid 2.0 0.5 - 2.2 mmol/L [facility] Specimen Plasma specimen Performing Organization Address City/[facility]/Zipcode Phone Number [facility] DEPARTMENT OF PATHOLOGY AND [address] [place] [address] [address] after 06/16/2018 Advance Directives Patient has advance care planning documents on file. For more information, please contact:Juan Vasquez[address] [place] [address]
--- OUTSIDE RECORDS SUMMARY | 2019-06-17 21:43 | XMS REPORT ---
[...] Dosage System Date Date Metoprolol Succinate ND 11197568716 100 MG Orally Active 1 tablet ER Once a day Hydrochlorothiazide ND 11904525142 25 MG Active TAKE 1 TABLET BY MOUTH ONCE A DAY Potassium Chloride ER ND 95930048914 10 MEQ Orally Active 1 tablet twice a day with food Advair Diskus ND 40260365615 100-50 Active 1 puff MCG/DOSE Inhalation Twice a day Zocor [facility] 56346361504 20 MG Active TAKE 1 TABLET BY MOUTH DAILY Gabapentin [facility] 32800225316 300 MG Orally Active 1 capsule Once a day before bedtime Metoprolol Succinate [facility] 47456329368 100 MG Active TAKE 1 ER TABLET BY MOUTH EVERY DAY Hydrochlorothiazide [facility] 62738159130 25 MG Active TAKE 1 TABLET BY MOUTH ONCE A DAY ProAir HFA [facility] 53472084122 108 (90 Base) Active 2 puffs MCG/ACT as needed Inhalation every 6 hrs Simvastatin [facility] 74940308410 20 MG Orally Active 1 tablet Once a day in the evening Magnesium Oxide [facility] 81976271219 400 MG Orally Active 1 tablet Once a day as needed Protonix [facility] 78808310828 40 MG Active TAKE 1 TABLET BY MOUTH ONCE A DAY Zocor [facility] 67213880835 20 MG Active TAKE 1 TABLET BY MOUTH DAILY Ferrous Sulfate [facility] 61342565282 325 (65 Fe) MG Active 1 tablet Orally Once a day Ergocalciferol [facility] 78442392592 14557 UNIT Active 1 capsule Orally Results No Known Results Summary Purpose eClinicalWorks Submission
--- OUTSIDE RECORDS SUMMARY | 2019-06-17 21:43 | XMS REPORT ---
[...] End Status Dosage System Date Date Ergocalciferol [facility] 63902467418 24018 UNIT Active 1 capsule Orally ProAir HFA [facility] 77329341728 108 (90 Base) Active 2 puffs MCG/ACT as needed Inhalation every 6 hrs Metoprolol Succinate [facility] 79657446900 100 MG Orally Active 1 tablet ER Once a day Potassium Chloride ER ND 91748875494 10 MEQ Orally Active 1 tablet twice a day with food Pantoprazole Sodium ND 49429688217 40 MG Active TAKE 1 TABLET BY MOUTH ONCE A DAY Hydrochlorothiazide [facility] 36413492303 25 MG Active TAKE 1 TABLET BY MOUTH ONCE A DAY Advair Diskus [facility] 49680284483 100-50 Active 1 puff MCG/DOSE Inhalation Twice a day Diclofenac Sodium [facility] 28321612873 1 % Nov 29, Active 2gram to Transdermal 2018 affected Three times a area day prn pain Gabapentin [facility] 25698933935 300 MG Orally Active 1 capsule Once a day before bedtime Zocor [facility] 55476393451 20 MG Active TAKE 1 TABLET BY MOUTH DAILY Tramadol HCl [facility] 54041248170 50 MG Orally January Active 1 tablet every 8 hrs 06, 13, as needed 2018 2018 Hydrochlorothiazide [facility] 02650582437 25 MG Active TAKE 1 TABLET BY MOUTH ONCE A DAY Metoprolol Succinate [facility] 01801598008 100 MG Active TAKE 1 ER TABLET BY MOUTH EVERY DAY Protonix [facility] 87609265317 40 MG Active TAKE 1 TABLET BY MOUTH ONCE A DAY Zocor [facility] 58967226264 20 MG Active TAKE 1 TABLET BY MOUTH DAILY Ferrous Sulfate [facility] 24621204881 325 (65 Fe) MG Active 1 tablet Orally Once a day Simvastatin [facility] 52086725596 20 MG Orally Active 1 tablet Once a day in the evening Magnesium Oxide [facility] 47095948899 400 MG Orally Active 1 tablet Once a day as needed Results No Known Results Summary Purpose eClinicalWorks Submission
--- OUTSIDE RECORDS SUMMARY | 2019-06-17 21:43 | XMS REPORT ---
[...] End Date Status Dosage System Date Simvastatin [facility] 59927329745 20 MG Orally Active 1 tablet in Once a day the evening Results No Known Results Summary Purpose eClinicalWorks Submission
--- OUTSIDE RECORDS SUMMARY | 2019-06-17 21:43 | XMS REPORT ---
[...] End Status Dosage System Date Date Zocor [facility] 15296063324 20 MG Active TAKE 1 TABLET BY MOUTH DAILY Clonidine HCl ND 06168491363 0.1 MG Orally Active 1 tablet every 4 hours PRN High BP Docusate Sodium ND 21223073733 100 MG Orally Active 1 capsule Once a day as needed Heparin Sodium [facility] 85277307930 5000 UNIT/ML Active 1 ml (Porcine) Injection every 12 hrs Advair Diskus [facility] 82972215880 100-50 Active 1 puff MCG/DOSE Inhalation Twice a day Hydrochlorothiazide [facility] 90850492585 25 MG Active TAKE 1 TABLET BY MOUTH ONCE A DAY Potassium Chloride ER [facility] 85365899933 10 MEQ Orally Active 1 tablet twice a day with food - ND 0 Active not defined Magnesium Oxide [facility] 89372612076 400 MG Orally Active 1 tablet Once a day as needed Ergocalciferol [facility] 29966577343 [address]655 UNIT Active 1 capsule Orally Metoprolol Succinate [facility] 39404931816 50 MG Orally Active 1 tablet ER Once a day Pantoprazole Sodium [facility] 47351472254 40 MG Active TAKE 1 TABLET BY MOUTH ONCE A DAY Megestrol Acetate [facility] 31252091851 40 MG Orally Active 1 tablet Once a day Gabapentin [facility] 75781323564 300 MG Orally Active 1 capsule Once a day before bedtime Lactulose [facility] 14783232098 10 GM/15ML Active 15 ml Orally Once a day Tylenol # 3 NDC 0 300/30mg PO Active one tab BID PRN Simvastatin ND 96220764673 20 MG Orally Active 1 tablet Once a day in the evening Diclofenac Sodium [facility] 40324917760 1 % Active 2gram to Transdermal affected Three times a area day prn pain Ferrous Sulfate [facility] 32367854869 325 (65 Fe) MG Active 1 tablet Orally Once a day Polyethylene Glycol [facility] 74083041105 - Active as 3350 directed ProAir HFA [facility] 91890695390 108 (90 Base) Active 2 puffs as MCG/ACT needed Inhalation every 6 hrs Results No Known Results Summary Purpose eClinicalWorks Submission
--- OUTSIDE RECORDS SUMMARY | 2019-06-17 21:43 | XMS REPORT ---
[...] Start End Status Dosage System Date Date [facility] 92165931993 20 MG Active TAKE 1 TABLET BY MOUTH DAILY Potassium Chloride ER [facility] 12113319623 10 MEQ Orally Active 1 tablet twice a day with food Hydrochlorothiazide ND 72559898152 25 MG Active TAKE 1 TABLET BY MOUTH ONCE A DAY Zocor [facility] 04899054266 20 MG Active TAKE 1 TABLET BY MOUTH DAILY Metoprolol Succinate [facility] 80752759135 100 MG Active TAKE 1 ER TABLET BY MOUTH EVERY DAY Advair Diskus [facility] 78260105457 100-50 Active 1 puff MCG/DOSE Inhalation Twice a day Diclofenac Sodium [facility] 79255438687 1 % Nov 29, Active 2gram to Transdermal 2019 affected Three times a area day prn pain Protonix [facility] 20648103852 40 MG Active TAKE 1 TABLET BY MOUTH ONCE A DAY Magnesium Oxide [facility] 57549927533 400 MG Orally Active 1 tablet Once a day as needed Metoprolol Succinate [facility] 33341056344 100 MG Orally Active 1 tablet ER Once a day Ergocalciferol [facility] 75338748694 [address]83 UNIT Active 1 capsule Orally Ferrous Sulfate [facility] 20789852036 325 (65 Fe) MG Active 1 tablet Orally Once a day Simvastatin [facility] 41395279753 20 MG Orally Active 1 tablet Once a day in the evening ProAir HFA [facility] 20867355967 108 (90 Base) Active 2 puffs as MCG/ACT needed Inhalation every 6 hrs Gabapentin [facility] 31709588865 300 MG Orally Active 1 capsule Once a day before bedtime Hydrochlorothiazide [facility] 18903352968 25 MG Active TAKE 1 TABLET BY MOUTH ONCE A DAY Results No Known Results Summary Purpose eClinicalWorks Submission
[2019-06-17 22:37] LABS: Absolute Lymphocytes (CBC) 2.4 K/uL (0.7-4.9); Basophils % 0.9 % (0-1.3); Hematocrit 37.1 % (36.0-45.0); Lymphocytes % 20.6 % (15.3-44.8); MPV 8.3 fL (7.6-11.3); RBC Red Blood Cell Count 4.37 M/uL (3.86-4.86)
[2019-06-17 22:41] LABS: Protime INR 1.04
[2019-06-17 22:59] LABS: BUN Blood Urea Nitrogen 19 mg/dL (7-18); Bicarbonate 28 mmol/L (21-32); Glucose Level 86 mg/dL (74-106); Magnesium 2.4 mg/dL (1.8-2.4); NT PRO-BNP 1456 pg/mL (<450); Potassium 3.4 mmol/L (3.5-5.1); Sodium Level 133 mmol/L (136-145); Troponin (Emerg Dept Use Only) < 0.02 ng/mL (0.0-0.045)
[2019-06-17] MEDS ORDERED: NA CHLORIDE 0.9% 500 ML ONE (23:13)
--- NOTE | 2019-06-18 00:44 | ER ---
Nurse's Notes [facility] Name: Cindy Sorto Age: 74 yrs Sex: Female : 1945 Arrival Date: 06/17/2019 Time: 21:45 Bed 16 Private MD: Diagnosis: Urinary tract infection, site not specified Presentation: 06/17 21:50 Presenting complaint: Patient states: she has not been able to eat much for the past aa1 couple days and has been feeling fatigued. States, "I haven't been vomiting or having no diarrhea but when I try to eat something I can only eat a little bit and then I can't eat no more and I just feel weak.". Transition of care: patient was not received from another setting of care. Onset of symptoms was June 14, 2019. Risk Assessment: Do you want to hurt yourself or someone else? Patient reports no desire to harm self or others. Initial Sepsis Screen: Does the patient meet any 2 criteria? No. Patient's initial sepsis screen is negative. Does the patient have a suspected source of infection? Yes: Skin breakdown/wound. Care prior to arrival: None. 21:50 Method Of Arrival: EMS: [facility] aa1 21:50 Acuity: FRANCO 3 aa1 Historical: - Allergies: 22:28 NKDA; aa1 - Home Meds: 22:28 Albuterol Inhl [Active]; aspirin 81 mg Oral chew 1 tab once daily [Active]; aa1 cholecalciferol (vitamin D3) 1,000 unit Oral tab [Active]; clonidine HCl 0.1 mg Oral tab [Active]; docusate sodium 100 mg Oral cap [Active]; heparin (porcine) 5,000 unit/mL (1 mL) injection crtg every 12 hours [Active]; hydrochlorothiazide 25 mg Oral tab 1 tab once daily [Active]; hydrocodone-acetaminophen 7.5-325 mg Oral tab [Active]; lactulose 20 gram/30 mL Oral soln [Active]; Magnesium Oxide Oral daily [Active]; megestrol 40 mg Oral tab [Active]; metoprolol succinate Oral [Active]; Miralax 17 gram/dose Oral powd [Active]; pantoprazole 40 mg Oral TbEC [Active]; povidone-iodine miscellaneous [Active]; simvastatin 20 mg Oral tab [Active]; - PMHx: 22:28 AAA; Hyperlipidemia; Hypertension; Polio; aa1 - PSHx: 22:28 partial amputation of right foot.; aa1 - Immunization history:: Last tetanus immunization: unknown. - Social history:: Smoking status: Patient uses tobacco products, smokes one-half pack cigarettes per day. - Ebola Screening: : No symptoms or risks identified at this time. Screenin:50 Abuse screen: Denies threats or abuse. Denies injuries from another. Nutritional aa1 screening: No deficits noted. Tuberculosis screening: No symptoms or risk factors identified. Fall Risk Gait- Impaired (20 pts.). Assessment: 21:50 General: Appears in no apparent distress. comfortable, cachectic, Behavior is calm, aa1 cooperative, appropriate for age. Pain: Denies pain. Neuro: Level of Consciousness is awake, alert, obeys commands, Oriented to Appropriate for age Moves all extremities. Speech is normal. Cardiovascular: Heart tones S1 S2 present. Respiratory: Airway is patent Respiratory effort is even, unlabored, Respiratory pattern is regular, symmetrical. GI: Abdomen is flat, Bowel sounds present X 4 quads. Abd is soft and non tender X 4 quads. Reports decreased appetite Patient currently denies abdominal pain, constipation, diarrhea, nausea, vomiting. : No signs and/or symptoms were reported regarding the genitourinary system. EENT: No signs and/or symptoms were reported regarding the EENT system. Derm: Skin is intact, is thin, Skin is dry, Skin is normal, Skin temperature is warm. Derm: Wound noted right foot Other: Post surgical wound noted to R foot with sutures intact and eschar present from amputation of all 5 toes done 4 months ago. Musculoskeletal: Circulation, motion, and sensation intact. Capillary refill < 3 seconds. 22:45 Reassessment: Patient appears in no apparent distress at this time. Patient and/or aa1 family updated on plan of care and expected duration. Pain level reassessed. Patient is alert, oriented x 3, equal unlabored respirations, skin warm/dry/pink. Awaiting lab results. 23:45 Reassessment: Patient appears in no apparent distress at this time. Patient and/or aa1 family updated on plan of care and expected duration. Pain level reassessed. Patient is alert, oriented x 3, equal unlabored respirations, skin warm/dry/pink. Awaiting urine sample. 06/18 00:30 Reassessment: Patient appears in no apparent distress at this time. Patient and/or aa1 family updated on plan of care and expected duration. Pain level reassessed. Patient is alert, oriented x 3, equal unlabored respirations, skin warm/dry/pink. Urine sample obtained at this time. 01:00 Reassessment: Patient appears in no apparent distress at this time. Patient is alert, aa1 oriented x 3, equal unlabored respirations, skin warm/dry/pink. Discussed d/c \\T\\ f/u instructions with pt \\T\\ family; denies questions or concerns at this time. Vital Signs: 06/17 21:50 BP 150 / 67; Pulse 77; Resp 18; Temp 98.4(O); Pulse Ox 100% on R/A; Weight 40.82 kg aa1 (R); Height 5 ft. 5 in. (165.10 cm) (R); Pain 0/10; 22:32 BP 160 / 80; Pulse 78; Resp 18; Pulse Ox 100% on R/A; Pain 0/10; aa1 06/18 00:30 BP 178 / 66; Pulse 77; Resp 20; Temp 98.6; Pulse Ox 99% on R/A; Pain 0/10; aa1 01:05 BP 180 / 77; Pulse 79; Resp 18; Pulse Ox 100% on R/A; Pain 0/10; aa1 06/17 21:50 Body Mass Index 14.98 (40.82 kg, 165.10 cm) [facility] ED Course: 06/17 21:45 Patient arrived in ED. aa1 21:47 [facility] Bar[facility]C [facility]. kb 21:47 Epifanio Lu MD is Attending Physician. kb 21:50 Arm band placed on left wrist. Patient placed in an exam room, on a stretcher. aa1 21:50 Patient has correct armband on for positive identification. Bed in low position. Call aa1 light in reach. Side rails up X2. test developer on. Pulse ox on. NIBP on. Warm blanket given. Pillow given. 22:05 Yolanda Billy, SEAN is Primary Nurse. aa1 22:19 Triage completed. aa1 22:47 EKG done, by ED staff, reviewed by Mary DORADO. Inserted saline lock: 22 ag4 gauge in left antecubital area, using aseptic technique. Blood collected. 06/18 00:30 IV discontinued, intact, bleeding controlled, Pressure dressing applied, IV infiltrated aa1 during NS infusion. 01:05 No provider procedures requiring assistance completed. aa1 Administered Medications: 06/17 23:13 Drug: NS 0.9% 500 ml Route: IV; Rate: bolus; Site: left antecubital; aa1 06/18 00:30 Follow up: IV Status: IV infiltrated; IV Intake: 400ml aa1 00:50 Drug: Rocephin (cefTRIAXone) 1 grams Route: IM; Site: left gluteus; aa1 01:05 Follow up: Response: No adverse reaction; Medication administered at discharge. aa1 Intake: 00:30 IV: 400ml; Total: 400ml. aa1 Outcome: 00:40 Discharge ordered by . thomas 01:05 Discharged to home via wheelchair, with family. aa1 01:05 Condition: good 01:05 Discharge instructions given to patient, family, Instructed on discharge instructions, follow up and referral plans. medication usage, Demonstrated understanding of instructions, follow-up care, medications, Prescriptions given X 1. 01:07 Patient left the ED. aa1 Signatures: Mary Barahona FNP-C FNP-Ckb Autenrieth, Alissa RN RN aa1 Antolin Chacon ag4
--- NOTE | 2019-06-18 00:45 | EDPHYS ---
Physician Documentation [facility] Name: Cindy Sorto Age: 74 yrs Sex: Female : 1945 Arrival Date: 06/17/2019 Time: 21:45 Bed 16 Private MD: ED Physician Epifanio Lu HPI: 06/18 01:37 This 74 yrs old Black Female presents to ER via EMS with complaints of Decreased kb Appetite. 01:37 The patient presents to the emergency department with nausea, vomiting, diarrhea. kb Onset: The symptoms/episode began/occurred yesterday. Possible causes: unknown. The symptoms are aggravated by nothing. The symptoms are alleviated by nothing. Associated signs and symptoms: Pertinent positives: diarrhea, nausea, vomiting, decreased appetite. Severity of symptoms: At their worst the symptoms were moderate in the emergency department the symptoms are unchanged. The patient has not experienced similar symptoms in the past. The patient has not recently seen a physician. Pt reports she had n/v/d yesterday, none today. Today feels weak and had a decreased appetite.. Historical: - Allergies: 06/17 22:28 NKDA; aa1 - Home Meds: 22:28 Albuterol Inhl [Active]; aspirin 81 mg Oral chew 1 tab once daily [Active]; aa1 cholecalciferol (vitamin D3) 1,000 unit Oral tab [Active]; clonidine HCl 0.1 mg Oral tab [Active]; docusate sodium 100 mg Oral cap [Active]; heparin (porcine) 5,000 unit/mL (1 mL) injection crtg every 12 hours [Active]; hydrochlorothiazide 25 mg Oral tab 1 tab once daily [Active]; hydrocodone-acetaminophen 7.5-325 mg Oral tab [Active]; lactulose 20 gram/30 mL Oral soln [Active]; Magnesium Oxide Oral daily [Active]; megestrol 40 mg Oral tab [Active]; metoprolol succinate Oral [Active]; Miralax 17 gram/dose Oral powd [Active]; pantoprazole 40 mg Oral TbEC [Active]; povidone-iodine miscellaneous [Active]; simvastatin 20 mg Oral tab [Active]; - PMHx: 22:28 AAA; Hyperlipidemia; Hypertension; Polio; aa1 - PSHx: 22:28 partial amputation of right foot.; aa1 - Immunization history:: Last tetanus immunization: unknown. - Social history:: Smoking status: Patient uses tobacco products, smokes one-half pack cigarettes per day. - Ebola Screening: : No symptoms or risks identified at this time. ROS: 06/18 01:34 Constitutional: Negative for fever, chills, and weight loss, ENT: Negative for injury, kb pain, and discharge, Neck: Negative for injury, pain, and swelling, Cardiovascular: Negative for chest pain, palpitations, and edema, Respiratory: Negative for shortness of breath, cough, wheezing, and pleuritic chest pain, Back: Negative for injury and pain, : Negative for injury, bleeding, discharge, and swelling, MS/Extremity: Negative for injury and deformity, Skin: Negative for injury, rash, and discoloration. Abdomen/GI: Positive for nausea, vomiting, diarrhea, decreased appetite. Neuro: Positive for weakness. Exam: 01:34 Constitutional: This is a well developed, well nourished patient who is awake, alert, kb and in no acute distress. Head/Face: Normocephalic, atraumatic. ENT: Nares patent. No nasal discharge, no septal abnormalities noted. Tympanic membranes are normal and external auditory canals are clear. Oropharynx with no redness, swelling, or masses, exudates, or evidence of obstruction, uvula midline. Mucous membranes moist. Neck: Trachea midline, no thyromegaly or masses palpated, and no cervical lymphadenopathy. Supple, full range of motion without nuchal rigidity, or vertebral point tenderness. No Meningismus. Chest/axilla: Normal chest wall appearance and motion. Nontender with no deformity. No lesions are appreciated. Cardiovascular: Regular rate and rhythm with a normal S1 and S2. No gallops, murmurs, or rubs. Normal PMI, no JVD. No pulse deficits. Respiratory: Lungs have equal breath sounds bilaterally, clear to auscultation and percussion. No rales, rhonchi or wheezes noted. No increased work of breathing, no retractions or nasal flaring. Abdomen/GI: Soft, non-tender, with normal bowel sounds. No distension or tympany. No guarding or rebound. No evidence of tenderness throughout. Back: No spinal tenderness. No costovertebral tenderness. Full range of motion. Skin: Warm, dry with normal turgor. Normal color with no rashes, no lesions, and no evidence of cellulitis. Neuro: Awake and alert, GCS 15, oriented to person, place, time, and situation. Cranial nerves II-XII grossly intact. Motor strength 5/5 in all extremities. Sensory grossly intact. Cerebellar exam normal. Normal gait. 01:34 Musculoskeletal/extremity: Extremities: grossly normal except: noted in the right foot: partial amputation with discoloration, sutures and rica still intact . Vital Signs: 06/17 21:50 BP 150 / 67; Pulse 77; Resp 18; Temp 98.4(O); Pulse Ox 100% on R/A; Weight 40.82 kg aa1 (R); Height 5 ft. 5 in. (165.10 cm) (R); Pain 0/10; 22:32 BP 160 / 80; Pulse 78; Resp 18; Pulse Ox 100% on R/A; Pain 0/10; aa1 06/18 00:30 BP 178 / 66; Pulse 77; Resp 20; Temp 98.6; Pulse Ox 99% on R/A; Pain 0/10; aa1 01:05 BP 180 / 77; Pulse 79; Resp 18; Pulse Ox 100% on R/A; Pain 0/10; aa1 06/17 21:50 Body Mass Index 14.98 (40.82 kg, 165.10 cm) aa1 MDM: 06/17 21:47 Patient medically screened. kb 06/18 01:37 Data reviewed: vital signs, nurses notes. Data interpreted: Pulse oximetry: on room air kb is 99 %. Interpretation: normal. Counseling: I had a detailed discussion with the patient and/or guardian regarding: the historical points, exam findings, and any diagnostic results supporting the discharge/admit diagnosis, lab results, radiology results, the need for outpatient follow up, a family practitioner, to return to the emergency department if symptoms worsen or persist or if there are any questions or concerns that arise at home. 06/17 21:48 Order name: Basic Metabolic Panel; Complete Time: 22:59 kb 06/17 21:48 Order name: CBC with Diff; Complete Time: 22:58 kb 06/17 21:48 Order name: Magnesium; Complete Time: 22:59 kb 06/17 21:48 Order name: NT PRO-BNP; Complete Time: 22:59 kb 06/17 21:48 Order name: PT-INR; Complete Time: 22:58 kb 06/17 21:48 Order name: Troponin (emerg Dept Use Only); Complete Time: 22:59 kb 06/17 21:48 Order name: Lactate; Complete Time: 22:58 kb 06/17 21:48 Order name: Blood Culture Adult (2) kb 06/17 21:48 Order name: Procalcitonin; Complete Time: 23:12 kb 06/18 00:35 Order name: Urine Microscopic Only 2 06/18 00:35 Order name: Urine Culture 2 06/18 00:42 Order name: Urine Dipstick--Ancillary (enter results) 2 06/18 00:56 Order name: Urine Dipstick-Ancillary [facility] 06/17 21:48 Order name: EKG; Complete Time: 21:49 kb 06/17 21:48 Order name: Cardiac monitoring; Complete Time: 22:45 kb 06/17 21:48 Order name: EKG - Nurse/Tech; Complete Time: 22:45 kb 06/17 21:48 Order name: IV Saline Lock; Complete Time: 22:38 kb 06/17 21:48 Order name: Labs collected and sent; Complete Time: 22:38 kb 06/17 21:48 Order name: O2 Per Protocol; Complete Time: 22:06 kb 06/17 21:48 Order name: O2 Sat Monitoring; Complete Time: 22:06 kb 06/17 23:06 Order name: Urine Dipstick-Ancillary (obtain specimen); Complete Time: 00:35 kb Administered Medications: 06/17 23:13 Drug: NS 0.9% 500 ml Route: IV; Rate: bolus; Site: left antecubital; aa1 06/18 00:30 Follow up: IV Status: IV infiltrated; IV Intake: 400ml aa1 00:50 Drug: Rocephin (cefTRIAXone) 1 grams Route: IM; Site: left gluteus; aa1 01:05 Follow up: Response: No adverse reaction; Medication administered at discharge. aa1 Disposition: 02:09 Co-signature as Attending Physician, Epifanio Lu MD. rn Disposition: 06/18/19 00:40 Discharged to Home. Impression: Urinary tract infection, site not specified. - Condition is Stable. - Discharge Instructions: Urinary Tract Infection, Adult, [id number]. - Prescriptions for Augmentin 875- 125 mg Oral Tablet - take 1 tablet by ORAL route every 12 hours for 10 days; 20 tablet. - Medication Reconciliation Form, Thank You Letter, Antibiotic Education, Prescription Opioid Use form. - Follow up: Emergency Department; When: As needed; Reason: Worsening of condition. Follow up: Private Physician; When: 2 - 3 days; Reason: Recheck today's complaints, Continuance of care, Re-evaluation by your physician. Signatures: Dispatcher [employer] [facility] Mary Barahona, AVE MICHAELS-Yolanda Frias RN RN aa1 Epifanio Lu MD MD labor delivery rn: (The following items were deleted from the chart) 06/17 22:04 21:48 Foot Right 3 View+RAD.RAD.[email or web address] ordered. [facility] 06/18 01:07 00:40 06/18/2019 00:40 Discharged to Home. Impression: Urinary tract infection, site aa1 not specified. Condition is Stable. Forms are Medication Reconciliation Form, Thank You Letter, Antibiotic Education, Prescription Opioid Use. Follow up: Emergency Department; When: As needed; Reason: Worsening of condition. Follow up: Private Physician; When: 2 - 3 days; Reason: Recheck today's complaints, Continuance of care, Re-evaluation by your physician. kb
[2019-06-18] MEDS ORDERED: CEFTRIAXONE 1000 MG/VIAL ONE (00:47)
[2019-06-18] MEDS ORDERED: LIDOCAINE 2% MPF 5 ML VIAL ONE (00:47)
[2019-06-18 00:56] LABS: Urine Blood 1+ (NEG); Urine Glucose NEGATIVE (NEG); Urine Protein 1+ (NEG)
[2019-06-18 01:37] VITALS: BP 178/66; TEMP 98.6; O2SAT 99
[2019-06-18 01:42] LABS: Urine Bacteria LOADED /HPF (<20); Urine Culture Reflex Order NOT NEEDED; Urine RBC <5 /HPF (NONE SEEN)
--- NOTE | 2019-06-18 09:21 | EKG ---
Test Date: 2019-06-17 Test Time: 22:48:13 Architectural Draftsman: AG3 MEASUREMENT RESULTS: Intervals: Rate: 77 OK: 144 QRSD: 66 QT: 386 QTc: 436 [place]: P: 78 OK: 144 QRS: 50 T: 96 INTERPRETIVE STATEMENTS: Normal sinus rhythm Nonspecific ST and T wave abnormality Abnormal ECG Compared to ECG 06/15/2019 12:58:47 Sinus tachycardia no longer present Electronically Signed On 06-18-19 09:20:18 CDT by Miki Duggan
== END 2019-06-18 01:07 | disposition home or self-care (01) ==
LOC: ER 21:38
DX: N39.0 Urinary tract infection, site not specified (principal); I10 Essential (primary) hypertension; E78.5 Hyperlipidemia, unspecified; F17.210 Nicotine dependence, cigarettes, uncomplicated; Z79.82 Long term (current) use of aspirin
CPT/HCPCS: 36415; 80048; 81003; 81015; 83605; 83735; 83880; 84145; 84484; 85025; 85610; 87040; 87086; 87088; 93005; 96360; 96372; 99285

== ENCOUNTER 2019-07-02 08:50 | Day surgery (SDC) | payer OTHER ==
--- NOTE | 2019-07-01 13:49 | RAD REPORT ---
EXAM DESCRIPTION: RAD - Chest Pa And Lat (2 Views) - 07/01/2019 1:43 pm CLINICAL HISTORY: preop Chest pain. COMPARISON: Chest Single View dated 06/15/2019; Chest Single View dated 04/25/2019; Chest Single View d ated 12/18/2018; Chest Pa And Lat (2 Views) dated 01/03/2017 TECHNIQUE: PA and lateral views of the chest were obtained. FINDINGS: The lungs are hyperexpanded compatible with COPD. The heart is upper limit of normal in si ze. No fracture or aggressive bony process. IMPRESSION: COPD without acute process identified.
[2019-07-01 14:06] LABS: Absolute Lymphocytes (CBC) 1.8 K/uL (0.7-4.9); Basophils % 1.1 % (0-1.3); Hematocrit 34.8 % (36.0-45.0); Lymphocytes % 28.8 % (15.3-44.8); MPV 8.1 fL (7.6-11.3); RBC Red Blood Cell Count 3.97 M/uL (3.86-4.86)
[2019-07-01 14:14] LABS: Potassium 4.4 mmol/L (3.5-5.1)
--- NOTE | 2019-07-01 16:10 | EKG ---
Test Date: 2019-07-01 Test Time: 13:32:04 Knitting Demonstrator: ANGELA MEASUREMENT RESULTS: Intervals: Rate: 72 UT: 126 QRSD: 70 QT: 364 QTc: 398 [place]: P: 70 UT: 126 QRS: 46 T: 47 INTERPRETIVE STATEMENTS: Normal sinus rhythm Possible Left atrial enlargement Borderline ECG Compared to ECG 06/17/2019 22:48:13 ST (T wave) deviation no longer present Electronically Signed On 07-01-19 16:09:20 CDT by Tino Damon
--- OUTSIDE RECORDS SUMMARY | 2019-07-02 08:53 | XMS REPORT | Clinical Summary ---
:1945 Author Organization [facility] Address [address] [place] [address] Care Team Providers Name Role Phone System, Provider Not In MD Primary Care Provider Unavailable Allergies No Known Allergies Medications Medication Sig Dispensed Refills Start End Status Date Date metoprolol succinate Take 100 mg by 0 Active XL (TOPROL-XL) 100 mg mouth daily. 24 hr tablet hydroCHLOROthiazide Take 25 mg by 0 Active (HYDRODIURIL) 25 MG mouth every tablet morning. simvastatin (ZOCOR) 20 Take 20 mg by 0 Active MG tablet mouth every morning. pantoprazole Take 40 mg by 0 Active (PROTONIX) 40 MG EC mouth daily. tablet magnesium oxide Take 400 mg by 0 Active (MAG-OX) 400 mg (241.3 mouth daily. mg magnesium) tablet albuterol (PROAIR Inhale 1-2 0 Active HFA,PROVENTIL puffs every 4 HFA,VENTOLIN HFA) 90 (four) hours as mcg/actuation inhaler needed for wheezing or shortness of breath. povidone-iodine Apply topically 0 Active (BETADINE) 10 % daily as needed external solution for wound care (to left foot). HYDROcodone-acetaminop Take 1 tablet 0 Active hen (NORCO) 7.5-325 mg by mouth 2 per tablet (two) times a day. X 28 days CHOLECALCIFEROL, Take 1 tablet 0 Active VITAMIN D3, ORAL by mouth daily. traMADol (ULTRAM) 50 Take 50 mg by 0 Discontinued mg tablet mouth every 4 019 (four) hours as needed for moderate pain. povidone-iodine Apply topically 500 mL 2 02/02/20 Discontinued (BETADINE) 10 % daily for 30 (Med List external solution days. Cleanup) doxycycline Take 1 tablet 20 tablet 1 02/02/20 (VIBRA-TABS) 100 MG (100 mg total) 19 019 tablet by mouth 2 (two) times a day for 10 days. aspirin (ECOTRIN) 81 Take 1 tablet 90 tablet 3 03/20/20 MG enteric coated (81 mg total) 19 019 tablet by mouth daily for 90 days. clonIDINE (CATAPRES) Take 1 tablet 60 tablet 0 03/19/20 0.1 MG tablet (0.1 mg total) 19 019 by mouth every 4 (four) hours as needed for high blood pressure for up to 30 days. docusate sodium Take 1 capsule 60 capsule 3 03/19/20 (COLACE) 100 MG (100 mg total) 19 019 capsule by mouth 2 (two) times a day for 30 days. heparin sodium,porcine Inject 1 mL 60 mL 1 03/19/20 (HEPARIN, PORCINE,) (5,000 Units 019 5,000 unit/mL total) under injection the skin every 12 (twelve) hours for 30 days. lactulose 20 gram/30 Take 15 mL (10 1 Bottle 2 03/19/20 mL solution g total) by 19 019 mouth 3 (three) times a day as needed (constipation) for up to 30 days. megestrol (MEGACE) 40 Take 1 tablet 30 tablet 3 03/20/20 MG tablet (40 mg total) 19 019 by mouth daily for 30 days. [...] Care Team Description 02/28/2019 Anesthesia Event Orthopedic Berhollyich, Surgery Barron Betts MD 02/28/2019 Surgery Orthopedic Bubba Cr AMPUTATION, FOOT, Surgery HTerrance, DPM TRANSMETATARSAL 02/27/2019 Anesthesia Event Orthopedic Glenna Dickey MD Roseman, Stephen Conrad, MD 02/21/2019 - Hospital Encounter Orthopedic Gregory, Dry [...] Essential hypertension Mekhi Medeiros Sr., MD after 07/01/2018 Social History Tobacco Use Types Packs/Day Years [...] Vital Signs Vital Sign Reading Time Taken Comments Blood Pressure 109/54 03/19/2019 11:13 AM CDT [...] in the results section. AMPUTATION, FOOT, 02/28/2019 11:12 A TRANSMETATARSAL AM CDT HC COMPLETE BLD [...] are in SPECTRAL COLOR DOPPLER the results (63624) section. CV CTA ABDOMEN W RUNOFF Routine [...] procedure are in the results section. after 07/01/2018 Results Estimated GFR (03/17/2019 4:37 AM CDT)Only the most recent of13 resultswithin the time period is included. Estimated GFR 56 (A) mL/min/1.73 MARTINEZ ROMAN CATHOLIC Comment: m2 HOSPITAL CatergoryUnitsInterpretation G1 >=90 Normal or high G2 60-89Mildly decreased [id number] to moderately decreased D0x01-05Nincdsvezp to severely decreased G4 15-29Severely decreased G5 <15Kidney failure The eGFR was calculated using the Chronic Kidney Disease Epidemiology Collaboration (CKD-EPI) equation. Interpretation is based on recommendations of the National Kidney Foundation-Kidney Disease Outcomes Quality Initiative (NKF-KDOQI) published in 2014. Specimen Plasma specimen Performing Organization Address City/State/Zipcode Phone Number [facility] DEPARTMENT OF PATHOLOGY AND [address] [place] [address] GENOMIC MEDICINE [facility] [address] [place] [address] CBC with platelet and differential (03/17/2019 4:37 AM CDT)Only the most recent of14 resultswithin the time period is included. WBC 7.93 4.50 - 11.00 [facility] k/uL HOSPITAL RBC 3.49 (L) 4.20 - 5.50 [facility] m/uL [facility] HGB 10.0 (L) 12.0 - 16.0 [facility] gdL [facility] HCT 32.6 (L) 37.0 - 47.0 % [facility] MCV 93.4 82.0 - 100.0 [facility] MCH 28.7 27.0 - 34.0 pg [facility] MCHC 30.7 (L) 31.0 - 37.0 [facility] g/dL [facility] RDW - SD 55.3 (H) 37.0 - 55.0 fL [facility] MPV 10.4 8.8 - 13.2 fL [facility] Platelet count 361 150 - 400 k/uL [facility] Nucleated RBC 0.00 /100 WBC [facility] Neutrophils 59.4 39.0 - 69.0 % [facility] Lymphocytes 26.4 25.0 - 45.0 % [facility] Monocytes 10.3 (H) 0.0 - 10.0 % [facility] Eosinophils 2.8 0.0 - 5.0 % [facility] Basophils 0.6 0.0 - 1.0 % [facility] Immature granulocytes 0.5Comment: 0.0 - 1.0 % [facility] "Immature HOSPITAL granulocytes" (promyelocytes , myelocytes, metamyelocytes ) Specimen Blood Performing Organization Address City/[facility] Phone Number [facility] DEPARTMENT OF PATHOLOGY AND [address] [place] [phone] [place] [address] Basic metabolic panel (03/17/2019 4:37 AM CDT)Only the most recent of11 resultswithin the time period is included. Pathologist [facility] Sodium 138 135 - 148 mEq/L [facility] Potassium 3.9 3.5 - 5.0 mEq/L [facility] Chloride 100 98 - 112 mEq/L [facility] CO2 24 24 - 31 mEq/L [facility] Anion gap 14@ANIO 7 - 15 mEq/L [facility] BUN 22 8 - 23 mg/dL [facility] Creatinine 1.11 (H) 0.50 - 0.90 mg/dL [facility] Glucose 87 65 - 99 mg/dL [facility] Calcium 10.4 (H) 8.8 - 10.2 mg/dL [facility] Specimen Plasma specimen Performing Organization Address City/[facility] Phone Number [facility] DEPARTMENT OF PATHOLOGY AND [address] [place] [phone] [place] [address] Vancomycin level, trough (03/07/2019 8:40 PM CDT)Only the most recent of4 resultswithin the time period is included. Pathologist [facility] Vancomycin, 15.2 10.0 - 20.0 [facility] trough Comment: ug/mL HOSPITAL Therapeutic Ranges: Peak 30.0 - 40.0 ug/mL Kszvjj63.0 - 20.0 ug/mL Specimen Serum Performing Organization Address City/[facility]/Zipcode Phone Number [facility] DEPARTMENT OF PATHOLOGY AND [address] [place] [phone] [place] [address] Arterial blood gas (03/01/2019 3:56 PM CDT) Pathologist [facility] pH, arterial 7.44 7.35 - 7.45 [facility] pCO2, arterial 42 35 - 45 mmHg [facility] pO2, arterial 58 (L) 80 - 90 mmHg [facility] Bicarbonate, 28.6 (H) 21.0 - 28.0 [facility] arterial mmol/L HOSPITAL Base excess, 5 (H) -2 - 2 mEq/L [facility] arterial [facility] O2 saturation, 90 (L) 95 - 100 % [facility] arterial [facility] Specimen Blood Performing Organization Address City/[facility] Phone Number [facility] DEPARTMENT OF PATHOLOGY AND [address] [place] [address] GENOMIC MEDICINE [facility] [address] [place] [address] CT Head Wo Contrast (03/01/2019 3:31 PM [...] Madiha at 3:35 PM. She verbalized understanding. [facility]-[id number] Procedure Note Hm Interface, Radiology Results Incoming - 03/01/2019 3:40 [...] Madiha at 3:35 PM. She verbalized understanding. [facility]-[id number] Performing Organization Address City/State/Zipcode Phone Number [facility] [address] [place] [address] XR Foot 3+ Vw Right (03/01/2019 9:32 AM CDT)Only the most recent of2 resultswithin the time period is included. Specimen Narrative Performed At EXAM:XR FOOT 3VW RIGHT [facility] CLINICAL:Status post amputation COMPARISON:02/21/2019 IMPRESSION: 1.Mid metatarsal amputation through all digits. Overlying skin rica. Drainage catheter in place. No osseous erosions. Mild soft tissue swelling around the forefoot. 2.Generalized bone demineralization. [facility]-[id number] Procedure Note Interface, Radiology Results Incoming - 03/01/2019 9:40 AM CDT EXAM: XR FOOT 3 VW RIGHT CLINICAL: Status post amputation COMPARISON: 02/21/2019 IMPRESSION: 1. Mid metatarsal amputation through all digits. Overlying skin rica. Drainage catheter in place. No osseous erosions. Mild soft tissue swelling around the forefoot. 2. Generalized bone demineralization. [facility]-[id number] Performing Organization Address [facility] Phone Number [facility] [address] [place] [address] Surgical pathology request (02/28/2019 11:48 AM CDT) [facility] DEPARTMENT OF PATHOLOGY AND GENOMIC MEDICINE Surgical pathology See link below [facility] DEPARTMENT OF report for PDF Lab PATHOLOGY AND Report GENOMIC MEDICINE Result status This is Final [facility] DEPARTMENT OF Report for PATHOLOGY AND [id number] GENOMIC MEDICINE Specimen Performing Organization Address City/[facility] Phone Number [facility] DEPARTMENT OF PATHOLOGY AND [address] [place] [address] GENOMIC MEDICINE Type and screen (02/27/2019 11:55 AM CDT)Only the most recent of2 resultswithin the time period is included. ABO grouping A [facility] Rh type POS [facility] Antibody screen (gel) POS [facility] Specimen Performing Organization Address City/[facility]/Zipcode Phone Number [facility] DEPARTMENT OF PATHOLOGY AND [address] [place] [address] GENOMIC MEDICINE [address] [address] Isabela antigen patient typing (02/26/2019 3:45 AM CDT) Isabela Antigen Patient NEG [facility] Specimen Performing Organization Address City/[facility] Phone Number [facility] DEPARTMENT OF PATHOLOGY AND [address] [place] [address] e Antigen patient typing (little e) (02/26/2019 3:45 AM CDT) e Antigen Patient Typing POS [facility] ([facility] e) [facility] Specimen Performing Organization Address [facility] Phone Number [facility] DEPARTMENT OF PATHOLOGY AND [address] [place] [address] Direct Ramo' (SANTIAGO) (02/26/2019 3:45 AM CDT) [id number] Polyspecific [facility] Specimen Performing Organization Address [facility] Phone Number [facility] DEPARTMENT OF PATHOLOGY AND [address] [place] [address] c Antigen patient typing ([facility] c) (02/26/2019 3:45 AM CDT) c Antigen Patient Typing POS [facility] ([facility]) [facility] Specimen Performing Organization Address [facility] Phone Number [facility] DEPARTMENT OF PATHOLOGY AND [address] [place] [address] Positive SANTIAGO reflex (02/26/2019 3:45 AM CDT) IgG Ramo, gel POS [facility] Anti-complement POSComment: [facility] 02/26/19 [facility] CONTROL NEGATIVE. KG Specimen Performing Organization Address City/[facility] Phone Number [facility] DEPARTMENT OF PATHOLOGY AND [address] [place] [address] E antigen patient typing (02/26/2019 3:45 AM CDT) E Antigen Patient Typing NEG [facility] Specimen Performing Organization Address City/[facility] Phone Number [facility] DEPARTMENT OF PATHOLOGY AND [address] [place] [address] [place] [address] C antigen patient typing (02/26/2019 3:45 AM CDT) Pathologist [facility] C Antigen Patient Typing POS [facility] Specimen Performing Organization Address City/State/Zipcode Phone Number [facility] DEPARTMENT OF PATHOLOGY AND [address] [place] [address] [address] Elution (02/26/2019 3:45 AM CDT) Elution POS [facility] Comment: HOSPITAL POS W/ ALL CELLS Although these serological findings cannot differentiate between a drug induced or a true auto-immune state, this patient should be monitored for signs of an ongoing hemolytic process.Verified by [id number]. Specimen Performing Organization Address City/State/Zipcode Phone Number [facility] DEPARTMENT OF PATHOLOGY AND [address] [place] [phone] [place] [address] Antibody identification (02/26/2019 3:45 AM CDT) Pathologist [facility] Antibody ID POS, Warm Autoantibody [facility] Comment: HOSPITAL Adsorption studies ruled out the presence of underlying alloantibodies. Red cells for transfusion will be antigen matched for the Rh and K antigens and crossmatch least incompatible.Verified by [id number]. Specimen Performing Organization Address City/State/Zipcode Phone Number [facility] DEPARTMENT OF PATHOLOGY AND [address] [place] [address] [address] Prothrombin time with INR (02/26/2019 3:45 AM CDT)Only the most recent of2 resultswithin the time period is included. [facility] Prothrombin time 13.3 11.5 - 14.5 [facility] INR 1.0 [place] Comment: ROMAN CATHOLIC [facility] Normalized Ratio (INR) is a therapeutic HOSPITAL monitoring tool for patients who are stable on oral anticoagulant therapy. An INR of 2.0-3.0 is suggested for deep vein thrombosis/pulmonary embolism. Specimen Blood Performing Organization Address City/State/Zipcode Phone Number [facility] DEPARTMENT OF PATHOLOGY AND [address] [place] [address] [address] Prepare RBC (02/26/2019 3:45 AM CDT) Product name Red Blood Cells [facility] -1, Leukored HOSPITAL Unit number [id number] [facility] Product code [id number] [facility] Dispense status Transfused [facility] Blood expiration [id number] [facility] Blood type code 0600 [facility] Blood type A NEGATIVE [facility] Specimen Performing Organization Address City/State/Zipcode Phone Number [facility] DEPARTMENT OF PATHOLOGY AND [address] [place] [address] GENOMIC MEDICINE [address] [address] MRI Foot Wo Contrast Right (02/24/2019 8:00 [...] the first digit without osteomyelitis as described. *[id number] Procedure Note Interface, Radiology Results Incoming - 02/24/2019 8:25 [...] the first digit without osteomyelitis as described. *[id number] Performing Organization Address City/[facility] Phone Number [facility] [address] [place] [address] Cv stress test (02/23/2019 11:30 AM CDT) Resting HR 60 [facility] MUSE Resting BP 123 [facility] MUSE Peak MET Achieved 1.0 [facility] MUSE Protocol Name REGADENO [facility] MUSE Time in Exercise 00:01:00 [facility] Phase Max Systolic BP 129 [facility] Max Diastolic BP 58 [facility] Max Heart Rate 96 [facility] Max Predicted Heart 146 [facility] Rate Target HR Formula (220 - Age)*100% [facility] M[facility] Test Indication CAD [facility] Arrhy During Ex [facility] ECG Interp Before EX [facility] ECG Interp During Ex [facility] Ex Summary Comment [facility] MUSE Overall HR Response [facility] MUSE to Exercise Overall BP Response H MUSE To Exercise Reason for [facility] MUSE Termination Stress Test Waveform interpreted in [facility] MUSE Impression report associated with image study. No interpretation is provided as part of this Stress ECG report.--Electronically Signed By Shruthi COE, Marion ([id number]), assignment desk editor Nikky Boateng ([id number]) on 02/23/2019 12:51:07 PM Specimen Narrative Performed At Performing Organization Address City/[facility] Phone Number [employer] [address] [place] [address] Nm myocardial perfusion (02/23/2019 11:30 AM CDT) Specimen Narrative Performed At [facility]iology and Cardiac CT [address] [address] Myocardial Perfusion Imaging Report Stress ECG tracings are available in [employer], [employer] and [employer] All ECG interpretations are included in this report Pat.Name:KP MEDEIROS.ID:[id number] .Date: 02/23/2019 Refer.MD:MARION WILKINSON MD Exam Time: 10:28:00 AM Study Type:Myocardial Perfusion Imaging Height:64inBSA: 1.43 m2 DOBAge:1945,73Y Sex: FEMALE BP:123/56HR: 60 bpm HCT: 31.5 %Nuclear Tech:PHILLIP Carter Pat. Stat.:[facility] Event ID:[id number] Order ID:[id number] Reason for Study:Pre-Op, CAD History / Clinical:Abdominal aortic aneurysm, Coronary artery disease, Hyperlipidemia, Hypertension, GERD, PCI Procedures:High Dose Stress Only Risk Factors:Hyperlipidemia, Hypertension Clinical Symptoms:Regadenoson Physical Exam:S1, S2 Surgery: Serum K+ Date,3.8/02/22/19, Troponin I Date, 1)Neg/02/21/19 2)/ 3)/, BUN/Creatinine [...] AM CDT Nuclear Cardiology and Cardiac CT [address] [place] [id number] Myocardial Perfusion Imaging Report Stress ECG tracings are available in [employer], [employer] and [employer] Web All ECG interpretations are included in this report Pat.Name: KP MEDEIROS Pat.ID: [id number] .Date: 02/23/2019 Refer.MD: MARION WILKINSON MD Exam Time: 10:28:00 AM Study Type:Myocardial Perfusion Imaging Height: 64in BSA: 1.43 m2 Age: 7 1945,73Y Sex: FEMALE BP: 123/56 HR: 60 bpm HCT: 31.5 % Nuclear Tech:PHILLIP Carter Pat. Stat.:Inpatient Room: [facility] Nuclear Event ID:[id number] Order ID: [id number] Reason for Study:Pre-Op, CAD History / Clinical:Abdominal [...] AM Marion Hawkins MD Performing Organization Address [facility] Phone Number [facility] [address] [place] [address] ECG 12 lead (02/21/2019 5:53 PM CDT) Ventricular rate 73 [facility] Atrial rate 73 [facility] AK interval 152 [facility] QRSD interval 74 [facility] QT interval 368 [facility] QTC interval 405 [facility] P axis 1 31 [facility] QRS axis 1 47 [facility] T wave axis 64 [facility] M[facility] EKG impression Normal sinus [facility] MUSE rhythm-Possible Anterior infarct , age undetermined-Abnormal ECG-No previous ECGs available-Electronicall y Signed By Emily COE, Camacho Marrero ([id number]) on 02/21/2019 8:44:44 PM Specimen Narrative Performed At Performing Organization Address [facility] Phone Number [facility] MUSE [address] ankle brachial index (02/21/2019 2:45 PM CDT) Specimen Narrative Performed At [facility] Vascular Diagnostic Laboratory Physiologic Arterial Leg Report [address] [place] [address] Pat.Name:KP MEDEIROS.ID:[id number] .Date: 02/21/2019 Refer.MD:SUNG GREGORY MD Exam Time: 2:16:00 PMStudy Type:Physiologic Leg Height:64inWeight: 130lb BSA: 1.63 m2 DOBAge:1945,73Y Sex: FEMALESonogrphr: Carmen Carreno RVT Pat. Stat.:Inpatient Room:ED-09 TapeVol: LN, CPT - 4: 92882 Echo Event ID:[id number] Order ID:[id number] Reason for Study:Right great toe dry gangrene. Right great toe pain that has been worsening for the past 3 weeks. Procedures:Ankle/brachial pressures, PPG waveform tracing, Segmental pressures Race:B SUMMARY: SEGMENTAL PRESSURE(mmHg): RIGHT LEFT Brachial 110 122 Ankle DP 29 31 Ankle [id number] Great Toe Unable to obtainAbsent ANKLE/BRACHIAL INDEX: [...] Diagnostic Laboratory Physiologic Arterial Leg Report [address] [place] [address] Pat.Name: KP MEDEIROS Pat.ID: [id number] St.Date: 02/21/2019 Refer.MD: SUNG GREGORY MD Exam Time: 2:16:00 PM Study Type:Physiologic Leg Height: 64in Weight: 130lb BSA: 1.63 m2 Age: 7 1945,73Y Sex: FEMALE Sonogrphr: Carmen Carreno RVT Pat. Stat.:Inpatient Room: ED-09 Tape Vol: LN, CPT - 4: 65467 Echo Event ID:[id number] Order ID: [id number] Reason for Study:Right great toe dry gangrene. [...] Washington MD, RPVI Performing Organization Address City/[facility]/Zipcode Phone Number [facility] [address] [place] [address] XR Foot 2 Vw Right (02/21/2019 2:16 [...] arthropathy.. 3.Soft tissue swelling overlies the forefoot. [id number] Procedure Note Interface, Radiology Results Incoming - [...] 3. Soft tissue swelling overlies the forefoot. [facility]-[id number] Performing Organization Address [facility]/State/Zipcode Phone Number [facility] [address] [place] [address] XR Chest 1 Vw Portable (02/21/2019 2:16 PM CDT) Specimen Narrative Performed At EXAMINATION:XR CHEST 1 VW PORTABLE [facility] CLINICAL HISTORY:chest pain COMPARISON:None. IMPRESSION: Single frontal view reveals a prominent cardiac silhouette with arch calcifications. Coarse interstitial markings are noted within the lungs with apical emphysematous changes. Pleural margins are sharp. The remainder of the examination is unremarkable. [id number] Procedure Note Interface, Radiology Results Incoming - 02/21/2019 2:29 PM CDT EXAMINATION: XR CHEST 1 VW PORTABLE CLINICAL HISTORY: chest pain COMPARISON: None. IMPRESSION: Single frontal view reveals a prominent cardiac silhouette with arch calcifications. Coarse interstitial markings are noted within the lungs with apical emphysematous changes. Pleural margins are sharp. The remainder of the examination is unremarkable. [id number] Performing Organization Address [facility] Phone Number [facility] [address] [place] [address] Troponin (02/21/2019 2:07 PM CDT) Pathologist [facility] Troponin <0.30 0.00 - 0.30 [place] [facility] Comment: ng/mL HOSPITAL 0.30 - 1.49 ng/mlMay indicate increased risk of acute coronary syndrome. >=1.5 ng/mlConsistent with acute myocardial infarction. The diagnostic value of a single normal or non-diagnostic result is questionable.Serial samples at 2-6 hour intervals are required to rule out acute myocardial injury. Specimen Plasma specimen Performing Organization Address [facility] Phone Number [facility] DEPARTMENT OF PATHOLOGY AND [address] [place] [address] [address] Partial thromboplastin time, activated (02/21/2019 2:07 PM CDT) Pathologist [facility] PTT 28.1 23.0 - 36.0 [facility] Comment: [facility] PTT therapeutic range for unfractionated heparin is 61.0-112.0 seconds which corresponds to Anti-Xa 0.3-0.7 U/ml. Specimen Blood Performing Organization Address [facility] Phone Number [facility] DEPARTMENT OF PATHOLOGY AND [address] [address] D-dimer (02/21/2019 2:07 PM CDT) [facility] D-dimer 1.42 (H) 0.00 - 0.40 [facility] Comment: ug/mL [facility] Units are ug/ml [...] Blood Performing Organization Address City/State/Zipcode Phone Number [facility] DEPARTMENT OF PATHOLOGY AND [address] [place] [address] B natriuretic peptide (02/21/2019 2:07 PM CDT) [facility] BNP 109 (H) 0 - 100 pg/mL [facility] Specimen Blood Performing Organization Address City/State/Zipcode Phone Number [facility] DEPARTMENT OF PATHOLOGY AND [address] [place] [address] Comprehensive metabolic panel (02/21/2019 2:07 PM CDT)Only the most recent of2 resultswithin the time period is included. [facility] Sodium 142 135 - 148 [facility] mEq/L [facility] Potassium 3.4 (L) 3.5 - 5.0 [facility] mEq/L [facility] Chloride 102 98 - 112 mEq/L [facility] CO2 30 24 - 31 mEq/L [facility] Anion gap 10@ANIO 7 - 15 mEq/L [facility] BUN 15 8 - 23 mg/dL [facility] Creatinine 1.17 (H) 0.50 - 0.90 [facility] mg/dL [facility] Glucose 93 65 - 99 mg/dL [facility] Calcium 9.9 8.8 - 10.2 [facility] mg/dL HOSPITAL Protein 6.6 6.3 - 8.3 g/dL [facility] Comment: HOSPITAL [place] 4.6-7.0 g/dL 1 week 4.4-7.6 g/dL 7 months-1year5.1-7.3 g/dL 1-2 years5.6-7.5 g/dL >3 years6.0-8.0 g/dL 18-150 6.3-8.3 g/dL Albumin 3.6 3.5 - 5.0 g/dL [facility] A/G ratio 1.2 0.7 - 3.8 [facility] Alkaline phosphatase 54 35 - 104 U/L [facility] AST 16 10 - 35 U/L [facility] ALT 9 5 - 50 U/L [facility] Total bilirubin 0.9 0.0 - 1.2 [facility] mg/dL [facility] Specimen Plasma specimen Performing Organization Address City/State/Zipcode Phone Number [facility] DEPARTMENT OF PATHOLOGY AND [address] [place] [address] [place] [address] ECG ED Preliminary Interpretation - Not an Order (02/21/2019 2:03 PM CDT)Only the most recent of2 resultswithin the time period is included. Narrative Performed At Sung Gergory MD 02/25/2019 12:40 PM ECG ED Preliminary Interpretation - Not an Order Performed by: Sung Gregory MD Authorized by: Sung Gregory MD ECG reviewed by ED Physician in the absence of a biofuels manager: yes Interpretation: Interpretation: normal Rate: ECG rate:76 ECG rate assessment: normal Rhythm: Rhythm: sinus rhythm Ectopy: Ectopy: none QRS: QRS axis:Normal QRS intervals:Normal Conduction: Conduction: normal ST segments: ST segments:Normal T waves: T waves: normal Echocardiogram complete w contrast and 3D if needed (01/30/2019 10:45 AM CDT) Specimen Narrative Performed At [facility] Echocardiography Report [address]Name:MALA KPJIMMIE Phipps.ID:[id number] .Date: 01/30/2019 Refer.MD:MEKHI MEDEIROS MD Exam Time: 8:16:00 AMStudy Type:Routine Echo Height:64inWeight: 120lb BSA: 1.58 m2 DOBAge:1945,73Y Sex: FEMALEBP:133/69 HR:63 bpmSonogrphr: RUDI Sanchez. Stat.:Inpatient Room:[facility] Study Status:Final Echo Event ID:[id number] Order ID:[id number] Reason for Study:SOB, suspected cardiac etiology Procedures:2D [...] of 5 mmHg. MEASUREMENTS: 2D Parasternal [place] LVOT 1.9 cmLA Ds2.8 cm LVIDd4.3 cmIndex2.7 [...] 01/30/2019 3:58 PM CDT Echocardiography Report [address] [place] [address] Pat.Name: KP MEDEIROS Pat.ID: [id number] .Date: 01/30/2019 Refer.MD: MEKHI MEDEIROS MD Exam Time: 8:16:00 AM Study Type:Routine Echo Height: 64in Weight: 120lb BSA: 1.58 m2 Age: 7 1945,73Y Sex: FEMALE BP: 133/69 HR: 63 bpm Sonogrphr: RUDI Sanchez Pat. Stat.:Inpatient Room: [facility] Study Status:Final Echo Event ID:[id number] Order ID: [id number] Reason for Study:SOB, suspected cardiac etiology Procedures:2D [...] of 5 mmHg. MEASUREMENTS: 2D Parasternal [place] LVOT 1.9 cm LA Ds 2.8 cm [...] M.D. Performing Organization Address City/State/Zipcode Phone Number [facility] [address] [place] [address] Cv cta abdomen w runoff w contrast (01/30/2019 9:14 AM CDT) Specimen Narrative Performed At [facility] Nuclear Cardiology and Cardiac CT [address] [id number] CTA Abd/Pelvis with Runoff Report Pat.Name:KP MEDEIROS.ID:[id number] .Date: 01/30/2019 Refer.MD:MARION WILKINSON MD Exam Time: 8:45:00 AM Study Type:CTA Abd_Pelvis with Runoff Height:64inDOBAge:1944,73Y Sex: FEMALEBP: 133/60 Nuclear Tech:BINU Miles(N)(CT) CPT - 4: CTA ABD/PELV W/WO 30797 Nuclear Event ID:[id number] Order ID:[id number] Reason for Study:Assess Abdominal Aortic Aneurysm and [...] Cardiovascular CTA Protocol and interpreted by a Drilling Field Professional.Should a more comprehensive assessment of non-cardiovascular findings be desired, please consult a radiologist.These images are available in the [facility] [employer] PACS system. Signed 01/30/2019 03:07 PM Nilesh Vega MD Procedure Note Interface, Radiology Results In - 01/30/2019 3:07 PM CDT Nuclear Cardiology and Cardiac CT [address] [place] [address] CTA Abd/Pelvis with Runoff Report Pat.Name: KP MEDEIROS Pat.ID: [id number] St.Date: 01/30/2019 Refer.MD: MARION WILKINSON MD Exam Time: 8:45:00 AM Study Type:CTA Abd_Pelvis with Runoff Height: 64in Age: 7 1945,73Y Sex: FEMALE BP: 133/60 Nuclear Tech:BINU Miles(N)(CT) CPT - 4: CTA ABD/PELV W/WO 91459 Nuclear Event ID:[id number] Order ID: [id number] Reason for Study:Assess Abdominal Aortic Aneurysm and [...] Cardiovascular CTA Protocol and interpreted by a Drilling Field Professional. Should a more comprehensive assessment of non-cardiovascular findings be desired, please consult a radiologist. These images are available in the [facility] [facility] PACS system. Signed 01/30/2019 03:07 PM Nilesh Vega MD Performing Organization Address City/State/Zipcode Phone Number [facility] [address] [phone] [place] carotid duplex (01/30/2019 8:28 AM CDT) Specimen Narrative Performed At [facility] Vascular Ultrasound Laboratory Carotid Artery Duplex Report [address] [facility] [address], [place] [address] For quality assurance engineer purposes, the categorization of the degree of the stenosis of this exam is based on criteria described in the IAC carotid stenosis grading white paper( www.intersocietal.org/Vascular) and Jazmine Johnson., Jose Monae., et al. Carotid artery stenosis: malave-scale and Doppler US diagnosis--Society of Radiologists in Ultrasound Consensus Conference. Radiology. 2003 Nov; 229(2):340-6. Pat.Name:KP MEDEIROS.ID:[id number] .Date: 01/30/2019 Refer.MD:MARION WILKINSON MD Exam Time: 7:28:00 AMStudy Type:Carotid Height:64inDOBAge: 1945,73Y Sex: FEMALESonogrphr: LADAN Sousa, RVT Pat. Stat.:Inpatient Room:[address] TapeVol: RADHA, CPT - 4: 72202 Echo Event ID:[id number] Order ID:[id number] Reason for Study:History of peripheral vascular disease [...] EDV29.5 cm/s Right ICA Mid ICA Mid [id number] cm/Cora Mid EDV 26.7 cm/s Right ICA [...] EDV27.9 cm/s Left ICA Mid ICA Mid YNC001 cm/Cora Mid EDV 24.2 cm/s Left ICA [...] Vascular Ultrasound Laboratory Carotid Artery Duplex Report [address] [address], [place] [address] For quality assurance engineer purposes, the categorization of the degree of the stenosis of this exam is based on criteria described in the IAC carotid stenosis grading white paper( www.intersocietal.org/Vascular) and Jazmine Johnson., Shweta Monae, et al. Carotid artery stenosis: malave-scale and Doppler US diagnosis--Society of Radiologists in Ultrasound Consensus Conference. Radiology. 2003 Nov; 229(2):340-6. Pat.Name: KP MEDEIROS Pat.ID: [id number] St.Date: 01/30/2019 Refer.MD: MARION WILKINSON MD Exam Time: 7:28:00 AM Study Type:Carotid Height: 64in Age: 7 1945,73Y Sex: FEMALE Sonogrphr: LADAN Sousa, RVT Pat. Stat.:Inpatient Room: [address] Tape Vol: RADHA, CPT - 4: 08548 Echo Event ID:[id number] Order ID: [id number] Reason for Study:History of peripheral vascular disease [...] Washington MD, RPVI Performing Organization Address City/[facility] Phone Number [facility] [address] [place] [address] Uric acid level (01/29/2019 12:00 AM CDT) Uric acid 7.3 (H) 2.4 - 5.7 mg/dL [facility] Specimen Plasma specimen Performing Organization Address City/[facility]/Zipcode Phone Number [facility] DEPARTMENT OF PATHOLOGY AND [address] [place] [address] [address] Thyroid stimulating hormone (01/29/2019 12:00 AM CDT) TSH 0.43 0.27 - 4.20 uIU/mL [facility] Specimen Plasma specimen Performing Organization Address City/[facility] Phone Number [facility] DEPARTMENT OF PATHOLOGY AND [address] [place] [address] [address] T4, free (01/29/2019 12:00 AM CDT) T4, free 1.5 0.9 - 1.7 ng/dL [facility] Specimen Plasma specimen Performing Organization Address City/[facility] Phone Number [facility] DEPARTMENT OF PATHOLOGY AND [address] [place] [address] [address] Lipid panel (01/29/2019 12:00 AM CDT) Cholesterol 137 <200 mg/dL [facility] Triglycerides 81 <150 mg/dL [facility] HDL cholesterol 45 >40 mg/dL [facility] LDL cholesterol 81Comment: Result <100 mg/dL [place] obtained by direct [facility] LDL measurement [facility] Lipid panel [facility] interpretation Comment: [facility] Total Cholesterol (mg/dL) [facility] <200 Desirable 127-048Kiqhegfjbh-mkop >=240High Triglycerides (mg/dL) <150 Normal 410-789Bvoyyqsnvx-lwsz 200-499High >=500Very high HDL Cholesterol (mg/dL) <40Low (male) <40Low (female) LDL Cholesterol (mg/dL) <100 Optimal 100-129Near or above optimal 869-047Qkrtkeqtiu-ffta 160-189High >=190Very high Risk Catergories that modify [...] specimen Performing Organization Address City/State/Zipcode Phone Number [facility] DEPARTMENT OF PATHOLOGY AND [address] [place] [address] [address] [place] duplex arterial lower extremity (01/28/2019 4:59 PM CDT) Specimen Narrative Performed At [facility] Vascular Ultrasound Laboratory Lower Extremity Arterial Duplex Report [address] [facility] [address] [place] [address], [place] [address] Pat.Name:KP MEDEIROS.ID:[id number] .Date: 01/28/2019 Refer.MD:SUNG GREGORY MD Exam Time: 3:43:00 PMStudy Type:LE Arterial Height:64inDOBAge: 1945,73Y Sex: FEMALESonogrphr: Lewis Martinez, T, [facility] Pat. Stat.:Inpatient Room:ED TapeVol: , CPT - 4: 86850 Echo Event ID:[id number] Order ID:[id number] Reason for Study:Rt toe pain and dry [...] demonstrates significant inflow arterial occlusive disease ( CLEANING STAFF SUPERVISOR post-stenotic waveform) andthe right GRICELDA occlusion. MEASUREMENTS: DOPPLER Right CLEANING STAFF SUPERVISOR prox CLEANING STAFF SUPERVISOR prox PSV47.5 cm/s Right Profunda Profunda PSV61.8 cm/s Profunda Right Profunda 60 deg Right SFA Dist SFA Dist PSV30.1 cm/s SFA Right SFA Dist 60 degRight SFA Prox 60 deg Right SFA Mid D60 deg Right SFA Mid SFA Mid PSV 32.1 cm/s Right SFA Prox SFA Prox PSV36.5 cm/s Right Pop Dist Pop Dist PSV21.6 cm/s Popliteal Right Cgidrhqze79 degRight Qftmrzwde09 deg Right Pop Prox Pop Prox PSV12.4 cm/s Right ROLL ICER MACHINE Prox ROLL ICER MACHINE Prox PSV6.67 cm/s Tibial Post Right Tibial [...] GRICELDA Mid GRICELDA Mid PSV0 cm/s Right CLEANING STAFF SUPERVISOR Mid CLEANING STAFF SUPERVISOR Mid PSV 48 cm/s Right GRICELDA Prox GRICELDA Prox PSV19.8 cm/s Right GRICELDA Distal GRICELDA Distal PSV 0 cm/s Signed 01/28/2019 07:20 PM Gary Washington MD, RPVI Procedure Note Interface, Radiology Results In - 01/28/2019 7:21 PM CDT Vascular Ultrasound Laboratory Lower Extremity Arterial Duplex Report [address] [place] [address] Pat.Name: KP MEDEIROS Pat.ID: [id number] .Date: 01/28/2019 Refer.MD: SUNG GREGORY MD Exam Time: 3:43:00 PM Study Type:LE Arterial Height: 64in Age: 7 1945,73Y Sex: FEMALE Sonogrphr: Lewis Martinez RVT, ISIDORO Pat. Stat.:Inpatient Room: EDP Tape Vol: MK, CPT - 4: 67706 Echo Event ID:[id number] Order ID: [id number] Reason for Study:Rt toe pain and dry [...] demonstrates significant inflow arterial occlusive disease ( CLEANING STAFF SUPERVISOR post-stenotic waveform) and the right GRICELDA occlusion. MEASUREMENTS: DOPPLER Right CLEANING STAFF SUPERVISOR prox CLEANING STAFF SUPERVISOR prox PSV 47.5 cm/s Right Profunda Profunda [...] Prox Pop Prox PSV 12.4 cm/s Right ROLL ICER MACHINE Prox ROLL ICER MACHINE Prox PSV 6.67 cm/s Tibial Post Right [...] Mid GRICELDA Mid PSV 0 cm/s Right CLEANING STAFF SUPERVISOR Mid CLEANING STAFF SUPERVISOR Mid PSV 48 cm/s Right GRICELDA Prox GRICELDA Prox PSV 19.8 cm/s Right GRICELDA Distal GRICELDA Distal PSV 0 cm/s Signed 01/28/2019 07:20 PM Gary Washington MD, RPVI Performing Organization Address City/[facility]/Zipcode Phone Number [facility] [address] [place] [address] Blood culture, aerobic & anaerobic (01/28/2019 1:34 PM CDT) Blood culture No growth after 5 days of incubation. [facility] isolate Comment: HOSPITAL Specimen Information Specimen Source: Blood Specimen Site: Forearm, left Specimen Blood - Forearm, left Performing Organization Address [facility] Phone Number [facility] DEPARTMENT OF PATHOLOGY AND [address] [place] [phone] [place] [address] C-reactive protein (01/28/2019 1:34 PM CDT) CRP 1.67 (H) 0.00 - 0.50 mg/dL [facility] Specimen Plasma specimen Performing Organization Address [facility] Phone Number [facility] DEPARTMENT OF PATHOLOGY AND [address] [place] [phone] [address] Lactic acid level (01/28/2019 1:34 PM CDT) Lactic acid 2.0 0.5 - 2.2 mmol/L [facility] Specimen Plasma specimen Performing Organization Address [facility] Phone Number [facility] DEPARTMENT OF PATHOLOGY AND [address] [place] [phone] [place] [address] after 07/01/2018 Advance Directives For more information, please contact: [phone] Type Date Recorded Patient News Specialist Explanation Advance Directives, Living Will and Medical Power of Telephone Directory Distributor Driver
--- OUTSIDE RECORDS SUMMARY | 2019-07-02 08:54 | XMS REPORT ---
[...] End Date Status Dosage System Date Simvastatin [facility] 85175556320 20 MG Orally Active 1 tablet in Once a day the evening Results No Known Results Summary Purpose eClinicalWorks Submission
--- OUTSIDE RECORDS SUMMARY | 2019-07-02 08:54 | XMS REPORT | Continuity of Care Document ---
:1945 Author Organization [employer] Care Team Providers Name Role Phone [employer] Unavailable Unavailable Problems Problem Status Onset Date Classification Date Comments Source Reported R59.9 CT Active 07/04/2017 [place] GUID[facility] [place] MARROW BIOPSY/A Medications No Data Provided for This Section Allergies, Adverse Reactions, Alerts No Known Medication Allergies Immunizations No Data Provided for This Section Results Order Name Results Value Reference Date Interpretation Comments Source Range HEMATOLOGY MCV 92.0 80.0 - 98.0 2016 [facility] HEMATOLOGY Hgb 14.3 12.0 - 16.0 2016 [facility] HEMATOLOGY Hct 43.9 36.0 - 48.0 2016 [facility] HEMATOLOGY MCH 29.9 27.0 - 31.0 2016 [facility] HEMATOLOGY Platelet 222 133 - 450 2016 [facility] HEMATOLOGY MCHC 32.5 32.0 - 36.0 2016 [facility] HEMATOLOGY RDW 15.8 11.5 - 14.5 2016 [facility] HEMATOLOGY MPV 10.4 7.4 - 10.4 2016 [facility] HEMATOLOGY RBC 4.78 4.20 - 5.40 2016 [facility] HEMATOLOGY WBC 15.9 3.7 - 10.4 2016 [facility] HEMATOLOGY PT 13.0 12.0 - 14.7 2016 [facility] HEMATOLOGY INR 0.96 0.85 - 1.17 [address] [place] HEMATOLOGY PTT 26.5 22.9 - 35.8 [address] [place] HEMATOLOGY Platelet 219 133 - 450 2016 [facility] HEMATOLOGY Plt Morph Normal (07/04/17 8:16 AM) 2016 [facility] HEMATOLOGY Segs 69.3 45.0 - 75.0 2016 [facility] HEMATOLOGY Lymphocytes 23.0 20.0 - 40.0 2016 [facility] HEMATOLOGY Eosinophils # 0.1 0.0 - 0.5 [facility] 2016 [facility] HEMATOLOGY Monocytes # 1.1 0.0 - 0.8 [facility] 2016 [facility] HEMATOLOGY Basophils # 0.1 0.0 - 0.2 [facility] 2016 [facility] HEMATOLOGY Anisocyte 1+ None Seen [facility] *ABN* 2016 [facility] (07/04/17 8:16 AM) HEMATOLOGY Eosinophils 0.4 0.0 - 4.0 2016 [facility] HEMATOLOGY Monocytes 6.7 2.0 - 12.0 2016 [facility] HEMATOLOGY Segs-Bands # 11.0 1.5 - 8.1 [facility] 2016 [facility] HEMATOLOGY Basophils 0.6 0.0 - 1.0 [facility] 2016 [facility] HEMATOLOGY Lymphocytes # 3.7 1.0 - 5.5 [facility] 2016 [facility] Pathology Reports No Data Provided for This Section Diagnostic Reports Report Value Date Source Bone biopsy w guidance PROCEDURES PERFORMED: 07/04/[address] [facility] CT 1. Bone Marrow aspiration and [...] marrow was aspirated and given to the pathology manager for preparation. An 8 gauge bone biopsy needle was then advanced under CT guidance into the right iliac bone and a core sample was obtained and given to the manager pathology in the room. Satisfactory position was confirmed [...] Date Comments Source BMI Calculated 21.03 07/04/2017 [place] Height 167.64 cm 07/04/2017 [place] Weight 59.091 07/04/2017 [facility] Temperature Oral (F) 97.6 F 07/04/2017 [place] Respitory Rate 18 07/04/2017 [place] Systolic (mm Hg) 138 07/04/2017 [place] Diastolic (mm Hg) 69 07/04/2017 [place] Encounters Location Location Encounter Encounter Reason Attending ADM DC Status Source Details Type Number For Provider Date Date Visit [facility] [id number] [place] 07/04 07/05 Miko Lou [facility] [place] Procedures No Data Provided for This Section Assessment and Plan No Data Provided for This Section Plan of Care No Data Provided for This Section Social History Social History Date Source No data available for this 07/05/2017 [place] section Family History No Data Provided for This Section Advance Directives No Data Provided for This Section Functional Status No Data Provided for This Section
--- OUTSIDE RECORDS SUMMARY | 2019-07-02 08:54 | XMS REPORT ---
[...] End Status Dosage System Date [place] [facility] [place] 41084562082 20 MG Active TAKE 1 TABLET BY MOUTH DAILY Potassium Chloride ER [facility] 14838448787 10 MEQ Orally Active 1 tablet twice a day with food Hydrochlorothiazide ND 83290775377 25 MG Active TAKE 1 TABLET BY MOUTH ONCE A DAY Zocor [facility] 38044633626 20 MG Active TAKE 1 TABLET BY MOUTH DAILY Metoprolol Succinate [facility] 07253202903 100 MG Active TAKE 1 ER TABLET BY MOUTH EVERY DAY Advair Diskus [facility] 19403312599 100-50 Active 1 puff MCG/DOSE Inhalation Twice a day Diclofenac Sodium [facility] 99033691741 1 % Nov 29, Active 2gram to Transdermal 2019 affected Three times a area day prn pain Protonix [facility] 04835017453 40 MG Active TAKE 1 TABLET BY MOUTH ONCE A DAY Magnesium Oxide [facility] 27878944886 400 MG Orally Active 1 tablet Once a day as needed Metoprolol Succinate [facility] 74486884830 100 MG Orally Active 1 tablet ER Once a day Ergocalciferol [facility] 90096394097 75308 UNIT Active 1 capsule Orally Ferrous Sulfate [facility] 08555899405 325 (65 Fe) MG Active 1 tablet Orally Once a day Simvastatin [facility] 67113750838 20 MG Orally Active 1 tablet Once a day in the evening ProAir HFA [facility] 73530802170 108 (90 Base) Active 2 puffs as MCG/ACT needed Inhalation every 6 hrs Gabapentin [facility] 40854853291 300 MG Orally Active 1 capsule Once a day before bedtime Hydrochlorothiazide [facility] 67433825264 25 MG Active TAKE 1 TABLET BY MOUTH ONCE A DAY Results No Known Results Summary Purpose eClinicalWorks Submission
--- OUTSIDE RECORDS SUMMARY | 2019-07-02 08:54 | XMS REPORT ---
[...] Dosage System Date Date Metoprolol Succinate ND 55600434940 100 MG Orally Active 1 tablet ER Once a day Hydrochlorothiazide ND 36006003480 25 MG Active TAKE 1 TABLET BY MOUTH ONCE A DAY Potassium Chloride ER ND 31984438936 10 MEQ Orally Active 1 tablet twice a day with food Advair Diskus ND 03680445903 100-50 Active 1 puff MCG/DOSE Inhalation Twice a day Zocor [facility] 68272128987 20 MG Active TAKE 1 TABLET BY MOUTH DAILY Gabapentin [facility] 96121213590 300 MG Orally Active 1 capsule Once a day before bedtime Metoprolol Succinate [facility] 28114283527 100 MG Active TAKE 1 ER TABLET BY MOUTH EVERY DAY Hydrochlorothiazide [facility] 68911841713 25 MG Active TAKE 1 TABLET BY MOUTH ONCE A DAY ProAir HFA [facility] 84393070415 108 (90 Base) Active 2 puffs MCG/ACT as needed Inhalation every 6 hrs Simvastatin [facility] 21719476832 20 MG Orally Active 1 tablet Once a day in the evening Magnesium Oxide [facility] 19090793114 400 MG Orally Active 1 tablet Once a day as needed Protonix [facility] 71321592735 40 MG Active TAKE 1 TABLET BY MOUTH ONCE A DAY Zocor [facility] 32299632050 20 MG Active TAKE 1 TABLET BY MOUTH DAILY Ferrous Sulfate [facility] 75666818476 325 (65 Fe) MG Active 1 tablet Orally Once a day Ergocalciferol [facility] 38388476333 56064 UNIT Active 1 capsule Orally Results No Known Results Summary Purpose eClinicalWorks Submission
--- OUTSIDE RECORDS SUMMARY | 2019-07-02 08:55 | XMS REPORT ---
:1945 Author Organization eClinicalWorks Care Team Providers Name Role Phone Webster, Na Provider Role Unavailable Allergies, Adverse Reactions, Alerts Substance Reaction Event Type N.K.D.A. 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 Problem AAA (abdominal aortic aneurysm) I71.4 Active without rupture Problem Unsteady gait R26.81 Active Problem Gastroesophageal reflux disease K21.9 Active without esophagitis Problem Personal history of poliomyelitis Z86.12 Active Problem Primary osteoarthritis, 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 Problem Primary osteoarthritis, 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 Active and foot Problem Calculus of gallbladder without K80.20 Active cholecystitis without obstruction Problem Decreased appetite R63.0 Active Problem Anemia D64.9 Active Problem Stented coronary artery Z95.5 Active Problem Drug-induced constipation K59.03 Active Problem Pure hypercholesterolemia E78.00 Active Problem 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 Problem 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 Active Problem Abdominal aneurysm I71.4 Active Problem Arterial insufficiency of lower I73.9 Active extremity Problem Hyperlipidemia E78.5 Active Problem Abnormal mammogram R92.8 Active Problem GERD (gastroesophageal reflux K21.9 Active disease) Problem Benign essential HTN I10 Active Problem Hypokalemia E87.6 Active Problem Cigarette nicotine dependence F17.210 Active without complication Problem Hypomagnesemia E83.42 Active Problem Nicotine dependence F17.200 Active Medications Medication Code Code Instructions Start End Status Dosage System Date Date Docusate Sodium ND 25151520304 100 MG Orally Active 1 capsule Once a day as needed Heparin Sodium ND 93478380886 5000 UNIT/ML Active 1 ml (Porcine) Injection every 12 hrs Polyethylene Glycol [facility] 85663792911 - Active as 3350 directed Potassium Chloride ER ND 43921163132 10 MEQ Orally Active 1 tablet twice a day with food ProAir HFA [facility] 13978994225 108 (90 Base) Active 2 puffs as MCG/ACT needed Inhalation every 6 hrs Lactulose [facility] 21542018332 10 GM/15ML Active 15 ml Orally Once a day Hydrochlorothiazide [facility] 52548355091 25 MG Active TAKE 1 TABLET BY MOUTH ONCE A DAY Ergocalciferol [facility] 24626739371 62898 UNIT Active 1 capsule Orally -81 NDC 0 Active not defined Megestrol Acetate ND 54146299034 40 MG Orally Active 1 tablet Once a day Zocor [facility] 69078188522 20 MG Active TAKE 1 TABLET BY MOUTH DAILY Simvastatin [facility] 18870472397 20 MG Orally Active 1 tablet Once a day in the evening Pantoprazole Sodium [facility] 78707316929 40 MG Active TAKE 1 TABLET BY MOUTH ONCE A DAY Diclofenac Sodium [facility] 77886687112 1 % Active 2gram to Transdermal affected Three times a area day prn pain Ferrous Sulfate [facility] 84597114516 325 (65 Fe) MG Active 1 tablet Orally Once a day Clonidine HCl [facility] 23396794466 0.1 MG Orally Active 1 tablet every 4 hours PRN High BP Magnesium Oxide [facility] 14150568027 400 MG Orally Active 1 tablet Once a day as needed Tylenol # 3 NDC 0 300/30mg PO Active one tab BID PRN Gabapentin ND 26971537962 300 MG Orally Active 1 capsule Once a day before bedtime Advair Diskus [facility] 88473920170 100-50 Active 1 puff MCG/DOSE Inhalation Twice a day Metoprolol Succinate ND 61406795277 50 MG Orally Active 1 tablet ER Once a day Results No Known Results Summary Purpose eClinicalWorks Submission
--- OUTSIDE RECORDS SUMMARY | 2019-07-02 08:55 | XMS REPORT ---
[...] End Status Dosage System Date Date Ergocalciferol [facility] 79520266535 39857 UNIT Active 1 capsule Orally ProAir HFA [facility] 13945778063 108 (90 Base) Active 2 puffs MCG/ACT as needed Inhalation every 6 hrs Metoprolol Succinate [facility] 65875620921 100 MG Orally Active 1 tablet ER Once a day Potassium Chloride ER ND 84037111444 10 MEQ Orally Active 1 tablet twice a day with food Pantoprazole Sodium ND 07885719982 40 MG Active TAKE 1 TABLET BY MOUTH ONCE A DAY Hydrochlorothiazide [facility] 94598362508 25 MG Active TAKE 1 TABLET BY MOUTH ONCE A DAY Advair Diskus [facility] 42163868863 100-50 Active 1 puff MCG/DOSE Inhalation Twice a day Diclofenac Sodium [facility] 66985155132 1 % Nov 29, Active 2gram to Transdermal 2018 affected Three times a area day prn pain Gabapentin [facility] 52523566255 300 MG Orally Active 1 capsule Once a day before bedtime Zocor [facility] 52690872465 20 MG Active TAKE 1 TABLET BY MOUTH DAILY Tramadol HCl [facility] 65607901956 50 MG Orally January Active 1 tablet every 8 hrs 06, 13, as needed 2018 2018 Hydrochlorothiazide [facility] 89388261161 25 MG Active TAKE 1 TABLET BY MOUTH ONCE A DAY Metoprolol Succinate [facility] 49008772938 100 MG Active TAKE 1 ER TABLET BY MOUTH EVERY DAY Protonix [facility] 13598649627 40 MG Active TAKE 1 TABLET BY MOUTH ONCE A DAY Zocor [facility] 85937998971 20 MG Active TAKE 1 TABLET BY MOUTH DAILY Ferrous Sulfate [facility] 62194386483 325 (65 Fe) MG Active 1 tablet Orally Once a day Simvastatin [facility] 84832174960 20 MG Orally Active 1 tablet Once a day in the evening Magnesium Oxide [facility] 42051382257 400 MG Orally Active 1 tablet Once a day as needed Results No Known Results Summary Purpose eClinicalWorks Submission
--- OUTSIDE RECORDS SUMMARY | 2019-07-02 08:55 | XMS REPORT ---
[...] End Status Dosage System Date Date Zocor [facility] 57863447118 20 MG Active TAKE 1 TABLET BY MOUTH DAILY Clonidine HCl ND 81492314346 0.1 MG Orally Active 1 tablet every 4 hours PRN High BP Docusate Sodium ND 08634652648 100 MG Orally Active 1 capsule Once a day as needed Heparin Sodium [facility] 08153654279 5000 UNIT/ML Active 1 ml (Porcine) Injection every 12 hrs Advair Diskus [facility] 71660233563 100-50 Active 1 puff MCG/DOSE Inhalation Twice a day Hydrochlorothiazide [facility] 58791355143 25 MG Active TAKE 1 TABLET BY MOUTH ONCE A DAY Potassium Chloride ER [facility] 47617083704 10 MEQ Orally Active 1 tablet twice a day with food - ND 0 Active not defined Magnesium Oxide [facility] 24658946983 400 MG Orally Active 1 tablet Once a day as needed Ergocalciferol [facility] 40935176786 34645 UNIT Active 1 capsule Orally Metoprolol Succinate [facility] 44000735474 50 MG Orally Active 1 tablet ER Once a day Pantoprazole Sodium [facility] 35717614084 40 MG Active TAKE 1 TABLET BY MOUTH ONCE A DAY Megestrol Acetate [facility] 30378231806 40 MG Orally Active 1 tablet Once a day Gabapentin [facility] 47215515127 300 MG Orally Active 1 capsule Once a day before bedtime Lactulose [facility] 95789686982 10 GM/15ML Active 15 ml Orally Once a day Tylenol # 3 NDC 0 300/30mg PO Active one tab BID PRN Simvastatin ND 13737229567 20 MG Orally Active 1 tablet Once a day in the evening Diclofenac Sodium [facility] 46737805008 1 % Active 2gram to Transdermal affected Three times a area day prn pain Ferrous Sulfate [facility] 55781071726 325 (65 Fe) MG Active 1 tablet Orally Once a day Polyethylene Glycol [facility] 62505014918 - Active as 3350 directed ProAir HFA [facility] 97953712502 108 (90 Base) Active 2 puffs as MCG/ACT needed Inhalation every 6 hrs Results No Known Results Summary Purpose eClinicalWorks Submission
[2019-07-02] MEDS ORDERED: Ringers Lactate 1,000 ML IV ONE (09:18)
[2019-07-02] MEDS ORDERED: CEFAZOLIN/SWI 1gm 1 GM/10 ML SYR ONE (09:18)
[2019-07-02] MEDS ORDERED: PROPOFOL 200 MG/20 ML VIAL IV ONE (09:23)
[2019-07-02] MEDS ORDERED: MIDAZOLAM HCL 2 MG/2 ML INJ ONE (09:23)
[2019-07-02] MEDS ORDERED: LIDOCAINE 2% MPF 5 ML VIAL ONE (09:23)
[2019-07-02] MEDS ORDERED: FENTANYL CITR 100 MCG/2 ML ONE (09:23)
[2019-07-02] MEDS ORDERED: Phenylephrine HCl 10 MG/ML 1 ML VIAL ONE (10:05)
[2019-07-02] MEDS ORDERED: KETOROLAC 30 MG/ML INJ ONE (10:14)
--- NOTE | 2019-07-02 10:18 | P.BOP ---
Preoperative diagnosis: Necrotic infected ulcer right foot with retained FB Postoperative diagnosis: same Primary procedure: Excisional debridement down to muscle Necrotic infected ulcer R foot 10x4cm Secondary procedure: REmoval of multiple foreign bodies right foot Estimated blood loss: <20cc Specimen: culture Findings: post operative xray with no obvious remain FB seen. Complications: None Drain(s): Other (wet to dry NS) Transferred to: Recovery Room Condition: Good
--- NOTE | 2019-07-02 10:34 | RAD REPORT ---
EXAM DESCRIPTION: RAD - Foot Right 2 View - 07/02/2019 10:21 am CLINICAL HISTORY: Right foot pain FINDINGS: Lateral view of right foot obtained. No radiopaque rica are visualized
[2019-07-02] MEDS: MORPHINE 4 MG/ML SYR ONE ×2 (10:54→11:00)
[2019-07-02 11:52] VITALS: TEMP 98.4; O2SAT 96
[2019-07-02 15:52] VITALS: BP 168/67
--- NOTE | 2019-07-02 21:38 | OP ---
Date of Procedure: 07/02/2019 Surgeon: Ja Tejeda MD Preoperative Diagnosis: Necrotic infected ulcer of right foot with retained foreign body. Postoperative Diagnosis: Necrotic infected ulcer of right foot with retained foreign body. Procedures: 1.Excisional debridement down to muscle of a necrotic infected ulcer of right foot, 10 x 4 cm. 2.Removal of multiple foreign body in the right foot. Estimated Blood Loss: Less than 20 mL. Specimen: Culture. Findings: Postoperative x-ray shows no obvious remained radiolucent foreign body seen. Packing: Wet-to-dry normal saline. Indications: This is a case of a 74-year-old patient, who several months ago had a transmetatarsal a mputation of the right foot, but she could not go back to her surgeons to get all the foreign bodies and rica removed and even a stitch is there. The area is very tender, has some necrotic tissues v shantal tender. She does not allow to do the debridement at bedside. We also have skin partially growin g over foreign bodies and it looked like rica deep inside that area. The area is about 10 x 4 cm and needs to be clean. The benefits, alternatives, and risks of excisional debridement with removal of foreign body fully explained to the patient, which include but are not limited to infection, bleed ing, damage to adjacent structures, anesthesia complication, nonhealing wound, NV, and even . S he also understands this may not relieve any symptoms. She might need more than one surgical interve ntion. She understood, signed the consent. Description Of Procedure: The patient was brought to the operating room, placed in the supine positi on. Anesthesia was given without complication. The right foot was prepped and draped in usual steri le fashion. A time-out was called. Using a sharp knife and a hemostat, we proceeded to remove the f oreign bodies from the area that we can see. Then after that, we proceeded to do the debridement. T his goes all the way down to the muscle between the metatarsal bone. Necrotic tissue was removed chaitanya ving the wound open in that area. Foreign bodies were removed. We did an x-ray at the end to make s ure that radiolucent foreign bodies are removed and none are found on the x-ray at least obviously, o fficial report is still pending. The area was irrigated. Hemostasis was obtained. Cultures were ob tained before irrigation and the area was packed with wet-to-dry dressing. The patient tolerated the procedure well. The patient was sent to recovery in stable condition. HEATHER Voice ID: [id number] Report ID: [id number]
--- NOTE | 2019-07-02 21:38 | DS ---
Date of Discharge: 07/02/2019 Diagnosis: Necrotic infected right foot ulcer with retained foreign body. Procedure: Excisional debridement down to muscle of a necrotic infected right foot ulcer, 10 x 4 cm with removal of foreign body. Disposition: Home. Patient has [facility] the home health agency. We are going to change the dressing changes to wet-to-dry over that area. Followup: [facility]. Medications: See orders. DREW/MODL Voice ID: [id number] Report ID: [id number]
== END 2019-07-02 12:45 | disposition home or self-care (01) ==
LOC: OR 08:50
PROVIDERS: ATTEND Surgery
PROC: 0JBQ0ZZ Excision of Right Foot Subcutaneous Tissue and Fascia, Open Approach (ICD-10-PCS; principal; 2019-07-02 11:30)
DX: L97.518 Non-pressure chronic ulcer of other part of right foot with other specified severity (principal); L08.9 Local infection of the skin and subcutaneous tissue, unspecified; M79.5 Residual foreign body in soft tissue; I73.9 Peripheral vascular disease, unspecified; I10 Essential (primary) hypertension; J44.9 Chronic obstructive pulmonary disease, unspecified; E78.5 Hyperlipidemia, unspecified; D64.9 Anemia, unspecified; Z72.0 Tobacco use; Z89.431 Acquired absence of right foot
CPT/HCPCS: 93005; 87070; 85025; 80048; 36415; 87205; 88304; 87075; 87077; 87186; 71046; 73620; 11042; 11045; J2704; J2370; J2250; J3010; J0690

== ENCOUNTER 2019-12-31 07:18 | Day surgery (SDC) | payer OTHER ==
--- NOTE | 2019-12-29 17:01 | RAD REPORT ---
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 COMPARISON: Chest Pa And Lat (2 Views) dated 07/01/2019; Chest Single View dated 06/15/2019; Chest Sing le View dated 04/25/2019; Chest Single View dated 12/18/2018 FINDINGS: Advanced COPD is noted. The heart is normal in size. No displaced fractures. Aortic athero sclerosis. IMPRESSION: Prominent COPD.
[2019-12-29 17:06] LABS: Absolute Lymphocytes (CBC) 1.9 K/uL (0.7-4.9); Basophils % 0.8 % (0-1.3); Hematocrit 36.7 % (36.0-45.0); Lymphocytes % 26.3 % (15.3-44.8); MPV 7.9 fL (7.6-11.3)
[2019-12-29 17:09] LABS: Protime INR 1.04
[2019-12-29 17:20] LABS: Potassium 3.8 mmol/L (3.5-5.1)
[~2019-12-31 07:18] MED LIST: HEPA 1000U/500MLS 2,000 UNIT/1,000 ML BAG IV ONE; LIDOCAINE 1% 20 ML MDV ONE; NA CHLORIDE 0.9% 500 ML ONE
--- OUTSIDE RECORDS SUMMARY | 2019-12-31 07:21 | XMS REPORT ---
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
--- OUTSIDE RECORDS SUMMARY | 2019-12-31 07:21 | XMS REPORT ---
[...] Active Problem Nicotine dependence F17.200 Active Medications No Known Medications Results No Known Results Summary Purpose eClinicalWorks Submission
--- OUTSIDE RECORDS SUMMARY | 2019-12-31 07:21 | XMS REPORT ---
:1945 Author Organization eClinicalWorks Care Team Providers Name Role Phone Webster, Na Provider Role Unavailable Allergies, Adverse Reactions, Alerts Substance Reaction Event Type N.K.D.A. Info Not Available Non Drug Allergy Problems Problem Type Condition Code Onset Dates Condition Status Assessment Abdominal aneurysm without mention I71.4 Active of rupture Assessment Pure hypercholesterolemia E78.00 Active Assessment Essential (primary) hypertension I10 Active Assessment Arterial insufficiency of lower I73.9 Active extremity Assessment Drug-induced constipation K59.03 Active Assessment 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 Active Assessment Partial nontraumatic amputation of Z89.431 [...] insufficiency of lower I73.9 Active extremity Assessment Renal insufficiency N28.9 Active Problem Hyperlipidemia E78.5 Active Assessment 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 Problem Abnormal mammogram R92.8 Active Problem GERD (gastroesophageal reflux K21.9 Active disease) Assessment Smoker F17.200 Active Problem Benign essential HTN I10 Active Problem Hypokalemia E87.6 Active Problem Cigarette nicotine dependence F17.210 Active without complication Problem Hypomagnesemia E83.42 Active Problem Nicotine dependence F17.200 Active Medications Medication Code Code Instructions Start End Status Dosage System Date Date Lactulose [facility] 86121630112 10 GM/15ML Active 15 ml Orally Once a day Aspir-81 ND 0 Active not defined Clonidine HCl [facility] 02494336436 0.1 MG Orally Active 1 tablet every 4 hours PRN High BP Ergocalciferol [facility] 25183992408 70594 UNIT Active 1 capsule Orally Advair Diskus [facility] 08904479154 100-50 Active 1 puff MCG/DOSE Inhalation Twice a day Megestrol Acetate [facility] 71213077002 40 MG Active TAKE 1 TABLET BY MOUTH EVERY DAY Metoprolol Succinate [facility] 51786158081 50 MG Orally Active 1 tablet ER Once a day Tylenol # 3 ND 0 300/30mg PO Active one tab BID PRN Docusate Sodium [facility] 75218428525 100 MG Orally Active 1 capsule Once a day as needed Potassium Chloride ER [facility] 56552222277 10 MEQ Orally Active 1 tablet twice a day with food Hydrochlorothiazide [facility] 95886975903 25 MG Active TAKE 1 TABLET BY MOUTH ONCE A DAY Gabapentin [facility] 58586522694 300 MG Orally Active 1 capsule Once a day before bedtime ProAir HFA [facility] 07582236362 108 (90 Base) Active 2 puffs as MCG/ACT needed Inhalation every 6 hrs Pantoprazole Sodium [facility] 82353782350 40 MG Active TAKE 1 TABLET BY MOUTH EVERY DAY Diclofenac Sodium [facility] 12341981177 1 % Active 2gram to Transdermal affected Three times a area day prn pain Polyethylene Glycol [facility] 16110383423 - Active as 3350 directed Heparin Sodium [facility] 49382289135 5000 UNIT/ML Active 1 ml (Porcine) Injection every 12 hrs MAGnesium-Oxide [facility] 82136640677 400 (241.3 Mg) Active take 1 MG tablet by mouth every day Zocor [facility] 80082955678 20 MG Active TAKE 1 TABLET BY MOUTH DAILY Ferrous Sulfate [facility] 01239334486 325 (65 Fe) MG Active 1 tablet Orally Once a day Magnesium Oxide [facility] 81899602946 400 MG Orally Active 1 tablet Once a day as needed Simvastatin [facility] 45976254191 20 MG Orally Active 1 tablet Once a day in the evening Results Name Result Date Reference Range Unit Abnormality Flag Comp. Metabolic Panel (14) (CMP) ----Calcium 10.1 89875129 8.7-10.3 mg/dL ----Carbon Dioxide, 23 20190922 20-29 mmol/L Total ----ALT (SGPT) 11 20190922 0-32 IU/L ----Creatinine 0.92 20190922 0.57-1.00 mg/dL ----AST (SGOT) 16 20190922 0-40 IU/L ----eGFR If NonAfricn Am 61 20190922 >59 mL/min/1.73 ----Alkaline Phosphatase 56 20190922 39-117 IU/L ----eGFR If Africn Am 70 20190922 >59 mL/min/1.73 ----Bilirubin, Total 0.7 20190922 0.0-1.2 mg/dL ----BUN/Creatinine Ratio 20 20190922 12-28 ----A/G Ratio 1.8 20190922 1.2-2.2 ----Sodium 139 20190922 134-144 mmol/L ----Globulin, Total 2.4 20190922 1.5-4.5 g/dL ----Potassium 4.6 20190922 3.5-5.2 mmol/L ----Albumin 4.3 20190922 3.5-4.8 g/dL ----Glucose 82 20190922 65-99 mg/dL ----Chloride 100 20190922 96-106 mmol/L ----BUN 18 20190922 8-27 mg/dL ----Protein, Total 6.7 20190922 6.0-8.5 g/dL CBC With Differential/Platelet ----Basos 1 20190922 Not Estab. % ----MCV 90 20190922 79-97 fL ----Eos 4 20190922 Not Estab. % ----Hematocrit 33.8 00900594 34.0-46.6 % L ----MCHC 31.1 20190922 31.5-35.7 g/dL L ----Monocytes 6 [id number] Not Estab. % ----MCH 28.0 [id number] 26.6-33.0 pg ----Lymphs 29 20190922 Not Estab. % ----Eos (Absolute) 0.3 20190922 0.0-0.4 x10E3/uL ----WBC 7.8 [id number] 3.4-10.8 x10E3/uL ----Monocytes(Absolute) 0.5 20190922 0.1-0.9 x10E3/uL ----Lymphs (Absolute) 2.2 20190922 0.7-3.1 x10E3/uL ----Hemoglobin 10.5 91892780 11.1-15.9 g/dL L ----Neutrophils 4.7 41150929 1.4-7.0 x10E3/uL (Absolute) ----RBC 3.75 40254978 3.77-5.28 x10E6/uL L ----Immature Grans (Abs) 0.0 20190922 0.0-0.1 x10E3/uL ----Immature 0 [id number] Not Estab. % Granulocytes ----Neutrophils 60 20190922 Not Estab. % ----Baso (Absolute) 0.1 20190922 0.0-0.2 x10E3/uL ----RDW 15.3 [id number] 12.3-15.4 % ----Platelets 275 [id number] 150-450 x10E3/uL Lipid Panel ----LDL Cholesterol Calc 81 20190922 0-99 mg/dL ----Cholesterol, Total 144 20190922 100-199 mg/dL ----Triglycerides 74 37130005 0-149 mg/dL ----HDL Cholesterol 48 20190922 >39 mg/dL ----VLDL Cholesterol Ad 15 20190922 5-40 mg/dL Iron and TIBC ----Iron Saturation 27 63382910 15-55 % ----UIBC 179 [id number] 118-369 ug/dL ----Iron 65 [id number] 27-139 ug/dL ----Iron Bind.Cap.(TIBC) 244 20190922 250-450 ug/dL L Summary Purpose eClinicalWorks Submission
--- OUTSIDE RECORDS SUMMARY | 2019-12-31 07:21 | XMS REPORT ---
[...] Start End Date Status Dosage System Date Megestrol [facility][NOTE 3] 99426835463 40 MG Orally Jan 04, Active TAKE 1 Acetate Once a day 2020 TABLET BY MOUTH EVERY DAY Results No Known Results Summary Purpose eClinicalWorks Submission
[2019-12-31] MEDS ORDERED: ATROPINE SULF 1 MG/10 ML SYR IV ONE (08:00)
[2019-12-31] MEDS ORDERED: MIDAZOLAM HCL 2 MG/2 ML INJ ONE ×3 (08:00→08:43)
[2019-12-31] MEDS ORDERED: FENTANYL CITR 100 MCG/2 ML ONE ×2 (08:00→09:35)
[2019-12-31] MEDS ORDERED: HYDRALAZINE HCL 20 MG/ML VIAL ONE (08:27)
[2019-12-31] MEDS ORDERED: METOPROLOL TARTRATE 5 MG/5 ML INJ IV ONE (08:46)
--- NOTE | 2019-12-31 10:19 | EKG ---
Test Date: 2019-12-31 Test Time: 07:27:56 Rug Dry Room Attendant: SKYLAR MEASUREMENT RESULTS: Intervals: Rate: 99 PA: 150 QRSD: 68 QT: 346 QTc: 444 [place]: P: -16 PA: 150 QRS: 39 T: 50 INTERPRETIVE STATEMENTS: Normal sinus rhythm Nonspecific T wave abnormality Abnormal ECG Compared to ECG 07/01/2019 13:32:04 T-wave abnormality now present Electronically Signed On 12-31-19 10:18:47 INTERCEPTOR OPERATOR by Miki Duggan
[2019-12-31 11:24] VITALS: TEMP 99.2
--- NOTE | 2019-12-31 11:25 | RAD REPORT ---
EXAM DESCRIPTION: CT - CT ANGIO ABD/PELVIS W CONTRAST - 12/31/2019 9:34 am CLINICAL HISTORY: Peripheral vascular disease Abdominal pain COMPARISON: None. TECHNIQUE: CT angiography of the abdominal aorta in CT a bilateral runoff of the lower extremities w as performed with MIPS. All CT scans are performed using dose optimization technique as appropriate and may include automated exposure control or mA/KV adjustment according to patient size. FINDINGS: Upper abdominal aorta demonstrates mild atherosclerosis. Stenosis is suspected at the orig in of the celiac artery. Moderate atherosclerosis is seen at the origin of the SMA. Both renal artery origins demonstrate moderate atheromatous calcification. There is a large infrarenal abdominal aortic aneurysm present measuring 5.1 cm in anterior-posterior dimension. Minimal contrast is seen within the aneurysm with the majority of abdominal aortic aneurys m thrombosed/occluded. Heavy atherosclerosis of both common iliac artery is are seen with very little visible blood flow present bilaterally within the common iliac arteries. This likely indicates occlu lio. External iliac artery on the left shows no significant blood flow. The right external iliac art shantal shows mild contrast opacification likely related to collateral flow. Both common femoral arteries, superficial femoral arteries, popliteal arteries and distal vessels janine w significant peripheral vascular disease with very diminished blood flow without complete occlusion. Significant fatty atrophy of the musculature of the left lower extremity below the level of the knee is present. No soft tissue mass. No acute solid organ abnormality. No bowel obstruction, free fluid o r abscess. IMPRESSION: 5 cm infrarenal abdominal aortic aneurysm shows very little intraluminal flow felt to pr obably be flow related to retrograde aneurysm filling. The majority of the aneurysm appears completel y thrombosed/occluded. Complete occlusion is also present in both common iliac arteries, with reconst itution of flow seen in the SFA is likely related to collateralization. Despite this collateral flow, flow to both lower extremities is significantly diseased and diminished.
[2019-12-31 12:29] VITALS: O2SAT 98
[2019-12-31] MEDS ORDERED: FENTANYL CITR 100 MCG/2 ML IV PRN (12:38)
[2019-12-31] MEDS ORDERED: FENTANYL CITR 100 MCG/2 ML IV SCH (13:00)
[2019-12-31 13:56] VITALS: BP 150/50
--- NOTE | 2019-12-31 20:13 | OP ---
Surgeon: Miki Duggan MD Identifying Data: 74-year-old woman. Procedure: Attempted abdominal angiogram with runoffs. Procedure abandoned when we discovered the right iliac artery is 100% totally occluded from the mid common femoral all the way up to its branch point from the aorta. There is a densely calcified totally occluded lesion. We were unable to angiogram the aorta. We took an angiogram of the right common femoral artery only. No runoffs and abandoned the procedure unable to cross the lesion with the wire. Procedure In Detail: I knew the patient has severe peripheral vascular disease. We are trying to do a rescue attempt to get more blood flow to the right foot to help the wound heal. We entered the right femoral artery using an 18-gauge needle, cannulated it with a J-wire, placed a 4-Greenlandic sheath partly into the artery. I attempted to pass a Versacore wire, a Glidewire, regular J-wire and none of which would go. An angiogram was done and there is a total occlusion as mentioned above. We abandoned, pulled the sheath, and closed the arteriotomy with manual pressure. The pressure in the right common femoral artery was pulsatile at 40/30 mmHg. CITLALY/YAHIR Voice ID: [id number] Report ID: [id number] WALKER
== END 2019-12-31 13:30 | disposition home or self-care (01) ==
LOC: CCL 07:18
PROVIDERS: ATTEND Internal Medicine
DX: I70.201 Unspecified atherosclerosis of native arteries of extremities, right leg (principal); I70.92 Chronic total occlusion of artery of the extremities; I25.10 Atherosclerotic heart disease of native coronary artery without angina pectoris; I65.23 Occlusion and stenosis of bilateral carotid arteries; I10 Essential (primary) hypertension; E78.5 Hyperlipidemia, unspecified; F17.210 Nicotine dependence, cigarettes, uncomplicated
CPT/HCPCS: 93005; 85025; 80048; 36415; 85610; 85730; 73706; 71046; 74174; 36200; 75630; Q9967; C1893; J0360; J2250 ×3; J3010 ×2; J7040

== ENCOUNTER 2020-02-10 00:47 | Emergency (ER) | payer OTHER ==
--- OUTSIDE RECORDS SUMMARY | 2020-02-10 00:59 | XMS REPORT ---
[...] End Date Status Dosage Date ProAir HFA [facility] 85258349268 108 (90 Base) Active 2 puffs as MCG/ACT needed Inhalation every 6 hrs Results No Known Results Summary Purpose eClinicalWorks Submission
--- OUTSIDE RECORDS SUMMARY | 2020-02-10 01:00 | XMS REPORT ---
[...] End Status Dosage System Date Date Lactulose [facility] 22199738536 10 GM/15ML Active 15 ml Orally Once a day Aspir-81 ND 0 Active not defined Clonidine HCl [facility] 58122466580 0.1 MG Orally Active 1 tablet every 4 hours PRN High BP Ergocalciferol [facility] 21269239429 11338 UNIT Active 1 capsule Orally Advair Diskus [facility] 22919496048 100-50 Active 1 puff MCG/DOSE Inhalation Twice a day Megestrol Acetate [facility] 12913699394 40 MG Active TAKE 1 TABLET BY MOUTH EVERY DAY Metoprolol Succinate [facility] 79384697894 50 MG Orally Active 1 tablet ER Once a day Tylenol # 3 ND 0 300/30mg PO Active one tab BID PRN Docusate Sodium [facility] 01891833466 100 MG Orally Active 1 capsule Once a day as needed Potassium Chloride ER [facility] 54253659800 10 MEQ Orally Active 1 tablet twice a day with food Hydrochlorothiazide [facility] 00762726201 25 MG Active TAKE 1 TABLET BY MOUTH ONCE A DAY Gabapentin [facility] 03734082190 300 MG Orally Active 1 capsule Once a day before bedtime ProAir HFA [facility] 03467153745 108 (90 Base) Active 2 puffs as MCG/ACT needed Inhalation every 6 hrs Pantoprazole Sodium [facility] 25661815621 40 MG Active TAKE 1 TABLET BY MOUTH EVERY DAY Diclofenac Sodium [facility] 30660218863 1 % Active 2gram to Transdermal affected Three times a area day prn pain Polyethylene Glycol [facility] 33531568207 - Active as 3350 directed Heparin Sodium [facility] 95962992942 5000 UNIT/ML Active 1 ml (Porcine) Injection every 12 hrs MAGnesium-Oxide [facility] 34771743817 400 (241.3 Mg) Active take 1 MG tablet by mouth every day Zocor [facility] 50038295190 20 MG Active TAKE 1 TABLET BY MOUTH DAILY Ferrous Sulfate [facility] 26797227436 325 (65 Fe) MG Active 1 tablet Orally Once a day Magnesium Oxide [facility] 25731940542 400 MG Orally Active 1 tablet Once a day as needed Simvastatin [facility] 76901982331 20 MG Orally Active 1 tablet Once a day in the evening Results Name Result Date Reference Range Unit Abnormality Flag Comp. Metabolic Panel (14) (CMP) ----Calcium 10.1 66026622 8.7-10.3 mg/dL ----Carbon Dioxide, 23 20190922 20-29 [...] 4 20190922 Not Estab. % ----Hematocrit 33.8 24492039 34.0-46.6 % L ----MCHC 31.1 20190922 31.5-35.7 g/dL L ----Monocytes 6 [id number] Not Estab. % ----MCH 28.0 [id number] 26.6-33.0 pg ----Lymphs 29 20190922 Not Estab. % ----Eos (Absolute) 0.3 20190922 0.0-0.4 x10E3/uL ----WBC 7.8 [id number] 3.4-10.8 x10E3/uL ----Monocytes(Absolute) 0.5 20190922 0.1-0.9 x10E3/uL ----Lymphs (Absolute) 2.2 20190922 0.7-3.1 x10E3/uL ----Hemoglobin 10.5 33154089 11.1-15.9 g/dL L ----Neutrophils 4.7 [id number] 1.4-7.0 x10E3/uL (Absolute) ----RBC 3.75 [id number] 3.77-5.28 x10E6/uL L ----Immature Grans (Abs) 0.0 20190922 0.0-0.1 x10E3/uL ----Immature 0 [id number] Not Estab. % Granulocytes ----Neutrophils 60 20190922 Not Estab. % ----Baso (Absolute) 0.1 20190922 0.0-0.2 x10E3/uL ----RDW 15.3 [id number] 12.3-15.4 % ----Platelets 275 [id number] 150-450 x10E3/uL Lipid Panel ----LDL Cholesterol Calc 81 20190922 0-99 mg/dL ----Cholesterol, Total 144 20190922 100-199 mg/dL ----Triglycerides 74 59695541 0-149 mg/dL ----HDL Cholesterol 48 20190922 >39 mg/dL ----VLDL Cholesterol Ad 15 20190922 5-40 mg/dL Iron and TIBC ----Iron Saturation 27 74861991 15-55 % ----UIBC 179 [id number] 118-369 ug/dL ----Iron 65 08480440 27-139 ug/dL ----Iron Bind.Cap.(TIBC) 244 20190922 250-450 ug/dL L Summary Purpose eClinicalWorks Submission
--- OUTSIDE RECORDS SUMMARY | 2020-02-10 01:00 | XMS REPORT ---
[...] End Date Status Dosage System Date Megestrol [facility] 02827514511 40 MG Orally January Active TAKE 1 Acetate Once a day 2019 TABLET BY MOUTH EVERY DAY Results No Known Results Summary Purpose eClinicalWorks Submission
--- OUTSIDE RECORDS SUMMARY | 2020-02-10 01:00 | XMS REPORT ---
[...] End Date Status Dosage System Date Megestrol [facility] 00714271603 40 MG Orally Jan 04, Active TAKE 1 Acetate Once a day 2020 TABLET BY MOUTH EVERY DAY Results No Known Results Summary Purpose eClinicalWorks Submission
[2020-02-10] MEDS ORDERED: NA CHLORIDE 0.9% 1,000 ML ONE (01:01)
[2020-02-10 01:33] LABS: Absolute Lymphocytes (CBC) 3.3 K/uL (0.7-4.9); Basophils % 0.8 % (0-1.3); Hematocrit 31.4 % (36.0-45.0); Lymphocytes % 20.1 % (15.3-44.8); RBC Red Blood Cell Count 3.52 M/uL (3.86-4.86)
--- NOTE | 2020-02-10 01:41 | ER ---
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 Coronavirus screen: Patient denies fever greater than 100.4F, cough, shortness of breath, or difficulty breathing. Ebola Screen: Patient negative for fever greater than or equal to 101.5 degrees Fahrenheit, and additional compatible Ebola Virus Disease symptoms Patient denies exposure to infectious person. Patient denies travel to an Ebola-affected area in the 21 days before illness onset. No symptoms or risks identified at this time. Initial Sepsis Screen: Does the patient meet any 2 criteria? No. Patient's initial sepsis screen is negative. Does the patient have a suspected source of infection? No. Patient's initial sepsis screen is negative. Risk Assessment: Do you want to hurt yourself or someone else? Unable to obtain. 00:55 Method Of Arrival: EMS: [facility] sg 00:55 Acuity: FRANCO 2 sg 00:55 Onset of symptoms was February 09, 2020. rr5 03:09 Onset of symptoms was February 10, 2020. lw1 Triage Assessment: 01:27 General: Appears uncomfortable, well groomed, Behavior is cooperative, agitated, lw1 restless. Pain: Complains of pain in abdomen, right leg and left leg Pain currently is 6 out of 10 on a pain scale. EENT: Oral mucosa is moist. Absence of teeth noted - upper right lateral incisor (#7), upper right central Incisor (#8), upper left central incisor (#9), upper left lateral incisor (#10), lower left second bicuspid (#20), lower left first bicuspid (#21), lower left lateral incisor (#23), lower left central incisor (#24), lower right central incisor (#25), lower right lateral incisor (#26), lower right first bicuspid (#28) and lower right second bicuspid (#29). Neuro: Level of Consciousness is awake, alert, obeys commands, Oriented to person, place, time, situation, Appropriate for age Cardiovascular: Heart tones S1 S2 present Capillary refill < 3 seconds Pulses are all present. Rhythm is sinus rhythm. Respiratory: Airway is patent. GI: Abdomen is flat, Bowel sounds present X 4 quads. Abd is soft Abdomen is tender to palpation Reports. : No deficits noted. 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 Historical: - Allergies: 00:55 NKDA; sg - Home Meds: 01:44 Albuterol Inhl [Active]; simvastatin 20 mg Oral tab [Active]; aspirin 81 mg Oral chew 1 lw1 tab once daily [Active]; cholecalciferol (vitamin D3) 1,000 unit Oral tab [Active]; clonidine HCl 0.1 mg Oral tab [Active]; docusate sodium 100 mg Oral cap [Active]; hydrochlorothiazide 25 mg Oral tab 1 tab once daily [Active]; hydrocodone-acetaminophen 7.5-325 mg Oral tab [Active]; lactulose 20 gram/30 mL Oral soln [Active]; Magnesium Oxide Oral daily [Active]; megestrol 40 mg Oral tab [Active]; metoprolol succinate Oral [Active]; Miralax 17 gram/dose Oral powd [Active]; pantoprazole 40 mg Oral TbEC [Active]; povidone-iodine miscellaneous [Active]; - PMHx: 00:55 AAA; Hyperlipidemia; Hypertension; Polio; sg - Immunization history:: Adult Immunizations unknown. - Social history:: Smoking status: unknown. - Code Status:: Full code. Screenin:23 Abuse screen: Denies threats or abuse. Denies injuries from another. Nutritional rr5 screening: No deficits noted. Tuberculosis screening: No symptoms or risk factors identified. Fall Risk IV access (20 points). Gait- Impaired (20 pts.). Total Zhao Fall Scale indicates Low Risk Score (25-44 pts). Fall prevention measures have been instituted. Side Rails Up X 2 Placed close to Nursing Station Frequent Obs/Assesments occuring As available Patient and Family Educated on Fall Prevention Program and strategies. Assessment: 00:58 Reassessment: pt appears in no apparent distress, eyes open with even unlabored sg respirations, is non responsive to verbal or tactile stimuli at this time, notified of pt condition and pt transported to CT with ER staff. 01:37 Reassessment: PATIENT IS VERY ANXIOUS IN BED, UNABLE TO STAY STILL, PATIENT STATED THAT lw1 SHE IS UNCOMFORTABLE, DR. RODRIGUES AT BEDSIDE GIVING FAMILY MEMBER AND PATIENT UPDATE. PATIENT WILL BE TRANSFERRED VIA [facility]. 02:06 Reassessment: ED provider ordered for blood transfusion stat type O negative rr5 uncrossmatch. request sent and consent signed. first unit of PRBC uncross match started by trevor ESTRADA double checked by Mohsen ESTRADA. 02:20 Reassessment: spoke to life flight staff "Vianca" report given and accepted the case. rr5 02:30 Reassessment: spoke to [facility] staff joseph report given and accepted the case. rr5 03:10 Reassessment: PATIENT LEFT VIA [facility] STAFF PER OSWALDO WITH NO COMPLICATIONS OR lw1 SIGNS OF DISTRESS. Vital Signs: 00:55 BP 128 / 72; Pulse 68; Resp 14; Pulse Ox 96% on R/A; sg 01:23 BP 136 / 108; Pulse 87; Resp 20; Temp 98.9(O); Pulse Ox 100% on R/A; Weight 47.63 kg; lw1 Height 5 ft. 2 in. (157.48 cm); Pain 6/10; 01:45 BP 111 / 92; Pulse 92; Resp 20; Temp 98.9; Pulse Ox 100% on R/A; Weight 47.17 kg; lw1 Height 5 ft. 2 in. (157.48 cm); Pain 8/10; 02:20 BP 170 / 149; Pulse 102; Resp 24; Pulse Ox 100% on R/A; rr5 01:45 Body Mass Index 19.02 (47.17 kg, 157.48 cm) lw1 ED Course: 00:53 Patient arrived in ED. sg 00:[address] via stretcher. sg 01:01 Triage completed. sg 01:01 Arm band placed on. sg 01:09 Michael Rodrigues MD is Attending Physician. tw4 01:15 Patient has correct armband on for positive identification. Placed in gown. Bed in low rr5 position. Call light in reach. Side rails up X2. stucco applicator on. Pulse ox on. NIBP on. Warm blanket given. 01:15 Inserted saline lock: 20 gauge in right antecubital area, using aseptic technique. rr5 Blood collected. 01:20 EKG done, by ED staff, reviewed by Michael Rodrigues MD. rr5 01:22 José Manuel Loo, RN is Primary Nurse. rv 01:22 Primary Nurse role handed off by José Manuel Loo, SEAN lw1 01:22 Trevor Francis RN is Primary Nurse. lw1 01:23 CT Stroke Brain w/o Contrast In Process Unspecified. EDMS 01:23 CT Abd/Pelvis - Without Contrast In Process Unspecified. EDMS 01:24 Cleaned of incontinence. Linen changed. rr5 01:27 No provider procedures requiring assistance completed. Initial lab(s) drawn, by ED lw1 staff, sent to lab. Inserted. Patient maintains SpO2 saturation greater than 95% on room air. 01:38 Inserted saline lock: 18 gauge in left antecubital area, using aseptic technique. rv 01:57 XRAY Chest (1 view) In Process Unspecified. EDMS 02:20 Assisted provider with central line placement. Set up central line tray. Triple lumen lw1 line placed in right femoral. Line placed by Michael Rodrigues MD Dressed with Tegaderm, Before procedure, did Practitioner(s) obtain informed consent? No. Patient \\T\\ family education about procedure, CLABSI prevention and S/S of infection? Yes. Accessed Administered Medications: 02:06 Drug: fentaNYL (PF) 12.5 mcg {Note: rass 0.} Route: IVP; Site: right antecubital; rr5 02:50 Follow up: Response: No adverse reaction; No change in condition; Pain is unchanged, rr5 physician notified; RASS: Alert and Calm (0) Point of Care Testing: Blood Glucose: 01:23 Blood Glucose: 195 mg/dL; lw1 Ranges: Outcome: 01:40 ER care complete, transfer ordered by . tw4 02:59 Transferred by helicopter to [facility], Transfer form completed. lw1 X-rays sent w/ patient. Note: ONE UNIT OF PACKED RED BLOOD CELLS [id number] ALONG WITH UNIT OF PRBC'S RUNNING AT TIME OF TRANSPORTATION [id number] 02:59 Condition: stable 02:59 Critical Care visit due to RUPTURE OF AAA. 03:05 Patient left the ED. rr5 Signatures: Dispatcher [employer] EDTavon Grimm, RN RN sg Michael Rodrigues MD MD tw4 José Manuel Loo RN RN rv Ramy White RN RN rr5 Trevor Francis RN RN lw1
--- NOTE | 2020-02-10 01:42 | EDPHYS ---
Physician Documentation [facility] Name: Cindy Sorto Age: 74 yrs Sex: Female : 1945 Arrival Date: 02/10/2020 Time: 00:53 Bed 4 Private MD: ED Physician Michael Gordon HPI: 02/09 01:36 This 74 yrs old Black Female presents to ER via EMS with complaints of Abdominal Pain. tw4 01:36 The patient presents with abdominal pain. Onset: The symptoms/episode began/occurred tw4 today. The symptoms do not radiate. Associated signs and symptoms: none. The symptoms are described as sharp. Modifying factors: The symptoms are alleviated by nothing, the symptoms are aggravated by alcohol. The patient has not experienced similar symptoms in the past. Historical: - Allergies: 00:55 NKDA; sg - Home Meds: 01:44 Albuterol Inhl [Active]; simvastatin 20 mg Oral tab [Active]; aspirin 81 mg Oral chew 1 lw1 tab once daily [Active]; cholecalciferol (vitamin D3) 1,000 unit Oral tab [Active]; clonidine HCl 0.1 mg Oral tab [Active]; docusate sodium 100 mg Oral cap [Active]; hydrochlorothiazide 25 mg Oral tab 1 tab once daily [Active]; hydrocodone-acetaminophen 7.5-325 mg Oral tab [Active]; lactulose 20 gram/30 mL Oral soln [Active]; Magnesium Oxide Oral daily [Active]; megestrol 40 mg Oral tab [Active]; metoprolol succinate Oral [Active]; Miralax 17 gram/dose Oral powd [Active]; pantoprazole 40 mg Oral TbEC [Active]; povidone-iodine miscellaneous [Active]; - PMHx: 00:55 AAA; Hyperlipidemia; Hypertension; Polio; sg - Immunization history:: Adult Immunizations unknown. - Social history:: Smoking status: unknown. - Code Status:: Full code. ROS: 01:36 Constitutional: Negative for fever, chills, and weight loss, Cardiovascular: Negative tw4 for chest pain, palpitations, and edema, Respiratory: Negative for shortness of breath, cough, wheezing, and pleuritic chest pain, MS/Extremity: Negative for injury and deformity, Skin: Negative for injury, rash, and discoloration, Neuro: Negative for headache, weakness, numbness, tingling, and seizure. 01:36 Abdomen/GI: Positive for abdominal pain, Negative for nausea and vomiting, nausea, vomiting, and diarrhea, nausea, vomiting, diarrhea, black/tarry stool, rectal pain, rectal bleeding. Exam: 01:36 Constitutional: This is a well developed, well nourished patient who is awake, alert, tw4 and in no acute distress. Head/Face: Normocephalic, atraumatic. Neck: Trachea midline, no thyromegaly or masses palpated, and no cervical lymphadenopathy. Supple, full range of motion without nuchal rigidity, or vertebral point tenderness. No Meningismus. Chest/axilla: Normal chest wall appearance and motion. Nontender with no deformity. No lesions are appreciated. Cardiovascular: Regular rate and rhythm with a normal S1 and S2. No gallops, murmurs, or rubs. Normal PMI, no JVD. No pulse deficits. Respiratory: Lungs have equal breath sounds bilaterally, clear to auscultation and percussion. No rales, rhonchi or wheezes noted. No increased work of breathing, no retractions or nasal flaring. 01:36 Back: No spinal tenderness. No costovertebral tenderness. Full range of motion. Skin: Warm, dry with normal turgor. Normal color with no rashes, no lesions, and no evidence of cellulitis. 01:36 Abdomen/GI: Inspection: abdomen appears normal, Bowel sounds: normal, Palpation: mass, that is pulsatile, Rectal exam: Vital Signs: 00:55 BP 128 / 72; Pulse 68; Resp 14; Pulse Ox 96% on R/A; sg 01:23 BP 136 / 108; Pulse 87; Resp 20; Temp 98.9(O); Pulse Ox 100% on R/A; Weight 47.63 kg; lw1 Height 5 ft. 2 in. (157.48 cm); Pain 6/10; 01:45 BP 111 / 92; Pulse 92; Resp 20; Temp 98.9; Pulse Ox 100% on R/A; Weight 47.17 kg; lw1 Height 5 ft. 2 in. (157.48 cm); Pain 8/10; 02:20 BP 170 / 149; Pulse 102; Resp 24; Pulse Ox 100% on R/A; rr5 01:45 Body Mass Index 19.02 (47.17 kg, 157.48 cm) lw1 Procedures: 02:23 Central Line: the site was prepped with Betadine, in sterile fashion, a triple lumen tw4 catheter was inserted, in the right femoral vein, in 1 attempts. placement was verified, by blood return, the site was dressed with using sterile technique, the patient tolerated the procedure, well. MDM: 01:09 Patient medically screened. tw4 01:36 Data reviewed: vital signs, nurses notes, lab test result(s), cardiac enzymes, troponin tw4 i, CBC, hepatic panel, EKG, radiologic studies, CT scan. Counseling: I had a detailed discussion with the patient and/or guardian regarding: the historical points, exam findings, and any diagnostic results supporting the discharge/admit diagnosis, lab results. 01:36 Differential diagnosis: AAA, acute coronary syndrome, coronary artery disease, tw4 gastritis, GI Bleed, Hepatitis, non-specific abd pain, pancreatitis, Peptic Ulcer Disease, Peritonitis. Data interpreted: monitoring analyst: rhythm is regular, Pulse oximetry: Interpretation: normal. 02:24 Medication response: fentanyl. Response to treatment: the patient's symptoms have tw4 mildly improved after treatment, and as a result, I will admit patient. ED course: Pt given 25mcg fentanyl IV and pt was given 2 units of uncrossed unmatched blood. Femoral central line placed without difficulty. 02/09 01:11 Order name: Basic Metabolic Panel; Complete Time: 02:02 02/09 02:02 Interpretation: GLUC 190; K 3.4; GFR 51. 02/09 01:11 Order name: CBC with Diff; Complete Time: 02:02 02/09 02:03 Interpretation: Normal except: HGB 10.2; HCT 31.4; WBC 16.6. 02/09 01:11 Order name: LFT's; Complete Time: 02:02 02/09 02:03 Interpretation: Normal except: AST 14; BILIT 1.1; BILID 0.3. 02/09 01:11 Order name: Magnesium; Complete Time: 02:02 02/09 01:11 Order name: NT PRO-BNP; Complete Time: 02:02 02/09 01:11 Order name: PT-INR; Complete Time: 02:02 02/09 02:03 Interpretation: PT 14.1. 02/09 00:54 Order name: CT Stroke Brain w/o Contrast 02/09 00:59 Order name: CT Abd/Pelvis - Without Contrast 02/09 01:11 Order name: Troponin (emerg Dept Use Only); Complete Time: 02:02 02/09 01:11 Order name: XRAY Chest (1 view) 02/09 01:31 Order name: TS sg 02/09 01:50 Order name: Packed RBC Leukored EDMN 02/09 01:50 Order name: RBC Leukored Pheresis [facility] 02/09 01:11 Order name: EKG; Complete Time: 01:12 02/09 01:11 Order name: Cardiac monitoring; Complete Time: :02/09 01:11 Order name: EKG - Nurse/Tech; Complete Time: :02/09 01:11 Order name: IV Saline Lock; Complete Time: :02/09 01:11 Order name: Labs collected and sent; Complete Time: :02/09 01:11 Order name: O2 Per Protocol; Complete Time: :02/09 01:11 Order name: O2 Sat Monitoring; Complete Time: 02/09 01:44 Order name: Transfuse; Complete Time: 02:43 EC:36 Rate is 96 beats/min. Rhythm is regular with Occasional PVCs. QRS [place] is Normal. RI tw4 interval is normal. QRS interval is normal. QT interval is normal. No Q waves. T waves are Normal. No ST changes noted. Clinical impression: NSR w/ Non-specific ST/T Changes. Interpreted by me. Reviewed by me. Administered Medications: 02:06 Drug: fentaNYL (PF) 12.5 mcg {Note: rass 0.} Route: IVP; Site: right antecubital; rr5 02:50 Follow up: Response: No adverse reaction; No change in condition; Pain is unchanged, rr5 physician notified; RASS: Alert and Calm (0) Point of Care Testing: Blood Glucose: 01:23 Blood Glucose: 195 mg/dL; lw1 Ranges: Critical Glucose Levels:Adult <50 mg/dl or >400 mg/dl <40 mg/dl or >180 mg/dl Disposition: 02/10/20 01:[address] [facility]. Diagnosis is Thoracoabdominal aortic aneurysm, ruptured. - Reason for transfer: Higher level of care. - Accepting physician is Dr Montalvo. - Condition is Stable. - Problem is an ongoing problem. - Symptoms are unchanged. Critical care time excluding procedures: 02:24 Critical care time: Bedside Care: 40 minutes, Consultation: 5 minutes, Family tw4 Intervention: 5 minutes. Total time: 50 minutes Signatures: Dispatcher [employer] EDMS Tavon Pope, RN RN sg Michael Gordon MD MD tw4 Ramy White RN RN rr5 Brian Francis RN RN lw1 Corrections: (The following items were deleted from the chart) 02:01 01:40 02/10/2020 01:[address] [facility]. tw4 Diagnosis is Thoracoabdominal aortic aneurysm, ruptured. Reason for transfer: Higher level of care. Accepting physician is Vascular. Condition is Stable. Problem is an ongoing problem. Symptoms are unchanged. tw4 02:05 01:12 Chest Abdomen W/ Con+CT.RAD.BRZ ordered. [facility] EDMN 03:05 02:01 02/10/2020 01:[address] [facility]. rr5 Diagnosis is Thoracoabdominal aortic aneurysm, ruptured. Reason for transfer: Higher level of care. Accepting physician is Dr Montalvo. Condition is Stable. Problem is an ongoing problem. Symptoms are unchanged. tw4
[2020-02-10 01:45] LABS: ALT/SGPT 12 U/L (12-78); AST/SGOT 14 U/L (15-37); Albumin 3.8 g/dL (3.4-5.0); Alkaline Phosphatase 57 U/L (45-117); BUN Blood Urea Nitrogen 17 mg/dL (7-18); Bicarbonate 23 mmol/L (21-32); Bilirubin Direct 0.3 mg/dL (0-0.2); Bilirubin Total 1.1 mg/dL (0.2-1.0); Glucose Level 190 mg/dL (74-106); Magnesium 2.1 mg/dL (1.8-2.4); NT PRO-BNP 844 pg/mL (<450); Potassium 3.4 mmol/L (3.5-5.1); Protein, Total 6.9 g/dL (6.4-8.2); Sodium Level 136 mmol/L (136-145); Troponin (Emerg Dept Use Only) < 0.02 ng/mL (0.0-0.045)
[2020-02-10] MEDS ORDERED: NA CHLORIDE 0.9% 100 ML IV ONE ×2 (01:53→02:51)
[2020-02-10 01:55] LABS: Protime INR 1.2
[2020-02-10] MEDS ORDERED: FENTANYL CITR 100 MCG/2 ML ONE (02:08)
[2020-02-10 03:20] VITALS: TEMP 98.9; O2SAT 100
[2020-02-10 03:23] VITALS: BP 170/149
--- NOTE | 2020-02-10 05:24 | EKG ---
Test Date: 2020-02-10 Test Time: 01:17:04 Subgrade Roller Operator: RV MEASUREMENT RESULTS: Intervals: Rate: 96 VT: 112 QRSD: 70 QT: 344 QTc: 434 [place]: P: 12 VT: 112 QRS: 70 T: 71 INTERPRETIVE STATEMENTS: Sinus rhythm with occasional premature ventricular complexes Minimal voltage criteria for LVH, may be normal variant Borderline ECG Compared to ECG 12/31/2019 07:27:56 Ventricular premature complex(es) now present Left ventricular hypertrophy now present T-wave abnormality no longer present Electronically Signed On 02-10-20 05:23:37 CDT by Tino Damon
--- NOTE | 2020-02-10 07:16 | RAD REPORT ---
EXAM DESCRIPTION: Adrien Single View02/10/2020 1:57 am CLINICAL HISTORY: Chest pain COMPARISON: December 2019 FINDINGS: The lungs are hyperaerated. The lungs appear clear of acute infiltrate. The heart is normal size IMPRESSION: COPD without visualization acute abnormality
--- NOTE | 2020-02-10 12:17 | RAD REPORT ---
EXAM DESCRIPTION: CT - Ct Stroke Brain Wo Cont - 02/10/2020 2:55 am CLINICAL HISTORY: Confused;Aphasia COMPARISON: None. TECHNIQUE: CT HEAD WITHOUT IV CONTRAST on 02/10/2020 12:54 AM CDT This exam was performed according to our departmental dose-optimization program, which includes autom ated exposure control, adjustment of the mA and/or kV according to patient size and/or use of iterati ve reconstruction technique. FINDINGS: There is no acute hemorrhage, mass effect or midline shift. Lovett-white differentiation is preserved. There is no hydrocephalus. There is no significant volume loss for age. There are mild pat jade hypodensities within the periventricular and subcortical white matter, consistent with microangio pathic ischemic changes. The calvarium is intact. Orbits and globes are unremarkable. The paranasal sinuses are clear. Mastoid air cells are clear. IMPRESSION: No acute intracranial findings. Electronically signed by: Mihir Marshall MD 02/10/2020 1:26 AM CDT Due to temporary technical issues with the PACS/Fluency reporting system, reports are being signed by the in house radiologist as a courtesy to ensure prompt reporting. The interpreting radiologist is f ully responsible for the content of the report.
--- NOTE | 2020-02-10 12:39 | RAD REPORT ---
EXAM DESCRIPTION: CT - Abdomen Pelvis Wo Contrast - 02/10/2020 2:56 am ADDENDUM #1 Clinical findings were discussed with and acknowledged by Dr. Michael Gordon on 02/10/2020 1:32 AM CD T. Electronically signed by: Mihir Marshall MD 02/10/2020 1:32 AM CDT End of Addendum CLINICAL HISTORY: DISSECTION COMPARISON: 04/25/2019. TECHNIQUE: CT ABDOMEN PELVIS WITHOUT IV CONTRAST on 02/10/2020 12:59 AM CDT This exam was performed according to our departmental dose-optimization program, which includes autom ated exposure control, adjustment of the mA and/or kV according to patient size and/or use of iterati ve reconstruction technique. FINDINGS: There is lower lung centrilobular emphysema. Abdomen: The liver is normal in appearance. There is no biliary dilatation. Gallbladder is poorly dis tended. The pancreas and spleen are normal in appearance. The right kidney is mildly atrophic and is displaced anteriorly. There is a small cyst in the midpole of the right kidney. Left kidney is mildly atrophic. Adrenal glands are poorly seen. Infrarenal abdominal aortic aneurysm measures at least 5.8 cm. There is a defect in the right lateral aspect of the mural calcifications with extension of hyperdense blood into the right retroperitoneum . There is no free air. There is no retroperitoneal adenopathy. Pelvis: There is no bowel obstruction. Urinary bladder is decompressed. There is no free fluid. Appen aleshia is not well seen. Skeleton: There are no acute osseous findings. No suspicious bony lesions. IMPRESSION: Ruptured 5.8 cm abdominal aortic aneurysm with extensive blood in the right retroperiton eum. Electronically signed by: Mihir Marhsall MD 02/10/2020 1:31 AM CDT Due to temporary technical issues with the PACS/Fluency reporting system, reports are being signed by the in house radiologist as a courtesy to ensure prompt reporting. The interpreting radiologist is f ully responsible for the content of the report.
== END 2020-02-10 03:05 | disposition short-term general hospital (02) ==
LOC: ER 00:47
PROC: 06HM33Z Insertion of Infusion Device into Right Femoral Vein, Percutaneous Approach (ICD-10-PCS; principal; 2020-02-10)
PROC: 30233N1 Transfusion of Nonautologous Red Blood Cells into Peripheral Vein, Percutaneous Approach (ICD-10-PCS; 2020-02-10)
DX: I71.5 Thoracoabdominal aortic aneurysm, ruptured (principal); I10 Essential (primary) hypertension; E78.5 Hyperlipidemia, unspecified; Z79.82 Long term (current) use of aspirin
CPT/HCPCS: 93005; 85025; 80048; 36415; 86900; 83735; 86850; 85610; 86870; 86901; 82947; 80076; 84484; 86922 ×2; 83880; 74176; 70450; 71045; 36556; 36430; J3010; P9016 ×2; J7030; 96374; 99285